=== PATIENT | female | born 1960 | race Caucasian/White ===

== ENCOUNTER 2023-12-02 18:44 | Inpatient (IN) | payer MEDICARE, OTHER, SELFPAY ==
[2023-12-02 13:30] VITALS: BP 134/87
[2023-12-02 13:31] VITALS: BP 134/87
[2023-12-02] MEDS: CATHFLO/ACTIVASE 2 MG IV (14:40)
[2023-12-02 15:00] LABS: Urine Albumin Trace (Neg - Trace); Urine Bilirubin 1+ (Negative); Urine Character Clear (Clear); Urine Color Yellow; Urine Glucose Negative (Negative); Urine Ketone Trace (Negative); Urine Leukocyte Negative (Negative); Urine Nitrite Negative (Negative); Urine Occult Blood Negative (Negative); Urine Specific Gravity 1.015 (<1.030); Urine Urobilinogen Negative (Neg - 1+)
[2023-12-02 16:37] LABS: % Basophils 0.2 % (0-2); % Eosinophils 4.3 % (0-6); % Immature Granulocytes 0.2 % (0-0.5); % Lymphocytes 26.2 % (20.5-51.1); % Monocytes 12.2 % (1.7-9.3); % Neutrophils 56.9 % (42.2-75.2); Absolute Eosinophils 0.2 10^3/uL (0-0.7); Absolute Lymphocytes 1.3 10^3/uL (1.2-3.4); Absolute Monocytes 0.6 10^3/uL (0.1-0.6); Absolute Neutrophils 2.8 10^3/uL (1.4-6.5); Hematocrit 31.8 % (37.0-47.0); Hemoglobin 10.6 g/dL (12.0-16.0); Mean Corp Hgb Conc. 33.3 g/dL (33.0-37.0); Mean Corpuscular Hgb 31.4 pg (27.0-31.0); Mean Corpuscular Volume 94.1 fL (81.0-99.0); Mean Platelet Volume 10.1 fL (7.4-10.4); Nucleated Red Blood Cells % 0 %; Platelet Count 179 10^3/uL (130-400); Red Blood Cell Count 3.38 10^6/uL (4.20-5.40); Red Cell Dist. Width 14.4 % (11.5-14.5); White Blood Cell Count 4.8 10^3/uL (4.8-10.8)
[2023-12-02 17:05] LABS: ALT (SGPT) 19 U/L (0-35); AST (SGOT) 26 U/L (14-36); Albumin 2.7 g/dl (3.5-5.0); Alkaline Phosphatase 64 U/L (38-126); Blood Urea Nitrogen 16 mg/dl (7-17); Calcium 5.8 mg/dl (8.4-10.2); Carbon Dioxide 17 mmol/L (22-30); Chloride 113 mmol/L (98-107); Glucose 84 mg/dl (70-99); Potassium 3.6 mmol/L (3.5-5.1); Sodium 138 mmol/L (135-145); Total Bilirubin 3.3 mg/dl (0.2-1.3); eGFR 42.54
[2023-12-02 17:22] LABS: TSH Reflex To Free T4 1.69 uIU/ml (0.47-4.68)
[2023-12-02 17:47] LABS: Ammonia < 9 umol/L (9-30)
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
[2023-12-02] MEDS: ATIVAN 0.25 MG IV ×2 (18:52→22:23)
[2023-12-02] MEDS: NSS (PRESERVATIVE FREE) 0.125 ML IV ×2 (18:56→22:34)
[2023-12-02 19:35] VITALS: BMI 17.4
[2023-12-02] MEDS: SODIUM BICARBONATE 50 MEQ IV (19:40)
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
--- NOTE | 2023-12-02 20:00 | PTCARENOTE ---
Pt arrived to unit from ED and was a x2 assist into bed with rolling walker. Pt remains confused and AAOx1 to self. Bed alarm and Med Sitter in place. Will continue to monitor.
[2023-12-02 20:01] VITALS: BP 138/83
[2023-12-02] MEDS: NSS 1000 IV (20:16)
[2023-12-02] MEDS: CALCIUM GLUCONATE 290 MG IV (20:17)
[2023-12-02] MEDS: UROCIT-K 15 MEQ PO (21:40)
[2023-12-02] MEDS: NEURONTIN 100 MG PO (21:40)
[2023-12-02] MEDS: RISPERDAL 0.5 MG PO (21:40)
[2023-12-02] MEDS: LOPRESSOR 50 MG PO (21:40)
[2023-12-02] MEDS: SEROQUEL 25 MG PO (21:40)
[2023-12-02] MEDS: BRILINTA 90 MG PO (21:42)
[2023-12-02] MEDS: HEPARIN 5000 UNITS SC (21:43)
[2023-12-02 21:59] LABS: Calcium 8.4 mg/dl (8.4-10.2); Magnesium 0.4 mg/dl (1.6-2.3); Phosphorus 4.4 mg/dl (2.5-4.5)
[2023-12-02] MEDS: BUSPAR 10 MG PO (22:02)
[2023-12-02 22:06] LABS: Intact PTH 75.4 pg/ml (13.6-85.8)
[2023-12-02 22:49] LABS: Vitamin D, 25-OH*** 42.9 ng/mL (30-80)
[2023-12-02 23:26] VITALS: BP 116/79
[2023-12-02] MEDS: MAGNESIUM SULFATE 102 GRAMS IV (23:46)
[2023-12-03] VITALS (7 sets, daily range): BP systolic 136–163; BP diastolic 83–97
--- NOTE | 2023-12-03 00:09 | PTCARENOTE ---
Pt has had 4 loose/liquid brown stools during shift. Will make pt enhanced precautions for now and continue to monitor.
--- NOTE | 2023-12-03 00:17 | PTCARENOTE ---
Pt with critical magnesium level of 0.4. [place] [employer]OVING HAND Tuyet Bingham notified, order for 1x IV Magnesium provided to pt. Will continue to monitor.
--- NOTE | 2023-12-03 03:48 | W.PN.UPDATE ---
Update Note
Progress Note Update
Patient is without agitation per nursing..will trial medsitter.
--- NOTE | 2023-12-03 04:01 | PTCARENOTE ---
Pt resting comfortably in bed without making attempts to get OOB and is no longer combative. Pt remains on Med Sitter and 1:1 order cancelled by TAMIA Bingham. Will continue to monitor.
[2023-12-03 04:44] LABS: % Eosinophils 6.4 % (0-6); % Immature Granulocytes 0.2 % (0-0.5); % Lymphocytes 39.1 % (20.5-51.1); % Monocytes 11.2 % (1.7-9.3); % Neutrophils 43.1 % (42.2-75.2); Absolute Eosinophils 0.3 10^3/uL (0-0.7); Absolute Lymphocytes 1.6 10^3/uL (1.2-3.4); Absolute Monocytes 0.5 10^3/uL (0.1-0.6); Absolute Neutrophils 1.8 10^3/uL (1.4-6.5); Hematocrit 28.4 % (37.0-47.0); Hemoglobin 9.5 g/dL (12.0-16.0); Mean Corp Hgb Conc. 33.5 g/dL (33.0-37.0); Mean Corpuscular Hgb 31.8 pg (27.0-31.0); Mean Platelet Volume 9.9 fL (7.4-10.4); Nucleated Red Blood Cells % 0 %; Platelet Count 140 10^3/uL (130-400); Red Blood Cell Count 2.99 10^6/uL (4.20-5.40); Red Cell Dist. Width 14.3 % (11.5-14.5); White Blood Cell Count 4.2 10^3/uL (4.8-10.8)
[2023-12-03 05:35] LABS: ALT (SGPT) 17 U/L (0-35); AST (SGOT) 21 U/L (14-36); Albumin 2.1 g/dl (3.5-5.0); Alkaline Phosphatase 77 U/L (38-126); Blood Urea Nitrogen 13 mg/dl (7-17); Calcium 6.8 mg/dl (8.4-10.2); Carbon Dioxide 19 mmol/L (22-30); Chloride 114 mmol/L (98-107); Estimated Creatinine Clearance 36 ml/min; Glucose 75 mg/dl (70-99); Potassium 3.2 mmol/L (3.5-5.1); Sodium 140 mmol/L (135-145); Total Bilirubin 3.2 mg/dl (0.2-1.3); eGFR 51.18
[2023-12-03] MEDS: ATIVAN 0.25 MG IV (06:05)
[2023-12-03] MEDS: NSS (PRESERVATIVE FREE) 0.125 ML IV (06:06)
[2023-12-03 07:03] LABS: Magnesium 0.8 mg/dl (1.6-2.3)
--- NOTE | 2023-12-03 07:07 | PTCARENOTE ---
Pt's calcium level this AM was 6.8. House [employer] ADMINISTRATOR Tuyet Bingham notified, order for 1x IV calcium gluconate ordered. Will continue to monitor.
[2023-12-03] MEDS: CALCIUM GLUCONATE 100 IV (07:28)
[2023-12-03] MEDS: UROCIT-K 15 MEQ PO ×2 (08:26→19:34)
[2023-12-03] MEDS: VITAMIN B-12 100 MCG PO (08:28)
[2023-12-03] MEDS: NEURONTIN 100 MG PO ×3 (08:28→21:05)
[2023-12-03] MEDS: BRILINTA 90 MG PO ×2 (08:28→20:00)
[2023-12-03] MEDS: SEROQUEL 25 MG PO (08:28)
[2023-12-03] MEDS: SENOKOT 8.59999999999999964 MG PO (08:28)
[2023-12-03] MEDS: BUSPAR 10 MG PO ×3 (08:28→21:05)
[2023-12-03] MEDS: RISPERDAL 0.5 MG PO (08:28)
[2023-12-03] MEDS: CELEXA 10 MG PO (08:28)
[2023-12-03] MEDS: LOW STRENGTH ASPIRIN 81 MG PO (08:28)
[2023-12-03] MEDS: VITAMIN D3 (cholecalciferol) 50 MCG PO (08:28)
[2023-12-03] MEDS: PEPCID 20 MG PO (08:28)
[2023-12-03] MEDS: LOPRESSOR 50 MG PO ×2 (08:29→19:36)
[2023-12-03] MEDS: HEPARIN 5000 UNITS SC ×2 (08:30→19:39)
[2023-12-03] MEDS: MIRALAX 17 GRAMS PO (08:30)
[2023-12-03] MEDS: STRIVERDI RESPIMAT 2 PUFF INH (08:46)
[2023-12-03] MEDS: SPIRIVA RESPIMAT 2.5 MCG 2 PUFF INH (08:46)
--- NOTE | 2023-12-03 09:35 | PTCARENOTE ---
Patient with continuous attempts to get out of bed unassisted, yelling at staff, swinging at and kicking at staff repeatedly. Bed alarm and AM psychiatric medications ineffective in reducing behaviors. Order for 4-point soft limb restraints obtained
by MD Garrison at 0928 and applied. Will continue to assess behavior and effects of restraints.
[2023-12-03] MEDS: NSS 1000 IV ×2 (11:39→21:29)
--- NOTE | 2023-12-03 12:03 | CON.MD ---
Consultation - Medical
-
patient seen chart reviewed. the patient is a very poor historian who is oriented only top person. she did ask for soft restraints to be removed but could not tell me why she was here or what had happened this am to provoke restraints. i did speak
with her daughter who reports her mother's has hx of depression and anxiety over the years but her mental status declined signficiantly after she suffered several strokes in the summer. irritability has been a major issue for which seroquel was
prescribed and increased from 12.5 q day to 50 mg bid then stopped as it was not effective. she was residing at [facility] and d reports her condition has been seriously deteriorating even further for the past three weeks and she has
requested that they send the patient to the ER. son is a nurse. d believes she was also prescribed celexa, trazodone, remeron at some point. the patient was very agitated this am ongoing and was placed in restraints. she had been prescribed celexa
10 mg risperdal o.5 mg bid seroquel 25 mg bid, gabapentin 100 mg tid buspar 10 mg tid on admit to hospital.
past psych hx see above. hospitalized as a teenager for depression. cognitive changes after cva as well as agitation /mood lability
medical hx see electrolyte abnormalities....patient recently hospitalized at [facility] and similar noted. hx crohns copd hx several cva's htn hld as per d. noted qtc 521. anemia cat brain w atrophy cva small vessel ischemia urine w
bilirubin otherwise clear tsh wnl vit d 40+ blood pressure variable high this am. constipation gerd
fh non contributory
substance abuse denied
social was residing at [place]. d not happy w the care there. three kids two grands. patient unable to tell me this information which d provided
mse patient restless eye contact adequate speech sparse what little she said seemed normal rate and tone oriented to person only cognition impaired affect constricted mood irritable insight judgment impaired
dx delirium superimposed on what seems to be possibly dementia or brain injury secondary to cva
recommendation many abnormalities in electrolytes which of course need to be addressed. patient also quite anemic ? cause. given qtc prolongation stop seroquel and celexa neither of which had proven helpful. increase risperdal to one mg bid
continued buspar for now although not clear whether it can help here. ativan prn inc to o.5 mg continue neurontin which i presume is for neuropathy. check b12 and folate. d would like aricept, namenda etc to be considered when/if delirium
resolves. will follow
[2023-12-03] MEDS: ATIVAN 0.5 MG IV ×2 (12:44→19:38)
[2023-12-03] MEDS: NSS (PRESERVATIVE FREE) 0.25 ML IV ×2 (12:44→19:38)
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
--- NOTE | 2023-12-03 15:58 | CM ---
Chart reviewed
Pt agitated/confused, unable to answer questions
Spoke with Rose at [facility] - pt is LTC and there is a bed hold
Spoke with pts daughter, discussed pts baseline - agitated/confused. Reporting mother more disoriented and agitated recently
Unsure if she would like pt to return to [facility]. Far from relatives. Instructed to go to medicare.gov and look for alternate facilities. Aware pt may have to return to [facility] when medically ready pending search
PCP - Dr López
Pharm - at facility provider
Plan - anticipate return to previous setting when medically ready
[2023-12-03] MEDS: LIPITOR 40 MG PO (17:31)
--- NOTE | 2023-12-03 18:03 | CHAP ---
Addendum entered by Vivian Roger 12/08/23 09:01:
Note: it appears the original note below should be a 'patient care' note rather than a 'pastoral care' note.
Original Note:
patient has no teeth ,offered patient to wash out mouth patient refused.
[2023-12-03] MEDS: RISPERDAL 1 MG PO (19:52)
[2023-12-04] MEDS: TYLENOL 650 MG PO (01:42)
[2023-12-04] MEDS: ATIVAN 0.5 MG IV ×2 (02:40→08:55)
[2023-12-04] MEDS: NSS (PRESERVATIVE FREE) 0.25 ML IV (02:40)
[2023-12-04 03:00] VITALS: BP 171/89
[2023-12-04 06:13] LABS: % Basophils 0.4 % (0-2); % Eosinophils 7.1 % (0-6); % Immature Granulocytes 0.2 % (0-0.5); % Lymphocytes 36.5 % (20.5-51.1); % Monocytes 8.9 % (1.7-9.3); % Neutrophils 46.9 % (42.2-75.2); Absolute Eosinophils 0.3 10^3/uL (0-0.7); Absolute Lymphocytes 1.6 10^3/uL (1.2-3.4); Absolute Monocytes 0.4 10^3/uL (0.1-0.6); Absolute Neutrophils 2.1 10^3/uL (1.4-6.5); Hematocrit 31.3 % (37.0-47.0); Hemoglobin 10.3 g/dL (12.0-16.0); Mean Corp Hgb Conc. 32.9 g/dL (33.0-37.0); Mean Corpuscular Hgb 31.2 pg (27.0-31.0); Mean Corpuscular Volume 94.8 fL (81.0-99.0); Mean Platelet Volume 9.9 fL (7.4-10.4); Nucleated Red Blood Cells % 0 %; Platelet Count 158 10^3/uL (130-400); Red Cell Dist. Width 14.5 % (11.5-14.5); White Blood Cell Count 4.5 10^3/uL (4.8-10.8)
[2023-12-04 07:21] LABS: ALT (SGPT) 19 U/L (0-35); AST (SGOT) 24 U/L (14-36); Albumin 2.6 g/dl (3.5-5.0); Alkaline Phosphatase 95 U/L (38-126); Blood Urea Nitrogen 9 mg/dl (7-17); Calcium 6.3 mg/dl (8.4-10.2); Carbon Dioxide 20 mmol/L (22-30); Chloride 116 mmol/L (98-107); Estimated Creatinine Clearance 44 ml/min; Glucose 83 mg/dl (70-99); Potassium 3.2 mmol/L (3.5-5.1); Sodium 140 mmol/L (135-145); Total Bilirubin 3.4 mg/dl (0.2-1.3); Total Protein 5.5 g/dl (6.3-8.2); eGFR > 60.00
[2023-12-04 07:30] VITALS: BP 151/94
[2023-12-04 07:41] LABS: Folate 7.7 ng/ml (2.76-20); Vitamin B12 184 pg/ml (239-931)
[2023-12-04] MEDS: STRIVERDI RESPIMAT INH (07:51)
[2023-12-04] MEDS: SPIRIVA RESPIMAT 2.5 MCG INH (07:51)
[2023-12-04] MEDS: HEPARIN 5000 UNITS SC ×2 (08:17→19:30)
[2023-12-04] MEDS: MIRALAX 17 GRAMS PO (08:17)
[2023-12-04] MEDS: UROCIT-K 15 MEQ PO ×2 (08:18→19:29)
[2023-12-04] MEDS: VITAMIN B-12 100 MCG PO (08:18)
[2023-12-04] MEDS: LOW STRENGTH ASPIRIN 81 MG PO (08:18)
[2023-12-04] MEDS: VITAMIN D3 (cholecalciferol) 50 MCG PO (08:18)
[2023-12-04] MEDS: NEURONTIN 100 MG PO ×3 (08:19→21:54)
[2023-12-04] MEDS: SENOKOT 8.59999999999999964 MG PO (08:19)
[2023-12-04] MEDS: LOPRESSOR 50 MG PO ×2 (08:19→19:29)
[2023-12-04] MEDS: RISPERDAL 1 MG PO ×2 (08:19→19:30)
[2023-12-04] MEDS: PEPCID 20 MG PO (08:19)
[2023-12-04] MEDS: BUSPAR 10 MG PO ×3 (08:19→21:54)
[2023-12-04] MEDS: BRILINTA 90 MG PO ×2 (08:20→19:30)
--- NOTE | 2023-12-04 09:53 | PN.CDI ---
CDI
- -
CDI:
Physician Documentation Request
Admit Date: 12/02/23 18:44
Dear Doctor Bladimir,
Patient admitted with metabolic encephalopathy.
Please review the following and provide your response in the progress notes.
Clinical Indicators:
Height: 5' 5'
Weight: 104 lb 12 oz
BMI: 17.4
Please provide an associated diagnosis related to the abnormal BMI, such as:
Underweight
Cachectic
Anorexia
BMI is not significant
Other
BMI < or = to 19
Underweight
Weight Loss
Cachectic
Anorexia
Use of terms such as suspected, likely, concern for, or probable (associated with a specific diagnosis that is being evaluated, monitored, or treated as if it exists) are acceptable and can be coded in the inpatient setting, when documented at the
time of discharge.
Thank you,
Manju HERMOSILLO,RN,CCDS
CDI Specialist
Available via [place] text
Please use your independent medical judgment in providing your response.
[2023-12-04] MEDS: KCL 1032 GRAMS IV ×2 (11:17→21:50)
[2023-12-04] MEDS: KCL 1032 MG IV ×2 (11:17→21:50)
[2023-12-04] MEDS: KCL 1032 MEQ IV ×2 (11:17→21:50)
[2023-12-04 11:28] VITALS: BP 165/119
[2023-12-04] MEDS: ATIVAN 0.5 MG PO ×2 (12:43→19:26)
--- NOTE | 2023-12-04 13:15 | W.PN.UPDATE ---
Update Note
Progress Note Update
patient seen chart reviewed. discussed w nursing. mrs oseguera had a rather difficult morning. daughter asked nursing if ativan could be increased as she was hoping mom could be out of restraints. patient did receive a prn of ativan and calmed
sufficiently to be out of restraints when i saw her. have ordered standing bid dosage of ativan while hopefully the risperdal ordered yesterday will provide some relief from agitation in the near future. there is a prn of ativan which can be used
twice per 24 hours . will continue to follow
[2023-12-04 13:17] VITALS: BMI 17.4
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
[2023-12-04 15:56] VITALS: BP 167/110
[2023-12-04] MEDS: LIPITOR 40 MG PO (17:45)
[2023-12-04 20:19] VITALS: BP 165/121
[2023-12-05] VITALS (7 sets, daily range): BP systolic 109–169; BP diastolic 81–112
[2023-12-05] MEDS: ATIVAN 0.5 MG PO ×3 (01:06→21:04)
[2023-12-05 03:55] LABS: Ionized Calcium 0.98 mMOL/L (1.15-1.33)
[2023-12-05 04:58] LABS: ALT (SGPT) 19 U/L (0-35); AST (SGOT) 25 U/L (14-36); Albumin 2.6 g/dl (3.5-5.0); Alkaline Phosphatase 116 U/L (38-126); Blood Urea Nitrogen 8 mg/dl (7-17); Calcium 7.1 mg/dl (8.4-10.2); Carbon Dioxide 19 mmol/L (22-30); Chloride 114 mmol/L (98-107); Estimated Creatinine Clearance 49 ml/min; Glucose 91 mg/dl (70-99); Magnesium 1.7 mg/dl (1.6-2.3); Potassium 4.5 mmol/L (3.5-5.1); Sodium 138 mmol/L (135-145); Total Bilirubin 4.3 mg/dl (0.2-1.3); Total Protein 5.7 g/dl (6.3-8.2); eGFR > 60.00
[2023-12-05] MEDS: UROCIT-K 15 MEQ PO ×2 (07:39→21:04)
[2023-12-05] MEDS: LOW STRENGTH ASPIRIN 81 MG PO (07:40)
[2023-12-05] MEDS: LOPRESSOR 50 MG PO ×2 (07:40→21:04)
[2023-12-05] MEDS: RISPERDAL 1 MG PO ×2 (07:40→21:04)
[2023-12-05] MEDS: SENOKOT 8.59999999999999964 MG PO (07:40)
[2023-12-05] MEDS: PEPCID 20 MG PO (07:40)
[2023-12-05] MEDS: VITAMIN D3 (cholecalciferol) 50 MCG PO (07:40)
[2023-12-05] MEDS: NEURONTIN 100 MG PO ×3 (07:40→21:04)
[2023-12-05] MEDS: KCL 1032 MG IV ×2 (07:41→17:56)
[2023-12-05] MEDS: VITAMIN B-12 100 MCG PO (07:41)
[2023-12-05] MEDS: HEPARIN 5000 UNITS SC ×2 (07:41→21:04)
[2023-12-05] MEDS: KCL 1032 MEQ IV ×2 (07:41→17:56)
[2023-12-05] MEDS: BUSPAR 10 MG PO ×3 (07:41→21:04)
[2023-12-05] MEDS: KCL 1032 GRAMS IV ×2 (07:41→17:56)
[2023-12-05] MEDS: BRILINTA 90 MG PO ×2 (07:41→21:04)
[2023-12-05] MEDS: MIRALAX 17 GRAMS PO (07:41)
[2023-12-05] MEDS: SPIRIVA RESPIMAT 2.5 MCG INH (08:01)
[2023-12-05] MEDS: STRIVERDI RESPIMAT INH (08:01)
--- NOTE | 2023-12-05 14:31 | W.PN.UPDATE ---
Update Note
Progress Note Update
patient seen chart reviewed/spoke with dr brunner. the patient when seen was quietly in bed. i did note that her feet and hands were very cold and staff got her some warm blankets. released her from restraints for the moment without incident.
staff was aware. no changes made in meds. dr brunner and i discussed low calcium and high bilirubin the latter not likely significant patient does not seem to have much of an appetite certified nursing attendant called dietary to ask for soft diet as patient
without teeth and seemed to have trouble chewing. psych will follow
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
[2023-12-05] MEDS: LIPITOR 40 MG PO (17:56)
[2023-12-06] MEDS: ATIVAN 0.5 MG PO ×3 (00:13→21:05)
--- NOTE | 2023-12-06 00:35 | PTCARENOTE ---
Renetta JOHN aware that Pt's IVF completed in the orders. per notes from hospitalist today it states to continue ivf. The current bag infusing has potassium, calcium and magnesium additives. Renetta was made aware of lab values from the
morning. She states to let the current bag finish and then will reevaluate once her morning labs come back.
[2023-12-06 03:00] VITALS: BP 140/100
[2023-12-06 07:20] VITALS: BP 164/97
[2023-12-06] MEDS: SPIRIVA RESPIMAT 2.5 MCG INH ×2 (07:24→07:30)
[2023-12-06] MEDS: STRIVERDI RESPIMAT INH ×2 (07:26→07:30)
[2023-12-06] MEDS: UROCIT-K 15 MEQ PO (08:36)
[2023-12-06] MEDS: LOPRESSOR 50 MG PO ×2 (08:36→21:05)
[2023-12-06] MEDS: PEPCID 20 MG PO (08:36)
[2023-12-06] MEDS: NEURONTIN 100 MG PO ×3 (08:36→21:06)
[2023-12-06] MEDS: VITAMIN D3 (cholecalciferol) 50 MCG PO (08:36)
[2023-12-06] MEDS: BUSPAR 10 MG PO ×3 (08:36→21:06)
[2023-12-06] MEDS: BRILINTA 90 MG PO ×2 (08:36→21:05)
[2023-12-06] MEDS: SENOKOT 8.59999999999999964 MG PO (08:36)
[2023-12-06] MEDS: RISPERDAL 1 MG PO ×2 (08:36→21:06)
[2023-12-06] MEDS: LOW STRENGTH ASPIRIN 81 MG PO (08:36)
[2023-12-06] MEDS: VITAMIN B-12 100 MCG PO (08:36)
[2023-12-06] MEDS: MIRALAX PO (08:50)
[2023-12-06] MEDS: HEPARIN 5000 UNITS SC ×2 (08:50→21:05)
--- NOTE | 2023-12-06 10:16 | PTOTSP ---
Speech Therapy
Swallowing Function: STRATEGIC ACCOUNTS MANAGER trialed puree solids via tsp and thin liquids via tsp and small, single, manipulated straw sips of thin liquids in which patient appeared to tolerated as she did not demonstrate any overt clinical s/sx of aspiration or
difficulty with mastication/ manipulation. Patient's lethargy and increased agitation as the session continued was a barrier to further PO trials. Of note, at baseline patient appeared to have excessive oral secretions which were anteriorly expelled
(drooling).
Per RN, patient tolerated medications crushed in puree.
Recommendations:
1) Trial of IDDSI Level 4 (puree) solids and thin liquids
2) SMALL, single bites and sips
3) Liquids via tsp if possible
4) Medications crushed in puree
5) PO only when ALERT
6) Full supervision and assistance with PO
7) Consider nutrition consult given poor intake
Plan: STRATEGIC ACCOUNTS MANAGER will continue to follow; pending hospitalization.
[2023-12-06 10:31] LABS: Blood Urea Nitrogen 9 mg/dl (7-17); Carbon Dioxide 20 mmol/L (22-30); Chloride 111 mmol/L (98-107); Estimated Creatinine Clearance 44 ml/min; Glucose 94 mg/dl (70-99); Magnesium 2.3 mg/dl (1.6-2.3); Sodium 135 mmol/L (135-145); eGFR > 60.00
[2023-12-06 10:55] LABS: Potassium 6.2 mmol/L (3.5-5.1)
[2023-12-06 11:45] VITALS: BP 133/87
--- NOTE | 2023-12-06 12:20 | W.PN.UPDATE ---
Update Note
Progress Note Update
63 y/o woman with history of Crohn's Disease, multiple TIA's and strokes (last April 2023) admitted from [facility] due to worsening Mental Status. Continues to have electrolyte abnormalities and poor oral intake. K today was 6.2; Na 135 and Ca 8.0.
Is on Buspirone 10 TID; gabapentin 100 TID; Risperdal 1 BID and Ativan 0.5 BID.
Is asleep in bed now. Staff said she had been agitated earlier. Is apparently only oriented to person and does not make any meaningful verbal communication. Apparently increased Risperdal has been helpful and tolerated. Will continue medications
unchanged.
[2023-12-06] MEDS: LR 1000 IV (12:29)
[2023-12-06] MEDS: LOKELMA 10 GRAM PO (12:29)
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
[2023-12-06 15:15] VITALS: BP 144/91
[2023-12-06 16:07] LABS: Blood Urea Nitrogen 10 mg/dl (7-17); Carbon Dioxide 22 mmol/L (22-30); Chloride 110 mmol/L (98-107); Estimated Creatinine Clearance 40 ml/min; Glucose 94 mg/dl (70-99); Potassium 5.8 mmol/L (3.5-5.1); Sodium 134 mmol/L (135-145); eGFR 56.81
[2023-12-06] MEDS: LIPITOR 40 MG PO (17:22)
[2023-12-06 19:57] VITALS: BP 156/94
[2023-12-06 23:37] VITALS: BP 150/95
--- NOTE | 2023-12-07 00:42 | W.PN.UPDATE ---
Update Note
Progress Note Update
respiratory therapy recommends changing striverdi and spiriva MDI to pulmicort nebs due to pt not tolerating MDIs (confusion).
order changed per recommendations
[2023-12-07] MEDS: LR 1000 IV ×2 (00:50→13:58)
[2023-12-07 04:12] VITALS: BP 166/102
[2023-12-07] MEDS: PULMICORT 0.5 MG INH ×2 (07:24→21:16)
[2023-12-07] MEDS: LOW STRENGTH ASPIRIN 81 MG PO (08:02)
[2023-12-07] MEDS: MIRALAX 17 GRAMS PO (08:02)
[2023-12-07] MEDS: VITAMIN B-12 100 MCG PO (08:03)
[2023-12-07] MEDS: PEPCID 20 MG PO (08:03)
[2023-12-07] MEDS: SENOKOT 8.59999999999999964 MG PO (08:03)
[2023-12-07] MEDS: NEURONTIN 100 MG PO ×3 (08:04→21:36)
[2023-12-07] MEDS: LOPRESSOR 50 MG PO ×2 (08:04→19:51)
[2023-12-07] MEDS: ATIVAN 0.5 MG PO ×2 (08:05→19:51)
[2023-12-07] MEDS: VITAMIN D3 (cholecalciferol) 50 MCG PO (08:05)
[2023-12-07] MEDS: HEPARIN 5000 UNITS SC ×2 (08:06→19:52)
[2023-12-07] MEDS: BRILINTA 90 MG PO ×2 (08:10→19:51)
[2023-12-07] MEDS: RISPERDAL 1 MG PO ×2 (08:10→19:51)
[2023-12-07] MEDS: BUSPAR 10 MG PO ×3 (08:10→21:36)
[2023-12-07 08:19] LABS: Hemoglobin 12.2 g/dL (12.0-16.0); Mean Corpuscular Hgb 31.5 pg (27.0-31.0); Mean Corpuscular Volume 95.6 fL (81.0-99.0); Mean Platelet Volume 9.5 fL (7.4-10.4); Platelet Count 191 10^3/uL (130-400); Red Blood Cell Count 3.87 10^6/uL (4.20-5.40); Red Cell Dist. Width 14.9 % (11.5-14.5); White Blood Cell Count 7.5 10^3/uL (4.8-10.8)
[2023-12-07 08:43] LABS: Blood Urea Nitrogen 14 mg/dl (7-17); Calcium 8.3 mg/dl (8.4-10.2); Carbon Dioxide 22 mmol/L (22-30); Chloride 106 mmol/L (98-107); Estimated Creatinine Clearance 36 ml/min; Glucose 104 mg/dl (70-99); Sodium 136 mmol/L (135-145); eGFR 51.18
[2023-12-07 11:10] VITALS: BP 129/84
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
[2023-12-07] MEDS: TYLENOL 650 MG PO (14:31)
[2023-12-07 15:20] VITALS: BP 139/66
[2023-12-07] MEDS: LIPITOR 40 MG PO (17:01)
[2023-12-07 19:25] VITALS: BP 139/96
[2023-12-07] MEDS: VENTOLIN NEBULES 2.5 MG INH (21:16)
[2023-12-07 23:23] VITALS: BP 136/95
[2023-12-08] MEDS: TYLENOL 650 MG PO ×2 (01:02→18:30)
[2023-12-08] MEDS: LR 1000 IV ×2 (02:43→15:51)
[2023-12-08 03:28] VITALS: BP 121/76
[2023-12-08 05:11] LABS: Ionized Calcium 1.07 mMOL/L (1.15-1.33)
[2023-12-08 05:18] LABS: Hematocrit 32.5 % (37.0-47.0); Hemoglobin 10.8 g/dL (12.0-16.0); Mean Corp Hgb Conc. 33.2 g/dL (33.0-37.0); Mean Corpuscular Hgb 31.4 pg (27.0-31.0); Mean Corpuscular Volume 94.5 fL (81.0-99.0); Mean Platelet Volume 9.5 fL (7.4-10.4); Platelet Count 188 10^3/uL (130-400); Red Blood Cell Count 3.44 10^6/uL (4.20-5.40); Red Cell Dist. Width 15.3 % (11.5-14.5); White Blood Cell Count 7.6 10^3/uL (4.8-10.8)
[2023-12-08 05:44] LABS: ALT (SGPT) 15 U/L (0-35); AST (SGOT) 21 U/L (14-36); Albumin 2.6 g/dl (3.5-5.0); Alkaline Phosphatase 106 U/L (38-126); Blood Urea Nitrogen 21 mg/dl (7-17); Calcium 7.7 mg/dl (8.4-10.2); Carbon Dioxide 24 mmol/L (22-30); Chloride 105 mmol/L (98-107); Estimated Creatinine Clearance 29 ml/min; Glucose 108 mg/dl (70-99); Sodium 135 mmol/L (135-145); Total Protein 5.6 g/dl (6.3-8.2); eGFR 39.16
[2023-12-08] MEDS: PULMICORT 0.5 MG INH ×2 (07:34→19:48)
[2023-12-08 07:48] VITALS: BP 132/89
[2023-12-08] MEDS: MIRALAX PO (09:50)
[2023-12-08] MEDS: PEPCID 20 MG PO (09:55)
[2023-12-08] MEDS: ATIVAN 0.5 MG PO ×2 (09:55→21:39)
[2023-12-08] MEDS: LOW STRENGTH ASPIRIN 81 MG PO (09:55)
[2023-12-08] MEDS: BUSPAR 10 MG PO ×3 (09:56→21:39)
[2023-12-08] MEDS: BRILINTA 90 MG PO ×2 (09:56→21:39)
[2023-12-08] MEDS: HEPARIN 5000 UNITS SC ×2 (09:56→19:57)
[2023-12-08] MEDS: LOPRESSOR 50 MG PO (09:56)
[2023-12-08] MEDS: SENOKOT PO (09:57)
[2023-12-08] MEDS: RISPERDAL 1 MG PO ×2 (09:57→21:39)
[2023-12-08] MEDS: NEURONTIN 100 MG PO ×3 (09:57→21:39)
[2023-12-08] MEDS: VITAMIN D3 (cholecalciferol) 50 MCG PO (09:58)
[2023-12-08] MEDS: VITAMIN B-12 100 MCG PO (09:58)
--- NOTE | 2023-12-08 10:52 | CHAP ---
Received a phone call from Ms. Yap's son, Sterling, requesting 'Last Rites' for his mom. No tubing machine operator therapist radiation today. I conferred with MICHEL Lisa who thought that since Ms. Yap is currently full code, not actively dying and not on comfort
care/hospice, it would be ok to contact the Friday on-call tubing machine operator tomorrow. Will do. If her condition changes drastically or comfort care is initiated, please reach out to Pastoral [facility] via the [facility] so a search can be made for a tubing machine operator who
can come.
[2023-12-08 12:00] VITALS: BP 142/88
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
--- NOTE | 2023-12-08 13:50 | CM ---
Chart reviewed and mitts in place, patient was admitted from [facility] and plan will be for patient to return to [facility] when stable.
[facility] when stable
Report [phone] ext [phone]
[2023-12-08 15:42] LABS: Urine Albumin Trace (Neg - Trace); Urine Bilirubin Negative (Negative); Urine Character Slightly Cloudy (Clear); Urine Color Yellow; Urine Glucose Negative (Negative); Urine Ketone Negative (Negative); Urine Leukocyte 2+ (Negative); Urine Nitrite Negative (Negative); Urine Occult Blood 1+ (Negative); Urine Specific Gravity 1.005 (<1.030); Urine Urobilinogen Negative (Neg - 1+)
[2023-12-08 15:53] LABS: COVID-19 Antigen Negative (Negative)
[2023-12-08 15:59] LABS: Urine Bacteria Moderate (Negative); Urine Red Blood Cell 0-2 /HPF (0-2); Urine White Cell >100 /HPF (0-5)
[2023-12-08] MEDS: ROCEPHIN 1000 MG IV (16:00)
[2023-12-08] MEDS: STERILE WATER FOR INJECTION 10 ML IV (16:00)
[2023-12-08] MEDS: FLUSH (NSS) 1 FLUSH IV ×2 (16:01)
[2023-12-08 17:35] VITALS: BP 155/95
[2023-12-08] MEDS: LIPITOR 40 MG PO (18:30)
[2023-12-08 19:21] VITALS: BP 144/84
--- NOTE | 2023-12-08 19:52 | PTCARENOTE ---
Addendum entered by Gabbie Fraga RN 12/08/23 20:17:
PRN IV Lopressor ordered as well for pt's heart rate.
Original Note:
Zeynep JOHN aware pt with temp of 102.9 axillary. previous shift temp was 101.3, tylenol was attempted then but pt wasn't able to take dose. Zeynep de guzman aware that pt's heart rate is 140-155 with temp. Tylenol suppository to be ordered.
[2023-12-08] MEDS: TYLENOL/FEVERALL 650 MG RECTAL (19:57)
[2023-12-08] MEDS: LOPRESSOR 5 MG IV (20:24)
[2023-12-08] MEDS: LOPRESSOR PO (20:25)
[2023-12-08 23:04] VITALS: BP 107/69
[2023-12-09 05:13] LABS: Blood Urea Nitrogen 22 mg/dl (7-17); Calcium 7.8 mg/dl (8.4-10.2); Carbon Dioxide 24 mmol/L (22-30); Chloride 111 mmol/L (98-107); Estimated Creatinine Clearance 31 ml/min; Glucose 102 mg/dl (70-99); Potassium 4.4 mmol/L (3.5-5.1); Sodium 137 mmol/L (135-145); eGFR 42.54
[2023-12-09] MEDS: LR 1000 IV ×2 (05:26→18:01)
[2023-12-09 07:50] VITALS: BP 176/112
[2023-12-09] MEDS: PULMICORT INH (07:50)
[2023-12-09] MEDS: NEURONTIN 100 MG PO ×2 (08:18→21:31)
[2023-12-09] MEDS: ATIVAN 0.5 MG PO ×2 (08:18→21:31)
[2023-12-09] MEDS: VITAMIN B-12 100 MCG PO (08:18)
[2023-12-09] MEDS: LOW STRENGTH ASPIRIN 81 MG PO (08:19)
[2023-12-09] MEDS: PEPCID 20 MG PO (08:19)
[2023-12-09] MEDS: LOPRESSOR 50 MG PO ×2 (08:19→21:31)
[2023-12-09] MEDS: RISPERDAL 1 MG PO ×2 (08:29→21:31)
[2023-12-09] MEDS: BRILINTA 90 MG PO ×2 (08:29→21:31)
[2023-12-09] MEDS: BUSPAR 10 MG PO (08:29)
[2023-12-09] MEDS: SENOKOT PO (08:29)
[2023-12-09] MEDS: VITAMIN D3 (cholecalciferol) 50 MCG PO (08:29)
[2023-12-09] MEDS: MIRALAX PO (08:30)
[2023-12-09] MEDS: HEPARIN 5000 UNITS SC ×2 (08:31→21:31)
[2023-12-09] MEDS: FLUSH (NSS) 1 FLUSH IV ×2 (08:36→13:17)
--- NOTE | 2023-12-09 09:40 | CHAP ---
Addendum entered by Vivian Roger 12/09/23 16:18:
Fr. Mccann did provide Dai with Sacrament of the Sick/Last Rites this afternoon at family's request.
Original Note:
Father Adam Mccann of [facility] in [place] plans to come to see Dai this afternoon between 1:00 and 2:00 pm to give her Last Rites at her family's request.
--- NOTE | 2023-12-09 10:45 | W.PN.UPDATE ---
Update Note
Progress Note Update
Patient seen at bedside, chart reviewed, discussed with staff. Ms. Yap is resting comfortably in bed, [facility] in [facility] for [facility]. Patient developed a fever yesterday and is now being treated for a UTI. No agitation reported overnight.
Impression/Plan: Vascular dementia, with intermittent behavioral disturbance/agitation - Continue with Risperdal 1mg BID which has been reportedly helpful. Ativan available if needed, none given on over 48 hours. Seroquel and Celxa dc'd for QTC
prolongation. Can continue Buspar 10mg BID. Will follow.
--- NOTE | 2023-12-09 11:37 | CM ---
per request from [facility] updated clinical sent today to [facility].
[2023-12-09 11:40] VITALS: BP 139/87
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
[2023-12-09] MEDS: ROCEPHIN 1000 MG IV (13:13)
[2023-12-09] MEDS: STERILE WATER FOR INJECTION 10 ML IV (13:14)
[2023-12-09 15:30] VITALS: BP 156/110
[2023-12-09] MEDS: LIPITOR 40 MG PO (17:54)
[2023-12-09 19:30] VITALS: BP 151/90
[2023-12-09] MEDS: PULMICORT 0.5 MG INH (19:48)
[2023-12-09 23:23] VITALS: BP 155/94
[2023-12-10 03:33] VITALS: BP 109/69
[2023-12-10 06:04] VITALS: BMI 17.5
[2023-12-10 06:06] LABS: % Basophils 1.1 % (0-2); % Eosinophils 9.8 % (0-6); % Immature Granulocytes 0.5 % (0-0.5); % Lymphocytes 24.9 % (20.5-51.1); % Neutrophils 50.7 % (42.2-75.2); Absolute Basophils 0.1 10^3/uL (0-0.2); Absolute Eosinophils 0.4 10^3/uL (0-0.7); Absolute Lymphocytes 1.1 10^3/uL (1.2-3.4); Absolute Monocytes 0.6 10^3/uL (0.1-0.6); Absolute Neutrophils 2.2 10^3/uL (1.4-6.5); Hematocrit 30.2 % (37.0-47.0); Hemoglobin 10.1 g/dL (12.0-16.0); Mean Corp Hgb Conc. 33.4 g/dL (33.0-37.0); Mean Corpuscular Hgb 31.4 pg (27.0-31.0); Mean Corpuscular Volume 93.8 fL (81.0-99.0); Mean Platelet Volume 9.6 fL (7.4-10.4); Nucleated Red Blood Cells % 0 %; Platelet Count 172 10^3/uL (130-400); Red Blood Cell Count 3.22 10^6/uL (4.20-5.40); Red Cell Dist. Width 15.3 % (11.5-14.5); White Blood Cell Count 4.4 10^3/uL (4.8-10.8)
[2023-12-10 06:26] LABS: Blood Urea Nitrogen 16 mg/dl (7-17); Calcium 7.5 mg/dl (8.4-10.2); Carbon Dioxide 25 mmol/L (22-30); Chloride 106 mmol/L (98-107); Estimated Creatinine Clearance 40 ml/min; Glucose 94 mg/dl (70-99); Potassium 4.3 mmol/L (3.5-5.1); Sodium 134 mmol/L (135-145); eGFR 56.81
[2023-12-10] MEDS: SENOKOT 8.59999999999999964 MG PO (07:30)
[2023-12-10] MEDS: VITAMIN B-12 100 MCG PO (07:30)
[2023-12-10] MEDS: LOW STRENGTH ASPIRIN 81 MG PO (07:30)
[2023-12-10] MEDS: ATIVAN 0.5 MG PO ×2 (07:31→21:19)
[2023-12-10] MEDS: PEPCID 20 MG PO (07:31)
[2023-12-10] MEDS: LOPRESSOR 50 MG PO ×2 (07:31→21:23)
[2023-12-10] MEDS: RISPERDAL 1 MG PO ×2 (07:32→21:18)
[2023-12-10] MEDS: MIRALAX PO (07:32)
[2023-12-10] MEDS: BRILINTA 90 MG PO ×2 (07:32→21:19)
[2023-12-10] MEDS: VITAMIN D3 (cholecalciferol) 50 MCG PO (07:33)
[2023-12-10] MEDS: HEPARIN 5000 UNITS SC ×2 (07:33→21:18)
[2023-12-10] MEDS: LR 1000 IV ×2 (07:40→21:18)
[2023-12-10] MEDS: PULMICORT 0.5 MG INH (07:50)
[2023-12-10] MEDS: FLUSH (NSS) 1 FLUSH IV ×2 (09:55→14:00)
[2023-12-10 11:00] VITALS: BP 157/93
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
--- NOTE | 2023-12-10 11:50 | W.PN.UPDATE ---
Update Note
Progress Note Update
patient seen chart reviewed. disucssed with nursing. mrs oseguera was calmly resting when seen. she actually looked at me when i was talking and answered questions seemingly appropriately 'how are your feeling?' to which she replied 'okay'. i asked
her if she liked to color to which she said yes and whether whether she would like a coloring book and crayons to which she also said yes (and i will bring them this afternoon). she is not in restraints also a +. she has not required a prn sinc
3.2. did not make any changes in her meds today. would consider possibly increase in buspar if agitation becomes an issue again. will follow
[2023-12-10] MEDS: FLOMAX 0.400000000000000022 MG PO (12:11)
[2023-12-10] MEDS: STERILE WATER FOR INJECTION 10 ML IV (13:57)
[2023-12-10] MEDS: ROCEPHIN 1000 MG IV (13:57)
[2023-12-10 15:15] VITALS: BP 151/97
[2023-12-10] MEDS: LIPITOR 40 MG PO (17:13)
[2023-12-10 19:20] VITALS: BP 147/94
[2023-12-10] MEDS: PULMICORT INH (19:57)
[2023-12-10] MEDS: NEURONTIN 100 MG PO (21:18)
[2023-12-10 23:25] VITALS: BP 109/70
[2023-12-11 03:20] VITALS: BP 137/89
[2023-12-11 06:34] VITALS: BMI 16.7
[2023-12-11 06:41] LABS: % Eosinophils 7.7 % (0-6); % Immature Granulocytes 0.6 % (0-0.5); % Lymphocytes 27.9 % (20.5-51.1); % Monocytes 13.5 % (1.7-9.3); % Neutrophils 49.3 % (42.2-75.2); Absolute Basophils 0.1 10^3/uL (0-0.2); Absolute Eosinophils 0.4 10^3/uL (0-0.7); Absolute Lymphocytes 1.3 10^3/uL (1.2-3.4); Absolute Monocytes 0.7 10^3/uL (0.1-0.6); Absolute Neutrophils 2.4 10^3/uL (1.4-6.5); Hematocrit 29.4 % (37.0-47.0); Hemoglobin 9.9 g/dL (12.0-16.0); Mean Corp Hgb Conc. 33.7 g/dL (33.0-37.0); Mean Corpuscular Hgb 31.3 pg (27.0-31.0); Mean Platelet Volume 9.6 fL (7.4-10.4); Nucleated Red Blood Cells % 0 %; Platelet Count 194 10^3/uL (130-400); Red Blood Cell Count 3.16 10^6/uL (4.20-5.40); Red Cell Dist. Width 14.9 % (11.5-14.5); White Blood Cell Count 4.8 10^3/uL (4.8-10.8)
[2023-12-11 07:06] LABS: Blood Urea Nitrogen 15 mg/dl (7-17); Calcium 7.7 mg/dl (8.4-10.2); Carbon Dioxide 25 mmol/L (22-30); Chloride 105 mmol/L (98-107); Estimated Creatinine Clearance 47 ml/min; Glucose 97 mg/dl (70-99); Potassium 3.8 mmol/L (3.5-5.1); Sodium 136 mmol/L (135-145); eGFR > 60.00
[2023-12-11 07:30] VITALS: BP 133/86
[2023-12-11] MEDS: FLOMAX 0.400000000000000022 MG PO (08:14)
[2023-12-11] MEDS: BRILINTA 90 MG PO ×2 (08:14→20:29)
[2023-12-11] MEDS: LOW STRENGTH ASPIRIN 81 MG PO (08:14)
[2023-12-11] MEDS: ATIVAN 0.5 MG PO ×2 (08:14→20:29)
[2023-12-11] MEDS: VITAMIN B-12 100 MCG PO (08:14)
[2023-12-11] MEDS: RISPERDAL 1 MG PO ×2 (08:15→20:30)
[2023-12-11] MEDS: LOPRESSOR 50 MG PO ×2 (08:15→20:28)
[2023-12-11] MEDS: PEPCID 20 MG PO (08:15)
[2023-12-11] MEDS: HEPARIN 5000 UNITS SC ×2 (08:16→20:29)
[2023-12-11] MEDS: VITAMIN D3 (cholecalciferol) 50 MCG PO (08:19)
[2023-12-11] MEDS: SENOKOT PO (08:19)
[2023-12-11] MEDS: MIRALAX PO (08:19)
[2023-12-11] MEDS: LR 1000 IV (08:20)
[2023-12-11] MEDS: FLUSH (NSS) 1 FLUSH IV ×2 (08:25→12:50)
[2023-12-11] MEDS: PULMICORT INH (09:40)
[2023-12-11 10:30] VITALS: BP 112/63
--- NOTE | 2023-12-11 10:54 | W.PN.UPDATE ---
Update Note
Progress Note Update
patient sen chart reviewed spoke with nursing. patient is more cooperative. she was quiet when seen this am. vital signs being done. brought her coloring book/ crayons which staff might encourage her to use as nursing notes she likes to be holding
something in her hand. continues to not need prns...none since december 05. now awaiting resolution of klebsiella infection before return to [facility]. psych will sign off at this point.
[2023-12-11] MEDS: ROCEPHIN 1000 MG IV (12:50)
[2023-12-11] MEDS: STERILE WATER FOR INJECTION 10 ML IV (12:50)
--- NOTE | 2023-12-11 12:52 | CM ---
Addendum entered by Celestina Hyde 12/11/23 15:55:
met with patiewnt son and daughter again.patient is now off iv abx.family wants patient to be transferred clolser to son's home on comfort care.ssent referrals to snf facilities in [place] and [facility].await acceptance at another snf facility.
plan:discharge to a snf facility closer to patient's son.
Original Note:
met with patient and her daughter carmel who wants her mom to be on comfort care/palliative care and is thinking of having her mother transferred to [facility].i did call [facility] and spoke aparna petit who states they
can offer patient/family palliative care/comfort care. i left m with carmel that [facility] can take patient back on comfort cre not hospice. patient is still on iv abx for klebsiella infection. patient was quiet sleeping during my visit.
--- NOTE | 2023-12-11 13:00 | PTCARENOTE ---
12/10- Removed MedSitter d/t patient cooperation and discharge planning. Patient is still AAOX1; impulsive, handles feces but does not attempt to pull at tubes or get out of bed herself at this time. Will Continue to Monitor.
[2023-12-11] MEDS: FLUSH (NSS) IV (13:09)
--- NOTE | 2023-12-11 14:35 | PN.CDI ---
CDI
- -
CDI:
Physician Documentation Request
Admit Date: 12/02/23 18:44
Dear Doctor Bladimir,
Patient admitted with metabolic encephalopathy.
3/ Nursing skin assessment, 'Stage 1 sacral pressure injury, POA.'
Physician documentation of the type and location of wounds is required for compliant documentation. Based on the above clinical findings and your assessment, please provide the following in your progress note:
Type (etiology) of ulcer/wound:
- Pressure (decubitus) ulcer
- Other
- Unable to determine
For a pressure ulcer, please also include the stage* of the ulcer:
- Stage 1 - Skin intact, non-blanchable redness
- Stage 2 - Partial thickness loss of dermis, includes intact or open blister
- Stage 3 - Full thickness tissue not including bone, tendon or muscle
- Stage 4 - Full thickness tissue loss, including exposed bone, tendon or muscle
- Unstageable - Full thickness loss in which the base of the ulcer is covered by slough (yellow, angeles, olm[place], green or brown) and/or eschar (angeles, brown or black) in the wound bed.
- Unable to determine
Use of terms such as suspected, likely, concern for, or probable (associated with a specific diagnosis that is being evaluated, monitored, or treated as if it exists) are acceptable and can be coded in the inpatient setting, when documented at the
time of discharge.
Thank you,
Manju HERMOSILLO,RN,CCDS
CDI Specialist
Available via [place] text
Please use your independent medical judgment in providing your response.
*Source: National Pressure Ulcer Advisory Panel (NPUAP)
--- NOTE | 2023-12-11 14:44 | PN.CDI ---
CDI
- -
CDI:
Physician Documentation Request
Admit Date: 12/02/23 18:44
Dear Doctor Bladimir,
Patient admitted with metabolic encephalopathy.
3/4 PN, 'Fever overnight....Urinalysis consistent with UTI....Start ceftriaxone pending urine cultures...Acute kidney injury .'
3/4 Urine culture with Klebsiella pneumoniae
3/4 T max 102.9 and HR 94-155.
Please clarify which of the following most accurately describes the status of the patient's infection:
Severe sepsis evolved during hospital stay
UTI only
Other
Sepsis
- Systemic manifestations of infection, with 2 or more SIRS criteria which include:
- Fever >100.4 degrees F or hypothermia < 96.8 degrees F
- Leukocytosis - WBC > 12,000 or leukopenia - WBC < 4,000 or > 10% bands
- Tachycardia > 90 beats per minute
- Tachypnea - RR > 20 breaths per minute or PaCO2 , 32mmHg
Source: Merck Manual 2013
- Indicate the known or suspected organism
- Indicate the known or suspected underlying infection, such as UTI
Severe Sepsis
- Sepsis with associated acute organ dysfunction, such as renal or respiratory failure
- Documentation should indicate the association between the sepsis and the organ dysfunction
Localized Infection Only, Without Systemic Illness
- indicate the site/source, such as UTI
Other
Unable to Determine
Use of terms such as suspected, likely, concern for, or probable (associated with a specific diagnosis that is being evaluated, monitored, or treated as if it exists) are acceptable and can be coded in the inpatient setting, when documented at the
time of discharge.
Thank you,
Manju HERMOSILLO,RN,CCDS
CDI Specialist
Available via [place] text
Please use your independent medical judgment in providing your response.
[2023-12-11 15:06] VITALS: BP 155/90
[2023-12-11 15:30] VITALS: BP 158/100
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
[2023-12-11] MEDS: LIPITOR 40 MG PO (17:11)
[2023-12-11 19:58] VITALS: BP 125/94
[2023-12-11] MEDS: NEURONTIN 100 MG PO (20:28)
[2023-12-12] VITALS (7 sets, daily range): BP systolic 112–185; BP diastolic 22–98; BMI 17.1
--- NOTE | 2023-12-12 00:16 | PTCARENOTE ---
Patient bladder scanned for 300ml at 0000.
--- NOTE | 2023-12-12 02:35 | PTCARENOTE ---
At 0200, patient was bladder scanned for 401 ml. Per bladder scan protocol, RN straight cath patient for 600 ml.
[2023-12-12 06:29] LABS: % Basophils 1.1 % (0-2); % Eosinophils 9.2 % (0-6); % Immature Granulocytes 0.4 % (0-0.5); % Lymphocytes 39.1 % (20.5-51.1); % Monocytes 10.1 % (1.7-9.3); % Neutrophils 40.1 % (42.2-75.2); Absolute Basophils 0.1 10^3/uL (0-0.2); Absolute Eosinophils 0.4 10^3/uL (0-0.7); Absolute Lymphocytes 1.8 10^3/uL (1.2-3.4); Absolute Monocytes 0.5 10^3/uL (0.1-0.6); Absolute Neutrophils 1.8 10^3/uL (1.4-6.5); Mean Corp Hgb Conc. 33.3 g/dL (33.0-37.0); Mean Corpuscular Hgb 31.3 pg (27.0-31.0); Mean Platelet Volume 9.2 fL (7.4-10.4); Nucleated Red Blood Cells % 0 %; Platelet Count 196 10^3/uL (130-400); Red Blood Cell Count 3.19 10^6/uL (4.20-5.40); Red Cell Dist. Width 14.8 % (11.5-14.5); White Blood Cell Count 4.5 10^3/uL (4.8-10.8)
[2023-12-12 06:54] LABS: Blood Urea Nitrogen 13 mg/dl (7-17); Calcium 7.8 mg/dl (8.4-10.2); Carbon Dioxide 26 mmol/L (22-30); Chloride 109 mmol/L (98-107); Estimated Creatinine Clearance 43 ml/min; Glucose 86 mg/dl (70-99); Potassium 3.7 mmol/L (3.5-5.1); Sodium 135 mmol/L (135-145); eGFR > 60.00
[2023-12-12] MEDS: BRILINTA 90 MG PO ×2 (08:11→20:40)
[2023-12-12] MEDS: MIRALAX 17 GRAMS PO (08:11)
[2023-12-12] MEDS: VITAMIN D3 (cholecalciferol) 50 MCG PO (08:12)
[2023-12-12] MEDS: LOW STRENGTH ASPIRIN 81 MG PO (08:12)
[2023-12-12] MEDS: HEPARIN 5000 UNITS SC ×2 (08:12→20:41)
[2023-12-12] MEDS: SENOKOT 8.59999999999999964 MG PO (08:12)
[2023-12-12] MEDS: VITAMIN B-12 100 MCG PO (08:12)
[2023-12-12] MEDS: RISPERDAL 1 MG PO ×2 (08:12→20:41)
[2023-12-12] MEDS: PEPCID 20 MG PO (08:12)
[2023-12-12] MEDS: FLOMAX 0.400000000000000022 MG PO (08:12)
[2023-12-12] MEDS: ATIVAN 0.5 MG PO ×2 (08:13→20:40)
[2023-12-12] MEDS: LOPRESSOR 50 MG PO ×2 (08:33→20:40)
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
[2023-12-12] MEDS: FLUSH (NSS) 1 FLUSH IV ×2 (13:28→13:34)
[2023-12-12] MEDS: STERILE WATER FOR INJECTION 10 ML IV (13:28)
[2023-12-12] MEDS: ROCEPHIN 1000 MG IV (13:29)
--- NOTE | 2023-12-12 17:03 | CM ---
met with patient son and daughter again.patient is now on iv rocephin
.family wants patient to be transferred clolser to son's home in [facility] on comfort care.sent referrals to snf facilities in [place] and [facility].await acceptance at another snf facility.
plan:discharge to a snf facility on [place] care-not hospice closer to patient's son.
Original Note:
met with patient and her daughter carmel who wants her mom to be on comfort care/palliative care and is thinking of having her mother transferred to [facility].i did call [facility] and spoke aparna petit who states they
can offer patient/family palliative care/comfort care. i left [facility] with carmel that [facility] can take patient back on comfort cre not hospice. patient is still on iv abx for klebsiella infection. patient was quietly sleeping during my visit.
Initialized on 12/11/23 12:52 - END OF NOTE
--- NOTE | 2023-12-12 17:06 | CM ---
i have spoken with daughter carmel to let her know i have not received acceptance from any snf facility near patient's son.carmel told cm it is duty to find a facility close to home since patient is dying and family wants to visit.i have
asked doctor for a pt/ot eval.i have sent referrlals to several other facilities.she cont on iv abx for sepsis.attending aware we have no accepting facilities at this time.
[2023-12-12] MEDS: LIPITOR 40 MG PO (17:36)
[2023-12-12] MEDS: NEURONTIN 100 MG PO (20:42)
[2023-12-13 03:50] VITALS: BP 157/110
[2023-12-13 06:00] VITALS: BMI 16.0
[2023-12-13 07:00] VITALS: BP 132/80
[2023-12-13 08:31] LABS: % Basophils 0.9 % (0-2); % Eosinophils 5.4 % (0-6); % Immature Granulocytes 0.4 % (0-0.5); % Lymphocytes 29.3 % (20.5-51.1); % Monocytes 8.6 % (1.7-9.3); % Neutrophils 55.4 % (42.2-75.2); Absolute Eosinophils 0.3 10^3/uL (0-0.7); Absolute Lymphocytes 1.4 10^3/uL (1.2-3.4); Absolute Monocytes 0.4 10^3/uL (0.1-0.6); Absolute Neutrophils 2.6 10^3/uL (1.4-6.5); Hematocrit 34.6 % (37.0-47.0); Hemoglobin 11.3 g/dL (12.0-16.0); Mean Corp Hgb Conc. 32.7 g/dL (33.0-37.0); Mean Corpuscular Hgb 31.4 pg (27.0-31.0); Mean Corpuscular Volume 96.1 fL (81.0-99.0); Mean Platelet Volume 9.1 fL (7.4-10.4); Nucleated Red Blood Cells % 0 %; Platelet Count 227 10^3/uL (130-400); Red Cell Dist. Width 14.6 % (11.5-14.5); White Blood Cell Count 4.7 10^3/uL (4.8-10.8)
[2023-12-13] MEDS: VITAMIN D3 (cholecalciferol) 50 MCG PO (08:37)
[2023-12-13] MEDS: VITAMIN B-12 100 MCG PO (08:37)
[2023-12-13] MEDS: LOW STRENGTH ASPIRIN 81 MG PO (08:38)
[2023-12-13] MEDS: HEPARIN 5000 UNITS SC ×2 (08:38→21:00)
[2023-12-13] MEDS: BRILINTA 90 MG PO ×2 (08:39→21:04)
[2023-12-13] MEDS: LOPRESSOR 50 MG PO ×2 (08:39→21:00)
[2023-12-13] MEDS: FLOMAX 0.400000000000000022 MG PO (08:39)
[2023-12-13] MEDS: RISPERDAL 1 MG PO ×2 (08:39→21:04)
[2023-12-13] MEDS: ATIVAN 0.5 MG PO ×2 (08:39→21:00)
[2023-12-13] MEDS: MIRALAX PO (08:40)
[2023-12-13] MEDS: PEPCID 20 MG PO (08:40)
[2023-12-13] MEDS: SENOKOT PO (08:41)
[2023-12-13 09:23] LABS: Blood Urea Nitrogen 14 mg/dl (7-17); Calcium 8.3 mg/dl (8.4-10.2); Carbon Dioxide 24 mmol/L (22-30); Chloride 106 mmol/L (98-107); Estimated Creatinine Clearance 45 ml/min; Glucose 109 mg/dl (70-99); Potassium 3.4 mmol/L (3.5-5.1); Sodium 139 mmol/L (135-145); eGFR > 60.00
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
[2023-12-13] MEDS: STERILE WATER FOR INJECTION 10 ML IV (14:15)
[2023-12-13] MEDS: ROCEPHIN 1000 MG IV (14:15)
[2023-12-13 15:00] VITALS: BP 138/98
[2023-12-13] MEDS: LIPITOR 40 MG PO (17:27)
[2023-12-13 19:53] VITALS: BP 122/85
[2023-12-13] MEDS: NEURONTIN 100 MG PO (21:00)
[2023-12-13 23:59] VITALS: BP 145/98
[2023-12-14 03:33] VITALS: BP 149/91
[2023-12-14 06:00] VITALS: BMI 16.2
[2023-12-14 07:29] VITALS: BP 154/96
[2023-12-14] MEDS: ATIVAN 0.5 MG PO ×2 (08:29→19:59)
[2023-12-14] MEDS: VITAMIN B-12 100 MCG PO (08:29)
[2023-12-14] MEDS: HEPARIN 5000 UNITS SC ×2 (08:29→19:58)
[2023-12-14] MEDS: PEPCID 20 MG PO (08:29)
[2023-12-14] MEDS: LOW STRENGTH ASPIRIN 81 MG PO (08:29)
[2023-12-14] MEDS: RISPERDAL 1 MG PO ×2 (08:29→19:59)
[2023-12-14] MEDS: VITAMIN D3 (cholecalciferol) 50 MCG PO (08:29)
[2023-12-14] MEDS: FLOMAX 0.400000000000000022 MG PO (08:29)
[2023-12-14] MEDS: BRILINTA 90 MG PO ×2 (08:30→19:59)
[2023-12-14] MEDS: SENOKOT PO (08:30)
[2023-12-14] MEDS: MIRALAX PO (08:30)
[2023-12-14] MEDS: LOPRESSOR 50 MG PO (08:31)
[2023-12-14 11:56] VITALS: BP 147/96
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
[2023-12-14] MEDS: STERILE WATER FOR INJECTION 10 ML IV (14:04)
[2023-12-14] MEDS: ROCEPHIN 1000 MG IV (14:04)
[2023-12-14 15:11] VITALS: BP 142/94
[2023-12-14] MEDS: LIPITOR 40 MG PO (17:14)
[2023-12-14 19:49] VITALS: BP 146/90
[2023-12-14] MEDS: LOPRESSOR 75 MG PO (19:59)
[2023-12-14] MEDS: NEURONTIN 100 MG PO (22:02)
[2023-12-14 23:07] VITALS: BP 142/96
[2023-12-15 03:30] VITALS: BP 129/86
[2023-12-15 05:40] LABS: Blood Urea Nitrogen 14 mg/dl (7-17); Calcium 8.1 mg/dl (8.4-10.2); Carbon Dioxide 25 mmol/L (22-30); Chloride 109 mmol/L (98-107); Estimated Creatinine Clearance 41 ml/min; Glucose 90 mg/dl (70-99); Potassium 3.3 mmol/L (3.5-5.1); Sodium 136 mmol/L (135-145); eGFR > 60.00
[2023-12-15 06:19] VITALS: BMI 16.4
[2023-12-15 07:11] VITALS: BP 127/84
[2023-12-15] MEDS: VITAMIN B-12 100 MCG PO (08:50)
[2023-12-15] MEDS: ATIVAN 0.5 MG PO ×2 (08:50→20:49)
[2023-12-15] MEDS: HEPARIN 5000 UNITS SC ×2 (08:50→20:48)
[2023-12-15] MEDS: MIRALAX 17 GRAMS PO (08:50)
[2023-12-15] MEDS: LOW STRENGTH ASPIRIN 81 MG PO (08:50)
[2023-12-15] MEDS: BRILINTA 90 MG PO ×2 (08:50→20:49)
[2023-12-15] MEDS: FLOMAX 0.400000000000000022 MG PO (08:51)
[2023-12-15] MEDS: LOPRESSOR 75 MG PO ×2 (08:52→20:48)
[2023-12-15] MEDS: PEPCID 20 MG PO (08:53)
[2023-12-15] MEDS: VITAMIN D3 (cholecalciferol) 50 MCG PO (08:53)
[2023-12-15] MEDS: RISPERDAL 1 MG PO ×2 (08:54→20:49)
[2023-12-15] MEDS: SENOKOT PO (08:55)
--- NOTE | 2023-12-15 10:21 | CM ---
Addendum entered by Kiki Michel 12/15/23 13:22:
Additional referrals sent.
Additional info sent via [facility] to [place].
Original Note:
TC to Rose at [facility].
Patient admitted to [facility] from [facility].
Per Rose 100 skilled medicare days available on admission 10/22/23, admitted to 12/02/23. .
Patient on a 1:1 28/04 for behaviors at the skilled facility.
Per Rose they are willing to accept patient back to the facility and will assist the family's search for an alternate facility.
Plan: return to [facility] if no beds available at another facility.
[facility]
Report# [id number] ext [id number]
[2023-12-15] MEDS: KCL 40 MEQ PO (11:36)
[2023-12-15] MEDS: ROCEPHIN 1000 MG IV (13:44)
[2023-12-15] MEDS: STERILE WATER FOR INJECTION 10 ML IV (13:44)
[2023-12-15 15:26] VITALS: BP 175/113
--- NOTE | 2023-12-15 16:44 | PTCARENOTE ---
Patient with one word responses at times. Is restless at times, difficult to redirect. Out of bed to chair with 2 assist, tolerated 2 hours. Back in bed at present, Monahan catheter care provided , draining binu urine, appetite 100% at breakfast.
Tolerated about 25 % of lunch. In bed at present . Head of bed up , frequent checks maintained.
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
[2023-12-15] MEDS: LIPITOR 40 MG PO (17:48)
[2023-12-15 19:47] VITALS: BP 172/109
[2023-12-15] MEDS: NEURONTIN 100 MG PO (21:08)
[2023-12-15 23:01] VITALS: BP 142/89
[2023-12-16 03:07] VITALS: BP 119/81
[2023-12-16 06:15] VITALS: BMI 16.1
[2023-12-16 07:26] VITALS: BP 127/71
[2023-12-16] MEDS: MIRALAX 17 GRAMS PO (08:55)
[2023-12-16 08:57] LABS: Blood Urea Nitrogen 17 mg/dl (7-17); Calcium 8.2 mg/dl (8.4-10.2); Carbon Dioxide 24 mmol/L (22-30); Chloride 111 mmol/L (98-107); Estimated Creatinine Clearance 40 ml/min; Glucose 88 mg/dl (70-99); Potassium 3.9 mmol/L (3.5-5.1); Sodium 137 mmol/L (135-145); eGFR > 60.00
[2023-12-16] MEDS: FLOMAX 0.400000000000000022 MG PO (09:11)
[2023-12-16] MEDS: SENOKOT 8.59999999999999964 MG PO (09:11)
[2023-12-16] MEDS: LOW STRENGTH ASPIRIN 81 MG PO (09:11)
[2023-12-16] MEDS: VITAMIN B-12 100 MCG PO (09:11)
[2023-12-16] MEDS: PEPCID 20 MG PO (09:12)
[2023-12-16] MEDS: LOPRESSOR 75 MG PO ×2 (09:12→20:53)
[2023-12-16] MEDS: ATIVAN 0.5 MG PO ×2 (09:12→20:53)
[2023-12-16] MEDS: RISPERDAL 1 MG PO ×2 (09:12→20:55)
[2023-12-16] MEDS: BRILINTA 90 MG PO ×2 (09:12→20:54)
[2023-12-16] MEDS: HEPARIN 5000 UNITS SC ×2 (09:13→20:55)
[2023-12-16] MEDS: VITAMIN D3 (cholecalciferol) 50 MCG PO (09:13)
[2023-12-16] MEDS: STERILE WATER FOR INJECTION 10 ML IV (12:55)
[2023-12-16] MEDS: ROCEPHIN 1000 MG IV (12:55)
[2023-12-16 15:23] VITALS: BP 137/90
--- NOTE | 2023-12-16 16:10 | CM ---
CM reviewed chart and pt remains rteady for dc
Pt denied at [facility] in [place]
Call with dtr- she is aware if new SNF cannot be located by tomorrow, pt will need to reutrn back to [facility]
Additional referrals sent in the [place] area per dtr request
No other accepting bed in the [facility]
Bed remains available for SNF return at [facility]
Discharge Disposition- return to [facility]
[2023-12-16] MEDS: LIPITOR 40 MG PO (16:16)
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
[2023-12-16 20:00] VITALS: BP 146/95
[2023-12-16] MEDS: NEURONTIN 100 MG PO (20:55)
[2023-12-16 23:53] VITALS: BP 132/83
[2023-12-17 03:55] VITALS: BP 149/94
[2023-12-17 05:36] VITALS: BMI 16.2
[2023-12-17 07:25] VITALS: BP 156/95
[2023-12-17] MEDS: ATIVAN 0.5 MG PO ×2 (08:45→20:55)
[2023-12-17] MEDS: VITAMIN B-12 100 MCG PO (08:45)
[2023-12-17] MEDS: RISPERDAL 1 MG PO ×2 (08:45→20:56)
[2023-12-17] MEDS: LOPRESSOR 75 MG PO ×2 (08:45→20:53)
[2023-12-17] MEDS: SENOKOT 8.59999999999999964 MG PO (08:45)
[2023-12-17] MEDS: LOW STRENGTH ASPIRIN 81 MG PO (08:46)
[2023-12-17] MEDS: PEPCID 20 MG PO (08:46)
[2023-12-17] MEDS: BRILINTA 90 MG PO ×2 (08:46→20:55)
[2023-12-17] MEDS: VITAMIN D3 (cholecalciferol) 50 MCG PO (08:46)
[2023-12-17] MEDS: FLOMAX 0.400000000000000022 MG PO (08:46)
[2023-12-17] MEDS: HEPARIN 5000 UNITS SC ×2 (08:47→20:55)
[2023-12-17] MEDS: MIRALAX 17 GRAMS PO (08:47)
[2023-12-17 11:05] VITALS: BP 139/93
--- NOTE | 2023-12-17 13:08 | W.DS.TRANS ---
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
-
Discharge Instructions:
Discharge Diagnosis/Procedures Dementia.
UTI
Urinary retention
Diet Regular
Instructions:
Stand-Alone Forms:
Changes to Home Medications: Yes
Discharge Medications:
DC Medications w/original date entered in [facility] [employer]
acetaminophen 325 mg tablet (Tylenol) 650 mg PO Q6HPRN PRN MILD PAIN 12/02/23
albuterol sulfate 2.5 mg/3 mL (0.083 %) solution for nebulization 2.5 mg inhalation R Q4HPRN PRN SOB 12/02/23
aspirin 81 mg chewable tablet 81 mg PO DAILY Lung/Breathing Issues 12/02/23
atorvastatin 40 mg tablet (Lipitor) 40 mg PO QPM High Cholesterol 12/02/23
bisacodyl 10 mg rectal suppository (Dulcolax (bisacodyl)) 10 mg MT DAILYPRN PRN IF NO BM AFTR SORBITOL 12/02/23
calcium carbonate 200 mg calcium (500 mg) chewable tablet (Tums) 200 mg PO Q8HPRN PRN GERD 12/02/23
cholecalciferol (vitamin D3) 50 mcg (2,000 unit) tablet (Vitamin D3) 50 mcg PO DAILY Supplement 12/02/23
cyanocobalamin (vitamin B-12) 100 mcg tablet 100 mcg PO DAILY Supplement 12/02/23
famotidine 40 mg tablet (Pepcid) 40 mg PO DAILY Gastrointestinal Issue 12/02/23
gabapentin 100 mg capsule 100 mg PO TID Neurological Condition 12/02/23
mineral oil 118 ml MT DAILYPRN PRN CONSTIPATION 12/02/23
polyethylene glycol 3350 17 gram oral powder packet (Miralax) 17 g PO DAILY Constipation 12/02/23
potassium citrate 15 mEq (1,620 mg) tablet,extended release 15 meq PO BID Electrolyte Repletion 12/02/23
sennosides 8.6 mg tablet (senna) 8.6 mg PO DAILY Constipation 12/02/23
sodium phosphates 19 gram-7 gram/118 mL enema (Fleet Enema) 118 ml MT DAILYPRN PRN IF NO BM AFTR DULCOLAX 12/02/23
sorbitol 70 % solution 30 ml PO DAILYPRN PRN CONSTIPATION 12/02/23
ticagrelor 90 mg tablet (Brilinta) 90 mg PO BID Blood Clot Prevention/Tx 12/02/23
umeclidinium 62.5 mcg-vilanterol 25 mcg/actuation powdr for inhalation (Anoro Ellipta) 1 inh inhalation R DAILY Lung/Breathing Issues 12/02/23
amoxicillin 875 mg-potassium clavulanate 125 mg tablet 1 tab PO BID #14 tabs 12/17/23
lorazepam 0.5 mg tablet 0.5 mg PO BID #20 tabs 12/17/23
lorazepam 0.5 mg tablet 0.5 mg PO Q4HPRN PRN agitation #20 tabs 12/17/23
metoprolol tartrate 50 mg tablet 75 mg PO BID #60 tabs 12/17/23
risperidone 1 mg tablet 1 mg PO BID #60 tabs 12/17/23
tamsulosin 0.4 mg capsule 0.4 mg PO DAILY #30 caps 12/17/23
Home Medication Changes
Buspar and seroquel stopped.
Comleting antibiotics course
Started on flomax for acute retention along with becker cath placed
Pending Results: No
--- NOTE | 2023-12-17 13:14 | CM ---
Addendum entered by Kiki Michel 12/17/23 14:11:
MD updated.
Left message for TCB from [facility].
Addendum entered by Kiki Michel 12/17/23 14:03:
Call to daughter and she would like all the facilities to respond prior to transferring back to [facility]. CM adonayd to call facilities requested.
Left messages for Mary Lou at [facility] and [facility], admissions at [facility], Jackie at [facility] and Lea from [facility] await response re bed availability
and if they can accept patient.
Original Note:
Patient cleared for d/c back to skilled rehab today.
Left VM for daughter, await TCB.
left VM at [facility] await call back.
[2023-12-17] MEDS: STERILE WATER FOR INJECTION 10 ML IV (13:40)
[2023-12-17] MEDS: ROCEPHIN 1000 MG IV (13:40)
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
[2023-12-17 15:20] VITALS: BP 169/122
[2023-12-17] MEDS: LIPITOR 40 MG PO (17:21)
--- NOTE | 2023-12-17 18:37 | PTCARENOTE ---
Pt son at bedside seen feeding patient sandwich and pizza. Staff educated son on patient's dietary restrictions, that she needs to be eating pureed food from the hospital or she risks aspirating. Dysphagia menu provided and appropriate food ordered.
Son verbalizes understanding.
[2023-12-17 19:15] VITALS: BP 146/90
[2023-12-17] MEDS: NEURONTIN 100 MG PO (21:01)
[2023-12-17 23:25] VITALS: BP 124/84
[2023-12-18 03:20] VITALS: BP 128/80
[2023-12-18 07:07] VITALS: BMI 16.0
[2023-12-18 08:00] VITALS: BP 151/83
[2023-12-18] MEDS: MIRALAX PO (08:09)
[2023-12-18] MEDS: VITAMIN D3 (cholecalciferol) 50 MCG PO (08:10)
[2023-12-18] MEDS: LOW STRENGTH ASPIRIN 81 MG PO (08:11)
[2023-12-18] MEDS: FLOMAX 0.400000000000000022 MG PO (08:11)
[2023-12-18] MEDS: VITAMIN B-12 100 MCG PO (08:11)
[2023-12-18] MEDS: ATIVAN 0.5 MG PO ×2 (08:11→21:12)
[2023-12-18] MEDS: PEPCID 20 MG PO (08:11)
[2023-12-18] MEDS: BRILINTA 90 MG PO ×2 (08:11→21:13)
[2023-12-18] MEDS: SENOKOT 8.59999999999999964 MG PO (08:11)
[2023-12-18] MEDS: LOPRESSOR 75 MG PO ×2 (08:11→21:12)
[2023-12-18] MEDS: HEPARIN 5000 UNITS SC ×2 (08:12→21:13)
[2023-12-18] MEDS: RISPERDAL 1 MG PO ×2 (08:12→21:13)
--- NOTE | 2023-12-18 11:05 | PTCARENOTE ---
Patient with continuous attempts to climb out of bed, observed multiple times with legs over side rails. Medsitter set in place.
--- NOTE | 2023-12-18 11:18 | CM ---
Addendum entered by Kiki Michel 12/18/23 15:00:
f/u call to [facility] [phone] and left VM.
Addendum entered by Kiki Michel 12/18/23 11:25:
Rose from [facility] updated, they do have a bed for patient.
Original Note:
TC from [facility], they are reviewing and have a call out to [facility].
Plan: skilled rehab when bed available and family agreable.
[2023-12-18 12:00] VITALS: BP 151/91
[2023-12-18] MEDS: ROCEPHIN 1000 MG IV (13:37)
[2023-12-18] MEDS: STERILE WATER FOR INJECTION 10 ML IV (13:37)
[2023-12-18 15:45] VITALS: BP 146/91
[2023-12-18] MEDS: LIPITOR 40 MG PO (17:42)
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
[2023-12-18 19:35] VITALS: BP 142/98
[2023-12-18] MEDS: NEURONTIN 100 MG PO (21:12)
[2023-12-18 23:20] VITALS: BP 122/80
[2023-12-19] MEDS: TYLENOL 650 MG PO ×2 (01:34→12:07)
[2023-12-19 03:15] VITALS: BP 130/82
[2023-12-19 06:00] VITALS: BMI 16.0
[2023-12-19 07:00] VITALS: BP 134/85
[2023-12-19] MEDS: LOPRESSOR 75 MG PO (08:10)
[2023-12-19] MEDS: RISPERDAL 1 MG PO (08:10)
[2023-12-19] MEDS: MIRALAX 17 GRAMS PO (08:10)
[2023-12-19] MEDS: FLOMAX 0.400000000000000022 MG PO (08:10)
[2023-12-19] MEDS: BRILINTA 90 MG PO (08:10)
[2023-12-19] MEDS: VITAMIN B-12 100 MCG PO (08:10)
[2023-12-19] MEDS: ATIVAN 0.5 MG PO ×2 (08:10→12:09)
[2023-12-19] MEDS: SENOKOT 8.59999999999999964 MG PO (08:10)
[2023-12-19] MEDS: PEPCID 20 MG PO (08:10)
[2023-12-19] MEDS: VITAMIN D3 (cholecalciferol) 50 MCG PO (08:10)
[2023-12-19] MEDS: LOW STRENGTH ASPIRIN 81 MG PO (08:10)
[2023-12-19] MEDS: HEPARIN 5000 UNITS SC (08:12)
--- NOTE | 2023-12-19 10:38 | PN.CDI ---
CDI
- -
CDI:
Physician Documentation Request
Admit Date: 12/02/23 18:44
Dear Doctor Bladimir,
Please review the following and provide your response in the progress notes.
Clinical Indicators:
Per RD Assessment on 12/17: Moderate Protein Calorie Malnutrition evidenced by poor intake <75% of estimated energy needs for >/= 1 month and loss of fat over rib cage, loss of muscle over temporal, clavicle, quads, calf.
To ensure the quality of the medical record, based on the above information and the recognized standards for malnutrition , could you please verify in your progress notes which of the following responses best reflects the patient's nutritional
status:
Malnutrition (Specify the severity mild, moderate, severe)
No nutritional deficiency
Other (please specify)
[place] Criteria ([facility] Hospitalist 2017)
2 or more criteria must be present for either
non severe or severe malnutrition
Note that the criteria differs related to the
presence of an acute or chronic illness
Acute Illness Chronic Illness
Energy Intake Non Severe: <75% for >7 days Non Severe: <75% for >1 month
Severe: <50% for >5 days Severe: <75% for >1 month
Weight Loss Non Severe: 1-2% over 1 week Non Severe: 5% over 1 month
5% over 1 month 7.5% over 3 months
7.5% over 3 months 10% over 6 months
1 year N/A 20% over 1 year
Severe: >2% over 1 week Severe: >5% over 1 month
>5% over 1 month >7.5% over 3 months
>7.5% over 3 months >10% over 6 months
1 year N/A >20% over 1 year
Body Fat Non Severe: Mild Decrease Non Severe: Mild Loss
Severe: Moderate Decrease Severe: Severe Loss
Muscle Mass Non Severe: Mild Decrease Non Severe: Mild Loss
Severe: Moderate Decrease Severe: Severe Loss
Fluid Accumulation Non Severe: Mild Accumulation Non Severe: Mild Accumulation
Severe: Moderate to severe Severe: Moderate to severe
accumulation accumulation
Reduced Hot Roller Strength Non Severe: N/A Non Severe: N/A
Severe: Measurably reduced Severe: Measurably reduced
Additional criteria that can be used to Determine if Mild or Moderate Malnutrition ([employer]ck Manual 2018)
Mild Moderate Severe
Albumin gm/dl <3.0 gm/dl <2.5 gm/dl <2.0 gm/dl
Pre Albumin mg/dl <15 gm/dl <10 mg/dl <5.0 mg/dl
BMI <18.5 <17 <16
Use of terms such as suspected, likely, concern for, or probable (associated with a specific diagnosis that is being evaluated, monitored, or treated as if it exists) are acceptable and can be coded in the inpatient setting, when documented at the
time of discharge.
Thank you,
Iris Beatty
CDI Specialist
Please use your independent medical judgment in providing your response.
[2023-12-19 11:19] VITALS: BP 126/72
--- NOTE | 2023-12-19 12:09 | W.DS.TRANS ---
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
-
Discharge Instructions:
Discharge Diagnosis/Procedures Dementia.
UTI
Urinary retention
Diet Regular
Instructions:
Stand-Alone Forms:
Changes to Home Medications: Yes
Discharge Medications:
DC Medications w/original date entered in [employer]
acetaminophen 325 mg tablet (Tylenol) 650 mg PO Q6HPRN PRN MILD PAIN 12/02/23
albuterol sulfate 2.5 mg/3 mL (0.083 %) solution for nebulization 2.5 mg inhalation R Q4HPRN PRN SOB 12/02/23
aspirin 81 mg chewable tablet 81 mg PO DAILY Lung/Breathing Issues 12/02/23
atorvastatin 40 mg tablet (Lipitor) 40 mg PO QPM High Cholesterol 12/02/23
bisacodyl 10 mg rectal suppository (Dulcolax (bisacodyl)) 10 mg [place] DAILYPRN PRN IF NO BM AFTR SORBITOL 12/02/23
calcium carbonate 200 mg calcium (500 mg) chewable tablet (Tums) 200 mg PO Q8HPRN PRN GERD 12/02/23
cholecalciferol (vitamin D3) 50 mcg (2,000 unit) tablet (Vitamin D3) 50 mcg PO DAILY Supplement 12/02/23
cyanocobalamin (vitamin B-12) 100 mcg tablet 100 mcg PO DAILY Supplement 12/02/23
famotidine 40 mg tablet (Pepcid) 40 mg PO DAILY Gastrointestinal Issue 12/02/23
gabapentin 100 mg capsule 100 mg PO TID Neurological Condition 12/02/23
mineral oil 118 ml OH DAILYPRN PRN CONSTIPATION 12/02/23
polyethylene glycol 3350 17 gram oral powder packet (Miralax) 17 g PO DAILY Constipation 12/02/23
potassium citrate 15 mEq (1,620 mg) tablet,extended release 15 meq PO BID Electrolyte Repletion 12/02/23
sennosides 8.6 mg tablet (senna) 8.6 mg PO DAILY Constipation 12/02/23
sodium phosphates 19 gram-7 gram/118 mL enema (Fleet Enema) 118 ml OH DAILYPRN PRN IF NO BM AFTR DULCOLAX 12/02/23
sorbitol 70 % solution 30 ml PO DAILYPRN PRN CONSTIPATION 12/02/23
ticagrelor 90 mg tablet (Brilinta) 90 mg PO BID Blood Clot Prevention/Tx 12/02/23
umeclidinium 62.5 mcg-vilanterol 25 mcg/actuation powdr for inhalation (Anoro Ellipta) 1 inh inhalation R DAILY Lung/Breathing Issues 12/02/23
lorazepam 0.5 mg tablet 0.5 mg PO BID #20 tabs 12/17/23
lorazepam 0.5 mg tablet 0.5 mg PO Q4HPRN PRN agitation #20 tabs 12/17/23
metoprolol tartrate 50 mg tablet 75 mg PO BID #60 tabs 12/17/23
risperidone 1 mg tablet 1 mg PO BID #60 tabs 12/17/23
tamsulosin 0.4 mg capsule 0.4 mg PO DAILY #30 caps 12/17/23
amoxicillin 500 mg-potassium clavulanate 125 mg tablet (Augmentin) 1 tab PO BID #10 tabs 12/19/23
Home Medication Changes
Completing antibiotics
Flomax
Pending Results: No
--- NOTE | 2023-12-19 12:15 | CM ---
CM following re: d/c planning
Chart reviewed
Pt is medically stable for d/c
CM spoke with patient's daughter to inform of above
CM followed up on additional referrals that were placed per the daughter's request however due to the capacity of patient's care needs most facilities are unable to accommodate
CM called and spoke with admissions liaison Yareli Morgan who informed CM that the patient is a bed hold at [facility]
Transport confirmed for 3:30pm to return back to the facility
CM to email the patient's daughter a copy of the IMM--email address: [email or web address]
No additional d/c needs to note
PLAN; d/c to [facility]
Report: [phone] ext [phone]
[2023-12-19] MEDS: ROCEPHIN 1000 MG IV (14:11)
[2023-12-19] MEDS: STERILE WATER FOR INJECTION 10 ML IV (14:11)
[2023-12-19 15:00] VITALS: BP 168/98
== END 2023-12-19 15:37 | DRG 91 ==
LOC: 4 WEST ACU 18:44
PROVIDERS: Hospitalist; Internal Medicine; Student in an Organized Health Care Education/Training Program; ADMITTING PHYSICIAN Hospitalist; ATTENDING PHYSICIAN Internal Medicine; EMERGENCY PHYSICIAN Emergency Medicine; FAMILY PHYSICIAN Internal Medicine; OTHER PHYSICIAN Psychiatry & Neurology Psychiatry
DX: G92.8 Other toxic encephalopathy (principal); A41.59 Other Gram-negative sepsis; F01.C11 Vascular dementia, severe, with agitation; F01.C3 Vascular dementia, severe, with mood disturbance; N39.0 Urinary tract infection, site not specified; N17.9 Acute kidney failure, unspecified; K50.90 Crohn's disease, unspecified, without complications; E44.0 Moderate protein-calorie malnutrition; Z68.1 Body mass index [BMI] 19.9 or less, adult; E86.1 Hypovolemia; B96.1 Klebsiella pneumoniae [K. pneumoniae] as the cause of diseases classified elsewhere; R62.7 Adult failure to thrive; K21.9 Gastro-esophageal reflux disease without esophagitis; J44.9 Chronic obstructive pulmonary disease, unspecified; K59.00 Constipation, unspecified; L89.151 Pressure ulcer of sacral region, stage 1; E87.6 Hypokalemia; E83.42 Hypomagnesemia
CPT/HCPCS: 70450; 71045; 80048; 80053; 81003; 81015; 82140; 82306; 82330; 82607; 82746; 83735; 83970; 84100; 84443; 85025; 85027; 87040; 87070; 87077; 87086; 87149; 87186; 87205; 87324; 87449; 87811; 92526; 92610; 93005; 94640; 96374; 99285; J2997; J7030

== ENCOUNTER 2023-12-28 17:46 | Emergency (ER) | payer MEDICARE, OTHER, SELFPAY ==
[2023-12-28 18:23] VITALS: BP 117/67
--- NOTE | 2023-12-28 18:44 | ED.GENMED ---
History of Present Illness
General
Chief Complaint: Failure to Thrive
Source: ambulance crew
Exam Limitations: altered mental status
Time Seen by Provider: 12/28/23 18:31
Travel History
Have you had any contact with someone who has COVID-19?: Unable to Answer
Do you have any symptoms of coronavirus? Fever > 100 degrees, chills, cough, shortness of breath, sore throat, loss of taste or smell, muscle aches, or headache?: Unable to Answer
History of Present Illness
History of Present Illness:
See MDM
Past History
Past History
ED Past Medical History: CVA and Other (Dementia)
Social History
Tobacco: Non-smoker
Alcohol: None
Phy Exam
Physical Exam
Physical Exam:
See MDM
Course
Orders/Labs/Results
Orders:
Orders
12/28/23 18:21
EKG [Electrocardiogram (*1)] Stat
Reason for Study: Tachycardia
EKG- Treatment ONCE
12/28/23 18:29
Complete Blood Count/With Diff Urgent
Comprehensive Metabolic Panel Urgent
12/28/23 18:36
0.9% Sodium Chloride 1000 ml [Nss] 1,000 ml IV BOLUS
12/28/23 18:37
CR Chest Portable - 1 View Urgent
Comment:
Reason For Exam: Altered, weakness
Reason Study Needs to be Portable: Patient Unstable
Abnormal Lab Results
12/28/23
18:29
RBC 3.79 L 10^6/uL
(4.20-5.40)
Hct 36.6 L %
(37.0-47.0)
MCH 31.7 H pg
(27.0-31.0)
MCHC 32.8 L g/dL
(33.0-37.0)
RDW 14.9 H %
(11.5-14.5)
Absolute Monos (auto) 0.7 H 10^3/uL
(0.1-0.6)
Lymphocytes % 17.5 L %
(20.5-51.1)
Sodium 134 L mmol/L
(135-145)
BUN 28 H mg/dl
(7-17)
Creatinine 1.4 H mg/dL
(0.6-1.0)
Glucose 145 H mg/dl
(70-99)
Total Bilirubin 4.2 H mg/dl
(0.2-1.3)
12/28/23 18:29
12/28/23 18:29
Vital Signs
Initial and Last Documented VS:
Initial Vital Signs
Pulse
117
12/28/23 17:54
Last Documented Vital Signs
Temp Pulse Resp BP Pulse Ox
99.4 F 89 18 101/70 96
12/28/23 18:22 12/28/23 22:00 12/28/23 22:00 12/28/23 22:00 12/28/23 18:22
MDM/Problems Addressed
Differential Diagnosis Includes:
HPI and MDM Narrative:
63-year-old female presenting from the nursing facility for altered mental status. Patient was recently admitted for altered mental status and she was found to have Klebsiella urinary tract. She was placed on Augmentin based on susceptibilities.
Nursing staff noted that she has been 'off'
Patient has vascular dementia. She is a poor historian. She is lying in bed comfortably in no acute distress
Bonny� at bedside concerned that she got her medicines too early in the night which made her drowsy. He believes that she is dehydrated
Physical exam
General: Weak and frail
HEENT: protecting airway dry mucous membranes
Neck: supple
CV: No evidence of cyanosis
Resp: No accessory muscle use. Lungs clear
Abd: Non-distended
Extremities: No deformities
: Monahan catheter in place with concentrated urine
Neuro: alert
Psych: Flat affect
Skin: Intact
Problems Addressed including Acute and Chronic Conditions affecting care:
1. UTI
Acuity: acute
Prognosis: stable
Details: Patient has known Klebsiella and currently on Augmentin
2. Dehydration
Acuity: acute
Prognosis: stable
Details: Will start IV fluids
3. Generalized weakness
Acuity: acute
Prognosis: stable
Details: Will repeat blood work and obtain chest x-ray
Updates
Labs appear to be pretty consistent to baseline. On reassessment after fluids, patient states she is feeling better.
Differential Diagnosis (but not limited to): Pneumonia, dehydration, adverse medication side effect
Testing considered: CT head
Drug therapy (if applicable): OTC meds, please see d/c instruction regarding Rx drugs
Amount and/or Complexity of Data Reviewed
Clinical info obtained from: Patient
External data reviewed: Recent admission for altered mental status believed to be related to UTI
Labs I independently reviewed (but not limited to): Creatinine, bilirubin
Radiology: X-ray independently reviewed: Chest x-ray clear without evidence of pneumonia
Pulse Ox: not hypoxic
EKG independently reviewed: N/A
Nurse Ob: N/A
Critical Care: N/A
Risk of Complication:
Social Determinants of health: Good social support
Discussed with other providers: N/A
Escalation of Care includes Admit/Obs: After being observed in the Emergency Department, pt stable for discharge.
Occasional wrong word or 'sound a like' substitutions may have occurred due to the inherent limitations of voice recognition software. Read the chart carefully and recognize, using context, where substitutions have occurred.
*Critical Care Note
Total Time (30-74mins, 75-104mins- exclusive of procedures): Not Applicable
ED Attending Note
-
Portions of this chart may have been created with voice recognition software.� Occasional wrong word or��sound alike� substitutions may have occurred due to the inherent limitations of voice recognition software.
Discharge Plan
Departure
Patient Disposition: Home (Routine Discharge)
Date of Disposition: 12/28/23
Time of Disposition: 22:23
Patient with high blood pressure during this ER visit?: No
Discharge Problem:
Acute dehydration
Prescriptions:
No Action
atorvastatin [Lipitor] 40 mg Tablet
40 mg PO QPM
sennosides [senna] 8.6 mg Tablet
8.6 mg PO DAILY
acetaminophen [Tylenol] 325 mg Tablet
650 mg PO Q6HPRN PRN (Reason: MILD PAIN)
cyanocobalamin (vitamin B-12) 100 mcg Tablet
100 mcg PO DAILY
albuterol sulfate 2.5 mg /3 mL (0.083 %) Solution For Nebulization
2.5 mg INHALATION R Q4HPRN PRN (Reason: SOB)
polyethylene glycol 3350 [Miralax] 17 gram Powder In Packet
17 g PO DAILY
famotidine [Pepcid] 40 mg Tablet
40 mg PO DAILY
mineral oil Enema
118 ml MT DAILYPRN PRN (Reason: CONSTIPATION)
bisacodyl [Dulcolax (bisacodyl)] 10 mg Suppository
10 mg MT DAILYPRN PRN (Reason: IF NO BM AFTR SORBITOL)
calcium carbonate [Tums] 200 mg calcium (500 mg) Tablet,Chewable
200 mg PO Q8HPRN PRN (Reason: GERD)
Fleet Enema 19-7 gram/118 mL Enema
118 ml MT DAILYPRN PRN (Reason: IF NO BM AFTR DULCOLAX)
aspirin 81 mg Tablet,Chewable
81 mg PO DAILY
gabapentin 100 mg Capsule
100 mg PO TID
sorbitol 70 % Solution
30 ml PO DAILYPRN PRN (Reason: CONSTIPATION)
cholecalciferol (vitamin D3) [Vitamin D3] 50 mcg (2,000 unit) Tablet
50 mcg PO DAILY
potassium citrate 15 mEq Tablet Extended Release
15 meq PO BID
Brilinta 90 mg Tablet
90 mg PO BID
Anoro Ellipta 62.5-25 mcg/actuation Blister With Device
1 inh INHALATION R DAILY
lorazepam 0.5 mg Tablet
0.5 mg PO BID Qty: 20 0RF
lorazepam 0.5 mg Tablet
0.5 mg PO Q4HPRN PRN (Reason: agitation) Qty: 20 0RF
tamsulosin 0.4 mg Capsule
0.4 mg PO DAILY Qty: 30 0RF
metoprolol tartrate 50 mg Tablet
75 mg PO BID Qty: 60 0RF
risperidone 1 mg Tablet
1 mg PO BID Qty: 60 0RF
amoxicillin-pot clavulanate [Augmentin] 500-125 mg tablet
1 tab PO BID Qty: 10 0RF
Referrals:
Kang López DO [Family Provider] -
Activity Restrictions/Additional Instructions:
Please return for any worsening symptoms.
You may return at any time if you have further concerns.
Please follow up with your doctor at the first available appointment, preferably this week.
Thank you for choosing [facility].
Interventions
Interventions:
*Risk Screen - Suicide Last Done: 12/28/23 18:22
*General Assessment Last Done: 12/28/23 18:22
*Neglect/Abuse Screening Last Done: 12/28/23 18:22
ED- Fall Risk Assessment Last Done: 12/28/23 19:21
*ED COVID-19 Vaccine History Last Done: 12/28/23 18:22
[2023-12-28 18:49] LABS: % Basophils 0.4 % (0-2); % Eosinophils 4.4 % (0-6); % Immature Granulocytes 0.4 % (0-0.5); % Lymphocytes 17.5 % (20.5-51.1); % Monocytes 7.9 % (1.7-9.3); % Neutrophils 69.4 % (42.2-75.2); Absolute Eosinophils 0.4 10^3/uL (0-0.7); Absolute Lymphocytes 1.5 10^3/uL (1.2-3.4); Absolute Monocytes 0.7 10^3/uL (0.1-0.6); Absolute Neutrophils 5.8 10^3/uL (1.4-6.5); Hematocrit 36.6 % (37.0-47.0); Mean Corp Hgb Conc. 32.8 g/dL (33.0-37.0); Mean Corpuscular Hgb 31.7 pg (27.0-31.0); Mean Corpuscular Volume 96.6 fL (81.0-99.0); Mean Platelet Volume 10.3 fL (7.4-10.4); Nucleated Red Blood Cells % 0 %; Platelet Count 257 10^3/uL (130-400); Red Blood Cell Count 3.79 10^6/uL (4.20-5.40); Red Cell Dist. Width 14.9 % (11.5-14.5); White Blood Cell Count 8.4 10^3/uL (4.8-10.8)
[2023-12-28] MEDS: NSS 1000 IV (18:53)
[2023-12-28 19:00] VITALS: BP 143/99
[2023-12-28 19:05] LABS: ALT (SGPT) 28 U/L (0-35); AST (SGOT) 31 U/L (14-36); Albumin 3.6 g/dl (3.5-5.0); Alkaline Phosphatase 102 U/L (38-126); Blood Urea Nitrogen 28 mg/dl (7-17); Calcium 9.1 mg/dl (8.4-10.2); Carbon Dioxide 25 mmol/L (22-30); Chloride 102 mmol/L (98-107); Glucose 145 mg/dl (70-99); Potassium 4.8 mmol/L (3.5-5.1); Sodium 134 mmol/L (135-145); Total Bilirubin 4.2 mg/dl (0.2-1.3); Total Protein 6.7 g/dl (6.3-8.2); eGFR 42.54
[2023-12-28 20:00] VITALS: BP 102/70
[2023-12-28 21:00] VITALS: BP 137/87
[2023-12-28 22:00] VITALS: BP 101/70
[2023-12-28 23:00] VITALS: BP 130/82
[2023-12-29] VITALS: BP 110/77
== END 2023-12-29 00:57 | disposition home or self-care (01) ==
LOC: EMR 17:46
PROVIDERS: EMERGENCY PHYSICIAN Student in an Organized Health Care Education/Training Program; FAMILY PHYSICIAN Internal Medicine
DX: E86.0 Dehydration (principal); R62.7 Adult failure to thrive; F01.50 Vascular dementia, unspecified severity, without behavioral disturbance, psychotic disturbance, mood disturbance, and anxiety; Z79.82 Long term (current) use of aspirin; Z86.73 Personal history of transient ischemic attack (TIA), and cerebral infarction without residual deficits; Z87.440 Personal history of urinary (tract) infections; Z88.8 Allergy status to other drugs, medicaments and biological substances; Z91.041 Radiographic dye allergy status
CPT/HCPCS: 99285; 96360; 71045; 80053; 85025; 93005

== ENCOUNTER 2024-01-21 12:37 | Emergency (ER) | payer MEDICARE, OTHER, SELFPAY ==
[2024-01-21 12:44] VITALS: BP 107/77
--- NOTE | 2024-01-21 14:49 | ED.GENMED ---
History of Present Illness
General
Chief Complaint: Fall
Source: records and correction
Exam Limitations: dementia
Time Seen by Provider: 01/21/24 13:03
Travel History
Have you had any contact with someone who has COVID-19?: Unable to Answer
Do you have any symptoms of coronavirus? Fever > 100 degrees, chills, cough, shortness of breath, sore throat, loss of taste or smell, muscle aches, or headache?: Unable to Answer
History of Present Illness
History of Present Illness:
63-year-old female apparently fell out of her reclining chair. No obvious trauma noted by the staff. Initially complained of some arm pain. Patient has no complaints at this time. Of note there is an erythematous swollen area to abdominal wall.
She has been receiving subcutaneous fluid injections at this site. Site was changed last night.
Past History
Past History
ED Past Medical History: CVA and Other (Dementia. Crohn's disease)
Social History
Tobacco: Non-smoker
Alcohol: None
Living: correction
Review of Systems
Review of Systems
Unable to obtain full review of systems at this time due to: dementia
All Other Systems: Not applicable
Phy Exam
Physical Exam
Physical Exam:
TRAUMA EXAM:
VITAL SIGNS: Vital signs reviewed, cooperative. Old for stated age
DISTRESS: No active disease
EYES: Pupils reactive, no orbital trauma
NOSE: No deformity or epistaxis
FACE AND SCALP: No scalp or facial trauma, external canals no blood
NECK: Supple nontender
BACK: Back nontender, pelvis stable to compression
RESPIRATORY: No distress, breath sounds normal, no tender chest wall
CARDIAC: No murmur, pulses equal and strong
ABDOMEN: Soft nontender bowel sounds normal
SKIN: Skin intact approximately 78 cm area of erythema to the abdominal wall with questionable fluctuance
EXTREMITIES: Nontender
NEUROLOGICAL: Alert, oriented x 1 no motor deficits
PSYCH: Mood affect normal
Course
Orders/Labs/Results
Orders:
Orders
01/21/24 13:46
Cardiac Monitoring- Treatment ONCE
01/21/24 13:47
CT Cervical Spine W/o Iv Contr Urgent
Comment:
Reason For Exam: trauma
CT Head W/o Iv Contrast Urgent
Comment:
Reason For Exam: trauma
01/21/24 15:20
Cephalexin Monohydrate [Keflex] 500 mg PO NOW STA
Vital Signs
Initial and Last Documented VS:
Initial Vital Signs
Temp Pulse Resp BP Pulse Ox
97.4 F 88 20 107/77 98
01/21/24 12:44 01/21/24 12:44 01/21/24 12:44 01/21/24 12:44 01/21/24 12:44
Last Documented Vital Signs
Temp Pulse Resp BP Pulse Ox
97.4 F 105 21 129/93 96
01/21/24 12:44 01/21/24 18:15 01/21/24 18:15 01/21/24 18:29 01/21/24 18:29
*Radiology
Radiology exam reviewed: radiology read reviewed (No acute findings)
*Pulse Oximetry
Patient hypoxic: no
*Garment Presser Interpretation
Rate: normal
Interpretation: normal
Heart Rate: 80
Rhythm: sinus
*Critical Care Note
Total Time (30-74mins, 75-104mins- exclusive of procedures): Not Applicable
Data Reviewed
Review of Other/Old Records Reveals: Labs, Radiology Studies and Testing
Update Note
Update Note:
From a trauma standpoint patient is stable. No findings to support serious trauma related to the fall. As for this area of erythema to the abdominal wall I was initially going to ultrasound to evaluate for abscess or fluid collection requiring
drainage. However after discussing with the staff they have been giving her subcutaneous injections at this site and therefore I am sure there would be some fluid there. We will cover with antibiotics warm compresses and close follow-up. Son was
updated
1530... Rechecked. Moving all extremities without difficulty. No shortening. No deformity. Normal sinus rhythm on the monitor. Stable vital signs.
ED Attending Note
-
Portions of this chart may have been created with voice recognition software.� Occasional wrong word or��sound alike� substitutions may have occurred due to the inherent limitations of voice recognition software.
Discharge Plan
Departure
Patient Disposition: Home (Routine Discharge)
Date of Disposition: 01/21/24
Time of Disposition: 15:18
Patient with high blood pressure during this ER visit?: No
Discharge Problem:
Fall evaluation, Abdominal wall inflammation, Clysis location
Instructions: Preventing Falls ED
Prescriptions:
New
cephalexin 500 mg capsule
500 mg PO TID 7 Days Qty: 21 0RF
No Action
atorvastatin [Lipitor] 40 mg Tablet
40 mg PO QPM
sennosides [senna] 8.6 mg Tablet
8.6 mg PO DAILY
acetaminophen [Tylenol] 325 mg Tablet
650 mg PO Q6HPRN PRN (Reason: MILD PAIN)
cyanocobalamin (vitamin B-12) 100 mcg Tablet
100 mcg PO DAILY
albuterol sulfate 2.5 mg /3 mL (0.083 %) Solution For Nebulization
2.5 mg INHALATION R Q4HPRN PRN (Reason: SOB)
polyethylene glycol 3350 [Miralax] 17 gram Powder In Packet
17 g PO DAILY
famotidine [Pepcid] 40 mg Tablet
40 mg PO DAILY
mineral oil Enema
118 ml IA DAILYPRN PRN (Reason: CONSTIPATION)
bisacodyl [Dulcolax (bisacodyl)] 10 mg Suppository
10 mg IA DAILYPRN PRN (Reason: IF NO BM AFTR SORBITOL)
calcium carbonate [Tums] 200 mg calcium (500 mg) Tablet,Chewable
200 mg PO Q8HPRN PRN (Reason: GERD)
Fleet Enema 19-7 gram/118 mL Enema
118 ml IA DAILYPRN PRN (Reason: IF NO BM AFTR DULCOLAX)
aspirin 81 mg Tablet,Chewable
81 mg PO DAILY
sorbitol 70 % Solution
30 ml PO DAILYPRN PRN (Reason: CONSTIPATION)
cholecalciferol (vitamin D3) [Vitamin D3] 50 mcg (2,000 unit) Tablet
50 mcg PO DAILY
potassium citrate 15 mEq Tablet Extended Release
15 meq PO BID
Brilinta 90 mg Tablet
90 mg PO BID
lorazepam 0.5 mg Tablet
0.5 mg PO BID Qty: 20 0RF
lorazepam 0.5 mg Tablet
0.5 mg PO Q4HPRN PRN (Reason: agitation) Qty: 20 0RF
tamsulosin 0.4 mg Capsule
0.4 mg PO DAILY Qty: 30 0RF
metoprolol tartrate 50 mg Tablet
75 mg PO BID Qty: 60 0RF
hydrocortisone [Preparation H Hydrocortisone] 1 % Cream
1 applic TOPICAL Q4HPRN PRN (Reason: hemorrhiods)
ferrous sulfate 325 mg (65 mg iron) Tablet
325 mg PO DAILY
mirtazapine [Remeron] 15 mg Tablet
15 mg PO HS
umeclidinium-vilanterol 62.5-25 mcg/actuation Blister With Device
1 inh INHALATION R DAILY
risperidone 1 mg tablet
0.5 mg PO BID
Referrals:
Kang López DO [Family Provider] - Follow up in 2-3 days
Activity Restrictions/Additional Instructions:
We found no serious issues related to the fall. Please get rechecked with any unusual concerns including vomiting headache
Chest pain abdominal pain unusual extremity symptoms etc.
As for the local swelling and redness at her clysis location, I recommend antibiotics warm compresses and observation for any extension of the redness warmth etc.
Interventions
Interventions:
*Risk Screen - Suicide Last Done: 01/21/24 12:48
*General Assessment Last Done: 01/21/24 12:48
*Neglect/Abuse Screening Last Done: 01/21/24 12:48
ED- Fall Risk Assessment Last Done: 01/21/24 18:32
*ED COVID-19 Vaccine History Last Done: 01/21/24 12:48
*Nursing Disposition Last Done: 01/21/24 18:32
ED-Musculoskeletal Assessment Last Done: 01/21/24 12:49
ED- Neurological Assessment Last Done: 01/21/24 12:49
ED-Skin Assessment Last Done: 01/21/24 12:49
Discharge Date and Time
Discharge Date/Time: 01/21/24 18:38
Print Language: LITHUANIAN
[2024-01-21 15:00] VITALS: BP 104/68
[2024-01-21 16:00] VITALS: BP 121/72
[2024-01-21] MEDS: KEFLEX 500 MG PO (16:05)
[2024-01-21 17:00] VITALS: BP 133/104
[2024-01-21 18:29] VITALS: BP 129/93
== END 2024-01-21 18:38 | disposition home or self-care (01) ==
LOC: EMR 12:37
PROVIDERS: EMERGENCY PHYSICIAN Emergency Medicine; FAMILY PHYSICIAN Internal Medicine
DX: R19.00 Intra-abdominal and pelvic swelling, mass and lump, unspecified site (principal); W07.XXXA Fall from chair, initial encounter
CPT/HCPCS: 99284; 70450; 72125

== ENCOUNTER 2024-02-16 17:14 | Inpatient (IN) | payer MEDICARE, OTHER, SELFPAY ==
[2024-02-16] VITALS (22 sets, daily range): BP systolic 80–124; BP diastolic 61–94
--- NOTE | 2024-02-16 12:01 | ED.GENMED ---
History of Present Illness
General
Chief Complaint: Failure to Thrive
Time Seen by Provider: 02/16/24 11:59
Travel History
Have you had any contact with someone who has COVID-19?: No
Do you have any symptoms of coronavirus? Fever > 100 degrees, chills, cough, shortness of breath, sore throat, loss of taste or smell, muscle aches, or headache?: No
History of Present Illness
History of Present Illness:
HPI: The patient presents by ambulance from [facility]. I am told that the patient has been picking at her abdominal wound and has had poor p.o. intake. I spoke to staff at [facility]. About a month ago patient was placed on a clysis device on
the abdominal wall as she has poor venous access. This was stopped about 2 weeks ago. While survival specialist was rounding 3 days ago they note wound to the abdominal wall where the clysis device was. It seemed to worsen on Friday and today
there was concern for purulent drainage. She is frequently dehydrated. She has been doing poorly recently in general.
EXAM:
GENERAL: Appears chronically ill, she is hypotensive
HEENT: Dry oral mucosa, sunken eyes, appears
CARDIOVASCULAR: Regular rate and rhythm
PULMONARY: No respiratory distress, breathing is nonlabored, equal and clear breath sounds
ABDOMEN: Soft and nontender with no peritoneal signs, there is an open wound draining serous fluid concerning for possible cutaneous fistula
NEUROLOGIC: The patient has evidence of dementia, not oriented to month or place, strength is equal in all extremities, bradykinesia noted, has trouble following simple commands
EXTREMITIES: Right lower extremity is held in internal rotation
PYSCHIATRIC: Very limited historian, poor insight and judgment
TIME OF INITIAL ENCOUNTER: 12:30 PM
NUMBER AND COMPLEXITY OF PROBLEMS ADDRESSED AT THE ENCOUNTER
� Chronic conditions affecting care: Prior stroke, COPD, Crohn's, anxiety
� Acute Exacerbation and/or Progression of Chronic Illness: This is an acute problem
� Differential Diagnosis includes: Abdominal abscess, abdominal wall cellulitis, sepsis, bacteremia, enterocutaneous fistula
AMOUNT AND/OR COMPLEXITY OF DATA TO BE REVIEWED AND ANALYZED
� I performed an independent evaluation of and my interpretation is:
EKG:
CT: I personally reviewed CT imaging and agree with radiologist interpretation that there is some stranding of the abdominal wall but no discrete abscess to require drainage
X-rays:
Laboratory Studies: White count 8.2, hemoglobin 11.5, creatinine is 1.4 with GFR of 42�renal numbers are similar to December, lactic slightly elevated 2.1
Other:
� Review of other/old records: I reviewed records, the creatinine was also 1.4 on 12/28/2023
� Clinical information was obtained by an independent historian: I called sonNadeem [phone], but no answer; I reviewed paperwork from [facility]
� Prescriptions/Medications Considered but not given:
� Further testing considered but not performed:
RISK OF COMPLICATIONS AND/OR MORBIDITY OR MORTALITY OF PATIENT MANAGEMENT
� Social determinants of health affecting care: Currently resides at [facility]
� Discussion with other providers: I spoke to [facility]; [facility] also called back indicating request for PEG placement; hospitalist for admission at 3:25 PM
� Escalation of care including admission/observation vs risk of discharge considered: I spoke to [facility] for history. I am concerned for the possibly of infectious etiology as well as dehydration. We are giving IV fluids.
Wound culture has been obtained. Systolic blood pressure has improved after IV fluids were given. DaughterMaria, is not certain that she would want a PEG tube placed and had actually suggested hospice. I have ordered
antibiotics.
Past History
Past History
ED Past Medical History: CVA and Other (Dementia. Crohn's disease)
Social History
Tobacco: Non-smoker
Alcohol: None
Living: longterm
Phy Exam
Physical Exam
Physical Exam:
See HPI
Course
Orders/Labs/Results
Orders:
Orders
02/16/24 12:09
Complete Blood Count/With Diff Urgent
Comprehensive Metabolic Panel Urgent
Lactate Level [Lactic Acid] Urgent
02/16/24 12:42
0.9% Sodium Chloride 1000 ml [Nss] 1,000 ml IV BOLUS
02/16/24 12:45
Lactic Acid Q4H
Comment: CANCEL 2nd LACTIC ACID IF 1st LACTIC ACID IS LESS THAN 2
02/16/24 12:47
CT Abd/pel Without Iv Or Oral Urgent
Comment:
Reason For Exam: abd wound over RLQ; cannot ana po, dye algy / CKD
02/16/24 13:01
Urinalysis Reflex To Culture Urgent
Date Specimen was Collected: 02/16/24
Time Specimen was Collected: 12:44
Urine Microscopic Reflex Cult Urgent
Blood Culture Q30M
LEE Source: Blood/Venous
Specimen Description:
Urine Culture Urgent
LEE Source: U
Specimen Description:
Obtained by: Random
Date Specimen was Collected: 02/16/24
Time Specimen was Collected: 12:44
Wound Culture [Wound/Abscess/Other Culture] Urgent
LEE Source: Abdomen
Specimen Description:
Date Specimen was Collected: 02/16/24
Time Specimen was Collected: 12:44
02/16/24 13:23
Blood Culture Q30M
LEE Source: Blood/Venous
Specimen Description:
02/16/24 15:14
CeFAZolin 1 GRAM [Ancef] 1 gram in 5 ml IV NOW
02/16/24 16:45
Lactic Acid Q4H
Comment: CANCEL 2nd LACTIC ACID IF 1st LACTIC ACID IS LESS THAN 2
Abnormal Lab Results
02/16/24 02/16/24
12:09 13:01
RBC 3.87 L 10^6/uL
(4.20-5.40)
Hgb 11.5 L g/dL
(12.0-16.0)
Hct 35.7 L %
(37.0-47.0)
MCHC 32.2 L g/dL
(33.0-37.0)
RDW 14.6 H %
(11.5-14.5)
Absolute Eos (auto) 0.8 H 10^3/uL
(0-0.7)
Lymphocytes % 19.6 L %
(20.5-51.1)
Eosinophils % 9.4 H %
(0-6)
BUN 24 H mg/dl
(7-17)
Creatinine 1.4 H mg/dL
(0.6-1.0)
Glucose 126 H mg/dl
(70-99)
Lactic Acid 2.1 H mmol/L
(0.7-2.0)
Total Bilirubin 4.0 H mg/dl
(0.2-1.3)
Total Protein 6.2 L g/dl
(6.3-8.2)
Albumin 3.0 L g/dl
(3.5-5.0)
Ur Occult Blood Reflex 1+ A
(Negative)
Urine Nitrite (Reflex) Positive A
(Negative)
Urine Bilirubin 2+ A
(Negative)
Urine Urobilinogen 3+ A
(Neg - 1+)
Leukocyte Esterase Rfl 2+ A
(Negative)
Urine RBC 7-10 A /HPF
(0-2)
Urine WBC (Reflex) 16-20 A /HPF
(0-5)
Urine Bacteria (Reflex) Many A
(Negative)
02/16/24 12:09
02/16/24 12:09
Vital Signs
Initial and Last Documented VS:
Initial Vital Signs
Pulse Ox
97
02/16/24 11:36
Last Documented Vital Signs
Temp Pulse Resp BP Pulse Ox
98.2 F 66 16 95/66 100
02/16/24 12:31 02/16/24 14:15 02/16/24 14:15 02/16/24 14:15 02/16/24 14:15
*Critical Care Note
Total Time (30-74mins, 75-104mins- exclusive of procedures): 45 min
comment:
Patient arrived hypotensive with systolics in the 80s. She was aggressively given IV fluids and overall blood pressure has improved. I am concerned for at least borderline sepsis however white count is normal. Her lactic acid is elevated. I have
also ordered antibiotics. Her vital signs were very closely monitored. I spoke to Yousuf several times as well as the daughter.
ED Attending Note
-
Portions of this chart may have been created with voice recognition software.� Occasional wrong word or��sound alike� substitutions may have occurred due to the inherent limitations of voice recognition software.
Discharge Plan
Departure
Patient Disposition: Admit
Date of Disposition: 02/16/24
Time of Disposition: 15:26
Presentation/result/management discussed w/ accepting MD/DO: Hospitalist
Patient with high blood pressure during this ER visit?: Yes
Discharge Problem:
Abdominal wall cellulitis
Prescriptions:
No Action
atorvastatin [Lipitor] 40 mg Tablet
40 mg PO QPM
sennosides [senna] 8.6 mg Tablet
8.6 mg PO DAILY
acetaminophen [Tylenol] 325 mg Tablet
650 mg PO Q6HPRN PRN (Reason: mild pain )
cyanocobalamin (vitamin B-12) 100 mcg Tablet
100 mcg PO DAILY
albuterol sulfate 2.5 mg /3 mL (0.083 %) Solution For Nebulization
2.5 mg INHALATION R Q4HPRN PRN (Reason: SOB)
polyethylene glycol 3350 [Miralax] 17 gram Powder In Packet
17 g PO DAILY
famotidine [Pepcid] 40 mg Tablet
40 mg PO DAILY
mineral oil Enema
118 ml MN DAILYPRN PRN (Reason: constipation )
bisacodyl [Dulcolax (bisacodyl)] 10 mg Suppository
10 mg MN DAILYPRN PRN (Reason: IF NO BM AFTR SORBITOL)
calcium carbonate [Tums] 200 mg calcium (500 mg) Tablet,Chewable
200 mg PO Q8HPRN PRN (Reason: GERD)
Fleet Enema 19-7 gram/118 mL Enema
118 ml MN DAILYPRN PRN (Reason: IF NO BM AFTR DULCOLAX)
aspirin 81 mg Tablet,Chewable
81 mg PO DAILY
sorbitol 70 % Solution
30 ml PO DAILYPRN PRN (Reason: constipation )
cholecalciferol (vitamin D3) [Vitamin D3] 50 mcg (2,000 unit) Tablet
50 mcg PO DAILY
potassium citrate 15 mEq Tablet Extended Release
15 meq PO BID
Brilinta 90 mg Tablet
90 mg PO BID
lorazepam 0.5 mg Tablet
0.5 mg PO Q4HPRN PRN (Reason: agitation) Qty: 20 0RF
hydrocortisone [Preparation H Hydrocortisone] 1 % Cream
1 applic TOPICAL Q4HPRN PRN (Reason: hemorrhiods)
ferrous sulfate 325 mg (65 mg iron) Tablet
325 mg PO DAILY
mirtazapine [Remeron] 15 mg Tablet
15 mg PO HS
umeclidinium-vilanterol 62.5-25 mcg/actuation Blister With Device
1 inh INHALATION R DAILY
risperidone 1 mg tablet
0.5 mg PO BID
sulfamethoxazole-trimethoprim [Bactrim DS] 800-160 mg Tablet
1 tab PO BID
Patient Comments:
take from 02/15/24-02/22/24
escitalopram oxalate [Lexapro] 5 mg Tablet
5 mg PO DAILY
lorazepam 0.5 mg tablet
0.5 mg PO BID
tamsulosin 0.4 mg capsule
0.4 mg PO DAILY
metoprolol tartrate 50 mg tablet
75 mg PO BID
Referrals:
Kang López, [Family Provider] -
Interventions
Interventions:
*Risk Screen - Suicide Last Done: 02/16/24 14:18
*Neglect/Abuse Screening Last Done: 02/16/24 14:18
*ED COVID-19 Vaccine History Last Done: 02/16/24 12:00
ED-Skin Assessment Last Done: 02/16/24 14:37
Discharge Date and Time
Print Language: SUDANESE
[2024-02-16 12:25] LABS: % Basophils 0.9 % (0-2); % Eosinophils 9.4 % (0-6); % Immature Granulocytes 0.5 % (0-0.5); % Lymphocytes 19.6 % (20.5-51.1); % Neutrophils 63.6 % (42.2-75.2); Absolute Basophils 0.1 10^3/uL (0-0.2); Absolute Eosinophils 0.8 10^3/uL (0-0.7); Absolute Lymphocytes 1.6 10^3/uL (1.2-3.4); Absolute Monocytes 0.5 10^3/uL (0.1-0.6); Absolute Neutrophils 5.2 10^3/uL (1.4-6.5); Hematocrit 35.7 % (37.0-47.0); Hemoglobin 11.5 g/dL (12.0-16.0); Mean Corp Hgb Conc. 32.2 g/dL (33.0-37.0); Mean Corpuscular Hgb 29.7 pg (27.0-31.0); Mean Corpuscular Volume 92.2 fL (81.0-99.0); Nucleated Red Blood Cells % 0 %; Platelet Count 218 10^3/uL (130-400); Red Blood Cell Count 3.87 10^6/uL (4.20-5.40); Red Cell Dist. Width 14.6 % (11.5-14.5); White Blood Cell Count 8.2 10^3/uL (4.8-10.8)
[2024-02-16 12:32] LABS: ALT (SGPT) 14 U/L (0-35); AST (SGOT) 16 U/L (14-36); Alkaline Phosphatase 81 U/L (38-126); Blood Urea Nitrogen 24 mg/dl (7-17); Calcium 8.6 mg/dl (8.4-10.2); Carbon Dioxide 26 mmol/L (22-30); Chloride 105 mmol/L (98-107); Glucose 126 mg/dl (70-99); Potassium 4.4 mmol/L (3.5-5.1); Sodium 140 mmol/L (135-145); Total Protein 6.2 g/dl (6.3-8.2); eGFR 42.27
[2024-02-16 12:43] LABS: Lactic Acid 2.1 mmol/L (0.7-2.0)
[2024-02-16 13:14] LABS: Urine Albumin Trace (Neg - Trace); Urine Bilirubin 2+ (Negative); Urine Character Very Cloudy (Clear); Urine Glucose Negative (Negative); Urine Ketone Negative (Negative); Urine Leukocyte 2+ (Negative); Urine Nitrite Positive (Negative); Urine Occult Blood 1+ (Negative); Urine Urobilinogen 3+ (Neg - 1+)
[2024-02-16 13:19] LABS: Urine Color Yellow
[2024-02-16] MEDS: NSS 1000 IV ×2 (13:26→18:43)
[2024-02-16 13:48] LABS: Urine Bacteria Many (Negative); Urine White Cell 16-20 /HPF (0-5)
[2024-02-16] MEDS: ANCEF 5 IV (15:44)
--- NOTE | 2024-02-16 16:26 | HPS.HSE ---
Addendum entered and electronically signed by Luiz Coleman MD 02/16/24 20:23:
I saw and examined the patient.
The INDUSTRIAL SAFETY AND HEALTH MANAGER or PA's note was reviewed and I agree with the note.
Comment: The para-umbilical wound does not seem to be very deep she does not present with obvious sepsis other than low BP probably in relation low volume and poor intake ( after cyclis access and infusion stopped for up to a week. Given purulent
return noted will cont on Cefazolin , have wound care follow .Will hold BP meds Patient has had an extended course dysphagia , poor intake and advanced vascular dementia with poor quality of life. Had an extended discussion with patients daughter
there seems to be some disagreement between her and her brother regarding Goals of care in that daughter who is a nurse has been in favor of Hospice care but her brother may not be on board with this and she feels does not understand concepts of
Hospice care . I promised I would try and reach out to him tomorrow . In this regard will need to document lack odf decision making capacity from the patient with a Psychiatry consult
Original Note:
Family Physician
-
Family Physician: Kang López, DO
Chief Complaint
-
Abdominal Wound and Hypotension
History of Present Illness
This is 64 year old female past medical history of advanced vascular dementia, multiple strokes, dysphagia, and anxiety/depression who presents from [facility] due to worsening abdominal wall wound x 3 days. Patient is a limited historian due to
advanced dementia. She has been receiving rehydration therapy via clysis device with access into the abdominal wall x 1 month, which was discontinued 2 weeks ago. She was seen by a client application support specialist who raised concerns about possible abdominal
wall cellulitis at the site of the clysis device which has been worsening and now with purulent discharge. While in the emergency department she was noted to be hypotensive. She is unable to provide further history.
Medical History
Past Medical History
Past Medical History: Reports Other
Additional Past Medical History:
Multiple Strokes
Vascular Dementia
Generalized Anxiety Disorder
COPD
Crohn's Disease
Chronic Urinary Retention
Past Surgical History: Reports None
Social History
Tobacco: Former Smoker
Living: Usp
Family History
Family History: Not pertinent
Allergies / Home Medications
Allergies reflects when Allergies were last updated in [employer].
Home Medications with original date entered in [employer] [facility]
Allergy/Medication List:
Allergies
Allergy/AdvReac Type Severity Reaction Status Date / Time
divalproex sodium Allergy Unknown Verified 12/02/23 14:14
Iodinated Contrast Media Allergy Anaphylaxis Verified 12/02/23 14:14
iodine Allergy Anaphylaxis Verified 12/02/23 14:14
tositumomab Allergy Unknown Verified 12/02/23 14:14
valproic acid Allergy Unknown Verified 12/02/23 14:14
Home Medications
acetaminophen 325 mg tablet (Tylenol) 650 mg PO Q6HPRN PRN mild pain 12/02/23
albuterol sulfate 2.5 mg/3 mL (0.083 %) solution for nebulization 2.5 mg inhalation R Q4HPRN PRN SOB 12/02/23
aspirin 81 mg chewable tablet 81 mg PO DAILY Blood Clot Prevention/Tx 12/02/23
atorvastatin 40 mg tablet (Lipitor) 40 mg PO QPM High Cholesterol 12/02/23
bisacodyl 10 mg rectal suppository (Dulcolax (bisacodyl)) 10 mg AZ DAILYPRN PRN IF NO BM AFTR SORBITOL 12/02/23
calcium carbonate (Tums) 200 mg PO Q8HPRN PRN GERD 12/02/23
cholecalciferol (vitamin D3) 50 mcg (2,000 unit) tablet (Vitamin D3) 50 mcg PO DAILY Supplement 12/02/23
cyanocobalamin (vitamin B-12) 100 mcg tablet 100 mcg PO DAILY Supplement 12/02/23
famotidine 40 mg tablet (Pepcid) 40 mg PO DAILY Gastrointestinal Issue 12/02/23
mineral oil 118 ml AZ DAILYPRN PRN constipation 12/02/23
polyethylene glycol 3350 17 gram oral powder packet (Miralax) 17 g PO DAILY Constipation 12/02/23
potassium citrate 15 mEq (1,620 mg) tablet,extended release 15 meq PO BID Electrolyte Repletion 12/02/23
sennosides 8.6 mg tablet (senna) 8.6 mg PO DAILY Constipation 12/02/23
sodium phosphates 19 gram-7 gram/118 mL enema (Fleet Enema) 118 ml AZ DAILYPRN PRN IF NO BM AFTR DULCOLAX 12/02/23
sorbitol 70 % solution 30 ml PO DAILYPRN PRN constipation 12/02/23
ticagrelor 90 mg tablet (Brilinta) 90 mg PO BID Blood Clot Prevention/Tx 12/02/23
lorazepam 0.5 mg tablet 0.5 mg PO Q4HPRN PRN agitation #20 tabs 12/17/23
ferrous sulfate 325 mg (65 mg iron) tablet 325 mg PO DAILY Supplement 01/21/24
hydrocortisone 1 % topical cream (Preparation H Hydrocortisone) 1 applic topical Q4HPRN PRN hemorrhiods 01/21/24
mirtazapine 15 mg tablet (Remeron) 15 mg PO HS depression/sleep 01/21/24
risperidone 1 mg tablet 0.5 mg PO BID Mental Health/Anxiety 01/21/24
umeclidinium 62.5 mcg-vilanterol 25 mcg/actuation powdr for inhalation 1 inh inhalation R DAILY Lung/Breathing Issues 01/21/24
escitalopram oxalate 5 mg tablet (Lexapro) 5 mg PO DAILY depression/anxiety 02/16/24
lorazepam 0.5 mg tablet 0.5 mg PO BID anxiety 02/16/24
metoprolol tartrate 50 mg tablet 75 mg PO BID Blood Pressure 02/16/24
sulfamethoxazole 800 mg-trimethoprim 160 mg tablet (Bactrim DS) 1 tab PO BID Infection 02/16/24
tamsulosin 0.4 mg capsule 0.4 mg PO DAILY Urinary Issue 02/16/24
Review of Systems
-
Unable to obtain full review of systems at this time due to: Dementia
Physical Exam
Vital Signs
Vital Signs
Temp Pulse Resp BP Pulse Ox
98.2 F 81 19 93/72 95
02/16/24 12:31 02/16/24 16:00 02/16/24 16:00 02/16/24 16:00 02/16/24 15:46
Physical Exam
General: No Apparent Distress, Conversant and Appears Chronically Ill
HEENT: NormoCephalic and Anicteric
Respiratory: Clear and Non Labored Respirations
Cardiac: S1/S2 and Regular Rhythm
GI: Soft and Non Tender
Genito-urinary: Monahan (Cloudy urine)
Musculoskeletal: No Clubbing, No Cyanosis, No Edema and Other (bilateral lower ext and left upper extremity contracted)
Skin: Warm and Dry
Neuro: Awake, Alert and Oriented (Self only)
Psych: Confused and Apparent Dementia
Laboratory Results
-
02/16/24 12:09
02/16/24 12:09
Laboratory Results
Lactic Acid 2.1 mmol/L (0.7-2.0) H 02/16/24 12:09
Total Bilirubin 4.0 mg/dl (0.2-1.3) H 02/16/24 12:09
AST 16 U/L (14-36) 02/16/24 12:09
ALT 14 U/L (0-35) 02/16/24 12:09
Alkaline Phosphatase 81 U/L (38-126) 02/16/24 12:09
Data Reviewed
-
Lab Data: Labs Reviewed by me
Old Records: Reviewed
Impression/Plan
-
Acute Kidney Injury secondary to Volume Depletion
-Continue IVFs
-Recheck creatinine in AM
Abdominal Wall Cellulitis
-Gram stain reveals gram positive cocci
-Continue Ancef
Failure to Thrive
-Discussed with patient's daughter Maria ([phone])
-Continue pleasure feeding with pureed solids and thin liquids
-Continue discussions with family in regards to future nutrition via PEG tube vs palliative care
Multiple Strokes
-Continue Aspirin and Brilinta
-Continue atorvastatin
Vascular Dementia with prior episodes of behavioral disturbance
-Monitor for mood/behavior changes
-Consult Psych for competency assessment
Anxiety/Depression
-Continue Lexapro, Remeron, Ativan and Risperdal
Essential Hypertension
-Hold metoprolol due to low blood pressure
COPD
-Continue umeclidinium-vilanterol
-Continue albuterol prn
Chronic Urinary Retention
-Continue Monahan Catheter
-Hold Flomax
Hx Crohn's Disease
DVT proph: SCDs
Code Status: Full Code
--- NOTE | 2024-02-16 16:58 | CM ---
CM reviewed medical records. Patient is a LTC resident of [facility]. Plan to return on discharge.
PLAN: Plan to return to [facility].
[2024-02-16 17:24] LABS: Lactic Acid 1.1 mmol/L (0.7-2.0)
[2024-02-16 19:22] LABS: Lactic Acid 0.9 mmol/L (0.7-2.0)
[2024-02-16] MEDS: LIPITOR 40 MG PO (20:42)
[2024-02-16] MEDS: ATIVAN 0.5 MG PO (20:42)
[2024-02-16] MEDS: SENOKOT 8.59999999999999964 MG PO (20:43)
[2024-02-16] MEDS: BRILINTA 90 MG PO (20:43)
[2024-02-16] MEDS: RISPERDAL 0.5 MG PO (20:43)
[2024-02-16] MEDS: REMERON 15 MG PO (20:47)
[2024-02-16] MEDS: PEPCID 20 MG PO (20:47)
[2024-02-17] MEDS: NSS 1000 IV ×2 (04:48→16:40)
[2024-02-17] MEDS: ANCEF 10 IV ×2 (04:48→15:10)
[2024-02-17 05:06] LABS: Hematocrit 30.5 % (37.0-47.0); Hemoglobin 9.6 g/dL (12.0-16.0); Mean Corp Hgb Conc. 31.5 g/dL (33.0-37.0); Mean Corpuscular Hgb 29.2 pg (27.0-31.0); Mean Corpuscular Volume 92.7 fL (81.0-99.0); Platelet Count 186 10^3/uL (130-400); Red Blood Cell Count 3.29 10^6/uL (4.20-5.40); Red Cell Dist. Width 14.5 % (11.5-14.5); White Blood Cell Count 7.5 10^3/uL (4.8-10.8)
[2024-02-17 05:59] LABS: Blood Urea Nitrogen 18 mg/dl (7-17); Calcium 8.1 mg/dl (8.4-10.2); Carbon Dioxide 19 mmol/L (22-30); Chloride 113 mmol/L (98-107); Estimated Creatinine Clearance 36 ml/min; Glucose 70 mg/dl (70-99); Magnesium 1.8 mg/dl (1.6-2.3); Phosphorus 3.4 mg/dl (2.5-4.5); Potassium 3.9 mmol/L (3.5-5.1); Sodium 140 mmol/L (135-145); eGFR 56.46
[2024-02-17 07:03] VITALS: BMI 16.3
[2024-02-17 07:30] VITALS: BP 128/72
[2024-02-17] MEDS: ATIVAN 0.5 MG PO (08:55)
[2024-02-17] MEDS: MIRALAX 17 GRAMS PO (08:55)
[2024-02-17] MEDS: LOW STRENGTH ASPIRIN 81 MG PO (08:55)
[2024-02-17] MEDS: LEXAPRO 5 MG PO (08:55)
[2024-02-17] MEDS: BRILINTA 90 MG PO ×2 (08:55→21:12)
[2024-02-17] MEDS: RISPERDAL 0.5 MG PO (08:56)
[2024-02-17] MEDS: SENOKOT 8.59999999999999964 MG PO (08:56)
--- NOTE | 2024-02-17 09:59 | W.PN.HOSP.TC ---
Today's Communication/Plan
-
I would hold off on further attempts at oral feedings as she remains high risk for aspiration
Will need to confirm with family members as palliative care option should be pursued in the setting as ongoing failure to thrive and poor quality of life remain this would not be ameliorated any by the addition of a PEG tube in my estimation
Assessment / Plan
Assessment / Plan
64 year old female past medical history of advanced vascular dementia, multiple strokes, dysphagia, and anxiety/depression who presents from [facility] due to worsening abdominal wall wound x 3 days. Patient is a limited historian due to advanced
dementia. She has been receiving rehydration therapy via clysis device with access into the abdominal wall x 1 month, which was discontinued 2 weeks ago.
She was seen by a customer advisor specialist who raised concerns about possible abdominal wall cellulitis at the site of the clysis device which has been worsening and now with purulent discharge. While in the emergency department she was noted to be
hypotensive. She is unable to provide further history.
Blood pressures improved overnight with IV fluids however it remains despondent contracted with evidence of continued dysphagia placing her at high risk for aspiration
Acute Kidney Injury secondary to Volume Depletion
-Continue IVFs reduce IV rate
-Recheck creatinine in AM improved
Abdominal Wall Cellulitis
-Gram stain reveals gram positive cocci
-Continue Ancef
-Care team to see
Failure to Thrive
-Discussed with patient's daughter Maria ([phone])
-Continue pleasure feeding with pureed solids and thin liquids
-Continue discussions with family in regards to future nutrition via PEG tube vs palliative care
Multiple Strokes
-Continue Aspirin and Brilinta
-Continue atorvastatin
Vascular Dementia with prior episodes of behavioral disturbance
-Monitor for mood/behavior changes
-Consult Psych for competency assessment
Anxiety/Depression
-Continue Lexapro, Remeron, Ativan and Risperdal
-Await psych input
Essential Hypertension
-Hold metoprolol due to low blood pressure
COPD
-Continue umeclidinium-vilanterol
-Continue albuterol prn
Chronic Urinary Retention
-Continue Monahan Catheter
-Hold Flomax
Hx Crohn's Disease
DVT proph: SCDs
Code Status: Full Code
Anticipated Discharge: 24 - 48 hours
Subjective/Interval History
-
Date of Service: February 17, 2024
Remains despondent hunched over contracted poor appetite and evidence of risk of aspiration on attempts to feed and they should be avoided further
Objective Data
-
Labs:
Laboratory Results
02/17/24
04:57
WBC 7.5
Hgb 9.6 L
Hct 30.5 L
Plt Count 186
Sodium 140
Potassium 3.9
Chloride 113 H
Carbon Dioxide 19 L
BUN 18 H
Creatinine 1.1 H
Glucose 70
Calcium 8.1 L
Vital Signs:
Vital Signs
Temp Pulse Resp BP Pulse Ox
98.0 F 75 16 128/72 98
02/17/24 07:30 02/17/24 07:30 02/17/24 07:30 02/17/24 07:30 02/17/24 07:30
I&O
02/16/24 02/17/24 02/18/24
06:59 06:59 06:59
Intake Total 1200 / 1200
Output Total 300 / 300
Balance 900 / 900
Review of Systems
-
Unable to obtain full review of systems at this time due to: Dementia
History Source: Patient and Family
Respiratory: Reports No Symptoms
Cardiac: Reports No Symptoms
Abdomen/GI: Reports No Symptoms
Musculoskeletal: Reports Other (Contracted)
Psych: Reports Depressed and Sad
Physical Exam
-
General: Cachectic
Respiratory: Clear to Auscultation
Cardiac: Regular Rhythm
GI: Soft
Neuro: Awake
Psych: Confused, Depressed and Apparent Dementia; Negative Intact Judgement/Insight
Data Reviewed
-
CT Scan: Report Reviewed by me (Reviewed results of CT imaging showing periumbilical area stranding)
Labs: Labs Reviewed by me (Hemoglobin 9.6 white count 7.5/electrolytes improved with a sodium 140 in a.m. potassium 3.9 given chloride 113)
--- NOTE | 2024-02-17 10:25 | WOUNDNOTE ---
ABDOMEN Q TIP 6CM AT 12 O CLOCK, 5CM AT 6 O CLOCK
--- NOTE | 2024-02-17 10:30 | WOUNDNOTE ---
WON RN note: Patient admitted with abdominal wall cellulitis.
See H&P for complete history. From [facility].
PMH: Stroke-multiple, dementia, Crohn's disease and anxiety.
Wound Location and type/assessment: Patient admitted with: 2 small open wounds on abdomen from Clysis IV device. Drainage is serosanguineous, no odor, + staph from wound culture per nurse Tammy. At 12 O clock undermines 6cm, distally undermines
5cm, depth 1cm and undermines 1cm on sides. Per Dr. Coleman the device is a subcutaneous infusion, he is aware of the above. Sacrum is blanchable red, heels intact.
Appetite: Poor.
Pressure redistribution devices in place: On Accumax, easy to turn. Pillow under calves.
Plan: For abdomen applied alginate and silicone foam. Foams applied to sacrum and heels to protect.
Will confirm orders with hospitalist and updated nurse.
Updated care plan and will follow as needed.
Note to case management of equipment requested for discharge: air mattress.
Recommend follow up at wound care center upon discharge.
--- NOTE | 2024-02-17 11:07 | W.PN.UPDATE ---
Update Note
Progress Note Update
I reached out to the patient's son Sterling in the situation and that the patient's has reached apparent medical futility short of prolonging her life with nutrition which would only prolong the life suffering as the patient cannot take anything
orally by mouth with very high risk of aspiration and now has developed a abdominal wall infection from subcu infusions to try and hydrate her. I offered the option of hospice care to make her comfortable versus insertion of a PEG tube which would
offer an element of nutrition but would not improve quality of life and would only prolong her suffering. He relayed to me he will get back to me with his decision after discussion with other people.
I subsequently reached out to patient's daughter Maria and related my conversation with her brother she is coming out to see the patient later today I did inform her that we have consulted psychiatry to see if we can get a documentation of the
patient's decision making capacity which seems to be minimal if at all. Explained to both of them that a consensus has to come in regards to patient's nutritional status i.e. inserting PEG tube versus hospice care which would be the more viable
option in my estimation given circumstances.
[2024-02-17 12:25] VITALS: BP 116/83
--- NOTE | 2024-02-17 12:40 | W.PN.UPDATE ---
Update Note
Progress Note Update
Spoke to daughter at bedside after patient daughter came in the visit and found the patient less than prior levels of response came up to see the patient and she is simply sedated with stable vitals at this point we had discussions with goals of
care with patient's son on the phone along with the patient's daughter at bedside and now agreeable to at least hear what hospice options are available to them as they seem to be leaning toward hospice care situation at home and I will consult to be
kept full CODE STATUS for now until further delineation and discussions. I would withhold further Ativan and respite all given levels of sedation.
--- NOTE | 2024-02-17 13:43 | CM ---
night shift manager reviewed a consult for hospice, family are requesting an evaluation and information from hospice, hospice agencies were reviewed and they are agreeable to [facility], referral sent to [facility], daughter Maria Gomez
[phone].
Plan; Referral sent to [facility].
--- NOTE | 2024-02-17 14:09 | HOSPNOTE ---
Addendum entered by Diana Jaramillo RN 02/17/24 14:50:
Had a lengthy discussion with daughter about hospice and the philosophy. The daughter is in agreement with hospice and would like to discuss with her brother this evening. The patient resides in [place] near [facility] and the family is
requesting a facility placement near there on hospice. Apparently due to patient's behaviors the facilities denied patient, however the patient is not having any severe agitation. Case management spoke with daughter and will look for placement in
that area. I will continue to follow. Discussed code status and the daughter is also discussing that with her brother this evening.
Original Note:
I will meet with daughter to discuss hospice. More information to follow.
--- NOTE | 2024-02-17 14:41 | CS.PSYCHR ---
Consult Summary - Psychiatry
-
Pt is 64 yo female with history of advanced vascular dementia, admitted from [facility] with margot-umbilical wound, dysphagia, poor po intake. Psychiatry asked to evaluate pt's capacity for decision-making. Pt noted to have poor
prognosis/poor quality of life, being considered for palliative care or Hospice. Pt noted not able to have any meaningful communication. Reviewed with nursing staff, who reports pt only says a few words off and on, answered with 'morning' when
awoken earlier. Pt reportedly had some yelling overnight. Pt took but did not swallow routine Risperdal and Ativan this morning, had to be suctioned. On approach, pt asleep and not responding to verbal attempts to wake her up.
PMH: Multiple Strokes, Vascular Dementia, COPD, Crohn's Disease, Chronic Urinary Retention
Psych hx: inpatient tx as a teen for depression. Noted to have cognitive and mood changes after CVA's. Pt seen during previous stay, dx Dementia with agitation, on Risperidone 1 mg BID, Buspar 10 mg BID, Ativan prn. Seroquel and Celexa were
tried and stopped due to QTc prolongation
Current psychotropic meds: Ativan 0.5 mg BID, Risperidone 0.5 mg BID, Remeron 15 mg HS, Lexapro 5 mg QD
MSE: asleep, not waking to verbal stimuli, ill-appearing/cachectic. No agitation, no signs of psychosis. Pt noted not able to have meaninful conversation
Imp: Pt lacks capacity for decision-making due to advanced dementia, with impaired communication
Rec: Continue current management
Psychiatry will follow peripherally
[2024-02-17 14:49] VITALS: BP 104/68
--- NOTE | 2024-02-17 15:55 | CHAP ---
Addendum entered by Vivian Roger 02/17/24 15:56:
Reply received: Fr. Mccann is on his way.
Original Note:
[employer] request relayed to Friday on-call at family's request. Awaiting reply.
--- NOTE | 2024-02-17 16:02 | PTCARENOTE ---
Chapliain's office notified that pt's daughter wants her mother to be blessed and given last rights. Davina informed this nurse that a school crossing guard supervisor will be in to follow those requests.
--- NOTE | 2024-02-17 16:43 | CHAP ---
Fr. Mccann provided Sacrament of the Sick/Last Rites for Ms. Yap at family's request.
[2024-02-17] MEDS: LIPITOR PO (17:19)
[2024-02-17 17:30] VITALS: BMI 16.3
[2024-02-17] MEDS: SENOKOT PO (20:56)
[2024-02-17] MEDS: REMERON 30 MG PO (21:13)
[2024-02-17 23:18] VITALS: BP 147/81
--- NOTE | 2024-02-18 04:09 | DOWNTIME ---
There was a [email or web address] Client Customer Account Administrator Downtime on 02/17/2024 from 0100 to 02/18/2024 at 0300. Downtime documentation of patient's care, including medication administrations, has been reconciled in the electronic record per guidelines. Refer to the
patient's paper chart under the miscellaneous tab to see printed paper medication records and downtime forms.
[2024-02-18] MEDS: ANCEF 10 IV ×2 (04:39→15:23)
[2024-02-18 06:00] VITALS: BMI 15.3
[2024-02-18 07:35] VITALS: BP 134/74
--- NOTE | 2024-02-18 08:04 | PN.CDI ---
CDI
- -
CDI:
Physician Documentation Request
Admit Date: 02/16/24 17:14
Dear Doctor Virginia,
Please review the following and provide your response in the progress notes.
Clinical Indicators:
Optometry Doctor, 02/16
#RD able to observe pt to have multiple site fat/muscle loss
#...including severe bucal, temples, clavicle, quads.
#Review of weight hx shows 104 lbs 12.8 oz from 12-02-23; 96 lbs from 12-19-23;
#...98 lbs 4 oz on 02-17-24.
#Pt weight appears stable for ~ 2 months; will monitor.
#Due to observations of fat/muscle loss, pt meeting criteria for
#...severe protein/calorie malnutrition (ASPEN/AND guidelines, chronic illness).
To ensure the quality of the medical record, based on the above information and the recognized standards for malnutrition , please verify in the progress notes which of the following responses best reflects the patient's nutritional status:
Severe Protein Calorie Malnutrition of chronic illness is/was present and is a clinical diagnosis (please provide additional support in the medical record)
Other level of malnutrition is present (Mild, Moderate or Severe)
Other (please specify)
[employer]ising Star Criteria (ACP Hospitalist 2017)
2 or more criteria must be present for either
non severe or severe malnutrition
Note that the criteria differs related to the
presence of an acute or chronic illness
Chronic Illness
Energy Intake Non Severe: <75% for >1 month
Severe: <75% for >1 month
Weight Loss Non Severe: 5% over 1 month
7.5% over 3 months
10% over 6 months
20% over 1 year
Severe: >5% over 1 month
>7.5% over 3 months
>10% over 6 months
>20% over 1 year
Body Fat Non Severe: Mild Loss
Severe: Severe Loss
Muscle Mass Non Severe: Mild Loss
Severe: Severe Loss
Use of terms such as suspected, likely, concern for, or probable (associated with a specific diagnosis that is being evaluated, monitored, or treated as if it exists) are acceptable and can be coded in the inpatient setting, when documented at the
time of discharge.
Thank you,
Dai Dickson RN BSN CCDS
CDI Specialist
please contact via tiger text
Please use your independent medical judgment in providing your response.
--- NOTE | 2024-02-18 08:14 | PN.CDI ---
CDI
- -
CDI:
Physician Documentation Request
Admit Date: 02/16/24 17:14
Dear Doctor Virginia,
Please review the following and provide your response in the progress notes.
Clinical Indicators:
Selected Entries
02/16/24
19:11 02/16/24
20:00
Pressure injury stage [Present on admission Generalized Coccyx] Stage 2 Stage 2
Physician documentation of the type and location of wounds is required for compliant documentation. Based on the above clinical findings and your assessment, please provide the following in your progress note:
Yes, Stage 2 pressure injury coccyx, POA
No, Stage 2 pressure injury coccyx
Other(Please Specify)
1. Location of the ulcer/wound, including laterality.
2. Type (etiology) of ulcer/wound:
- Diabetic ulcer
- Arterial (ischemic) ulcer
- Traumatic wound
- Venous stasis ulcer
- Pressure (decubitus) ulcer
3. If a pressure ulcer, please also include the stage* of the ulcer:
- Stage 1 - Skin intact, non-blanchable redness
- Stage 2 - Partial thickness loss of dermis, includes intact or open blister
- Stage 3 - Full thickness tissue not including bone, tendon or muscle
- Stage 4 - Full thickness tissue loss, including exposed bone, tendon or muscle
Use of terms such as suspected, likely, concern for, or probable (associated with a specific diagnosis that is being evaluated, monitored, or treated as if it exists) are acceptable and can be coded in the inpatient setting, when documented at the
time of discharge.
Thank you,
Dai Dickson RN BSN CCDS
CDI Specialist
please contact via tiger text
Please use your independent medical judgment in providing your response.
*Source: National Pressure Ulcer Advisory Panel (NPUAP)
--- NOTE | 2024-02-18 09:12 | W.PN.HOSP.TC ---
Addendum entered and electronically signed by Luiz Coleman MD 02/18/24 11:58:
Severe protein calorie malnutrition
Has stage II pressure ulcer over coccyx
Addendum entered and electronically signed by Luiz Coleman MD 02/18/24 09:20:
Since wound culture growing Staph aureus sensitivities still pending/continue cefazolin for now will transition to oral based on final culture and sensitivity results.
Original Note:
Today's Communication/Plan
-
Think we can discontinue IV fluids for now
Need to monitor oral intake and quantify
Need decision process on level palliative care and arrangements for hospice facility if available
Assessment / Plan
Assessment / Plan
64 year old female past medical history of advanced vascular dementia, multiple strokes, dysphagia, and anxiety/depression who presents from [facility] due to worsening abdominal wall wound x 3 days. Patient is a limited historian due to advanced
dementia. She has been receiving rehydration therapy via clysis device with access into the abdominal wall x 1 month, which was discontinued 2 weeks ago.
She was seen by a green marketing specialist who raised concerns about possible abdominal wall cellulitis at the site of the clysis device which has been worsening and now with purulent discharge. While in the emergency department she was noted to be
hypotensive. She is unable to provide further history.
Blood pressures improved overnight with IV fluids however it remains despondent contracted with evidence of continued dysphagia placing her at high risk for aspiration
Acute Kidney Injury secondary to Volume Depletion/improved
-Continue IVFs reduce IV rate/DC IV fluids today
-Recheck creatinine in AM improved
Abdominal Wall Cellulitis
-Gram stain reveals gram positive cocci
-Continue Ancef
-Care team to see
Failure to Thrive
-Discussed with patient's daughter Maria ([phone])
-Continue pleasure feeding with pureed solids and thin liquids/poor oral intake however continues with high risk for aspiration
-Continue discussions with family in regards to future nutrition via PEG tube vs palliative care/
-Consulted hospice care team who met with family/they seem to [place] 1 [place] [facility] [place] which case management is trying to facilitate but has had numerous rejections in the past in relation to levels of care and agitation
-Presently since admission has not exhibited any agitation.
Multiple Strokes
-Continue Aspirin and Brilinta
-Continue atorvastatin
Vascular Dementia with prior episodes of behavioral disturbance
-Monitor for mood/behavior changes
-Consult Psych for competency assessment/saw patient and lacks any decision-making capacity
Anxiety/Depression
-Continue Lexapro, Remeron, Ativan and Risperdal
-Await psych input
Essential Hypertension
-Hold metoprolol due to low blood pressure
COPD
-Continue umeclidinium-vilanterol
-Continue albuterol prn
Chronic Urinary Retention
-Continue Monahan Catheter
-Hold Flomax
Hx Crohn's Disease
DVT proph: SCDs
Code Status: Full Code
Anticipated Discharge: Within 24 hours
Subjective/Interval History
-
Date of Service: February 18, 2024
More responsive today although only opens eyes does not follow commands
Objective Data
-
Vital Signs:
Vital Signs
Temp Pulse Resp BP Pulse Ox
97.9 F 73 18 134/74 98
02/18/24 07:35 02/18/24 07:35 02/18/24 07:35 02/18/24 07:35 02/18/24 07:35
I&O
02/17/24 02/18/24 02/19/24
06:59 06:59 06:59
Intake Total 1200 / 1200 1720 / 1720
Output Total 300 / 300 775 / 775
Balance 900 / 900 945 / 945
Review of Systems
-
Unable to obtain full review of systems at this time due to: Dementia
All other systems: Not reviewed unless documented
Physical Exam
-
General: No Apparent Distress
HEENT: Normocephalic
Respiratory: Clear to Auscultation
Cardiac: Regular Rhythm
GI: Soft and Nontender
Neuro: Awake, No Motor Deficits and Nonfocal/Grossly Intact; Negative Oriented or AO x 3
Psych: Confused and Apparent Dementia
Data Reviewed
-
Total Time Spent with Patient (in minutes): 45
Labs: Labs Reviewed by me
[2024-02-18] MEDS: SENOKOT 8.59999999999999964 MG PO (09:23)
[2024-02-18] MEDS: MIRALAX 17 GRAMS PO (09:23)
[2024-02-18] MEDS: BRILINTA 90 MG PO ×2 (09:23→21:53)
[2024-02-18] MEDS: LOW STRENGTH ASPIRIN 81 MG PO (09:23)
[2024-02-18] MEDS: LEXAPRO 5 MG PO (09:23)
--- NOTE | 2024-02-18 14:24 | CM ---
Chart reviewed and geriatric case manager spoke with patient's daughter Maria and she is not sure about hospice but would like her mother closer to home. geriatric case manager spoke with daughter and reminded her of the barriers to placement both now and in the
past, [place] [facility] and due to behaviors, insurance and overall care needs placement has been limited for patient. Patient was finally accepted at [facility]. Over the last 9 months multiple referrals were made to
[facility] and surrounding area, none of the facilities in the area have accepted patient. When patient was here in December, 14 referrals were sent to facilities closer to family however none of the facilities accepted patient, geriatric case manager
informed patient's daughter that she will do the same and send out multiple referrals out however if patient is not accepted patient will have to return to [facility].
Patient's daughter was offered private pay for halfway placement and also asked if family would like to take patient home and provide 24 hour care in home for patient and patient's daughter declined.
Plan; skilled placement at alternative facility closer to family or return to [facility].
[2024-02-18 15:25] VITALS: BP 149/94
[2024-02-18] MEDS: LIPITOR 40 MG PO (17:44)
[2024-02-18] MEDS: SENOKOT PO (21:48)
[2024-02-18] MEDS: REMERON 30 MG PO (21:53)
[2024-02-18] MEDS: PEPCID 20 MG PO (21:53)
[2024-02-18 23:00] VITALS: BP 133/81
[2024-02-19] MEDS: ANCEF 10 IV (04:38)
[2024-02-19 05:59] VITALS: BMI 15.0
[2024-02-19 07:30] VITALS: BP 130/86
[2024-02-19] MEDS: LEXAPRO 5 MG PO (09:14)
[2024-02-19] MEDS: SENOKOT 8.59999999999999964 MG PO ×2 (09:14→21:59)
[2024-02-19] MEDS: BRILINTA 90 MG PO (09:14)
[2024-02-19] MEDS: LOW STRENGTH ASPIRIN 81 MG PO (09:14)
[2024-02-19] MEDS: MIRALAX 17 GRAMS PO (09:14)
--- NOTE | 2024-02-19 09:50 | HOSPNOTE ---
I spoke with daughter Maria and at this time she states her brother Sterling who is first contact does not wish for hospice services and the patient will remain a full code. I explained to the daughter then that for nutrition the patient will
most likely need a PEG tube, she told me to please call her brother and explain everything again and if he chooses to move forward with a PEG tube then she is in agreement and will have her brother make the decisions. Left two messages for the son
to please call me back. Case management updated. Will contact Attending with this information.
--- NOTE | 2024-02-19 10:20 | W.PN.HOSP.TC ---
Addendum entered and electronically signed by Luiz Coleman MD 02/19/24 14:53:
Informed by geriatric case manager that decisions been made by brother to pursue PEG placement he could not be reached by phone left a message discussed with and consultation with GI patient's antiplatelet therapy with Brilinta will have to be withheld and
washed out prior to possible intervention patient is now more awake and expressing that she would not want a PEG placed Question at this point when psychiatry saw her(and stated lack of competency) the patient was much less interactive under the
effects of some of her psycho active medications that have been since discontinued and now much more interactive will ask psychiatry to come back and evaluate for decision-making evaluation. At this point also see no further need for IV cefazolin
and reviewed sensitivities on wound culture with MSSA and will switch to oral ampicillin. Continued wound care try to encourage cautious attempts at feedings.
Original Note:
Today's Communication/Plan
-
Awaiting decision from family members in regards to PEG placement versus palliative care options
In the meantime we will continue IV cefazolin can be transitioned to Augmentin based on sensitivities from wound of MSSA
Assessment / Plan
Assessment / Plan
64 year old female past medical history of advanced vascular dementia, multiple strokes, dysphagia, and anxiety/depression who presents from [facility] due to worsening abdominal wall wound x 3 days. Patient is a limited historian due to advanced
dementia. She has been receiving rehydration therapy via clysis device with access into the abdominal wall x 1 month, which was discontinued 2 weeks ago.
She was seen by a internal controls specialist who raised concerns about possible abdominal wall cellulitis at the site of the clysis device which has been worsening and now with purulent discharge. While in the emergency department she was noted to be
hypotensive. She is unable to provide further history.
Blood pressures improved overnight with IV fluids however it remains despondent contracted with evidence of continued dysphagia placing her at high risk for aspiration
Acute Kidney Injury secondary to Volume Depletion/improved
-Continue IVFs reduce IV rate/DC IV fluids today
-Recheck creatinine in AM improved
Abdominal Wall Cellulitis
-Gram stain reveals gram positive cocci
-Continue Ancef
-Care team to see
Failure to Thrive
-Discussed with patient's daughter Maria ([phone])
-Continue pleasure feeding with pureed solids and thin liquids/poor oral intake however continues with high risk for aspiration
-Continue discussions with family in regards to future nutrition via PEG tube vs palliative care/
-Consulted hospice care team who met with family/they seem to only 1 a hospice facility in the [facility] which case management is trying to facilitate but has had numerous rejections in the past in relation to levels of care and
agitation/latest is now decision point will be with the son this is the favor of PEG placement and keeping CODE STATUS full
-Presently since admission has not exhibited any agitation.
Multiple Strokes
-Continue Aspirin and Brilinta
-Continue atorvastatin
Vascular Dementia with prior episodes of behavioral disturbance
-Monitor for mood/behavior changes
-Consult Psych for competency assessment/saw patient and lacks any decision-making capacity
Anxiety/Depression
-Continue Lexapro, Remeron, Ativan and Risperdal
-Await psych input
Essential Hypertension
-Hold metoprolol due to low blood pressure
COPD
-Continue umeclidinium-vilanterol
-Continue albuterol prn
Chronic Urinary Retention
-Continue Monahan Catheter
-Hold Flomax
Hx Crohn's Disease
DVT proph: SCDs
Code Status: Full Code
Given the discord between the patient's daughter and son in regards to palliative care options son seems to be now the decision maker and will await final decision on PEG placement will keep his full CODE STATUS as that is the consensus at this
point/I have had multiple Discussions with them and that a PEG placement will not improve her quality of life in fact only extending her poor quality of life at this point and would not avoid risk of aspiration/I have expressed my reservations over
this decision point we will hold off on obtaining GI consultation for PEG insertion until final decision is made/the other issue. Per case management is at family wants the patient to be closer to home in the [facility]. This will also
prolong her stay
Anticipated Discharge: 24 - 48 hours
Subjective/Interval History
-
Date of Service: February 19, 2024
Patient lying horizontal in the bed contracted awake but only able to elicit name disoriented confused
Objective Data
-
Vital Signs:
Vital Signs
Temp Pulse Resp BP Pulse Ox
97.6 F 79 18 130/86 99
02/19/24 07:30 02/19/24 07:30 02/19/24 07:30 02/19/24 07:30 02/19/24 07:30
I&O
02/18/24 02/19/24 02/20/24
06:59 06:59 06:59
Intake Total 1720 / 1720 120 / 120
Output Total 775 / 775 1100 / 1100
Balance 945 / 945 -980 / -980
Review of Systems
-
Unable to obtain full review of systems at this time due to: Dementia
All other systems: Not reviewed unless documented
Physical Exam
-
General: Cachectic
HEENT: Normocephalic
Respiratory: Clear to Auscultation
Cardiac: Regular Rhythm
Neuro: Awake and No Motor Deficits
Psych: Confused, Agitated and Apparent Dementia
Data Reviewed
-
Total Time Spent with Patient (in minutes): 56
Labs: Labs Reviewed by me
--- NOTE | 2024-02-19 11:53 | CM ---
functional manager continues to follow with patient progress and patient's son to decide on a feeding tube today. Patient's family had requested a facility closer to patient's home in [facility]. functional manager sent referrals to all local facilities. 37
referrals were sent yesterday. Patient has not been accepted at any of these facilities, patient is out of Medicare days and on has [employer] for coverage. The only facility that accepted patient is [facility] in [place].
Plan; Await final decision on peg tube.
--- NOTE | 2024-02-19 12:07 | W.PN.UPDATE ---
Update Note
Progress Note Update
reviewed chart spoke with nursing. at this point psych intervention does not seem to be required. psych will sign off.
--- NOTE | 2024-02-19 12:08 | HOSPNOTE ---
Spoke with son and he would like to move ahead with the feeding tube. I texted Attending and he will reach out to son. I did mention case management has placed multiple referrals and they have all refused to accept patient. I did tell the son that
after the PEG tube is placed the patient will most likely have to return to [facility] if no other facilities closer to [facility] will accept patient. Son stated he understood.
--- NOTE | 2024-02-19 13:09 | CON.GI ---
Addendum entered and electronically signed by Zohreh Tomlinson DO 02/19/24 15:24:
I saw and examined the patient.
The BAT BOY/GIRL or PA's note was reviewed and I agree with the note.
Comment: Patient with history of Crohns (unknown if prior surgery, medication history??) and advanced dementia seen in consultation for PEG, due to high aspiration risk. On evaluation, she was very responsive and communicated to me that she
absolutely does NOT want a feeding tube. She seemed to express understanding of what a feeding tube is and the indications for placing it, specifically, in her situation. This is a complicated situation, as there have been many conversations with
family regarding palliative/hospice care, opting now for feeding tube placement.
She has an umbilical cellulitis with oozing wound, likely from SC fluids being administered at facility? After evaluating her abdomen, her cellulitis does not prohibit/prevent PEG placement, if it is pursued.
Advise repeat evaluation by psychiatry to assess for capacity now that she is more awake and alert, following cessation of some of her antipsychotic medications. She needs a 5 day washout from her Brilinta, so we have some time to determine next
steps. I would be very hesitant to place a feeding tube in her against her will, given her level of responsiveness today, regardless of the family's wishes.
Original Note:
Consultation
-
Date/Time Consultation Requested: 02/19/24 1250
Date/Time Consultation Performed: 02/19/24 1310
Requesting Provider: Luiz Coleman MD
Performing Provider: DORA Cespedes
Reason for Consultation: peg eval
Medical History
Chief Complaint / HPI
Chief Complaint: failure to thrive
History of Present Illness:
Pt is a 64yo with hx advanced dementia, multiple strokes on chronic Brilinta anxiety/depression, crohns disease on no medications [facility] with concern for abdominal wall cellulitis. On admission patient was unable to give
history. She has been seen by psychiatry and speech therapy. She has been cleared for diet with decrease oral intake and now with improving mental status. Asked to see for peg tube. Medical team has reviewed with family who wishes to proceed.
At this time patient is awake and alert. She admits to mild abdominal pain in lower abdomen from concern for cellulitis around prior device site. She denies issues with dysphagia, GERD, nausea, vomiting, diarrhea, constipation or bleeding.
She admits to prior EGD/colonoscopy in [place] but unable to provide much detail with hx crohns disease but no current medications. She does admits to decrease oral intakes related to depression. Per chart 12 kg wt loss since November. Slight
drop in hbg after admission 11.5 to 9.6 on 02/16.
Past Medical History
Past Medical History: COPD, CVA (multiple ng), Psychiatric (depression/anxiety, dementia ) and Other (crohns disease, chronic urinary retention prior UTI)
Social History
Tobacco: Former Smoker
Alcohol: None
Drug: None
Living: [facility]
Employment: Retired
Family History
Family History: Other (no family hx colon CA or polyps)
Allergies / Home Medications
Allergy/AdvReac Type Severity Reaction Status Date / Time
divalproex sodium Allergy Unknown Verified 12/02/23 14:14
Iodinated Contrast Media Allergy Anaphylaxis Verified 12/02/23 14:14
iodine Allergy Anaphylaxis Verified 12/02/23 14:14
tositumomab Allergy Unknown Verified 12/02/23 14:14
valproic acid Allergy Unknown Verified 12/02/23 14:14
�Medication �Instructions �Recorded
acetaminophen 325 mg tablet 650 mg PO Q6HPRN PRN mild pain 12/02/23
(Tylenol)
albuterol sulfate 2.5 mg/3 mL 2.5 mg inhalation R Q4HPRN PRN SOB 12/02/23
(0.083 %) solution for nebulization
aspirin 81 mg chewable tablet 81 mg PO DAILY Blood Clot 12/02/23
Prevention/Tx
atorvastatin 40 mg tablet (Lipitor) 40 mg PO QPM High Cholesterol 12/02/23
bisacodyl 10 mg rectal suppository 10 mg SD DAILYPRN PRN IF NO BM 12/02/23
(Dulcolax (bisacodyl)) AFTR SORBITOL
calcium carbonate (Tums) 200 mg PO Q8HPRN PRN GERD 12/02/23
cholecalciferol (vitamin D3) 50 50 mcg PO DAILY Supplement 12/02/23
mcg (2,000 unit) tablet (Vitamin
D3)
cyanocobalamin (vitamin B-12) 100 100 mcg PO DAILY Supplement 12/02/23
mcg tablet
famotidine 40 mg tablet (Pepcid) 40 mg PO DAILY Gastrointestinal 12/02/23
Issue
mineral oil 118 ml SD DAILYPRN PRN constipation 12/02/23
polyethylene glycol 3350 17 gram 17 g PO DAILY Constipation 12/02/23
oral powder packet (Miralax)
potassium citrate 15 mEq (1,620 15 meq PO BID Electrolyte Repletion 12/02/23
mg) tablet,extended release
sennosides 8.6 mg tablet (senna) 8.6 mg PO DAILY Constipation 12/02/23
sodium phosphates 19 gram-7 118 ml SD DAILYPRN PRN IF NO BM 12/02/23
gram/118 mL enema (Fleet Enema) AFTR DULCOLAX
sorbitol 70 % solution 30 ml PO DAILYPRN PRN constipation 12/02/23
ticagrelor 90 mg tablet (Brilinta) 90 mg PO BID Blood Clot 12/02/23
Prevention/Tx
lorazepam 0.5 mg tablet 0.5 mg PO Q4HPRN PRN agitation #20 12/17/23
tabs
ferrous sulfate 325 mg (65 mg 325 mg PO DAILY Supplement 01/21/24
iron) tablet
hydrocortisone 1 % topical cream 1 applic topical Q4HPRN PRN 01/21/24
(Preparation H Hydrocortisone) hemorrhiods
mirtazapine 15 mg tablet (Remeron) 15 mg PO HS depression/sleep 01/21/24
risperidone 1 mg tablet 0.5 mg PO BID Mental Health/Anxiety 01/21/24
umeclidinium 62.5 mcg-vilanterol 1 inh inhalation R DAILY 01/21/24
25 mcg/actuation powdr for Lung/Breathing Issues
inhalation
escitalopram oxalate 5 mg tablet 5 mg PO DAILY depression/anxiety 02/16/24
(Lexapro)
lorazepam 0.5 mg tablet 0.5 mg PO BID anxiety 02/16/24
metoprolol tartrate 50 mg tablet 75 mg PO BID Blood Pressure 02/16/24
sulfamethoxazole 800 1 tab PO BID Infection 02/16/24
mg-trimethoprim 160 mg tablet
(Bactrim DS)
tamsulosin 0.4 mg capsule 0.4 mg PO DAILY Urinary Issue 02/16/24
Review of Systems
-
History Source: Patient
Constitutional: Reports Weight Loss ( 12 kg loss per chart since November)
EENT: Reports Other (torticollis of neck )
Respiratory: Reports No Symptoms
Cardiac: Reports No Symptoms
Abdomen/GI: Reports Abdominal Pain
: Reports No Symptoms
Musculoskeletal: Reports Other (chronic weakness)
Neurological: Reports Weakness
Endocrine: Reports No Symptoms
Hematologic/Lymphatic: Reports No Symptoms
Vital Signs
Temp Pulse Resp BP Pulse Ox
97.6 F 79 18 130/86 99
02/19/24 07:30 02/19/24 07:30 02/19/24 07:30 02/19/24 07:30 02/19/24 07:30
Physical Exam
Exam
General: Other (chronic ill appearing, thin, head tilt but able to manipulate without pain, pt awake and alert)
HEENT: Normocephalic and Anicteric
Respiratory: Clear
Cardiac: Regular Rhythm
GI: Soft, Non Distended and Tender (minimal around wound site-- wound site with several holes in skin with drainage lower abdomen with dressing in place)
Genito-urinary: No Costovertebral Tender
Musculoskeletal: No Clubbing and No Cyanosis
Skin: Warm and Dry
Neuro: Awake, Alert and Other (answering most questions appropriately)
Psych: Calm
Results
WBC 7.5 10^3/uL (4.8-10.8) 02/17/24 04:57
Hgb 9.6 g/dL (12.0-16.0) L 02/17/24 04:57
Hct 30.5 % (37.0-47.0) L 02/17/24 04:57
MCV 92.7 fL (81.0-99.0) 02/17/24 04:57
Plt Count 186 10^3/uL (130-400) 02/17/24 04:57
Absolute Neuts (auto) 5.2 10^3/uL (1.4-6.5) 02/16/24 12:09
Sodium 140 mmol/L (135-145) 02/17/24 04:57
Potassium 3.9 mmol/L (3.5-5.1) 02/17/24 04:57
Chloride 113 mmol/L (98-107) H 02/17/24 04:57
Carbon Dioxide 19 mmol/L (22-30) L 02/17/24 04:57
BUN 18 mg/dl (7-17) H 02/17/24 04:57
Creatinine 1.1 mg/dL (0.6-1.0) H 02/17/24 04:57
Calcium 8.1 mg/dl (8.4-10.2) L 02/17/24 04:57
Total Bilirubin 4.0 mg/dl (0.2-1.3) H 02/16/24 12:09
AST 16 U/L (14-36) 02/16/24 12:09
ALT 14 U/L (0-35) 02/16/24 12:09
Alkaline Phosphatase 81 U/L (38-126) 02/16/24 12:09
Diagnostic Image Results:
02/16/[address] Abd/pel Without Iv Or Oral
1. Right sided periumbilical/infraumbilical soft tissue stranding, without evidence of drainable abscess or intestinal fistula formation.
2. Large amount of air within the urinary bladder, which may related to bladder catheterization.
Prior GI Procedures:
EGD: in past did not recall findings
Colonoscopy: in past did not recall findings
Assessment / Plan
-
Pt is a 64yo with hx advanced dementia, multiple strokes on chronic Brilinta anxiety/depression, crohns disease on no medications [facility] with concern for abdominal wall cellulitis. On admission patient was unable to give
history. She has been seen by psychiatry and speech therapy. She has been cleared for diet with decrease oral intake and now with improving mental status. Asked to see for peg tube. Medical team has reviewed with family who wishes to proceed.
-decrease appetite/failure to thrive/wt loss
-abdominal cellulitis with recent clysis device
-hx multiple ng on Brilinta
-advanced dementia
-hx crohns disease-limited details of disease process
-anxiety/depression
-torticollis of neck
-anemia
-hx UTI's
PLAN:
Etiology of decreased appetite related to depression vs other
appreciate speech eval had been given pureed diet with limited intakes per staff
monitor intake
reviewed with Dr. Coleman family wishes for peg but pt currently declines peg
Brilinta now on hold-- last dose 5/16 AM
will have psych reassess patient for ability to make our decision as patient is now more awake than on admission
will also need to further review with family for final decision
recheck hbg with anemia
if peg needed will review ability to place with recent cellulitis with clysis device use but appear more lower abdomen away from peg placement site
-
-
Thank you for consultation and allowing me to participate in the patient's care. Please call the converting operator GI physician during the after hours with any questions or concerns.
[2024-02-19] MEDS: AMOXIL 500 MG PO ×2 (14:59→21:59)
[2024-02-19 15:30] VITALS: BP 150/98
[2024-02-19] MEDS: LIPITOR 40 MG PO (17:19)
[2024-02-19] MEDS: REMERON 30 MG PO (21:59)
[2024-02-19 23:00] VITALS: BP 125/84
[2024-02-20 03:45] VITALS: BMI 15.4
[2024-02-20 05:31] LABS: Hematocrit 35.1 % (37.0-47.0); Hemoglobin 11.4 g/dL (12.0-16.0); Mean Corp Hgb Conc. 32.5 g/dL (33.0-37.0); Mean Corpuscular Hgb 29.5 pg (27.0-31.0); Mean Corpuscular Volume 90.9 fL (81.0-99.0); Mean Platelet Volume 9.5 fL (7.4-10.4); Platelet Count 207 10^3/uL (130-400); Red Blood Cell Count 3.86 10^6/uL (4.20-5.40); Red Cell Dist. Width 14.2 % (11.5-14.5); White Blood Cell Count 8.3 10^3/uL (4.8-10.8)
[2024-02-20 06:04] LABS: Blood Urea Nitrogen 20 mg/dl (7-17); Calcium 8.7 mg/dl (8.4-10.2); Carbon Dioxide 20 mmol/L (22-30); Chloride 111 mmol/L (98-107); Estimated Creatinine Clearance 42 ml/min; Glucose 99 mg/dl (70-99); Potassium 3.3 mmol/L (3.5-5.1); Sodium 141 mmol/L (135-145); eGFR > 60.00
[2024-02-20] MEDS: AMOXIL 500 MG PO ×3 (06:25→22:44)
[2024-02-20 07:00] VITALS: BP 120/83
[2024-02-20] MEDS: MIRALAX 17 GRAMS PO (07:38)
[2024-02-20] MEDS: LOW STRENGTH ASPIRIN 81 MG PO (07:38)
[2024-02-20] MEDS: LEXAPRO 5 MG PO (07:38)
[2024-02-20] MEDS: SENOKOT 8.59999999999999964 MG PO ×2 (07:38→20:30)
--- NOTE | 2024-02-20 09:49 | W.PN.HOSP.TC ---
Today's Communication/Plan
-
Now that more awake need to reassess decision-making capacity although less interactive today than yesterday
Also has speech therapy evaluate and hopefully will following of commands to assess dysphagia
Still have to wait washout of Brilinta prior to decision on any intervention such as PEG placement per GI
Assessment / Plan
Assessment / Plan
64 year old female past medical history of advanced vascular dementia, multiple strokes, dysphagia, and anxiety/depression who presents from [facility] due to worsening abdominal wall wound x 3 days. Patient is a limited historian due to advanced
dementia. She has been receiving rehydration therapy via clysis device with access into the abdominal wall x 1 month, which was discontinued 2 weeks ago.
She was seen by a mass spectrometry specialist who raised concerns about possible abdominal wall cellulitis at the site of the clysis device which has been worsening and now with purulent discharge. While in the emergency department she was noted to be
hypotensive. She is unable to provide further history.
Blood pressures improved overnight with IV fluids however it remains despondent contracted with evidence of continued dysphagia placing her at high risk for aspiration
Acute Kidney Injury secondary to Volume Depletion/improved
-Continue IVFs reduce IV rate/DC IV fluids today
-Recheck creatinine in AM improved
Abdominal Wall Cellulitis
-Gram stain reveals gram positive cocci
-Continue Ancef changed to oral Augmentin
-Care team to see
Failure to Thrive
-Discussed with patient's daughter Maria ([phone])
-Continue pleasure feeding with pureed solids and thin liquids/poor oral intake however continues with high risk for aspiration
-Continue discussions with family in regards to future nutrition via PEG tube vs palliative care/
-Consulted hospice care team who met with family/they seem to only 1 a hospice facility in the [facility] which case management is trying to facilitate but has had numerous rejections in the past in relation to levels of care and
agitation/latest is now decision point will be with the son in the favor of PEG placement and keeping CODE STATUS full
-Presently since admission has not exhibited any agitation
-Believed to need to reassess her decision-making capacity now that she is more awake.
-Should also reassess speech therapy to assist assess level of dysphagia
-If decision is made to proceed with PEG placement will need washout of her Brilinta that was stopped yesterday
Multiple Strokes
-Continue Aspirin and Brilinta
-Continue atorvastatin
Vascular Dementia with prior episodes of behavioral disturbance
-Monitor for mood/behavior changes
-Consult Psych for competency assessment/saw patient and lacks any decision-making capacity
Anxiety/Depression
-Continue Lexapro, Remeron, Ativan and Risperdal
-Await psych to return to reevaluate decision-making capacity
Essential Hypertension
-Hold metoprolol due to low blood pressure
COPD
-Continue umeclidinium-vilanterol
-Continue albuterol prn
Chronic Urinary Retention
-Continue Monahan Catheter
-Hold Flomax
Hx Crohn's Disease
DVT proph: SCDs
Code Status: Full Code
Given the discord between the patient's daughter and son in regards to palliative care options son seems to be now the decision maker and will await final decision on PEG placement will keep his full CODE STATUS as that is the consensus at this
point/I have had multiple Discussions with them and that a PEG placement will not improve her quality of life in fact only extending her poor quality of life at this point and would not avoid risk of aspiration/I have expressed my reservations over
this decision point we will hold off on obtaining GI consultation for PEG insertion until final decision is made/the other issue. Per case management is at family wants the patient to be closer to home in the [facility]. This will also
prolong her stay
Now that more awake need to reassess decision-making capacity although less interactive today than yesterday
Also has speech therapy evaluate and hopefully will following of commands to assess dysphagia
Anticipated Discharge: 24 - 48 hours
Subjective/Interval History
-
Date of Service: February 20, 2024
Less interactive today opens eyes but no speech today although fully awake no distress
Objective Data
-
Labs:
Laboratory Results
02/20/24
05:10
WBC 8.3
Hgb 11.4 L
Hct 35.1 L
Plt Count 207
Sodium 141
Potassium 3.3 L
Chloride 111 H
Carbon Dioxide 20 L
BUN 20 H
Creatinine 0.9
Glucose 99
Calcium 8.7
Vital Signs:
Vital Signs
Temp Pulse Resp BP Pulse Ox
97.9 F 90 18 120/83 98
02/20/24 07:00 02/20/24 07:00 02/20/24 07:00 02/20/24 07:00 02/20/24 07:00
I&O
02/19/24 02/20/24 02/21/24
06:59 06:59 06:59
Intake Total 120 / 120 480 / 480
Output Total 1100 / 1100 650 / 650
Balance -980 / -980 -170 / -170
Review of Systems
-
Unable to obtain full review of systems at this time due to: Dementia
Physical Exam
-
General: Appears Chronically Ill and Cachectic
HEENT: Normocephalic
Respiratory: Clear to Auscultation
Cardiac: Regular Rhythm
GI: Soft
Psych: Calm, Confused and Apparent Dementia
--- NOTE | 2024-02-20 11:34 | W.PN.GI.CBS2 ---
Today's Communication / Plan
-
Psych reeval for capacity, though, patient is less interactive today. Speech eval.
Assessment / Plan
-
Pt is a 64yo with hx advanced dementia, multiple strokes on chronic Brilinta anxiety/depression, crohns disease on no medications [facility] with concern for abdominal wall cellulitis. On admission patient was unable to give
history. She has been seen by psychiatry and speech therapy. She has been cleared for diet with decrease oral intake and now with improving mental status. Asked to see for peg tube. Medical team has reviewed with family who wishes to proceed.
-decrease appetite/failure to thrive/wt loss
-abdominal cellulitis with recent clysis device
-hx multiple ng on Brilinta
-advanced dementia
-hx crohns disease-limited details of disease process
-anxiety/depression
-torticollis of neck
-anemia
-hx UTI's
PLAN:
Etiology of decreased appetite related to depression vs other
Patient more awake yesterday, awaiting psych to reassess capacity for decision making
Speech assessment for repeat swallow evaluation
Brillinta held- need 5 day wash out (last dose 5/16 AM)
Difficult situation due to patient's family wishes not aligning with patient's, uch more awake and communicative yesterday, verbalizing that she refuses to have a feeding tube. Will await psych eval and S/S assessment; ultimately, if patient is able
to continue to express she does NOT want a feeding tube, given this will not improve her QOL in any way, GI would decline placement of a feeding tube against her wishes
Calorie count
if peg needed will review ability to place with recent cellulitis with clysis device use but appear more lower abdomen away from peg placement site
Once psych has reevaluated and repeat speech/swallow assessment, GI is happy to reach out to family to discuss this difficult situation.
Subjective
Subjective
Date of Service: February 20, 2024
Patient seen in follow-up today. Less responsive and interactive today, was very awake and alert when seen on initial consultation yesterday afternoon. She was adamant about no PEG tube. Will ask speech to evaluate, as she has not been assessed in
the last few months. Will also have psych reevaluate capacity, given how alert she was yesterday off of meds.
Objective
Data Reviewed
Laboratory Data:
Laboratory Results
02/20/24 05:10
02/20/24 05:10
Laboratory Results
Phosphorus 3.4 mg/dl (2.5-4.5) 02/17/24 04:57
Magnesium 1.8 mg/dl (1.6-2.3) 02/17/24 04:57
Total Bilirubin 4.0 mg/dl (0.2-1.3) H 02/16/24 12:09
AST 16 U/L (14-36) 02/16/24 12:09
ALT 14 U/L (0-35) 02/16/24 12:09
Alkaline Phosphatase 81 U/L (38-126) 02/16/24 12:09
Vital Signs and I&O:
Vital Signs
Temp Pulse Resp BP Pulse Ox
97.9 F 90 18 120/83 98
02/20/24 07:00 02/20/24 07:00 02/20/24 07:00 02/20/24 07:00 02/20/24 07:00
I&O
02/19/24 02/20/24 02/21/24
06:59 06:59 06:59
Intake Total 120 / 120 480 / 480
Output Total 1100 / 1100 650 / 650
Balance -980 / -980 -170 / -170
Physical Exam
Physical Exam
General: Chronically ill appearing, cachectic; opening eyes, but not interacting
GI: Soft, Non Distended and Tender (minimal around wound site-- wound site with several holes in skin with drainage lower abdomen with dressing in place)
--- NOTE | 2024-02-20 11:42 | CON.MD ---
Consultation - Medical
-
patient seen chart reviewed. a reconsult was ordered. dr grant had seen patient earlier in this stay and felt she was not competent to make medical decisions but on that day she was not speaking to him at all. yesterday she was apparently talking
and verbalized that she did not wish to have a feeding tube inserted although there is a family member who wishes for the feeding tube. this patient is known to me as i saw her during a hospital stay in on dec 03 2023 and followed her throughout
that stay. she as at the time suffering from dementia with behavioral disturbance superimposed upon a hx of depression and anxiety. the patient had suffered several strokes with mental status declining significantly after the strokes. the patient
did stabilize somewhat vis a vis her agitation with the use of risperdal but from my read of the chart was never really able to engage in a thoughtful communication and she was discharged to a nursing facility. she returns this admission with a
cellulitis in the abdominal wall. her food intake is poor and she has been noted to have dysphagia hence the ? of a feeding tube. i could gather NO information from this who was lying in bed quite still with head tilted eyes open and unresponsive
to attempts to talk to her. nursing with whom i consulted this am said she has not spoken a word to anyone today. . her current psych meds include mirtazepine 30 mg and lexapro 5 mg q day.
past psych hx see above this is obtained from my prior psych eval in november as is info noted below
medical hx see above crohn's copd hx s/p multiple cva's htn hld anemia cad constipation dysphagia gerd cat brain in january no acute changes decreased potassium bun elevated 20 mild anemia urine with greater than [id number] colonies thought to
be mixed chelsey qtc 481 allergy to depakote
fh non contributory
substance abuse not
social was residing in nursing facility has supportive children
mse see above patient unable to engage staring straight ahead lying still. no reaction even to voice or noise
dx dementia ?with delirium
plan at this point it is very clear patient is not competent to make medical decisions yet it is not so clear whether she should have a feeding tube inserted. what is the potential benefit in terms of return to any level of functioning. if there is
disagreement among her children as to a feeding tube....if there are some who say yea and some who say kenrick and the patient has indicated she does NOT wish a feeding tube when she was verbal i would suggest that a third libertarian eg a court appointed
guardian be considered. will dc lexapro . i don't see the need for a small dose of lexapro and decrease the mirtazepine to 15 mg. it could be sedating her although i tend to doubt it. i see her presentation more as part and parcel of dementia,
the impact of cva's and possibly delirium secondary to underlying medical illness. psych will sign off
[2024-02-20 15:00] VITALS: BP 144/80
--- NOTE | 2024-02-20 15:34 | W.PN.UPDATE ---
Update Note
Progress Note Update
Attempted to call patient's son, Sterling, x2, no answer.
Called patient's daughter, Maria x2, she picked up the second time. We discussed patient's medical condition and overall prognosis at length, specifically, regarding placement of a feeding tube. She understands that this will not improve her
mother's quality of life nor will it prolong her life in any way. I told her I was able to evaluate her mother when she was more responsive, communicating to me very clearly that she does NOT want a feeding tube. Maria is in agreement that no
feeding tube should be placed against her mother's will, and would like to proceed with hospice. 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 Her brother, Sterling, does not want to move forward with hospice, and is pushing for peg tube
placement. There is no legal power of assistant city attorney, it is a joint decision between siblings at this time.
Unfortunately, Sterling is at work and unavailable to answer any calls while working, Maria does not know when he will be available. She would like for us to speak to her brother to tell him everything we discussed so that he understands
everything clearly. I told her that given her mothers response to me yesterday, GI will not place a PEG tube for her. Of course, she can go elsewhere for evaluation of feeding tube.
Maria will speak with Sterling and provide some times he can be available by phone so that we can discuss this with him. She will speak with patient's RN or Dr. Coleman when she finds out his availability.
--- NOTE | 2024-02-20 15:49 | PTOTSP ---
Dysphagia Evaluation
Patient presents with signs concerning for oral/pharyngeal dysphagia and signs of aspiration with thin liquids as evidenced by overt coughing. Patient appeared to be distressed/tearful after coughing episode. No overt s/s of aspiration observed
with mildly thick liquids but cannot rule out silent aspiration bedside. Per chart review, dysphagia is chronic.
Recommend:
1. If opting for PO diet for comfort (given PMH dementia), consider IDDSI Level 4 Puree, IDDSI Level 2 Mildly Thick (given emotional distress with coughing with thin liquids)
2. To further objectively assess swallowing function, determine 'safest diet' and r/o silent aspiration consider video swallow study if this would be aligned with patient/family goals of care. Mentation and positioning may impact testing.
3. Medications crushed in puree if medically cleared
4. Oral care 3-5x daily
5. Upright to 90 degrees, small single sips/bites, slow rate
6. Will follow up pending patient/family GOC
[2024-02-20] MEDS: LIPITOR 40 MG PO (17:32)
[2024-02-20] MEDS: PEPCID 20 MG PO (22:08)
[2024-02-20] MEDS: REMERON 15 MG PO (22:08)
[2024-02-20 23:16] VITALS: BP 138/97
[2024-02-21 06:00] VITALS: BMI 14.9
[2024-02-21] MEDS: AMOXIL 500 MG PO (06:12)
[2024-02-21 07:01] VITALS: BP 103/68
[2024-02-21] MEDS: LOW STRENGTH ASPIRIN 81 MG PO (10:10)
[2024-02-21] MEDS: MIRALAX 17 GRAMS PO (10:10)
[2024-02-21] MEDS: SENOKOT 8.59999999999999964 MG PO (10:10)
--- NOTE | 2024-02-21 10:48 | W.PN.HOSP.TC ---
Addendum entered and electronically signed by Luiz Coleman MD 02/21/24 12:39:
Received a call from the winding rack operator stating that Mr. Yap called back I again tried to call the given number again no answer left another message
Addendum entered and electronically signed by Luiz Coleman MD 02/21/24 11:14:
I again tried to reach out to patient's son Sterling [phone] and again unavailable and left an extended message and hopefully he can interact with his sister over these discussions from yesterday with GI I did relate on the message that at this
point gastroenterology and neurology will not insert a PEG tube based on the patient's wishes which have to be come addressed. In the meantime we will await a video swallow evaluation on Friday in the hopes that she will be more interactive to
perform an in the outside hope will be able to give her some kind of nutrition orally
Original Note:
Today's Communication/Plan
-
Will wait video swallow eval for Friday
Will again try to reach out to the patient's son who was unavailable during the week as patient's sister now deferring to him over final decision on PEG placement patient will remain a full CODE STATUS
Gastroenterology service based on the patient expressing no wish to have a PEG tube inserted will not insert PEG tube against her wishes.
Hopefully the patient will be more interactive on Friday and proceed with the video swallow eval no matter what the decision point is made her prognosis is extremely poor for a meaningful life going forward
Assessment / Plan
Assessment / Plan
64 year old female past medical history of advanced vascular dementia, multiple strokes, dysphagia, and anxiety/depression who presents from [facility] due to worsening abdominal wall wound x 3 days. Patient is a limited historian due to advanced
dementia. She has been receiving rehydration therapy via clysis device with access into the abdominal wall x 1 month, which was discontinued 2 weeks ago.
She was seen by a acute specialist who raised concerns about possible abdominal wall cellulitis at the site of the clysis device which has been worsening and now with purulent discharge. While in the emergency department she was noted to be
hypotensive. She is unable to provide further history.
Blood pressures improved overnight with IV fluids however it remains despondent contracted with evidence of continued dysphagia placing her at high risk for aspiration
Acute Kidney Injury secondary to Volume Depletion/improved
-IV fluids were discontinued 3 days ago
-Recheck creatinine in AM improved
Abdominal Wall Cellulitis
-Gram stain reveals gram positive cocci
-Continue Ancef changed to oral Augmentin
-Care team to see
Failure to Thrive
-Discussed with patient's daughter Maria ([phone])
-Continue pleasure feeding with pureed solids and thin liquids/poor oral intake however continues with high risk for aspiration
-Continue discussions with family in regards to future nutrition via PEG tube vs palliative care/
-Consulted hospice care team who met with family/they seem to only 1 a hospice facility in the [facility] which case management is trying to facilitate but has had numerous rejections in the past in relation to levels of care and
agitation/latest is now decision point will be with the son in the favor of PEG placement and keeping CODE STATUS full
-Presently since admission has not exhibited any agitation
-Believed to need to reassess her decision-making capacity now and psychiatry reevaluated and again at the time was seen did not interact/in opinion was not competent to make medical decisions/if family cannot come to a decision process
court-appointed guardian may have to be considered
-Should also reassess speech therapy to assist assess level of dysphagia/VSE for Friday
-If decision is made to proceed with PEG placement will need washout of her Brilinta that was stopped February 18
/based on the patient stating on 1 occasion she would not want feeding tube and since has not been interactive gastroenterology is of the opinion that they will not insert a PEG tube against her wishes.
Multiple Strokes
-Continue Aspirin and Brilinta
-Continue atorvastatin
Vascular Dementia with prior episodes of behavioral disturbance
-Monitor for mood/behavior changes
-Consult Psych for competency assessment/saw patient and lacks any decision-making capacity
Anxiety/Depression
-Continue Lexapro, Remeron, Ativan and Risperdal
-Psychiatry is seen during this admission on 2 separate evaluations and considered to be incompetent to make medical decisions on her own/
Essential Hypertension
-Hold metoprolol due to low blood pressure
COPD
-Continue umeclidinium-vilanterol
-Continue albuterol prn
Chronic Urinary Retention
-Continue Monahan Catheter
-Hold Flomax
Hx Crohn's Disease
DVT proph: SCDs
Code Status: Full Code
Given the discord between the patient's daughter and son in regards to palliative care options son seems to be now the decision maker and will await final decision on PEG placement will keep his full CODE STATUS as that is the consensus at this
point/I have had multiple Discussions with them and that a PEG placement will not improve her quality of life in fact only extending her poor quality of life at this point and would not avoid risk of aspiration
/I have expressed my reservations over this decision point as inserting a PEG tube will not improve quality of life and would only prolong suffering in the setting t. This is also the opinion of the psychiatrist consultation
Per case management is at family wants the patient to be closer to home in the [facility]. This will also prolong her stay
Also has speech therapy evaluate and hopefully will following of commands to assess dysphagia although her levels of interaction wax and wane daily
Anticipated Discharge: 24 - 48 hours
Subjective/Interval History
-
Date of Service: February 21, 2024
She is awake and opens eyes to stimuli and answers service by saying and asked her name she was able to see Dai otherwise when asked can you eat and do you agree to a feeding tube into your stomach there is no response.
Objective Data
-
Vital Signs:
Vital Signs
Temp Pulse Resp BP Pulse Ox
97.9 F 104 20 103/68 97
02/21/24 07:01 02/21/24 07:01 02/21/24 07:01 02/21/24 07:01 02/21/24 07:01
I&O
02/20/24 02/21/24 02/22/24
06:59 06:59 06:59
Intake Total 480 / 480 180 / 180
Output Total 650 / 650 750 / 750
Balance -170 / -170 -570 / -570
Review of Systems
-
Unable to obtain full review of systems at this time due to: Dementia and Patient Non-verbal (Only responds by saying her name first name)
History Source: Patient and Family
Constitutional: Reports No Appetite, Fatigue and Weakness
Respiratory: Reports No Symptoms
Cardiac: Reports No Symptoms
Abdomen/GI: Reports No Symptoms
Physical Exam
-
General: Cachectic and Other (Contracted with torticollis)
HEENT: Normocephalic
Respiratory: Clear to Auscultation
Cardiac: Regular Rhythm
GI: Soft, Nontender and Other (Superficial abdominal wound dressed)
Skin: Warm
Neuro: Awake
Psych: Confused and Apparent Dementia; Negative Intact Judgement/Insight
Data Reviewed
-
Total Time Spent with Patient (in minutes): 45
Labs: Labs Reviewed by me
[2024-02-21 16:26] VITALS: BP 110/77
[2024-02-21] MEDS: AMOXIL PO ×3 (16:46→23:20)
[2024-02-21] MEDS: LIPITOR PO ×2 (16:47→17:17)
--- NOTE | 2024-02-21 17:15 | PTCARENOTE ---
"pt presented as lethargic most of the day. pt ate minimal amount of breakfast, no lunch, and when RN attempted to give pt evening medication the pt pocketed medication and did not swallow. RN suctioned medication with applesauce out of pt mouth. Dr Virginia (~) made aware. to order IV fluids "
[2024-02-21] MEDS: LR 1000 IV (18:54)
[2024-02-21] MEDS: SENOKOT PO (20:15)
[2024-02-21] MEDS: REMERON PO (22:10)
[2024-02-21 23:00] VITALS: BP 130/76
[2024-02-22] MEDS: AMPICILLIN 52 MG IV ×2 (00:20→05:20)
--- NOTE | 2024-02-22 03:10 | W.PN.UPDATE ---
Addendum entered and electronically signed by DORA Healy 02/22/24 05:51:
correction:
Changed to Ampicillin 500 mg IV.
Original Note:
Update Note
Progress Note Update
RN notified [employer] UNLOADER, patient hasn't been eating or drinking, lethargic and is on PO medications. Patient is on Amoxicillin 500mg PO. Discussed with pharmacist, changed it to Ampicillin 500mg PO. Patient tolerated well
[2024-02-22] MEDS: LR 1000 IV ×2 (05:16→15:58)
[2024-02-22 05:51] LABS: ALT (SGPT) 111 U/L (0-35); AST (SGOT) 92 U/L (14-36); Albumin 2.7 g/dl (3.5-5.0); Alkaline Phosphatase 93 U/L (38-126); Blood Urea Nitrogen 28 mg/dl (7-17); Carbon Dioxide 20 mmol/L (22-30); Chloride 114 mmol/L (98-107); Estimated Creatinine Clearance 34 ml/min; Glucose 74 mg/dl (70-99); Sodium 142 mmol/L (135-145); Total Protein 5.7 g/dl (6.3-8.2); eGFR 56.46
[2024-02-22 05:56] LABS: Potassium 3.8 mmol/L (3.5-5.1)
[2024-02-22 06:00] VITALS: BMI 15.2
[2024-02-22 07:22] VITALS: BP 121/93
[2024-02-22] MEDS: AMOXIL PO (07:40)
[2024-02-22] MEDS: LOW STRENGTH ASPIRIN PO (09:24)
[2024-02-22] MEDS: MIRALAX PO (09:24)
[2024-02-22] MEDS: SENOKOT PO ×2 (09:24→20:10)
--- NOTE | 2024-02-22 09:35 | W.PN.HOSP.TC ---
Today's Communication/Plan
-
Based on interactions today and in the presence of nursing and gastroenterology the patient is now agreeable to have PEG tube inserted and GI will reach out to patient's son Sterling for consent
Do not see much utility in pursuing the video swallow eval tomorrow
Will stop any further systemic antibiotics that may be affecting transaminitis/will apply topical mupirocin to superficial cellulitis from her Cyclis therapy recently in the periumbilical region
Will continue IV fluids for least 1 more day given her lack of oral intake last several days in relation to her dysphagia monitor BMP again
Assessment / Plan
Assessment / Plan
64 year old female past medical history of advanced vascular dementia, multiple strokes, dysphagia, and anxiety/depression who presents from [facility] due to worsening abdominal wall wound x 3 days. Patient is a limited historian due to advanced
dementia. She has been receiving rehydration therapy via clysis device with access into the abdominal wall x 1 month, which was discontinued 2 weeks ago.
She was seen by a phlebotomy specialist who raised concerns about possible abdominal wall cellulitis at the site of the clysis device which has been worsening and now with purulent discharge. While in the emergency department she was noted to be
hypotensive. She is unable to provide further history.
Blood pressures improved overnight with IV fluids however it remains despondent contracted with evidence of continued dysphagia placing her at high risk for aspiration
Acute Kidney Injury secondary to Volume Depletion/improved
-IV fluids were discontinued 3 days ago
-Recheck creatinine in AM improved
Abdominal Wall Cellulitis
-Gram stain reveals gram positive cocci
-Given initial course of Ancef and then Augmentin but changed to IV ampicillin and now discontinued due to concern for transaminitis
-Will place on topical mupirocin at this point/should not be a contraindication given location for PEG placement if so desired.
-Care team to see
Failure to Thrive
-Discussed with patient's daughter Maria ([phone])
-Continue pleasure feeding with pureed solids and thin liquids/poor oral intake however continues with high risk for aspiration
-Continue discussions with family in regards to future nutrition via PEG tube vs palliative care/
-Consulted hospice care team who met with family/they seem to only 1 a hospice facility in the [facility] which case management is trying to facilitate but has had numerous rejections in the past in relation to levels of care and
agitation/latest is now decision point will be with the son in the favor of PEG placement and keeping CODE STATUS full
-Presently since admission has not exhibited any agitation
-Believed to need to reassess her decision-making capacity now and psychiatry reevaluated and again at the time was seen did not interact//now again more awake and unlike each of the interactions with psychiatry seems to be more lucid and states
that she changed her mind and wants the PEG tube inserted may have been change in position after meeting with her son yesterday/witnessed in presence of nurse and Dr. Sanders tentatively planning for PEG tube insertion Friday, February 22 will need to reach
out to son for consent
-
-If decision is made to proceed with PEG placement will need washout of her Brilinta that was stopped February 18/
Multiple Strokes
-Continue Aspirin and Brilinta
-Continue atorvastatin
Vascular Dementia with prior episodes of behavioral disturbance
-Monitor for mood/behavior changes
-Consult Psych for competency assessment/saw patient and lacks any decision-making capacity/again at time of evaluation on 2 occasions with obtunded
Anxiety/Depression
-Continue Lexapro, Remeron, Ativan and Risperdal
-Psychiatry is seen during this admission on 2 separate evaluations and considered to be incompetent to make medical decisions on her own/
-Have stopped Lexapro and Ativan and respite all
Essential Hypertension
-Hold metoprolol due to low blood pressure
COPD
-Continue umeclidinium-vilanterol
-Continue albuterol prn
Chronic Urinary Retention
-Continue Monahan Catheter
-Hold Flomax
Hx Crohn's Disease
DVT proph: SCDs
Code Status: Full Code
Given the discord between the patient's daughter and son in regards to palliative care options son seems to be now the decision maker and will await final decision on PEG placement will keep his full CODE STATUS as that is the consensus at this
point/I have had multiple Discussions with them and that a PEG placement will not improve her quality of life in fact only extending her poor quality of life at this point and would not avoid risk of aspiration
/I have expressed my reservations over this decision point as inserting a PEG tube will not improve quality of life and would only prolong suffering in the setting t. This is also the opinion of the psychiatrist consultation nonetheless son
continues to pursue and wants PEG placed GI will reach out to him for consent
Per case management is at family wants the patient to be closer to home in the [facility]. This will also prolong her stay
Also has speech therapy evaluate and hopefully will following of commands to assess dysphagia although her levels of interaction wax and wane daily
Anticipated Discharge: 24 - 48 hours
Subjective/Interval History
-
Date of Service: February 22, 2024
Again surprisingly just like 3 days ago is able to interact much more today was able to relate her name and related that her son came to visit her yesterday and that she has changed her mind in regards to the PEG tube and now wants it inserted this
was also noted in the presence of her nurse who witnessed with me. I relayed this to Dr. Sanders on the GI service
Objective Data
-
Labs:
Laboratory Results
02/22/24
04:57
Sodium 142
Potassium 3.8
Chloride 114 H
Carbon Dioxide 20 L
BUN 28 H
Creatinine 1.1 H
Glucose 74
Calcium 9.0
Total Bilirubin 2.0 H
AST 92 H
ALT 111 H
Alkaline Phosphatase 93
Vital Signs:
Vital Signs
Temp Pulse Resp BP Pulse Ox
98.1 F 107 16 121/93 96
02/22/24 07:22 02/22/24 07:22 02/22/24 07:22 02/22/24 07:22 02/22/24 07:22
I&O
02/21/24 02/22/24 02/23/24
06:59 06:59 06:59
Intake Total 180 / 180 50 / 50
Output Total 750 / 750 170 / 170
Balance -570 / -570 -120 / -120
Review of Systems
-
Unable to obtain full review of systems at this time due to: Dementia
Constitutional: Reports Fatigue
EENT: Reports No Symptoms Reported
Respiratory: Reports No Symptoms
Abdomen/GI: Reports No Symptoms
Skin: Reports Rash and Sores
Physical Exam
-
General: Appears Chronically Ill and Cachectic
HEENT: Other (Sunken temples and eyeballs)
Respiratory: Clear to Auscultation
Cardiac: Regular Rhythm
GI: Soft, Nontender and Other (Site of previous cyclis dressed with some small amount of purulent return still on dressing)
Skin: Ulcers
Neuro: Awake; Negative Oriented or AO x 3
Psych: Calm
Data Reviewed
-
Total Time Spent with Patient (in minutes): 56
Labs: Labs Reviewed by me, Discussed with Physician (Dr. Sanders) and Discussed with Nurse (Nurse was present in interaction with patient stating that she wanted to change her mind in regards to PEG placement and now wants it inserted.)
--- NOTE | 2024-02-22 10:00 | PTCARENOTE ---
this morning this RN witnessed pt stating 'i changed my mind' when she was talking with Dr Coleman about PEG tube. pt initially declined feeding tube. moments after pt agrees to PEG tube with Dr Coleman, GI comes in to confirm getting PEG tube
with pt and pt does not verbally respond.
[2024-02-22] MEDS: AMPICILLIN IV (12:13)
--- NOTE | 2024-02-22 14:00 | W.PN.GI.CBS2 ---
Today's Communication / Plan
-
Spent over an hour coordinating, speaking with family and hospitalist
Assessment / Plan
-
Pt is a 64yo with hx advanced dementia, multiple strokes on chronic Brilinta anxiety/depression, crohns disease on no medications presents from [facility] with concern for abdominal wall cellulitis. On admission patient was unable to give
history. She has been seen by psychiatry and speech therapy. She has been cleared for diet with decrease oral intake and now with improving mental status. Asked to see for peg tube. Medical team has reviewed with family who wishes to proceed.
-decrease appetite/failure to thrive/wt loss
-abdominal cellulitis with recent clysis device
-hx multiple ng on Brilinta
-advanced dementia
-hx crohns disease-limited details of disease process
-anxiety/depression
-torticollis of neck
-anemia
-hx UTI's
PLAN:
Etiology of decreased appetite related to depression vs other
Patient more awake yesterday, awaiting psych to reassess capacity for decision making
Speech assessment for repeat swallow evaluation
Brillinta held- need 5 day wash out (last dose 02/18 AM)
Difficult situation due to patient's family wishes not aligning with patient's, much more awake and communicative yesterday, verbalizing that she refuses to have a feeding tube. Will await psych eval and S/S assessment; ultimately, if patient is
able to continue to express she does NOT want a feeding tube, given this will not improve her QOL in any way, GI would decline placement of a feeding tube against her wishes
Calorie count
if peg needed will review ability to place with recent cellulitis with clysis device use but appear more lower abdomen away from peg placement site
Once psych has reevaluated and repeat speech/swallow assessment, GI is happy to reach out to family to discuss this difficult situation.
02/22/24 -apparently during a moment of clarity for the patient she told both the nurse and the hospitalist that she changed her mind and wanted the feeding tube
--I was unable to elicit any response from her when I was with her
--I had a long conversation with her son, Sterling over the phone. He does not want to do anything his mother does not want, but wants to give her chance to prolong her life
--I also tried to have her daughter Maria on the phone but she did not answer so we left a voicemail. I told Sterling to contact Maria today to discuss and be on the same page as to what they believe their mother would want.
--I reviewed the risks and benefits of placing the tube and as of now he is agreeable but will talk to his sister
--At the earliest the tube will be placed is Friday based on her last Brilinta dose on the
--We could place Dobbhoff tube in the meantime
# Elevated liver enzymes -possibly related to the antibiotics as they were normal upon arrival except for the bilirubin was elevated. It was not fractionated
--Today's last day of antibiotics and will monitor
Subjective
Subjective
Date of Service: February 22, 2024
Dai is unable to communicate to me
Objective
Data Reviewed
Laboratory Data:
Laboratory Results
02/20/24 05:10
02/22/24 04:57
Laboratory Results
Phosphorus 3.4 mg/dl (2.5-4.5) 02/17/24 04:57
Magnesium 1.8 mg/dl (1.6-2.3) 02/17/24 04:57
Total Bilirubin 2.0 mg/dl (0.2-1.3) H 02/22/24 04:57
AST 92 U/L (14-36) H 02/22/24 04:57
ALT 111 U/L (0-35) H 02/22/24 04:57
Alkaline Phosphatase 93 U/L (38-126) 02/22/24 04:57
Vital Signs and I&O:
Vital Signs
Temp Pulse Resp BP Pulse Ox
98.1 F 107 16 121/93 96
02/22/24 07:22 02/22/24 07:22 02/22/24 07:22 02/22/24 07:22 02/22/24 07:22
I&O
02/21/24 02/22/24 02/23/24
06:59 06:59 06:59
Intake Total 180 / 180 50 / 50
Output Total 750 / 750 170 / 170
Balance -570 / -570 -120 / -120
Physical Exam
Physical Exam
HEENT: Anicteric
Pulmonary: Clear
GI: Soft, Non Distended and Other (Bandage over the right lower periumbilical area)
Extremities: No Edema
Neuro: Other (Awake and alert but unable to speak to me)
[2024-02-22 15:35] VITALS: BP 137/84
[2024-02-22] MEDS: BACTROBAN 2% OINTMENT 1 APPLIC TOPICAL ×2 (15:58→22:13)
[2024-02-22] MEDS: LIPITOR PO (17:33)
[2024-02-22] MEDS: PEPCID PO ×2 (22:12→22:20)
[2024-02-22] MEDS: REMERON PO (22:20)
[2024-02-22 23:14] VITALS: BP 143/84
[2024-02-23] MEDS: LR 1000 IV ×3 (02:02→21:27)
[2024-02-23 05:46] VITALS: BMI 15.9
[2024-02-23 05:52] LABS: Hematocrit 31.4 % (37.0-47.0); Hemoglobin 10.1 g/dL (12.0-16.0); Mean Corp Hgb Conc. 32.2 g/dL (33.0-37.0); Mean Corpuscular Volume 90.2 fL (81.0-99.0); Mean Platelet Volume 9.8 fL (7.4-10.4); Platelet Count 200 10^3/uL (130-400); Red Blood Cell Count 3.48 10^6/uL (4.20-5.40); Red Cell Dist. Width 14.5 % (11.5-14.5); White Blood Cell Count 7.6 10^3/uL (4.8-10.8)
[2024-02-23 06:16] LABS: Blood Urea Nitrogen 21 mg/dl (7-17); Calcium 8.6 mg/dl (8.4-10.2); Carbon Dioxide 19 mmol/L (22-30); Chloride 112 mmol/L (98-107); Estimated Creatinine Clearance 49 ml/min; Glucose 58 mg/dl (70-99); Potassium 3.6 mmol/L (3.5-5.1); Sodium 141 mmol/L (135-145); eGFR > 60.00
[2024-02-23 07:30] VITALS: BP 157/97
[2024-02-23] MEDS: BACTROBAN 2% OINTMENT 1 APPLIC TOPICAL ×2 (09:09→21:27)
[2024-02-23] MEDS: SENOKOT 8.59999999999999964 MG PO (09:10)
[2024-02-23] MEDS: LOW STRENGTH ASPIRIN 81 MG PO (09:10)
[2024-02-23] MEDS: MIRALAX 17 GRAMS PO (09:10)
--- NOTE | 2024-02-23 09:31 | W.PN.GI.CBS2 ---
Addendum entered and electronically signed by Margaret Sanders DO 02/23/24 16:27:
per the patient's daughter, Maria (RN) said the patient has had 2-3 small bowel resections for prior Crohns vs SBO
no prior gastric surgery, no prior PEG
History of finesse while
Addendum entered and electronically signed by Margaret Sanders DO 02/23/24 14:20:
Patient seen and examined independently of [employer]. I agree with her note
Today patient is much more alert and can communicate with me. I discussed the potential of placing a PEG tube, I described and explained the indication, pros and cons and possible complications risks and the patient would like to proceed. I also
discussed this with her daughter Maria. After long conversation with Sterling, the patient's son, I told him to talk to his sister so everyone was on the same page. The daughter, Maria is a nurse and understands that this will less likely
because significant improvement in quality of life but is willing to agree with her brother. Therefore, we will proceed to PEG placement tomorrow. Mj on-call.
Consent obtained both from the son and daughter over the phone. Patient may have times of lucency but she does not have capacity to make decisions
I did explain to the family that having the PEG tube does not mean she may not use her mouth for food or liquids but the PEG can be the major source of her hydration, medications and food especially in times when she is not alert.
She is still appropriate for palliative care and that conversation needs to continue.
would still recommend getting the video swallow examination to determine what she is capable of taking in orally
Discussed with hospitalist
Original Note:
Today's Communication / Plan
-
PEG tube 02/24/24 planned
Trend labs
Assessment / Plan
-
Pt is a 64yo with hx advanced dementia, multiple strokes on chronic Brilinta anxiety/depression, crohns disease on no medications presents from [facility] with concern for abdominal wall cellulitis. On admission patient was unable to give
history. She has been seen by psychiatry and speech therapy. She has been cleared for diet with decrease oral intake and now with improving mental status. Asked to see for peg tube. Medical team has reviewed with family who wishes to proceed.
-decrease appetite/failure to thrive/wt loss
-abdominal cellulitis with recent clysis device
-hx multiple ng on Brilinta
-advanced dementia
-hx crohns disease-limited details of disease process
-anxiety/depression
-torticollis of neck
-anemia
-hx UTI's
PLAN:
Etiology of decreased appetite related to depression vs other
Patient more awake yesterday, awaiting psych to reassess capacity for decision making
Speech assessment for repeat swallow evaluation
Brillinta held- need 5 day wash out (last dose 02/18 AM)
Difficult situation due to patient's family wishes not aligning with patient's, much more awake and communicative yesterday, verbalizing that she refuses to have a feeding tube. Will await psych eval and S/S assessment; ultimately, if patient is
able to continue to express she does NOT want a feeding tube, given this will not improve her QOL in any way, GI would decline placement of a feeding tube against her wishes
Calorie count
if peg needed will review ability to place with recent cellulitis with clysis device use but appear more lower abdomen away from peg placement site
Once psych has reevaluated and repeat speech/swallow assessment, GI is happy to reach out to family to discuss this difficult situation.
02/22/24 -apparently during a moment of clarity for the patient she told both the nurse and the hospitalist that she changed her mind and wanted the feeding tube
--I was unable to elicit any response from her when I was with her
--I had a long conversation with her son, Sterling over the phone. He does not want to do anything his mother does not want, but wants to give her chance to prolong her life
--I also tried to have her daughter Maria on the phone but she did not answer so we left a voicemail. I told Sterling to contact Maria today to discuss and be on the same page as to what they believe their mother would want.
--I reviewed the risks and benefits of placing the tube and as of now he is agreeable but will talk to his sister
--At the earliest the tube will be placed is Friday based on her last Brilinta dose on the
--We could place Dobbhoff tube in the meantime
# Elevated liver enzymes -possibly related to the antibiotics as they were normal upon arrival except for the bilirubin was elevated. It was not fractionated
--Today's last day of antibiotics and will monitor
02/23/24
-Patient awake, discussion had with Dr. Sanders and daughter Maria Yap [phone]). Will also speak to son Sterling Yap as well ([phone])
-Plan on PEG tube on 02/24/24 (when Brilinita washed out)
-Repeat CBC, BMP and LFTs in am
Subjective
Subjective
Date of Service: February 23, 2024
Patient awake. Does not offer any complaints. Holding call priest in hand. Able to give her name when asked.
Objective
Data Reviewed
Laboratory Data:
Laboratory Results
02/23/24 05:16
02/23/24 05:16
Laboratory Results
Phosphorus 3.4 mg/dl (2.5-4.5) 02/17/24 04:57
Magnesium 1.8 mg/dl (1.6-2.3) 02/17/24 04:57
Total Bilirubin 2.0 mg/dl (0.2-1.3) H 02/22/24 04:57
AST 92 U/L (14-36) H 02/22/24 04:57
ALT 111 U/L (0-35) H 02/22/24 04:57
Alkaline Phosphatase 93 U/L (38-126) 02/22/24 04:57
Vital Signs and I&O:
Vital Signs
Temp Pulse Resp BP Pulse Ox
98.2 F 102 18 157/97 96
02/23/24 07:30 02/23/24 07:30 02/23/24 07:30 02/23/24 07:30 02/23/24 07:30
I&O
02/22/24 02/23/24 02/24/24
06:59 06:59 06:59
Intake Total 50 / 50
Output Total 170 / 170 500 / 500
Balance -120 / -120 -500 / -500
Physical Exam
Physical Exam
HEENT: Other ([place])
Cardiology: Normal Sinus Rhythm
Pulmonary: Clear (anterior)
GI: Soft, Non Distended, Non Tender, Normal Bowel Sounds and Other (open areas lower abdomen (small no current drainage) site of previous clysis)
Extremities: No Edema
Neuro: Other (awake, states name)
--- NOTE | 2024-02-23 10:07 | W.PN.HOSP.TC ---
Today's Communication/Plan
-
for PEG tube tomorrow after Brillinta washout
Assessment / Plan
Assessment / Plan
64 year old female past medical history of advanced vascular dementia, multiple strokes, dysphagia, and anxiety/depression who presents from [facility] due to worsening abdominal wall wound x 3 days. Patient is a limited historian due to advanced
dementia. She has been receiving rehydration therapy via clysis device with access into the abdominal wall x 1 month, which was discontinued 2 weeks ago.
She was seen by a internet specialist who raised concerns about possible abdominal wall cellulitis at the site of the clysis device which has been worsening and now with purulent discharge. While in the emergency department she was noted to be
hypotensive. She is unable to provide further history.
Blood pressures improved overnight with IV fluids however it remains despondent contracted with evidence of continued dysphagia placing her at high risk for aspiration
Assessment:
Acute Kidney Injury secondary to Volume Depletion
- improved, continue IVF
- follow labs daily
Abdominal Wall Cellulitis
- wound care eval: At 12 O clock undermines 6cm, distally undermines 5cm, depth 1cm and undermines 1cm on sides
- related to recent Clysis infusion
- wound culture: MSSA
-Given initial course of Ancef and then Augmentin but changed to IV ampicillin and now discontinued due to concern for transaminitis
- continue topical mupirocin
Elevated LFTs
- monitor labs daily
Failure to Thrive
- high risk of aspiration, was on pleasure feeds
- per prior notes from hospitalist and GI services, both daughter and son were contacted
- in agreement for PEG placement 02/23 after Brillinta washout
- psych followed for decision-making capacity evals
Multiple Strokes
- continue Aspirin, holding Brilinta
- continue atorvastatin
Vascular Dementia with prior episodes of behavioral disturbance
- Monitor for mood/behavior changes
- psych followed for decision-making capacity evals
Anxiety/Depression
- continue Remeron. Have stopped Lexapro/Ativan/Risperdal
- Psychiatry is seen during this admission on 2 separate evaluations and considered to be incompetent to make medical decisions on her own
- Have stopped Lexapro/Ativan/Risperdal
Essential Hypertension
- hold metoprolol due to low blood pressure
COPD
- continue umeclidinium-vilanterol
- continue albuterol prn
Chronic Urinary Retention
- continue Monahan Catheter
- hold Flomax
Hx Crohn's Disease
DVT proph: SCDs
Code: Full
Anticipated Discharge: > 48 hours
Subjective/Interval History
-
Date of Service: February 23, 2024
denies any new complaints
children have agreed with patient for PEG placement tomorrow
Objective Data
-
Labs:
Laboratory Results
02/23/24
05:16
WBC 7.6
Hgb 10.1 L
Hct 31.4 L
Plt Count 200
Sodium 141
Potassium 3.6
Chloride 112 H
Carbon Dioxide 19 L
BUN 21 H
Creatinine 0.8
Glucose 58 L
Calcium 8.6
Vital Signs:
Vital Signs
Temp Pulse Resp BP Pulse Ox
98.2 F 102 18 157/97 96
02/23/24 07:30 02/23/24 07:30 02/23/24 07:30 02/23/24 07:30 02/23/24 07:30
I&O
02/22/24 02/23/24 02/24/24
06:59 06:59 06:59
Intake Total 50 / 50
Output Total 170 / 170 500 / 500
Balance -120 / -120 -500 / -500
Physical Exam
-
General: No Apparent Distress and Appears Chronically Ill
HEENT: Normocephalic and Atraumatic
Respiratory: Negative Wheezes or Rales
Cardiac: Regular Rhythm and S1/S2
GI: Nontender and Other (small open areas near previous Clysis site, no drainage)
Genito-urinary: No Costovertebral Tender
Neuro: Awake and AO x 3
Psych: Apparent Dementia
Data Reviewed
-
Total Time Spent with Patient (in minutes): 41
Labs: Labs Reviewed by me
--- NOTE | 2024-02-23 14:19 | CM ---
business planning manager reviewed patient's chart and met with patient and patient is for possible peg tube placement [facility], family were looking for a facility closer to home in [facility], 37 referrals sent.
[facility] can accept suellen back at their facility, and family can continue to locate a facility closer to home.
Plan; Skilled placement at [facility], family to follow up and attempt to find a facility closer to home that will accept patient.
[2024-02-23 15:00] VITALS: BP 157/99
[2024-02-23] MEDS: BACTROBAN 2% OINTMENT TOPICAL (15:10)
[2024-02-23] MEDS: LIPITOR 40 MG PO (17:16)
[2024-02-23] MEDS: SENOKOT PO (20:16)
[2024-02-23] MEDS: REMERON 15 MG PO (21:52)
[2024-02-23 23:02] VITALS: BP 159/99
[2024-02-24 03:27] VITALS: BP 158/103
[2024-02-24 05:45] VITALS: BMI 15.5
[2024-02-24 05:51] LABS: Hematocrit 32.8 % (37.0-47.0); Hemoglobin 10.8 g/dL (12.0-16.0); Mean Corp Hgb Conc. 32.9 g/dL (33.0-37.0); Mean Corpuscular Volume 88.2 fL (81.0-99.0); Mean Platelet Volume 9.7 fL (7.4-10.4); Platelet Count 215 10^3/uL (130-400); Red Blood Cell Count 3.72 10^6/uL (4.20-5.40); Red Cell Dist. Width 14.5 % (11.5-14.5); White Blood Cell Count 9.3 10^3/uL (4.8-10.8)
[2024-02-24 06:18] LABS: ALT (SGPT) 109 U/L (0-35); AST (SGOT) 125 U/L (14-36); Albumin 2.6 g/dl (3.5-5.0); Alkaline Phosphatase 101 U/L (38-126); Blood Urea Nitrogen 11 mg/dl (7-17); Calcium 8.4 mg/dl (8.4-10.2); Carbon Dioxide 25 mmol/L (22-30); Chloride 105 mmol/L (98-107); Estimated Creatinine Clearance 55 ml/min; Glucose 78 mg/dl (70-99); Potassium 3.2 mmol/L (3.5-5.1); Sodium 134 mmol/L (135-145); Total Bilirubin 2.7 mg/dl (0.2-1.3); Total Protein 5.6 g/dl (6.3-8.2); eGFR > 60.00
[2024-02-24 07:00] VITALS: BP 121/75
[2024-02-24] MEDS: LR 1000 IV (07:49)
[2024-02-24] MEDS: LOW STRENGTH ASPIRIN PO (07:50)
[2024-02-24] MEDS: MIRALAX PO (07:50)
[2024-02-24] MEDS: SENOKOT PO (07:50)
--- NOTE | 2024-02-24 08:58 | W.PN.HOSP.TC ---
Addendum entered and electronically signed by Jen Gottlieb MD 02/24/24 09:06:
hypokalemia - replete via IV route
Original Note:
Today's Communication/Plan
-
PEG Tube placement
follow LFTs
Assessment / Plan
Assessment / Plan
64 year old female past medical history of advanced vascular dementia, multiple strokes, dysphagia, and anxiety/depression who presents from [facility] due to worsening abdominal wall wound x 3 days. Patient is a limited historian due to advanced
dementia. She has been receiving rehydration therapy via clysis device with access into the abdominal wall x 1 month, which was discontinued 2 weeks ago.
She was seen by a workforce development specialist who raised concerns about possible abdominal wall cellulitis at the site of the clysis device which has been worsening and now with purulent discharge. While in the emergency department she was noted to be
hypotensive. She is unable to provide further history.
Blood pressures improved overnight with IV fluids however it remains despondent contracted with evidence of continued dysphagia placing her at high risk for aspiration
Assessment:
Acute Kidney Injury secondary to Volume Depletion
- improved, continue IVF
- follow labs daily
Abdominal Wall Cellulitis
- wound care eval: At 12 O clock undermines 6cm, distally undermines 5cm, depth 1cm and undermines 1cm on sides
- related to recent Clysis infusion
- wound culture: MSSA
- given initial course of Ancef and then Augmentin but changed to IV ampicillin and now discontinued due to concern for transaminitis
- continue topical mupirocin
Elevated LFTs, ? related to hypotension
- no RUQ pain, no fevers
- monitor labs daily
Failure to Thrive
- high risk of aspiration, was on pleasure feeds
- per prior notes from hospitalist and GI services, both daughter and son were contacted
- in agreement for PEG placement 02/23 after Brillinta washout
- will also obtain VSE to determine oral intake capacity
- psych followed for decision-making capacity evals
Multiple Strokes
- continue Aspirin, holding Brilinta
- continue atorvastatin
Vascular Dementia with prior episodes of behavioral disturbance
- Monitor for mood/behavior changes
- psych followed for decision-making capacity evals
Anxiety/Depression
- continue Remeron. Have stopped Lexapro/Ativan/Risperdal
- Psychiatry is seen during this admission on 2 separate evaluations and considered to be incompetent to make medical decisions on her own
- Have stopped Lexapro/Ativan/Risperdal
Essential Hypertension
- hold metoprolol due to low blood pressure
COPD
- continue umeclidinium-vilanterol
- continue albuterol prn
Chronic Urinary Retention
- continue Monahan Catheter
- hold Flomax
Hx Crohn's Disease
DVT proph: SCDs
Code: Full
Anticipated Discharge: > 48 hours
Subjective/Interval History
-
Date of Service: February 24, 2024
resting comfortably
for PEG tube today
Objective Data
-
Labs:
Laboratory Results
02/24/24
05:12
WBC 9.3
Hgb 10.8 L
Hct 32.8 L
Plt Count 215
Sodium 134 L
Potassium 3.2 L
Chloride 105
Carbon Dioxide 25
BUN 11
Creatinine 0.7
Glucose 78
Calcium 8.4
Total Bilirubin 2.7 H
AST 125 H
ALT 109 H
Alkaline Phosphatase 101
Vital Signs:
Vital Signs
Temp Pulse Resp BP Pulse Ox
98.2 F 76 12 121/75 97
02/24/24 07:00 02/24/24 07:00 02/24/24 07:00 02/24/24 07:00 02/24/24 07:00
I&O
02/23/24 02/24/24 02/25/24
06:59 06:59 06:59
Intake Total 1510 / 1510
Output Total 500 / 500 1700 / 1700
Balance -500 / -500 -190 / -190
Physical Exam
-
General: No Apparent Distress and Appears Chronically Ill
HEENT: Normocephalic and Atraumatic
Respiratory: Negative Wheezes or Rales
Cardiac: Regular Rhythm and S1/S2
GI: Soft
Psych: Apparent Dementia
Data Reviewed
-
Total Time Spent with Patient (in minutes): 42
Labs: Labs Reviewed by me
[2024-02-24] MEDS: BACTROBAN 2% OINTMENT 1 APPLIC TOPICAL ×3 (09:40→20:37)
[2024-02-24] MEDS: KCL 270 MEQ IV (09:42)
--- NOTE | 2024-02-24 10:34 | CM ---
Chart reviewed and patient is for possible peg placement today, will await updated PT/OT notes, plan is for patient to return to [facility] as patient has not been accepted at any other facility. Patient has used up all her Medicare days,
and patient will be covered through [facility] patient's secondary insurance where there a limited contracts with skilled facilities.
Plan; Peg tube placement and then return to skilled facility.
--- NOTE | 2024-02-24 11:19 | W.IMMPOSTOP ---
Surgical Immed Post Op Note
-
Primary Surgeon: Xiomara
Assisting Surgeon: Dalila
Pre-op Diagnosis: Dysphagia, malnutrition
Post-op Diagnosis: Dysphagia, malnutrition
Procedure Performed: Percutaneous endoscopic gastrostomy tube (PEG)
Anesthesia Type: MAC local
Specimen / Cultures: None
Estimated Blood Loss: Less than 1 cc
Complications: None
Operative Findings:
1. 20 Slovak PEG tube inserted using standard pull technique, secured at 1.5 cm at the skin
2. One-to-one palpation, transillumination, positive bubble study
3. EGD notable for small hiatal hernia and small superficial duodenal erosions
[2024-02-24 12:38] LABS: Magnesium 1.2 mg/dl (1.6-2.3)
[2024-02-24 13:45] VITALS: BP 150/90
[2024-02-24] MEDS: PROTONIX IV 40 MG IV (13:58)
[2024-02-24] MEDS: NSS (PRESERVATIVE FREE) 10 ML IV (13:58)
[2024-02-24 15:00] VITALS: BP 140/101
[2024-02-24] MEDS: LOW STRENGTH ASPIRIN 81 MG TUBE (16:27)
[2024-02-24] MEDS: LIPITOR 40 MG TUBE (16:27)
[2024-02-24] MEDS: PEPCID 20 MG TUBE (16:28)
[2024-02-24] MEDS: SENOKOT TUBE (19:22)
[2024-02-24] MEDS: REMERON 15 MG TUBE (20:38)
[2024-02-24 23:25] VITALS: BP 139/86
[2024-02-25 04:56] VITALS: BMI 16.0
[2024-02-25 05:06] LABS: Hemoglobin 10.6 g/dL (12.0-16.0); Mean Corp Hgb Conc. 32.1 g/dL (33.0-37.0); Mean Corpuscular Hgb 29.4 pg (27.0-31.0); Mean Corpuscular Volume 91.4 fL (81.0-99.0); Mean Platelet Volume 9.9 fL (7.4-10.4); Platelet Count 205 10^3/uL (130-400); Red Blood Cell Count 3.61 10^6/uL (4.20-5.40); Red Cell Dist. Width 14.7 % (11.5-14.5); White Blood Cell Count 9.9 10^3/uL (4.8-10.8)
[2024-02-25 06:10] LABS: ALT (SGPT) 62 U/L (0-35); AST (SGOT) 56 U/L (14-36); Albumin 2.4 g/dl (3.5-5.0); Alkaline Phosphatase 88 U/L (38-126); Blood Urea Nitrogen 12 mg/dl (7-17); Calcium 8.1 mg/dl (8.4-10.2); Carbon Dioxide 22 mmol/L (22-30); Chloride 109 mmol/L (98-107); Estimated Creatinine Clearance 50 ml/min; Glucose 53 mg/dl (70-99); Magnesium 1.2 mg/dl (1.6-2.3); Phosphorus 3.9 mg/dl (2.5-4.5); Potassium 3.3 mmol/L (3.5-5.1); Sodium 140 mmol/L (135-145); Total Bilirubin 2.8 mg/dl (0.2-1.3); Total Protein 5.2 g/dl (6.3-8.2); eGFR > 60.00
[2024-02-25 06:13] LABS: Glucose - Point of Care 59 mg/dl (70-99)
[2024-02-25] MEDS: DEXTROSE 50% SYRINGE 12.5 GRAMS IV (06:25)
[2024-02-25 06:43] LABS: Glucose - Point of Care 158 mg/dl (70-99)
--- NOTE | 2024-02-25 06:44 | PTCARENOTE ---
Pt's blood glucose level was 53 with morning labs. Accucheck taken to confirm and result 59. SALON MANAGER London Salinas made aware and Dextrose 50% 1/2 amp IV given. Repeat accucheck 15 min later 158.
[2024-02-25 07:35] VITALS: BP 130/96
[2024-02-25] MEDS: SENOKOT TUBE ×2 (08:29→20:04)
[2024-02-25] MEDS: PREVACID 30 MG TUBE (09:25)
[2024-02-25] MEDS: BACTROBAN 2% OINTMENT 1 APPLIC TOPICAL ×3 (09:25→20:07)
[2024-02-25] MEDS: LOW STRENGTH ASPIRIN 81 MG TUBE (09:25)
[2024-02-25] MEDS: PROTONIX IV IV (09:28)
[2024-02-25] MEDS: NSS (PRESERVATIVE FREE) IV (09:29)
--- NOTE | 2024-02-25 10:10 | WOUNDNOTE ---
ABDOMEN WITH MUPIROCIN IN USE.
--- NOTE | 2024-02-25 10:11 | WOUNDNOTE ---
WON RN NOTE: Nurse Cathy at bedside doing wound care on patient's abdominal wound, mupirocin just applied to site. openings connect with tunnels on either side, less deep and overall improved. Patient has Peg tube now, feedings being started today.
Patient turned to sides, nurse states patient had loose stools this morning and had to remove silicone foam from sacrum. Sacrum intact has non blanchable anglees chronic discolored skin. Applied skin prep and Exuderm thin to protect skin from loose
stools. Silicone foam applied proximally over bony Coccyx. Heels are intact, foam adhesives re applied and placed pillow under calves. Repositioned patient onto L semi side lying position. Will sign off unless needed, no change in wound care.
--- NOTE | 2024-02-25 10:21 | W.PN.HOSP.TC ---
Today's Communication/Plan
-
monitor 12pm fingerstick
continue TFs
VSE and PT/OT today
DC planning
Assessment / Plan
Assessment / Plan
64 year old female past medical history of advanced vascular dementia, multiple strokes, dysphagia, and anxiety/depression who presents from [facility] due to worsening abdominal wall wound x 3 days. Patient is a limited historian due to advanced
dementia. She has been receiving rehydration therapy via clysis device with access into the abdominal wall x 1 month, which was discontinued 2 weeks ago.
She was seen by a product marketing specialist who raised concerns about possible abdominal wall cellulitis at the site of the clysis device which has been worsening and now with purulent discharge. While in the emergency department she was noted to be
hypotensive. She is unable to provide further history.
Blood pressures improved overnight with IV fluids however it remains despondent contracted with evidence of continued dysphagia placing her at high risk for aspiration
Assessment:
Acute Kidney Injury secondary to Volume Depletion
- improved with IVF
- follow labs daily
Abdominal Wall Cellulitis
- wound care eval: At 12 O clock undermines 6cm, distally undermines 5cm, depth 1cm and undermines 1cm on sides
- related to recent Clysis infusion
- wound culture: MSSA
- given initial course of Ancef and then Augmentin but changed to IV ampicillin and now discontinued due to concern for transaminitis
- continue topical mupirocin
Elevated LFTs, ? related to hypotension
- no RUQ pain, no fevers
- monitor labs daily - are improving
Failure to Thrive
- high risk of aspiration, was on pleasure feeds
- per prior notes from hospitalist and GI services, both daughter and son were contacted
- s/p PEG tube placement 02/23; TF initiated per Nutrition recs
- will also obtain VSE to determine oral intake capacity but suspected to be limited
- psych followed for decision-making capacity evals
Multiple Strokes
- continue Aspirin,
- resume Brilinta tomorrow morning per GI
- continue atorvastatin
Vascular Dementia with prior episodes of behavioral disturbance
- Monitor for mood/behavior changes
- psych followed for decision-making capacity evals
Anxiety/Depression
- continue Remeron. Have stopped Lexapro/Ativan/Risperdal
- Psychiatry is seen during this admission on 2 separate evaluations and considered to be incompetent to make medical decisions on her own
- Have stopped Lexapro/Ativan/Risperdal
Essential Hypertension
- resume metoprolol as 25mg BID
COPD
- continue umeclidinium-vilanterol
- continue albuterol prn
Chronic Urinary Retention
- continue Monahan Catheter
- hold Flomax
Hx Crohn's Disease
Hypoglycemia 02/24 AM - start TFs and repeat fingerstick at 12pm
DVT proph: SCDs
Code: Full
Anticipated Discharge: 24 - 48 hours
Subjective/Interval History
-
Date of Service: February 25, 2024
no overnight events
Objective Data
-
Labs:
Laboratory Results
02/25/24
04:51
WBC 9.9
Hgb 10.6 L
Hct 33.0 L
Plt Count 205
Sodium 140
Potassium 3.3 L
Chloride 109 H
Carbon Dioxide 22
BUN 12
Creatinine 0.8
Glucose 53 L*
Calcium 8.1 L
Total Bilirubin 2.8 H
AST 56 H
ALT 62 H
Alkaline Phosphatase 88
Vital Signs:
Vital Signs
Temp Pulse Resp BP Pulse Ox
99.0 F 105 20 130/96 98
02/25/24 07:35 02/25/24 07:35 02/25/24 07:35 02/25/24 07:35 02/25/24 07:35
I&O
02/24/24 02/25/24 02/26/24
06:59 06:59 06:59
Intake Total 1510 / 1510 300 / 300
Output Total 1700 / 1700 1000 / 1000
Balance -190 / -190 -700 / -700
Physical Exam
-
General: No Apparent Distress
HEENT: Normocephalic and Atraumatic
Respiratory: Negative Wheezes
Cardiac: Regular Rhythm and S1/S2
GI: Peg Tube (covered with abd binder)
Genito-urinary: No Costovertebral Tender
Musculoskeletal: No Edema
Neuro: Awake
Psych: Apparent Dementia
Data Reviewed
-
Total Time Spent with Patient (in minutes): 41
Labs: Labs Reviewed by me
--- NOTE | 2024-02-25 10:25 | CM ---
clinical care manager reached out to the [facility] facilities in the [facility] where patient came from to see if any of these facilities would accept patient in order to get her closer to home. clinical care manager spoke with Windy Covarrubias
[phone] admissions director and she will reach out to each and every facility in area to see if they can accept patient. Patient with new peg, no Medicare days left.
Patient has been accepted to return to [facility] contact Malina [phone].
Plan; Await final determination from all [facility] facilities in [facility] to see if they can accept patient if not patient will have to return to [facility] in [place], 37 referrals were sent to skilled facilities.
--- NOTE | 2024-02-25 12:03 | PTOTSP ---
Video Swallow Examination
Poor self regulation, delayed and disorganized oral processing and swallow delays resulted in silent aspiration of thin liquid and laryngeal penetration of mildly thick liquid.
Recommend
1. Main nutrition via PEG tube
2. Pleasure feeding of IDDSI 4 (pureed) and Moderately (honey) thick liquids.
3. 1:1 Supervision
4. Everything by teaspoon
5. HOB elevated to at least 45 degrees
6. Aspiration precautions.
No further skilled ST indicated
[2024-02-25 12:27] LABS: Glucose - Point of Care 97 mg/dl (70-99)
--- NOTE | 2024-02-25 13:13 | W.PN.GI.CBS2 ---
Today's Communication / Plan
-
PLAN:
-Status post PEG tube placement, currently doing well
Currently on Osmolite for tube feeds
# Elevated liver enzymes -possibly related to the antibiotics as they were normal upon arrival except for the bilirubin was elevated.
She is status post cholecystectomy.
--CT scan showing normal liver,
Recent antibiotic use, could be potentially causing the elevated LFTs. Transaminases trending down but bilirubin about the same. Bilirubin can lag compared to other LFTs
Will check direct bilirubin
Alkaline phosphatase normal
Monitor while in the hospital and if LFTs go up again, please call us back
Okay to start Brilinta 02/26/2024
Will sign off, please call back if needed
Assessment / Plan
-
Pt is a 64yo with hx advanced dementia, multiple strokes on chronic Brilinta anxiety/depression, crohns disease on no medications presents from [facility] with concern for abdominal wall cellulitis. On admission patient was unable to give
history. She has been seen by psychiatry and speech therapy. She has been cleared for diet with decrease oral intake and now with improving mental status. Asked to see for peg tube. Medical team has reviewed with family who wishes to proceed.
-decrease appetite/failure to thrive/wt loss
-abdominal cellulitis with recent clysis device
-hx multiple ng on Brilinta
-advanced dementia
-hx crohns disease-limited details of disease process
-anxiety/depression
-torticollis of neck
-anemia
-hx UTI's
PLAN:
-Status post PEG tube placement, currently doing well
Currently on Osmolite for tube feeds
# Elevated liver enzymes -possibly related to the antibiotics as they were normal upon arrival except for the bilirubin was elevated.
She is status post cholecystectomy.
--CT scan showing normal liver,
Recent antibiotic use, could be potentially causing the elevated LFTs. Transaminases trending down but bilirubin about the same. Bilirubin can lag compared to other LFTs
Will check direct bilirubin
Alkaline phosphatase normal
Monitor while in the hospital and if LFTs go up again, please call us back
Okay to start Brilinta 02/26/2024
Will sign off, please call back if needed
Subjective
Subjective
Date of Service: February 25, 2024
No events overnight
Objective
Data Reviewed
Laboratory Data:
Laboratory Results
02/25/24 04:51
02/25/24 04:51
Laboratory Results
Phosphorus 3.9 mg/dl (2.5-4.5) 02/25/24 04:51
Magnesium 1.2 mg/dl (1.6-2.3) L 02/25/24 04:51
Total Bilirubin 2.8 mg/dl (0.2-1.3) H 02/25/24 04:51
AST 56 U/L (14-36) H 02/25/24 04:51
ALT 62 U/L (0-35) H 02/25/24 04:51
Alkaline Phosphatase 88 U/L (38-126) 02/25/24 04:51
Vital Signs and I&O:
Vital Signs
Temp Pulse Resp BP Pulse Ox
99.0 F 105 20 130/96 98
02/25/24 07:35 02/25/24 07:35 02/25/24 07:35 02/25/24 07:35 02/25/24 07:35
I&O
02/24/24 02/25/24 02/26/24
06:59 06:59 06:59
Intake Total 1510 / 1510 300 / 300
Output Total 1700 / 1700 1000 / 1000
Balance -190 / -190 -700 / -700
Physical Exam
Physical Exam
GI: Soft, Non Distended, Non Tender and Other (Outer PEG tube bumper at 1.5 cm and clean)
[2024-02-25] MEDS: KCL 270 MEQ IV (13:17)
[2024-02-25] MEDS: MAGNESIUM SULFATE 100 IV (13:18)
[2024-02-25 14:05] LABS: Direct Bilirubin 0.2 mg/dl (0.0-0.4)
[2024-02-25] MEDS: LOPRESSOR 25 MG TUBE ×2 (14:44→20:08)
[2024-02-25 15:00] VITALS: BP 136/76
[2024-02-25 16:50] LABS: Glucose - Point of Care 131 mg/dl (70-99)
[2024-02-25] MEDS: LIPITOR 40 MG TUBE (17:34)
[2024-02-25] MEDS: REMERON 15 MG TUBE (20:05)
[2024-02-25 23:00] VITALS: BP 155/99
[2024-02-26 05:34] LABS: Hemoglobin 11.2 g/dL (12.0-16.0); Mean Corpuscular Hgb 29.5 pg (27.0-31.0); Mean Corpuscular Volume 92.1 fL (81.0-99.0); Mean Platelet Volume 10.3 fL (7.4-10.4); Platelet Count 215 10^3/uL (130-400); White Blood Cell Count 9.2 10^3/uL (4.8-10.8)
[2024-02-26 05:51] LABS: ALT (SGPT) 41 U/L (0-35); AST (SGOT) 32 U/L (14-36); Albumin 2.6 g/dl (3.5-5.0); Alkaline Phosphatase 123 U/L (38-126); Blood Urea Nitrogen 15 mg/dl (7-17); Calcium 7.9 mg/dl (8.4-10.2); Carbon Dioxide 24 mmol/L (22-30); Chloride 108 mmol/L (98-107); Estimated Creatinine Clearance 50 ml/min; Glucose 132 mg/dl (70-99); Magnesium 2.4 mg/dl (1.6-2.3); Sodium 139 mmol/L (135-145); Total Bilirubin 2.1 mg/dl (0.2-1.3); Total Protein 5.6 g/dl (6.3-8.2); eGFR > 60.00
[2024-02-26 06:00] VITALS: BMI 16.0
[2024-02-26 06:03] LABS: Potassium 3.8 mmol/L (3.5-5.1)
[2024-02-26 07:30] VITALS: BP 157/86
[2024-02-26] MEDS: BACTROBAN 2% OINTMENT 1 APPLIC TOPICAL ×3 (09:29→20:12)
[2024-02-26] MEDS: LOPRESSOR 25 MG TUBE ×2 (09:31→20:11)
[2024-02-26] MEDS: FLOMAX TUBE (09:31)
[2024-02-26] MEDS: BRILINTA 90 MG TUBE ×2 (09:31→20:11)
[2024-02-26] MEDS: PREVACID 30 MG TUBE (09:32)
[2024-02-26] MEDS: SENOKOT TUBE ×2 (09:33→20:11)
[2024-02-26] MEDS: LOW STRENGTH ASPIRIN 81 MG TUBE (09:33)
--- NOTE | 2024-02-26 10:25 | CM ---
Call placed to Windy liaison for [facility] to request that Windy check on facilities in [facility], but patient has not been accepted at any faciliies closer to yaquelin's home, per [facility] and tamia bro notes from last
admission many referrals were sent and paitn was still not accepted. Plan will be for patient to return to [facility] in [place], case liner reached out to patient's son, Nadeem Radford
--- NOTE | 2024-02-26 10:40 | CM ---
Addendum entered by Kasie Cordoba 02/26/24 16:26:
occupational therapist rehab manager [facility] and patient is ineligible benefits as of 01/05/24, residential case manager spoke with Malina in admissions at [facility] and they will make patient MA pending and accept back to [facility] when patient
is stable.
Addendum entered by Kasie Cordoba 02/26/24 11:04:
occupational therapist rehab manager reached out to [facility] [phone] and spoke with Claritza and requested Auth, all clinical faxed to [phone].
Original Note:
Call placed to Windy [facility] for [facility] to request a check of all [facility] facilities in [facility], but patient has still not been accepted at an alternative skilled facility, residential case manager reviewed previous admissions
and multiple referrals sent and still patient has not been accepted, plan will be for patient to return to [facility], and [facility] will have to continue for find an alternative facility for patient. Message left for Nadeem [phone], to update him
on plan for patient. occupational therapist rehab manager reached out to Malina at [facility] and she provided NPI numbers for facility and physician.
[facility]
Dr López [phone]
Plan; To proceed with Auth for [facility]
--- NOTE | 2024-02-26 12:04 | W.PN.HOSP.TC ---
Today's Communication/Plan
-
continue oral diet + TFs
DC planning to SNF
Assessment / Plan
Assessment / Plan
64 year old female past medical history of advanced vascular dementia, multiple strokes, dysphagia, and anxiety/depression who presents from [facility] due to worsening abdominal wall wound x 3 days. Patient is a limited historian due to advanced
dementia. She has been receiving rehydration therapy via clysis device with access into the abdominal wall x 1 month, which was discontinued 2 weeks ago.
She was seen by a web communications specialist who raised concerns about possible abdominal wall cellulitis at the site of the clysis device which has been worsening and now with purulent discharge. While in the emergency department she was noted to be
hypotensive. She is unable to provide further history.
Blood pressures improved overnight with IV fluids however it remains despondent contracted with evidence of continued dysphagia placing her at high risk for aspiration
Assessment:
Acute Kidney Injury secondary to Volume Depletion
- improved with IVF
- follow labs daily
Abdominal Wall Cellulitis
- wound care eval: At 12 O clock undermines 6cm, distally undermines 5cm, depth 1cm and undermines 1cm on sides
- related to recent Clysis infusion
- wound culture: MSSA
- given initial course of Ancef and then Augmentin but changed to IV ampicillin and now discontinued due to concern for transaminitis
- continue topical mupirocin
Elevated LFTs, ? related to hypotension
- no RUQ pain, no fevers
- monitor labs daily - are improving
Failure to Thrive
- high risk of aspiration, was on pleasure feeds
- per prior notes from hospitalist and GI services, both daughter and son were contacted
- s/p PEG tube placement 02/23; TF initiated per Nutrition recs
- s/p VSE: in IDDSI 4 pureed
- psych followed for decision-making capacity evals
Multiple Strokes
- continue Aspirin,
- resume Brilinta tomorrow morning per GI
- continue atorvastatin
Vascular Dementia with prior episodes of behavioral disturbance
- Monitor for mood/behavior changes
- psych followed for decision-making capacity evaluations
Anxiety/Depression
- continue Remeron. Have stopped Lexapro/Ativan/Risperdal
- Psychiatry is seen during this admission on 2 separate evaluations and considered to be incompetent to make medical decisions on her own
- Have stopped Lexapro/Ativan/Risperdal
Essential Hypertension
- resume metoprolol as 25mg BID
COPD
- continue umeclidinium-vilanterol
- continue albuterol prn
Chronic Urinary Retention
- continue Monahan Catheter
- hold Flomax
Hx Crohn's Disease
Hypoglycemia - resolved
Hypokalemia
DVT proph: SCDs
Code: Full
Anticipated Discharge: 24 - 48 hours
Subjective/Interval History
-
Date of Service: February 26, 2024
no complaints
Objective Data
-
Labs:
Laboratory Results
02/26/24
05:00
WBC 9.2
Hgb 11.2 L
Hct 35.0 L
Plt Count 215
Sodium 139
Potassium 3.8
Chloride 108 H
Carbon Dioxide 24
BUN 15
Creatinine 0.8
Glucose 132 H
Calcium 7.9 L
Total Bilirubin 2.1 H
AST 32
ALT 41 H
Alkaline Phosphatase 123
Vital Signs:
Vital Signs
Temp Pulse Resp BP Pulse Ox
98.0 F 90 20 157/86 95
02/26/24 07:30 02/26/24 07:30 02/26/24 07:30 02/26/24 07:30 02/26/24 07:30
I&O
02/25/24 02/26/24 02/27/24
06:59 06:59 06:59
Intake Total 300 / 300 392 / 392
Output Total 1000 / 1000 450 / 450
Balance -700 / -700 -58 / -58
Physical Exam
-
General: Appears Chronically Ill
HEENT: Normocephalic and Atraumatic
Respiratory: Negative Wheezes
Cardiac: Regular Rhythm
GI: Peg Tube
Genito-urinary: No Costovertebral Tender
Musculoskeletal: No Edema
Psych: Calm and Apparent Dementia
Data Reviewed
-
Total Time Spent with Patient (in minutes): 41
Labs: Labs Reviewed by me
[2024-02-26 15:12] VITALS: BP 142/89
[2024-02-26] MEDS: PEPCID 20 MG TUBE (15:42)
[2024-02-26] MEDS: LIPITOR 40 MG TUBE (17:27)
[2024-02-26 20:10] VITALS: BP 145/108
[2024-02-26] MEDS: REMERON 15 MG TUBE (20:11)
[2024-02-26 23:01] VITALS: BP 158/96
[2024-02-27 05:51] VITALS: BMI 15.9
[2024-02-27 07:21] VITALS: BP 115/84
[2024-02-27 08:19] LABS: Mean Corp Hgb Conc. 32.4 g/dL (33.0-37.0); Mean Corpuscular Hgb 28.9 pg (27.0-31.0); Mean Corpuscular Volume 89.2 fL (81.0-99.0); Mean Platelet Volume 10.5 fL (7.4-10.4); Platelet Count 172 10^3/uL (130-400); Red Blood Cell Count 4.15 10^6/uL (4.20-5.40); Red Cell Dist. Width 15.1 % (11.5-14.5); White Blood Cell Count 10.8 10^3/uL (4.8-10.8)
[2024-02-27 08:32] LABS: ALT (SGPT) 34 U/L (0-35); AST (SGOT) 34 U/L (14-36); Albumin 2.7 g/dl (3.5-5.0); Alkaline Phosphatase 125 U/L (38-126); Blood Urea Nitrogen 15 mg/dl (7-17); Calcium 8.1 mg/dl (8.4-10.2); Carbon Dioxide 21 mmol/L (22-30); Chloride 108 mmol/L (98-107); Estimated Creatinine Clearance 56 ml/min; Glucose 113 mg/dl (70-99); Magnesium 2.1 mg/dl (1.6-2.3); Phosphorus 3.5 mg/dl (2.5-4.5); Potassium 4.3 mmol/L (3.5-5.1); Sodium 137 mmol/L (135-145); Total Bilirubin 1.8 mg/dl (0.2-1.3); Total Protein 5.8 g/dl (6.3-8.2); eGFR > 60.00
[2024-02-27] MEDS: BACTROBAN 2% OINTMENT 1 APPLIC TOPICAL ×3 (08:36→21:35)
[2024-02-27] MEDS: BRILINTA 90 MG TUBE ×2 (08:38→21:45)
[2024-02-27] MEDS: FLOMAX TUBE (08:39)
[2024-02-27] MEDS: PREVACID 30 MG TUBE (08:39)
[2024-02-27] MEDS: LOPRESSOR 25 MG TUBE ×2 (08:39→21:46)
[2024-02-27] MEDS: LOW STRENGTH ASPIRIN 81 MG TUBE (08:39)
[2024-02-27] MEDS: SENOKOT TUBE (08:41)
--- NOTE | 2024-02-27 09:54 | W.PN.HOSP.TC ---
Today's Communication/Plan
-
await Venous US
hopefully DC by evening
Assessment / Plan
Assessment / Plan
64 year old female past medical history of advanced vascular dementia, multiple strokes, dysphagia, and anxiety/depression who presents from [facility] due to worsening abdominal wall wound x 3 days. Patient is a limited historian due to advanced
dementia. She has been receiving rehydration therapy via clysis device with access into the abdominal wall x 1 month, which was discontinued 2 weeks ago.
She was seen by a personnel security specialist who raised concerns about possible abdominal wall cellulitis at the site of the clysis device which has been worsening and now with purulent discharge. While in the emergency department she was noted to be
hypotensive. She is unable to provide further history.
Blood pressures improved overnight with IV fluids however it remains despondent contracted with evidence of continued dysphagia placing her at high risk for aspiration
Assessment:
Acute Kidney Injury secondary to Volume Depletion
- improved with IVF
- follow labs daily
Abdominal Wall Cellulitis
- wound care eval: At 12 O clock undermines 6cm, distally undermines 5cm, depth 1cm and undermines 1cm on sides
- related to recent Clysis infusion
- wound culture: MSSA
- given initial course of Ancef and then Augmentin but changed to IV ampicillin and now discontinued due to concern for transaminitis
- continue topical mupirocin
Elevated LFTs, ? related to hypotension
- no RUQ pain, no fevers
- monitor labs daily - are improving
Failure to Thrive
- high risk of aspiration, was on pleasure feeds
- per prior notes from hospitalist and GI services, both daughter and son were contacted
- s/p PEG tube placement 02/23; TF initiated per Nutrition recs
- s/p VSE: in IDDSI 4 pureed
- psych followed for decision-making capacity evals
Multiple Strokes
- continue Aspirin, Brillinta
- continue atorvastatin
Vascular Dementia with prior episodes of behavioral disturbance
- Monitor for mood/behavior changes
- psych followed for decision-making capacity evaluations
Anxiety/Depression
- continue Remeron. Have stopped Lexapro/Ativan/Risperdal
- Psychiatry is seen during this admission on 2 separate evaluations and considered to be incompetent to make medical decisions on her own
- Have stopped Lexapro/Ativan/Risperdal
Essential Hypertension
- resume metoprolol as 25mg BID
COPD
- continue umeclidinium-vilanterol
- continue albuterol prn
Chronic Urinary Retention
- continue Monahan Catheter
- hold Flomax
Hx Crohn's Disease
Hypoglycemia - resolved
Hypokalemia
L>R upper extremity edema
- possibly related to recent blood work or IV site
- DVT study ordered
DVT proph: SCDs
Code: Full
Anticipated Discharge: Within 24 hours
Subjective/Interval History
-
Date of Service: February 27, 2024
RN alerting that patient having L>R arm swelling
patient states it hurts but only mildly
no other complaints
Objective Data
-
Labs:
Laboratory Results
02/27/24
07:56
WBC 10.8
Hgb 12.0
Hct 37.0
Plt Count 172
Sodium 137
Potassium 4.3
Chloride 108 H
Carbon Dioxide 21 L
BUN 15
Creatinine 0.7
Glucose 113 H
Calcium 8.1 L
Total Bilirubin 1.8 H
AST 34
ALT 34
Alkaline Phosphatase 125
Vital Signs:
Vital Signs
Temp Pulse Resp BP Pulse Ox
97.8 F 103 22 115/84 96
02/27/24 07:21 02/27/24 07:21 02/27/24 07:21 02/27/24 07:21 02/27/24 07:21
I&O
02/26/24 02/27/24 02/28/24
06:59 06:59 06:59
Intake Total 392 / 392 1919
Output Total 450 / 450 700 / 700
Balance -58 / -58 1220 / 1220
Physical Exam
-
General: No Apparent Distress and Appears Chronically Ill
HEENT: Normocephalic and Atraumatic
Respiratory: Negative Wheezes
Cardiac: Regular Rhythm and S1/S2
GI: Soft and Peg Tube
Musculoskeletal: Edema, Right Upper Extrem and Edema, Left Upper Extrem
Neuro: AO x 3
Psych: Calm
Data Reviewed
-
Total Time Spent with Patient (in minutes): 42
Labs: Labs Reviewed by me
[2024-02-27] MEDS: ULTRAM 50 MG PO (13:16)
[2024-02-27 15:05] VITALS: BP 128/107
[2024-02-27] MEDS: LIPITOR 40 MG TUBE (15:05)
[2024-02-27 16:38] VITALS: BP 108/77
[2024-02-27] MEDS: REMERON 15 MG TUBE (21:46)
[2024-02-27] MEDS: SENOKOT 8.59999999999999964 MG TUBE (21:46)
--- NOTE | 2024-02-27 22:39 | W.PN.UPDATE ---
Update Note
Progress Note Update
US/ BUE result received with
Nonocclusive thrombus in the right axillary vein and occlusive thrombus in the right basilic vein.
Will hold aspirin and Brilinta and start heparin drip.
00:13 HOUSE RN/ stroke alert
Patient was noted by the staff to be less responding than earlier with RT side facial drip.
One assessment, patient is responding to some questions like how are you? but she will not answer for her names or date of . Patient is not following command and not able to obtain an accurate NIH score. Spoke to Dr. Patterson/neurologist it operations manager
after case was discussed, Head CT ordered.
Head CT results shows
No acute intracranial hemorrhage, mass effect, or midline shifts. Old infracts in the bilateral occipital lobes, right greater than left. Old Lacunar infracts in the RT olga and RT thalamus. No obvious acute infract however MRI would have increased
sensitivity. Moderate global volume loss and chronic small vessel ischemia.
-Will continue heparin drip as recommended by Dr. Patterson if the head CT with no intracranial hemorrhage.
[2024-02-27 23:00] VITALS: BP 115/73
[2024-02-27 23:52] LABS: Hematocrit 35.4 % (37.0-47.0); Hemoglobin 11.8 g/dL (12.0-16.0); Mean Corp Hgb Conc. 33.3 g/dL (33.0-37.0); Mean Corpuscular Hgb 29.5 pg (27.0-31.0); Mean Corpuscular Volume 88.5 fL (81.0-99.0); Mean Platelet Volume 9.9 fL (7.4-10.4); Platelet Count 225 10^3/uL (130-400); Red Cell Dist. Width 15.5 % (11.5-14.5)
[2024-02-28 00:08] LABS: APTT 29.4 Sec (23.4-35.0)
[2024-02-28 00:16] LABS: Glucose - Point of Care 131 mg/dl (70-99)
--- NOTE | 2024-02-28 00:30 | RR ---
A Rapid Response was called on this patient, please see Rapid Response form.
Pt found not speaking,difficult to arouse, not following commands with R side droop noted and tongue protruding. DRIVER GUIDE, stroke alert called. Pt down to CT scan. Results noted. Pt back to room, answering questions at times and moving extremities. INSURANCE BILLING SPECIALIST
Abdelwahab at bedside
--- NOTE | 2024-02-28 00:45 | PTCARENOTE ---
IV Heparin started as per order at 800U/hr based on results of LUE.
[2024-02-28] MEDS: HEPARIN 25000 UNITS/250 ML IV (00:47)
[2024-02-28 06:00] VITALS: BMI 16.0
[2024-02-28 07:15] VITALS: BP 117/77
[2024-02-28] MEDS: BACTROBAN 2% OINTMENT 1 APPLIC TOPICAL ×3 (08:46→22:42)
[2024-02-28] MEDS: PREVACID 30 MG TUBE (08:47)
[2024-02-28] MEDS: LOPRESSOR 25 MG TUBE ×2 (08:47→22:39)
[2024-02-28] MEDS: FLOMAX 0.400000000000000022 MG TUBE (08:47)
[2024-02-28] MEDS: SENOKOT 8.59999999999999964 MG TUBE ×2 (08:47→22:40)
[2024-02-28 08:50] LABS: APTT > 200 Sec (23.4-35.0)
--- NOTE | 2024-02-28 11:33 | W.PN.HOSP.TC ---
Today's Communication/Plan
-
start Eliquis; stop IV heparin
stop Brillinta, continue ASA
monitor mental status - seems baseline
DC planning SNF
Assessment / Plan
Assessment / Plan
64 year old female past medical history of advanced vascular dementia, multiple strokes, dysphagia, and anxiety/depression who presents from [facility] due to worsening abdominal wall wound x 3 days. Patient is a limited historian due to advanced
dementia. She has been receiving rehydration therapy via clysis device with access into the abdominal wall x 1 month, which was discontinued 2 weeks ago.
She was seen by a multi media specialist who raised concerns about possible abdominal wall cellulitis at the site of the clysis device which has been worsening and now with purulent discharge. While in the emergency department she was noted to be
hypotensive. She is unable to provide further history.
Blood pressures improved overnight with IV fluids however it remains despondent contracted with evidence of continued dysphagia placing her at high risk for aspiration
Assessment:
Mental status change overnight 02/27, likely delirium
- called as CVA alert; CT head negative. no concern for CVA per Neuro
- check UA
- could be related to underlying dementia; continue to monitor
Acute Kidney Injury secondary to Volume Depletion
- improved with IVF
- follow labs daily
Abdominal Wall Cellulitis
- wound care eval: At 12 O clock undermines 6cm, distally undermines 5cm, depth 1cm and undermines 1cm on sides
- related to recent Clysis infusion
- wound culture: MSSA
- given initial course of Ancef and then Augmentin but changed to IV ampicillin and now discontinued due to concern for transaminitis
- continue topical mupirocin
Elevated LFTs, ? related to hypotension
- no RUQ pain, no fevers
- monitor labs daily - are improving
Failure to Thrive
- high risk of aspiration, was on pleasure feeds
- per prior notes from hospitalist and GI services, both daughter and son were contacted
- s/p PEG tube placement 02/23; TF initiated per Nutrition recs
- s/p VSE: in IDDSI 4 pureed
- psych followed for decision-making capacity evals
Multiple Strokes
- continue Aspirin/Statin
- Brilinta stopped with addition of Eliquis
Vascular Dementia with prior episodes of behavioral disturbance
- Monitor for mood/behavior changes
- psych followed for decision-making capacity evaluations
Anxiety/Depression
- continue Remeron. Have stopped Lexapro/Ativan/Risperdal
- Psychiatry is seen during this admission on 2 separate evaluations and considered to be incompetent to make medical decisions on her own
- Have stopped Lexapro/Ativan/Risperdal
Essential Hypertension
- resume metoprolol as 25mg BID
COPD
- continue umeclidinium-vilanterol
- continue albuterol prn
Chronic Urinary Retention
- continue Monahan Catheter
- hold Flomax
Hx Crohn's Disease
Hypoglycemia - resolved
Hypokalemia
nonocclusive thrombus in the left axillary vein
Occlusive thrombus is seen at least in the proximal to mid left basilic vein, distal lead nonvisualized
- switch to Eliquis; loading dose then maintenance. Stop IV heparin.
Code: Full
Anticipated Discharge: > 48 hours
Subjective/Interval History
-
Date of Service: February 28, 2024
overnight events reviewed; acute CVA alert, no findings on CT
Objective Data
-
Labs:
Laboratory Results
02/27/24 02/28/24 02/28/24
23:37 06:58 07:48
WBC 10.0
Hgb 11.8 L
Hct 35.4 L
Plt Count 225 D
APTT 29.4 Cancelled > 200 H*
02/28/24 02/28/24
14:00 17:00
WBC
Hgb
Hct
Plt Count
APTT Cancelled Pending
Vital Signs:
Vital Signs
Temp Pulse Resp BP Pulse Ox
97.9 F 78 14 117/77 98
02/28/24 07:15 02/28/24 07:15 02/28/24 07:15 02/28/24 07:15 02/28/24 07:15
I&O
02/27/24 02/28/24 02/29/24
06:59 06:59 06:59
Intake Total 1920 / 1920 890 / 890
Output Total 700 / 700 850 / 850
Balance 1220 / 1220 40 / 40
Physical Exam
-
General: No Apparent Distress and Appears Chronically Ill
HEENT: Normocephalic and Atraumatic
Respiratory: Negative Wheezes or Rales
Cardiac: Regular Rhythm and S1/S2
Psych: Apparent Dementia
Data Reviewed
-
Total Time Spent with Patient (in minutes): 41
Labs: Labs Reviewed by me
--- NOTE | 2024-02-28 12:14 | CON.NEURO4 ---
Consultation - Neurology 4
-
CONSULTING PHYSICIAN: Abraham Patterson
REFERRING PHYSICIAN: Hospitalist
DICTATED BY: Abraham Patterson
DATE/TIME OF REQUEST: 02/28/24
DATE/TIME OF CONSULTATION: 02/28/24
Reason for Consultation: Stroke alert
History of Present Illness:
The patient is a 64-year-old woman with a past medical history of vascular dementia, multiple ischemic strokes presenting the hospital with worsening abdominal wound has been being treated for abdominal cellulitis, she had PEG tube placement on 02/23.
She had been started on IV heparin due to nonocclusive thrombus in the right axillary vein and right basilic vein.
Yesterday evening around midnight patient had stroke alert called given change in neurologic status not responding as much as before with right facial weakness seen. CT head was obtained which showed no acute hemorrhage and heparin was continued.
Patient not able to give any meaningful history she denies any pain. She had been maintained on aspirin and ticagrelor previous to this admission for secondary stroke prevention.
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
Surgical History: PEG tube
Family History: Non-contributory
Social History: [place] [facility] [place], no tobacco or alcohol, has adult children
Review of Symptoms:
Unable to obtain with mental status
Physical Exam:
Middle-aged woman appears older than her stated age appears chronically disabled no signs of overt distress, decreased muscle bulk, oropharynx is dry, eyes are clear no trauma to the head or neck, heart rate regular breathing unlabored abdomen soft
nontender PEG tube in place with no abnormality seen no lower extremity edema or rash
Neurologic Examination:
Mental status shows an awake and alert patient who opens eyes to voice and does communicate in simple usually 1 short phrases, she can say her name and obey simple commands like closing her eyes sticking out her tongue. She will localize to pain
mainly with the right arm.
Cranial nerve examination shows right facial weakness, moderate dysarthria, resting gaze is midline extraocular movements are full, left homonymous hemianopia
Motor examination shows spasticity greater on the right arm than left, patient can lift the arms demonstrating 4/5 shoulder abduction in a symmetric manner she will localize to pain usually with the right arm, leg show 3/5 effort against gravity
with noxious stimulation of the feet. Sensory exam intact to noxious stimulation in all limbs
Reflexes unobtainable throughout
No ataxia and spontaneous movements of the arms when held in the ER above her head
Gait deferred
Neuro Imaging: CT head chronic right CHIEF TECHNOLOGY OFFICER stroke, multiple subcortical chronic infarcts, no hemorrhage
Impressions
1. Change in mental status and responsiveness is very likely due to delirium in a patient who had experienced infection and surgery this is hospitalization and has advanced vascular dementia with multiple strokes in the past at baseline
2. History of vascular dementia and multiple strokes probably due to small vessel disease and atherosclerotic disease as cause
Patient has the following risk factors for their symptoms: Infection, dementia, history of stroke
IV Tenecteplase/IAT candidacy: On heparin infusion for DVT so TNK contraindicated, patient with baseline dementia would not be a candidate for IAT
Recommendations:
1. Stop ticagrelor
2. Continue aspirin
3. Can continue anticoagulation with heparin with plan to eventually transition to p.o. anticoagulation
4. Can stop NIH stroke scales and neurologic checks
5. Minimize sedating medications
6. No role for MRI of the brain which would not mold insert changer for this patient, CT head sufficient imaging
7. Proceed with DC planning
Discussed patient care with: Nursing, hospitalist
NIH Stroke Score
Subsequent NIH Scale
Date of Subsequent NIH Scale: 02/28/24
Time of Subsequent NIH Scale: 09:30
NIH Stroke Score
Level of Consciousness: 1 - Arousable
LOC Questions: 0-Answers both correctly
LOC Commands: 1-Performs one correctly
Best Horizontal Gaze: 0-Normal
Visual Courtney: 2=Full hemianopia
Facial Palsy: 1=Minor paralysis
Motor - Right Arm: 1=Drift < 10 seconds
Motor - Left Arm: 1=Drift < 10 seconds
Motor - Right Le-Drift < 5 seconds
Motor - Left Le-Drift < 5 seconds
Limb Ataxia: 0-Absent
Sensation: 0-Normal
Best Language: 1-Mild aphasia
Dysarthria: 2-Severe slurring
Extinction and Inattention: 0-No abnormality
Total Score:: 12
Home Medications
-
Home Medications
acetaminophen 325 mg tablet (Tylenol) 650 mg PO Q6HPRN PRN mild pain 12/02/23
albuterol sulfate 2.5 mg/3 mL (0.083 %) solution for nebulization 2.5 mg inhalation R Q4HPRN PRN SOB 12/02/23
aspirin 81 mg chewable tablet 81 mg PO DAILY Blood Clot Prevention/Tx 12/02/23
atorvastatin 40 mg tablet (Lipitor) 40 mg PO QPM High Cholesterol 12/02/23
bisacodyl 10 mg rectal suppository (Dulcolax (bisacodyl)) 10 mg ND DAILYPRN PRN IF NO BM AFTR SORBITOL 12/02/23
calcium carbonate (Tums) 200 mg PO Q8HPRN PRN GERD 12/02/23
cholecalciferol (vitamin D3) 50 mcg (2,000 unit) tablet (Vitamin D3) 50 mcg PO DAILY Supplement 12/02/23
cyanocobalamin (vitamin B-12) 100 mcg tablet 100 mcg PO DAILY Supplement 12/02/23
famotidine 40 mg tablet (Pepcid) 40 mg PO DAILY Gastrointestinal Issue 12/02/23
mineral oil 118 ml ND DAILYPRN PRN constipation 12/02/23
polyethylene glycol 3350 17 gram oral powder packet (Miralax) 17 g PO DAILY Constipation 12/02/23
potassium citrate 15 mEq (1,620 mg) tablet,extended release 15 meq PO BID Electrolyte Repletion 12/02/23
sennosides 8.6 mg tablet (senna) 8.6 mg PO DAILY Constipation 12/02/23
sodium phosphates 19 gram-7 gram/118 mL enema (Fleet Enema) 118 ml ND DAILYPRN PRN IF NO BM AFTR DULCOLAX 12/02/23
sorbitol 70 % solution 30 ml PO DAILYPRN PRN constipation 12/02/23
ticagrelor 90 mg tablet (Brilinta) 90 mg PO BID Blood Clot Prevention/Tx 12/02/23
lorazepam 0.5 mg tablet 0.5 mg PO Q4HPRN PRN agitation #20 tabs 12/17/23
ferrous sulfate 325 mg (65 mg iron) tablet 325 mg PO DAILY Supplement 01/21/24
hydrocortisone 1 % topical cream (Preparation H Hydrocortisone) 1 applic topical Q4HPRN PRN hemorrhiods 01/21/24
mirtazapine 15 mg tablet (Remeron) 15 mg PO HS depression/sleep 01/21/24
risperidone 1 mg tablet 0.5 mg PO BID Mental Health/Anxiety 01/21/24
umeclidinium 62.5 mcg-vilanterol 25 mcg/actuation powdr for inhalation 1 inh inhalation R DAILY Lung/Breathing Issues 01/21/24
escitalopram oxalate 5 mg tablet (Lexapro) 5 mg PO DAILY depression/anxiety 02/16/24
lorazepam 0.5 mg tablet 0.5 mg PO BID anxiety 02/16/24
metoprolol tartrate 50 mg tablet 75 mg PO BID Blood Pressure 02/16/24
sulfamethoxazole 800 mg-trimethoprim 160 mg tablet (Bactrim DS) 1 tab PO BID Infection 02/16/24
tamsulosin 0.4 mg capsule 0.4 mg PO DAILY Urinary Issue 02/16/24
Allergies
-
Allergies
Allergy/AdvReac Type Severity Reaction Status Date / Time
divalproex sodium Allergy Unknown Verified 12/02/23 14:14
Iodinated Contrast Media Allergy Anaphylaxis Verified 12/02/23 14:14
iodine Allergy Anaphylaxis Verified 12/02/23 14:14
tositumomab Allergy Unknown Verified 12/02/23 14:14
valproic acid Allergy Unknown Verified 12/02/23 14:14
Vital Signs / Labs
-
Vital Signs and Labs:
Temp Pulse Resp BP Pulse Ox
97.9 F 78 14 117/77 98
02/28/24 07:15 02/28/24 07:15 02/28/24 07:15 02/28/24 07:15 02/28/24 07:15
02/27/24 23:37
02/27/24 07:56
02/27/24 02/28/24 02/28/24
23:37 00:14 07:48
RBC 4.00 L
Hgb 11.8 L
Hct 35.4 L
RDW 15.5 H
APTT > 200 H*
POC Glucose 131 H
[2024-02-28] MEDS: ELIQUIS 10 MG TUBE ×2 (12:20→22:39)
[2024-02-28 12:54] LABS: Urine Albumin Trace (Neg - Trace); Urine Bilirubin Negative (Negative); Urine Character Slightly Cloudy (Clear); Urine Color Yellow; Urine Glucose Negative (Negative); Urine Ketone Negative (Negative); Urine Leukocyte 2+ (Negative); Urine Nitrite Negative (Negative); Urine Occult Blood Trace (Negative); Urine Urobilinogen Negative (Neg - 1+)
[2024-02-28 13:26] LABS: Urine Bacteria Moderate (Negative); Urine Red Blood Cell 0-2 /HPF (0-2); Urine White Cell 50-60 /HPF (0-5)
[2024-02-28] MEDS: PEPCID 20 MG TUBE (17:21)
[2024-02-28] MEDS: LIPITOR 40 MG TUBE (17:21)
[2024-02-28] MEDS: REMERON 15 MG TUBE (22:41)
[2024-02-28 23:09] VITALS: BP 107/69
[2024-02-29 06:00] VITALS: BMI 16.2
[2024-02-29 07:10] VITALS: BP 123/80
[2024-02-29] MEDS: SENOKOT TUBE ×2 (08:50→19:54)
[2024-02-29] MEDS: LOW STRENGTH ASPIRIN 81 MG TUBE (08:54)
[2024-02-29] MEDS: FLOMAX 0.400000000000000022 MG TUBE (08:54)
[2024-02-29] MEDS: PREVACID 30 MG TUBE (08:54)
[2024-02-29] MEDS: BACTROBAN 2% OINTMENT 1 APPLIC TOPICAL ×3 (08:54→21:30)
[2024-02-29] MEDS: LOPRESSOR 25 MG TUBE ×2 (08:54→19:54)
[2024-02-29] MEDS: ELIQUIS 10 MG TUBE ×2 (08:54→19:55)
--- NOTE | 2024-02-29 11:03 | W.PN.HOSP.TC ---
Today's Communication/Plan
-
UA +, start empiric Rocephin pending culture
Assessment / Plan
Assessment / Plan
64 year old female past medical history of advanced vascular dementia, multiple strokes, dysphagia, and anxiety/depression who presents from [facility] due to worsening abdominal wall wound x 3 days. Patient is a limited historian due to advanced
dementia. She has been receiving rehydration therapy via clysis device with access into the abdominal wall x 1 month, which was discontinued 2 weeks ago.
She was seen by a deck specialist who raised concerns about possible abdominal wall cellulitis at the site of the clysis device which has been worsening and now with purulent discharge. While in the emergency department she was noted to be
hypotensive. She is unable to provide further history.
Blood pressures improved overnight with IV fluids however it remains despondent contracted with evidence of continued dysphagia placing her at high risk for aspiration
Assessment:
Mental status change overnight 02/27, likely delirium
- called as CVA alert; CT head negative. no concern for CVA per Neuro
- could be related to underlying dementia; continue to monitor
UTI
- start Rocephin, follow culture
Acute Kidney Injury secondary to Volume Depletion
- improved with IVF
- follow labs daily
Abdominal Wall Cellulitis
- wound care eval: At 12 O clock undermines 6cm, distally undermines 5cm, depth 1cm and undermines 1cm on sides
- related to recent Clysis infusion
- wound culture: MSSA
- given initial course of Ancef and then Augmentin but changed to IV ampicillin and now discontinued due to concern for transaminitis
- continue topical mupirocin
Elevated LFTs, ? related to hypotension
- no RUQ pain, no fevers
- monitor labs daily - are improving
Failure to Thrive
- high risk of aspiration, was on pleasure feeds
- per prior notes from hospitalist and GI services, both daughter and son were contacted
- s/p PEG tube placement 02/23; TF initiated per Nutrition recs
- s/p VSE: in IDDSI 4 pureed
- psych followed for decision-making capacity evals
Multiple Strokes
- continue Aspirin/Statin
- Brilinta stopped with addition of Eliquis
Vascular Dementia with prior episodes of behavioral disturbance
- Monitor for mood/behavior changes
- psych followed for decision-making capacity evaluations
Anxiety/Depression
- continue Remeron. Have stopped Lexapro/Ativan/Risperdal
- Psychiatry is seen during this admission on 2 separate evaluations and considered to be incompetent to make medical decisions on her own
- Have stopped Lexapro/Ativan/Risperdal
Essential Hypertension
- resume metoprolol as 25mg BID
COPD
- continue umeclidinium-vilanterol
- continue albuterol prn
Chronic Urinary Retention
- continue Monahan Catheter
- hold Flomax
Hx Crohn's Disease
Hypoglycemia - resolved
Hypokalemia
nonocclusive thrombus in the left axillary vein
Occlusive thrombus is seen at least in the proximal to mid left basilic vein, distal lead nonvisualized
- continue Eliquis loading sequence
Code: Full
Anticipated Discharge: Within 24 hours
Subjective/Interval History
-
Date of Service: February 29, 2024
No overnight events
Objective Data
-
Vital Signs:
Vital Signs
Temp Pulse Resp BP Pulse Ox
97.3 F 81 24 123/80 99
02/29/24 07:10 02/29/24 07:10 02/29/24 07:10 02/29/24 07:10 02/29/24 07:10
I&O
02/28/24 02/29/24 03/01/24
06:59 06:59 06:59
Intake Total 890 / 890 450 / 450
Output Total 850 / 850 1250 / 1250
Balance 40 / 40 -800 / -800
Physical Exam
-
General: No Apparent Distress
HEENT: Normocephalic
Respiratory: Negative Wheezes
Cardiac: Regular Rhythm and S1/S2
GI: Soft
Musculoskeletal: No Edema
Neuro: AO x 3
Hematologic / Lymphatic: No Lymphadenopathy
Psych: Calm
Data Reviewed
-
Total Time Spent with Patient (in minutes): 42
Labs: Labs Reviewed by me
[2024-02-29] MEDS: ROCEPHIN 1000 MG IV (11:20)
[2024-02-29] MEDS: STERILE WATER FOR INJECTION 10 ML IV (11:21)
[2024-02-29] MEDS: TYLENOL 650 MG TUBE ×2 (12:47→19:54)
[2024-02-29 15:32] VITALS: BP 140/93
[2024-02-29] MEDS: LIPITOR 40 MG TUBE (17:18)
[2024-02-29] MEDS: REMERON 15 MG TUBE (21:30)
[2024-02-29 23:44] VITALS: BP 140/92
[2024-03-01 06:00] VITALS: BMI 15.9
[2024-03-01 06:39] LABS: Hematocrit 39.7 % (37.0-47.0); Hemoglobin 12.9 g/dL (12.0-16.0); Mean Corp Hgb Conc. 32.5 g/dL (33.0-37.0); Mean Corpuscular Hgb 29.3 pg (27.0-31.0); Mean Platelet Volume 9.8 fL (7.4-10.4); Platelet Count 261 10^3/uL (130-400); Red Blood Cell Count 4.41 10^6/uL (4.20-5.40); Red Cell Dist. Width 15.3 % (11.5-14.5); White Blood Cell Count 8.4 10^3/uL (4.8-10.8)
[2024-03-01 07:06] LABS: Blood Urea Nitrogen 22 mg/dl (7-17); Calcium 8.6 mg/dl (8.4-10.2); Carbon Dioxide 27 mmol/L (22-30); Chloride 102 mmol/L (98-107); Estimated Creatinine Clearance 49 ml/min; Glucose 115 mg/dl (70-99); Potassium 5.4 mmol/L (3.5-5.1); Sodium 137 mmol/L (135-145); eGFR > 60.00
[2024-03-01 07:48] VITALS: BP 121/79
[2024-03-01] MEDS: FLOMAX 0.400000000000000022 MG TUBE (09:11)
[2024-03-01] MEDS: PREVACID 30 MG TUBE (09:11)
[2024-03-01] MEDS: LOPRESSOR 25 MG TUBE ×2 (09:11→19:44)
[2024-03-01] MEDS: SENOKOT TUBE ×3 (09:12→19:44)
[2024-03-01] MEDS: ELIQUIS 10 MG TUBE ×2 (09:12→19:44)
[2024-03-01] MEDS: BACTROBAN 2% OINTMENT 1 APPLIC TOPICAL ×3 (09:12→22:04)
[2024-03-01] MEDS: LOW STRENGTH ASPIRIN 81 MG TUBE (09:12)
[2024-03-01] MEDS: ROCEPHIN 1000 MG IV (12:38)
[2024-03-01] MEDS: STERILE WATER FOR INJECTION 10 ML IV (12:40)
--- NOTE | 2024-03-01 14:25 | W.PN.HOSP.TC ---
Today's Communication/Plan
-
d/c planning for rehab
Assessment / Plan
Assessment / Plan
Mental status change overnight 02/27, likely delirium
- called as CVA alert; CT head negative. no concern for CVA per Neuro
-neurology recommended to stop ticagrelor.
-No need of MRI brain
Ecoli and Proteus UTI
-Urine culture susceptibility reviewed. Both organisms sensitive to cephalosporin
-last dose rocephin tomorrow - day 2/3 today
Acute Kidney Injury secondary to Volume Depletion
- improved with IVF
- follow labs daily
Abdominal Wall Cellulitis
- wound care eval: At 12 O clock undermines 6cm, distally undermines 5cm, depth 1cm and undermines 1cm on sides
- related to recent Clysis infusion
- wound culture: MSSA
- given initial course of Ancef and then Augmentin but changed to IV ampicillin and now discontinued due to concern for transaminitis
- continue topical mupirocin
Elevated LFTs, ? related to hypotension
- no RUQ pain, no fevers
- monitor labs daily - are improving
Failure to Thrive
- high risk of aspiration, was on pleasure feeds
- per prior notes from hospitalist and GI services, both daughter and son were contacted
- s/p PEG tube placement 02/23; TF initiated per Nutrition recs
- s/p VSE: in IDDSI 4 pureed
- psych followed for decision-making capacity evals
Multiple Strokes
- continue Aspirin/Statin
- Brilinta stopped with addition of Eliquis
Vascular Dementia with prior episodes of behavioral disturbance
- Monitor for mood/behavior changes
- psych followed for decision-making capacity evaluations
Anxiety/Depression
- continue Remeron. Have stopped Lexapro/Ativan/Risperdal
- Psychiatry is seen during this admission on 2 separate evaluations and considered to be incompetent to make medical decisions on her own
- Have stopped Lexapro/Ativan/Risperdal
Essential Hypertension
- resume metoprolol as 25mg BID
COPD
- continue umeclidinium-vilanterol
- continue albuterol prn
Chronic Urinary Retention
- continue Monahan Catheter
- hold Flomax
Hx Crohn's Disease
Hypoglycemia - resolved
Hypokalemia
nonocclusive thrombus in the left axillary vein
Occlusive thrombus is seen at least in the proximal to mid left basilic vein, distal lead nonvisualized
- continue Eliquis loading sequence
Code: Full
Anticipated Discharge: Within 24 hours
Subjective/Interval History
-
Date of Service: March 01, 2024
Resting comfortably in bed
No reported issues overnight
Objective Data
-
Labs:
Laboratory Results
03/01/24
06:22
WBC 8.4
Hgb 12.9
Hct 39.7
Plt Count 261
Sodium 137
Potassium 5.4 H D
Chloride 102
Carbon Dioxide 27
BUN 22 H
Creatinine 0.8
Glucose 115 H
Calcium 8.6
Vital Signs:
Vital Signs
Temp Pulse Resp BP Pulse Ox
97.7 F 95 17 121/79 98
03/01/24 07:48 03/01/24 07:48 03/01/24 07:48 03/01/24 07:48 03/01/24 07:48
I&O
02/29/24 03/01/24 03/02/24
06:59 06:59 06:59
Intake Total 450 / 450 840 / 840
Output Total 1250 / 1250 1700 / 1700
Balance -800 / -800 -860 / -860
Review of Systems
-
Unable to obtain full review of systems at this time due to: Dementia
Physical Exam
-
General: No Apparent Distress and Cachectic
Respiratory: Negative Wheezes
Cardiac: Regular Rhythm and S1/S2
GI: Soft, Nontender, Nondistended and Peg Tube
Musculoskeletal: No Edema
Neuro: AO x 3
Hematologic / Lymphatic: No Lymphadenopathy
Psych: Calm
[2024-03-01 15:37] VITALS: BP 132/75
[2024-03-01] MEDS: LIPITOR 40 MG TUBE (15:53)
[2024-03-01] MEDS: PEPCID 20 MG TUBE (15:53)
[2024-03-01] MEDS: TYLENOL 650 MG TUBE (19:46)
[2024-03-01] MEDS: REMERON 15 MG TUBE (22:04)
[2024-03-01 23:16] VITALS: BP 126/85
[2024-03-02 06:00] VITALS: BMI 15.6
[2024-03-02 07:00] VITALS: BP 118/89
[2024-03-02] MEDS: PREVACID 30 MG TUBE (08:02)
[2024-03-02] MEDS: LOW STRENGTH ASPIRIN 81 MG TUBE (08:02)
[2024-03-02] MEDS: ELIQUIS 10 MG TUBE (08:02)
[2024-03-02] MEDS: BACTROBAN 2% OINTMENT 1 APPLIC TOPICAL (08:02)
[2024-03-02] MEDS: FLOMAX 0.400000000000000022 MG TUBE (08:02)
[2024-03-02] MEDS: LOPRESSOR 25 MG TUBE (08:02)
[2024-03-02] MEDS: SENOKOT TUBE (08:03)
--- NOTE | 2024-03-02 09:12 | W.PN.HOSP.TC ---
Today's Communication/Plan
-
d/c planning for SNF
Assessment / Plan
Assessment / Plan
Mental status change overnight 02/27, likely delirium
- called as CVA alert; CT head negative. no concern for CVA per Neuro
-neurology recommended to stop ticagrelor.
-No need of MRI brain
Ecoli and Proteus UTI
-Urine culture susceptibility reviewed. Both organisms sensitive to cephalosporin
-last dose rocephin tomorrow - day 2/ today
Acute Kidney Injury secondary to Volume Depletion
- improved with IVF
- follow labs daily
Abdominal Wall Cellulitis
- wound care eval: At 12 O clock undermines 6cm, distally undermines 5cm, depth 1cm and undermines 1cm on sides
- related to recent Clysis infusion
- wound culture: MSSA
- given initial course of Ancef and then Augmentin but changed to IV ampicillin and now discontinued due to concern for transaminitis
- continue topical mupirocin
Elevated LFTs, ? related to hypotension
- no RUQ pain, no fevers
- monitor labs daily - are improving
Failure to Thrive
- high risk of aspiration, was on pleasure feeds
- per prior notes from hospitalist and GI services, both daughter and son were contacted
- s/p PEG tube placement 02/23; TF initiated per Nutrition recs
- s/p VSE: in IDDSI 4 pureed
- psych followed for decision-making capacity evals
Multiple Strokes
- continue Aspirin/Statin
- Brilinta stopped with addition of Eliquis
Vascular Dementia with prior episodes of behavioral disturbance
- Monitor for mood/behavior changes
- psych followed for decision-making capacity evaluations
Anxiety/Depression
- continue Remeron. Have stopped Lexapro/Ativan/Risperdal
- Psychiatry is seen during this admission on 2 separate evaluations and considered to be incompetent to make medical decisions on her own
- Have stopped Lexapro/Ativan/Risperdal
Essential Hypertension
- resume metoprolol as 25mg BID
COPD
- continue umeclidinium-vilanterol
- continue albuterol prn
Chronic Urinary Retention
- continue Monahan Catheter
- hold Flomax
Hx Crohn's Disease
Hypoglycemia - resolved
Hypokalemia
nonocclusive thrombus in the left axillary vein
Occlusive thrombus is seen at least in the proximal to mid left basilic vein, distal lead nonvisualized
- continue Eliquis loading sequence
Code: Full
Anticipated Discharge: Today
Subjective/Interval History
-
Date of Service: March 02, 2024
no complains overnight
resting comfortably in bed
Objective Data
-
Vital Signs:
Vital Signs
Temp Pulse Resp BP Pulse Ox
98.1 F 100 14 118/89 96
03/02/24 07:00 03/02/24 07:00 03/02/24 07:00 03/02/24 07:00 03/02/24 07:00
I&O
03/01/24 03/02/24 03/03/24
06:59 06:59 06:59
Intake Total 840 / 840 1680 / 1680
Output Total 1700 / 1700 1850 / 1850
Balance -860 / -860 -170 / -170
Review of Systems
-
Unable to obtain full review of systems at this time due to: Dementia and Acuity
Physical Exam
-
General: No Apparent Distress and Cachectic
Respiratory: Negative Wheezes
Cardiac: Regular Rhythm and S1/S2
GI: Soft, Nontender, Nondistended and Peg Tube
Musculoskeletal: No Edema
Neuro: Negative Awake or Alert
Hematologic / Lymphatic: No Lymphadenopathy
Psych: Calm
--- NOTE | 2024-03-02 10:28 | CM ---
Addendum entered by Kiki Michel 03/02/24 10:58:
Plan: [facility] today via ambulance transport.
Per Malina she will take her back [place] pending.
[facility]
Report to 2nd floor [phone] Ext [phone]

Original Note:
TC to Son Al, updated re d/c to [facility] today.
IMM reviewed and will email to [email or web address]
[2024-03-02] MEDS: STERILE WATER FOR INJECTION 10 ML IV (11:23)
[2024-03-02] MEDS: ROCEPHIN 1000 MG IV (11:23)
[2024-03-02 12:40] VITALS: BP 99/69
--- NOTE | 2024-03-03 07:45 | W.DCSUMMARY ---
Discharge Summary
Discharge Data
Date of Admission: 02/16/24
Date of Discharge: 03/02/24
-
Pending Results: No
Hospital Course
Discharging Physician : Dr Manfred James
Disposition : SNF
Primary care physician : Dr Kang López
Principal Discharge diagnosis :
Abdominal wall cellulitis clysis catheter site from methicillin-sensitive Staphylococcus aureus
Acute kidney injury from volume depletion
Chronic dysphagia requiring gastric tube placement
Escherichia coli and Proteus intact infection
Episode of worsening confusion/delirium
Chronic Discharge diagnosis :
Multiple stroke and vascular dementia
Anxiety/depression
Essential hypertension
Chronic obstructive pulmonary disease
Chronic urinary retention
History of Crohn's disease
Hospital Course :
64-year-old female with above-mentioned past medical history was sent from [facility] for having worsening lower abdominal wound. Patient had chronic dysphagia with advanced dementia and was getting rehydration therapy via clysis
device placed in lower abdominal wall. This was discontinued 2 weeks before and was noted to having some purulent drainage and superficial skin wound developing in the area. Patient was sent to ER for further evaluation.
In ER evaluation suggestive of localized abdominal wall cellulitis only. No sign of systemic sepsis. Wound care cultures were collected and wound care nurse were involved in care. Patient was started on empiric antibiotics and wound culture later
grew MSSA. This was changed to oral antibiotic. Oral antibiotic were also discontinued before discharge due to worsening liver function. Patient was requiring only topical antibiotic treatment at time of discharge.
As mentioned above patient has advanced vascular dementia chronic dysphagia and has been failure to thrive. Patient was continued to feel high risk for feeding and discussion were held with family regarding goals of care. Patient had VSE and was
cleared for IDDSI 4 diet for pleasure feed. Family requested GI was involved in care and patient had undergone uncomplicated PEG tube placement. Tube feeds were initiated and patient was able to tolerate it without any problem.
Patient had some acute kidney injury due to volume depletion which resolved post IV hydration.
Patient also diagnosed to having E. coli and Proteus urinary tract infection with episode of confusion. A stroke alert was called and CT head was done which was negative for acute abnormality. Neurology evaluated and stroke was deemed less likely.
No follow-up MRI brain recommended for this reason. Neurology also recommended patient ticagrelor to be stopped as patient already on aspirin and Eliquis. Patient urinary tract infection was treated with short course of Antibiotics.
Patient was discharged [facility]pc post medical stabilization for
Important imaging findings :
None
Procedure findings :
None
Discharge Plan
-
Patient Disposition: Care Home/SNF
Discharge Diagnosis/Procedures: Abdominal wall cellulitis, Failure to thrive, E coli and Proteus UTI, Vascular dementia
Condition: Fair
Diet: Tube feeding and Other diet
Additional Diets: Continue Tube feed osmolite 1.2 @ 50mls/hr. IDDSI 4/Cait thick liquid for pleasure feed.
Activity: As tolerated
Driving Restrictions: No driving
Bathing Restrictions: Per facility protocol
Activity Restrictions/Additional Instructions:
Wound Care Instructions
Abdomen: clean with soap and water, mupirocin to small openings and dry dressing change daily and prn drainage.
Sacrum: After cleaning apply skin prep and Exuderm thin, just proximal over Coccyx apply silicone foam change q 2-3 days and prn soilage.
Air mattress with turning schedule.
Referrals:
Kang López, DO [Family Provider] - in one week
Additional Discharge Medication Instructions: Stop Brilanta - started on eliquis. Stop ativan - excessive sedation.
Prescriptions:
New
mupirocin 2 % Ointment
1 applic topical TID Qty: 15 0RF
Eliquis 5 mg Tablet
See Rx Instructions .ROUTE .COMPLEX Qty: 60 0RF
Rx Instructions:
Give 2 Tablets Twice daily through Tube - Last dose 03/05/24 THEN Give 1 Tablet Twice Daily for Maintenance
lansoprazole 30 mg Tablet,Disintegrat, Delay Rel
30 mg feeding tube DAILY 30 Days Qty: 30 0RF
Continued
atorvastatin [Lipitor] 40 mg Tablet
40 mg PO QPM
sennosides [senna] 8.6 mg Tablet
8.6 mg PO DAILY
acetaminophen [Tylenol] 325 mg Tablet
650 mg PO Q6HPRN PRN (Reason: mild pain )
cyanocobalamin (vitamin B-12) 100 mcg Tablet
100 mcg PO DAILY
albuterol sulfate 2.5 mg /3 mL (0.083 %) Solution For Nebulization
2.5 mg INHALATION R Q4HPRN PRN (Reason: SOB)
polyethylene glycol 3350 [Miralax] 17 gram Powder In Packet
17 g PO DAILY
famotidine [Pepcid] 40 mg Tablet
40 mg PO DAILY
mineral oil Enema
118 ml LA DAILYPRN PRN (Reason: constipation )
bisacodyl [Dulcolax (bisacodyl)] 10 mg Suppository
10 mg LA DAILYPRN PRN (Reason: IF NO BM AFTR SORBITOL)
Fleet Enema 19-7 gram/118 mL Enema
118 ml LA DAILYPRN PRN (Reason: IF NO BM AFTR DULCOLAX)
aspirin 81 mg Tablet,Chewable
81 mg PO DAILY
cholecalciferol (vitamin D3) [Vitamin D3] 50 mcg (2,000 unit) Tablet
50 mcg PO DAILY
hydrocortisone [Preparation H Hydrocortisone] 1 % Cream
1 applic TOPICAL Q4HPRN PRN (Reason: hemorrhiods)
ferrous sulfate 325 mg (65 mg iron) Tablet
325 mg PO DAILY
mirtazapine [Remeron] 15 mg Tablet
15 mg PO HS
umeclidinium-vilanterol 62.5-25 mcg/actuation Blister With Device
1 inh INHALATION R DAILY
tamsulosin 0.4 mg capsule
0.4 mg PO DAILY
Changed
metoprolol tartrate 50 mg tablet
50 mg PO BID Qty: 0 0RF
risperidone 1 mg tablet
0.5 mg PO BID PRN (Reason: Mental Health/Anxiety) Qty: 0 0RF
Discontinued
calcium carbonate [Tums] 200 mg calcium (500 mg) Tablet,Chewable
200 mg PO Q8HPRN PRN (Reason: GERD)
sorbitol 70 % Solution
30 ml PO DAILYPRN PRN (Reason: constipation )
potassium citrate 15 mEq Tablet Extended Release
15 meq PO BID
Brilinta 90 mg Tablet
90 mg PO BID
lorazepam 0.5 mg Tablet
0.5 mg PO Q4HPRN PRN (Reason: agitation) Qty: 20 0RF
sulfamethoxazole-trimethoprim [Bactrim DS] 800-160 mg Tablet
1 tab PO BID
Patient Comments:
take from 02/15/24-02/22/24
escitalopram oxalate [Lexapro] 5 mg Tablet
5 mg PO DAILY
lorazepam 0.5 mg tablet
0.5 mg PO BID
Discharge Orders:
Discharge Patient (As Directed); Ordered 03/02/24
Ordered By: Manfred James
Discharge Date and Time
Discharge Date/Time: 03/02/24 13:04
Print Language: SETSWANA
== END 2024-03-02 13:04 | DRG 682 ==
LOC: 4 WEST ACU 17:14
PROVIDERS: Internal Medicine; Internal Medicine Gastroenterology; Nurse Practitioner Adult Health; Nurse Practitioner Family; Physician Assistant Medical; Surgery; ADMITTING PHYSICIAN Internal Medicine; ATTENDING PHYSICIAN Hospitalist; CONSULT PHYSICIAN Psychiatry & Neurology Psychiatry; CONSULT PHYSICIAN Student in an Organized Health Care Education/Training Program; EMERGENCY PHYSICIAN Emergency Medicine; FAMILY PHYSICIAN Internal Medicine; OTHER PHYSICIAN Psychiatry & Neurology Psychiatry
PROC: 0DJ08ZZ Inspection of Upper Intestinal Tract, Via Natural or Artificial Opening Endoscopic (ICD-10-PCS; 2024-02-24)
PROC: 0DH63UZ Insertion of Feeding Device into Stomach, Percutaneous Approach (ICD-10-PCS; 2024-02-24)
DX: N17.9 Acute kidney failure, unspecified (principal); E43 Unspecified severe protein-calorie malnutrition; F01.53 Vascular dementia, unspecified severity, with mood disturbance; L03.311 Cellulitis of abdominal wall; N39.0 Urinary tract infection, site not specified; F01.54 Vascular dementia, unspecified severity, with anxiety; Z68.1 Body mass index [BMI] 19.9 or less, adult; F41.1 Generalized anxiety disorder; F32.A Depression, unspecified; I10 Essential (primary) hypertension; J44.9 Chronic obstructive pulmonary disease, unspecified; B96.4 Proteus (mirabilis) (morganii) as the cause of diseases classified elsewhere; R62.7 Adult failure to thrive; L89.152 Pressure ulcer of sacral region, stage 2; Z51.5 Encounter for palliative care; K44.9 Diaphragmatic hernia without obstruction or gangrene; K26.9 Duodenal ulcer, unspecified as acute or chronic, without hemorrhage or perforation
CPT/HCPCS: 70450; 74176; 74230; 80048; 80053; 81003; 81015; 82248; 82962; 83605; 83735; 84100; 85025; 85027; 85730; 87040; 87045; 87046; 87070; 87077; 87086; 87147; 87186; 87205; 87324; 87427; 87449; 89055; 92610; 92611; 93970; 96361; 96374; 97163; 97167; 97530; 97535; 99291

== ENCOUNTER 2024-03-20 12:34 | Emergency (ER) | payer MEDICARE, OTHER, SELFPAY ==
[2024-03-20 12:42] VITALS: BP 102/71
[2024-03-20 12:44] VITALS: BP 102/71
[2024-03-20 13:18] VITALS: BP 95/67
--- NOTE | 2024-03-20 14:32 | ED.GENMED ---
History of Present Illness
General
Chief Complaint: Catheter/Tube Problem
Source: patient, ambulance crew and assisted
Exam Limitations: dementia
Time Seen by Provider: 03/20/24 12:50
Nursing documentation reviewed up to this point in time: agreed with
Travel History
Have you had any contact with someone who has COVID-19?: No
Do you have any symptoms of coronavirus? Fever > 100 degrees, chills, cough, shortness of breath, sore throat, loss of taste or smell, muscle aches, or headache?: No
History of Present Illness
History of Present Illness:
64-year-old female past medical history of dementia previous stroke COPD currently with G-tube in place presenting from [facility] for G-tube dislodgment earlier today. This was placed 3 and half weeks ago. Otherwise no additional concerns.
Past History
Past History
ED Past Medical History: CVA and Other (Dementia. Crohn's disease)
Social History
Tobacco: Non-smoker
Alcohol: None
Living: assisted
Review of Systems
Review of Systems
Allergies reviewed?: Yes
Unable to obtain full review of systems at this time due to: dementia
All Other Systems: ROS reviewed and negative except as documented in HPI and ROS
Phy Exam
Physical Exam
Physical Exam:
GENERAL: Alert , in no apparent distress
EYE: pupils equal and reactive
NECK: Supple, no significant adenopathy.
ENT: o/p clr, mmm.
CARDIAC: Regular rate and rhythm .
LUNGS: Clear breath sounds bilaterally, no acute respiratory distress, no wheezes/rales/rhonchi
ABDOMEN: Otherwise S G-tube opening in the left upper abdomen oft, without focal tenderness, no r/g, no cvat
NEUROLOGICAL: Alert and oriented, no focal neuro deficits
SKIN: Warm and dry, skin intact.
MUSCULOSKELETAL: No edema, well perfused.
PSYCH: Normal and appropriate interaction.
Course
Orders/Labs/Results
Orders:
Orders
03/20/24 12:51
Tube Check [CR Cont Inj Eval Tube(by Rad)] Urgent
Comment:
Reason For Exam: G tube placement
Vital Signs
Initial and Last Documented VS:
Initial Vital Signs
Temp Pulse Resp BP Pulse Ox
97.4 F 70 16 102/71 97
03/20/24 12:42 03/20/24 12:42 03/20/24 12:42 03/20/24 12:42 03/20/24 12:42
Last Documented Vital Signs
Temp Pulse Resp BP Pulse Ox
97.4 F 70 16 95/67 98
03/20/24 12:42 03/20/24 12:42 03/20/24 12:42 03/20/24 13:18 03/20/24 13:30
Procedures
Other
Indication for procedure:: G-tube displacement
Procedure completed by: Myself
Consent form signed: No
If no, reason: Emergency procedure
Additional Procedure:
Patient's G-tube was dislodged prior to arrival. A 20 [place] G-tube was placed without incident filled with 15 cc of saline confirmed with x-ray. Stable for discharge
MDM/Problems Addressed
MDM/Problems Addressed:
64-year-old female presenting to the emergency department after G-tube displacement at [facility] prior to arrival. This was placed 3 and half weeks ago. New G-tube was placed confirmed with contrast otherwise stable for discharge.
*Critical Care Note
Total Time (30-74mins, 75-104mins- exclusive of procedures): Not Applicable
ED Attending Note
-
Portions of this chart may have been created with voice recognition software.� Occasional wrong word or��sound alike� substitutions may have occurred due to the inherent limitations of voice recognition software.
Discharge Plan
Departure
Patient Disposition: Home (Routine Discharge)
Date of Disposition: 03/20/24
Time of Disposition: 14:34
Patient with high blood pressure during this ER visit?: No
Condition: Good
Covid-19: Not Applicable
Discharge Problem:
PEG tube malfunction
Instructions: How to Care for Your Gastrostomy Tube
Prescriptions:
No Action
atorvastatin [Lipitor] 40 mg Tablet
40 mg PO QPM
sennosides [senna] 8.6 mg Tablet
8.6 mg PO DAILY
acetaminophen [Tylenol] 325 mg Tablet
650 mg PO Q6HPRN PRN (Reason: mild pain )
cyanocobalamin (vitamin B-12) 100 mcg Tablet
100 mcg PO DAILY
albuterol sulfate 2.5 mg /3 mL (0.083 %) Solution For Nebulization
2.5 mg INHALATION R Q4HPRN PRN (Reason: SOB)
polyethylene glycol 3350 [Miralax] 17 gram Powder In Packet
17 g PO DAILY
famotidine [Pepcid] 40 mg Tablet
40 mg PO DAILY
mineral oil Enema
118 ml NM DAILYPRN PRN (Reason: constipation )
bisacodyl [Dulcolax (bisacodyl)] 10 mg Suppository
10 mg NM DAILYPRN PRN (Reason: IF NO BM AFTR SORBITOL)
Fleet Enema 19-7 gram/118 mL Enema
118 ml NM DAILYPRN PRN (Reason: IF NO BM AFTR DULCOLAX)
aspirin 81 mg Tablet,Chewable
81 mg PO DAILY
cholecalciferol (vitamin D3) [Vitamin D3] 50 mcg (2,000 unit) Tablet
50 mcg PO DAILY
hydrocortisone [Preparation H Hydrocortisone] 1 % Cream
1 applic TOPICAL Q4HPRN PRN (Reason: hemorrhiods)
ferrous sulfate 325 mg (65 mg iron) Tablet
325 mg PO DAILY
mirtazapine [Remeron] 15 mg Tablet
15 mg PO HS
umeclidinium-vilanterol 62.5-25 mcg/actuation Blister With Device
1 inh INHALATION R DAILY
tamsulosin 0.4 mg capsule
0.4 mg PO DAILY
mupirocin 2 % Ointment
1 applic topical TID Qty: 15 0RF
Eliquis 5 mg Tablet
See Rx Instructions .ROUTE .COMPLEX Qty: 60 0RF
Rx Instructions:
Give 2 Tablets Twice daily through Tube - Last dose 03/05/24 THEN Give 1 Tablet Twice Daily for Maintenance
lansoprazole 30 mg Tablet,Disintegrat, Delay Rel
30 mg feeding tube DAILY 30 Days Qty: 30 0RF
metoprolol tartrate 50 mg tablet
50 mg PO BID Qty: 0 0RF
risperidone 1 mg tablet
0.5 mg PO BID PRN (Reason: Mental Health/Anxiety) Qty: 0 0RF
Referrals:
Kang López, [Family Provider] -
Activity Restrictions/Additional Instructions:
You came to the emergency department today with concerns of PEG tube dislodgment. This was replaced today. Please follow-up with your GI doctor. Return to the emergency department for any worsening, new or concerning symptoms.
Interventions
Interventions:
*Risk Screen - Suicide Last Done: 03/20/24 12:42
*General Assessment Last Done: 03/20/24 12:42
*Neglect/Abuse Screening Last Done: 03/20/24 12:42
*ED COVID-19 Vaccine History Last Done: 03/20/24 12:42
AA-Tgyxsl-Oupszqeoot Assessment Last Done: 03/20/24 13:28
ED-Female Genitourinary Assessment Last Done: 03/20/24 13:28
Discharge Date and Time
Print Language: [id number]
== END 2024-03-20 16:16 | disposition home or self-care (01) ==
LOC: EMR 12:34
PROVIDERS: EMERGENCY PHYSICIAN Emergency Medicine; FAMILY PHYSICIAN Internal Medicine
DX: Z46.59 Encounter for fitting and adjustment of other gastrointestinal appliance and device (principal); F03.90 Unspecified dementia, unspecified severity, without behavioral disturbance, psychotic disturbance, mood disturbance, and anxiety; K50.90 Crohn's disease, unspecified, without complications; J44.9 Chronic obstructive pulmonary disease, unspecified; F41.9 Anxiety disorder, unspecified; N31.9 Neuromuscular dysfunction of bladder, unspecified; Z86.73 Personal history of transient ischemic attack (TIA), and cerebral infarction without residual deficits; Z79.01 Long term (current) use of anticoagulants; Z88.8 Allergy status to other drugs, medicaments and biological substances; Z91.041 Radiographic dye allergy status
CPT/HCPCS: 99283; 43762; 49465

== ENCOUNTER 2024-05-05 06:25 | Emergency (ER) | payer MEDICARE, OTHER, SELFPAY ==
[2024-05-05 06:28] VITALS: BP 120/79
--- NOTE | 2024-05-05 06:34 | ED.GENMED ---
History of Present Illness
General
Chief Complaint: Catheter/Tube Problem
Source: patient and ambulance crew
Time Seen by Provider: 05/05/24 06:30
History of Present Illness
History of Present Illness:
64-year-old female presents emergency department after her feeding tube became dislodged overnight. Patient had a similar event in March. Patient offers no complaints.
Past History
Past History
ED Past Medical History: CVA and Other (Dementia. Crohn's disease)
Social History
Tobacco: Non-smoker
Alcohol: None
Drug: None
Living: penitent[facility]
Phy Exam
Physical Exam
Physical Exam:
GENERAL: Alert , in no apparent distress, very thin
EYE: pupils equal and reactive
NECK: Supple, no significant adenopathy.
ENT: o/p clr, mmm.
CARDIAC: Regular rate and rhythm .
LUNGS: Clear breath sounds bilaterally, no acute respiratory distress, no wheezes/rales/rhonchi
ABDOMEN: Soft, without focal tenderness, no r/g, tube site noted without active drainage
NEUROLOGICAL: Alert, answers questions appropriately, right-sided facial droop noted, moves all extremities equally
SKIN: Warm and dry, skin intact.
MUSCULOSKELETAL: No edema, well perfused.
PSYCH: Normal and appropriate interaction.
Course
Orders/Labs/Results
Orders:
Orders
05/05/24 06:40
Tube Check [CR Cont Inj Eval Tube(by Rad)] Urgent
Comment:
Reason For Exam: tube replacement
Vital Signs
Initial and Last Documented VS:
Initial Vital Signs
Temp Pulse Resp BP Pulse Ox
97.0 F 72 16 120/79 98
05/05/24 06:28 05/05/24 06:28 05/05/24 06:28 05/05/24 06:28 05/05/24 06:28
Last Documented Vital Signs
Temp Pulse Resp BP Pulse Ox
97.0 F 82 18 116/83 94
05/05/24 06:28 05/05/24 10:49 05/05/24 10:49 05/05/24 10:49 05/05/24 10:49
*Critical Care Note
Total Time (30-74mins, 75-104mins- exclusive of procedures): Not Applicable
Update Note
Update Note:
Patient presents to the Emergency Department with feeding tube dislodged
Number and Complexity of Problems Addressed at the Encounter
� Chronic conditions affecting care:
� Acute Exacerbation and/or Progression of Chronic Illness:
� Differential Diagnosis includes: but not limited to fractured tube, traumatic removal of tube, tube fell out
Amount and/or Complexity of Data to be Reviewed and Analyzed
� I performed an independent evaluation of and my interpretation is:
EKG:
CT:
Xrays:READ BY ME--tube contrast noted intrabowel, no extrav
Laboratory Studies:
Other:
� Review of other/old records reveals: pt had 20F G tube replaced here with 15 cc of saline in March.
� Clinical information was obtained by an independent historian:
� Prescriptions/Medications Considered but not given:
� Further testing considered but not performed:
Risk of Complications and/or Morbidity or Mortality of Patient Management
� Social determinants of health affecting care:
� Discussion with other providers (PCP, Hospitalists, Consultants, etc):
� Escalation of care including admission/observation vs risk of discharge considered:
ED Attending Note
-
Portions of this chart may have been created with voice recognition software.� Occasional wrong word or��sound alike� substitutions may have occurred due to the inherent limitations of voice recognition software.
Discharge Plan
Departure
Patient Disposition: Home (Routine Discharge)
Date of Disposition: 05/05/24
Time of Disposition: 08:27
Patient with high blood pressure during this ER visit?: Yes
Condition: Good
Discharge Problem:
FEEDING TUBE REPLACEMENT
Instructions: How to Care for Your Gastrostomy Tube, BLOOD PRESSURE
Prescriptions:
No Action
atorvastatin [Lipitor] 40 mg Tablet
40 mg PO QPM
sennosides [senna] 8.6 mg Tablet
8.6 mg PO DAILY
acetaminophen [Tylenol] 325 mg Tablet
650 mg PO Q6HPRN PRN (Reason: mild pain )
cyanocobalamin (vitamin B-12) 100 mcg Tablet
100 mcg PO DAILY
albuterol sulfate 2.5 mg /3 mL (0.083 %) Solution For Nebulization
2.5 mg INHALATION R Q4HPRN PRN (Reason: SOB)
polyethylene glycol 3350 [Miralax] 17 gram Powder In Packet
17 g PO DAILY
famotidine [Pepcid] 40 mg Tablet
40 mg PO DAILY
mineral oil Enema
118 ml [place] DAILYPRN PRN (Reason: constipation )
bisacodyl [Dulcolax (bisacodyl)] 10 mg Suppository
10 mg [place] DAILYPRN PRN (Reason: IF NO BM AFTR SORBITOL)
Fleet Enema 19-7 gram/118 mL Enema
118 ml [place] DAILYPRN PRN (Reason: IF NO BM AFTR DULCOLAX)
aspirin 81 mg Tablet,Chewable
81 mg PO DAILY
cholecalciferol (vitamin D3) [Vitamin D3] 50 mcg (2,000 unit) Tablet
50 mcg PO DAILY
hydrocortisone [Preparation H Hydrocortisone] 1 % Cream
1 applic TOPICAL Q4HPRN PRN (Reason: hemorrhiods)
ferrous sulfate 325 mg (65 mg iron) Tablet
325 mg PO DAILY
mirtazapine [Remeron] 15 mg Tablet
15 mg PO HS
umeclidinium-vilanterol 62.5-25 mcg/actuation Blister With Device
1 inh INHALATION R DAILY
tamsulosin 0.4 mg capsule
0.4 mg PO DAILY
mupirocin 2 % Ointment
1 applic topical TID Qty: 15 0RF
Eliquis 5 mg Tablet
See Rx Instructions .ROUTE .COMPLEX Qty: 60 0RF
Rx Instructions:
Give 2 Tablets Twice daily through Tube - Last dose 03/05/24 THEN Give 1 Tablet Twice Daily for Maintenance
lansoprazole 30 mg Tablet,Disintegrat, Delay Rel
30 mg feeding tube DAILY 30 Days Qty: 30 0RF
metoprolol tartrate 50 mg tablet
50 mg PO BID Qty: 0 0RF
risperidone 1 mg tablet
0.5 mg PO BID PRN (Reason: Mental Health/Anxiety) Qty: 0 0RF
Referrals:
Kang López, DO [Family Provider] -
Activity Restrictions/Additional Instructions:
IF YOU DEVELOP VOMITING, ABDOMINAL PAIN/DISTENTION, FEVER, OR OTHER WORRISOME SIGNS, GO TO THE ER IMMEDIATELY!
Interventions
Interventions:
*General Assessment Last Done: 05/05/24 06:28
*Neglect/Abuse Screening Last Done: 05/05/24 06:28
ED- Fall Risk Assessment Last Done: 05/05/24 06:30
*ED COVID-19 Vaccine History Last Done: 05/05/24 06:28
*Nursing Disposition Last Done: 05/05/24 10:52
PK-Cwrwbs-Pxjezubjij Assessment Last Done: 05/05/24 06:30
ED-Female Genitourinary Assessment Last Done: 05/05/24 06:30
Discharge Date and Time
Discharge Date/Time: 05/05/24 10:55
Print Language: MOHAWK
[2024-05-05 07:11] VITALS: BP 113/73
[2024-05-05 08:48] VITALS: BP 101/75
[2024-05-05 10:49] VITALS: BP 116/83
== END 2024-05-05 10:55 | disposition home or self-care (01) ==
LOC: EMR 06:25
PROVIDERS: EMERGENCY PHYSICIAN Emergency Medicine; FAMILY PHYSICIAN Internal Medicine
DX: Z43.1 Encounter for attention to gastrostomy (principal); R03.0 Elevated blood-pressure reading, without diagnosis of hypertension
CPT/HCPCS: 99283; 43762; 49465

== ENCOUNTER 2024-07-04 05:38 | Emergency (ER) | payer MEDICARE, OTHER, SELFPAY ==
[2024-07-04 05:44] VITALS: BP 92/70
[2024-07-04 06:09] VITALS: BP 90/78
[2024-07-04 06:25] VITALS: BP 101/72
[2024-07-04 07:01] VITALS: BP 122/79
--- NOTE | 2024-07-04 07:13 | ED.GENMED ---
History of Present Illness
General
Chief Complaint: Catheter/Tube Problem
Source: patient and ambulance crew
Time Seen by Provider: 07/04/24 06:57
History of Present Illness
History of Present Illness:
64yoF with a history of CVA and vascular dementia presenting via EMS for evaluation of a PEG tube issue. The PEG tube has been in place for about 3 years. The PEG tube was partially pulled out and she was sent in from [facility] for evaluation. She
has had prior ED visits for similar issues. No other concerns.
Past History
Past History
ED Past Medical History: CVA and Other (Dementia. Crohn's disease)
Social History
Tobacco: Non-smoker
Alcohol: None
Drug: None
Living: intermediate
Phy Exam
General Physical Exam
General Presentation: well appearing and no apparent distress
General age: appears stated age
General Skin: warm and dry
General Mental: alert
ENT Exam
ENT Exam: normocephalic
Pulmonary Exam
Pulmonary Exam: no respiratory distress
Gastrointestinal Exam
Gastrointestinal Exam: other (PEG tube in place in LUQ. The middle port is cut and PEG tube appears to be partially dislodged. Abdomen soft, non-distended, non-tender. )
Skin Exam
Skin Exam: normal color and warm/dry
Course
Orders/Labs/Results
Orders:
Orders
07/04/24 07:12
Tube Check [CR Cont Inj Eval Tube(by Rad)] Urgent
Comment:
Reason For Exam: S/p PEG tube replacement
Vital Signs
Initial and Last Documented VS:
Initial Vital Signs
Pulse Ox
98
07/04/24 05:43
Last Documented Vital Signs
Pulse BP Pulse Ox
82 122/79 97
07/04/24 06:00 07/04/24 07:01 07/04/24 06:47
MDM/Problems Addressed
Differential Diagnosis Includes:
64yoF here with a partially dislodged PEG tube. The middle port is noted to be cut on exam. Abdominal exam benign. Differential diagnosis includes dislodged PEG tube vs. PEG tube dysfunction
The prior 20F G tube was removed. There was some mild resistance with removal and with a small amount of bleeding. New G tube was inserted without any resistance and balloon inflated. Placement confirmed with x-rays. Patient stable for discharge
back to her nursing facility.
*Critical Care Note
Total Time (30-74mins, 75-104mins- exclusive of procedures): Not Applicable
ED Attending Note
-
Portions of this chart may have been created with voice recognition software.� Occasional wrong word or��sound alike� substitutions may have occurred due to the inherent limitations of voice recognition software.
Discharge Plan
Departure
Patient Disposition: Home (Routine Discharge)
Date of Disposition: 07/04/24
Time of Disposition: 08:23
Patient with high blood pressure during this ER visit?: No
Discharge Problem:
Gastrostomy tube dysfunction
Instructions: How to Care for Your Gastrostomy Tube
Prescriptions:
No Action
atorvastatin [Lipitor] 40 mg Tablet
40 mg PO QPM
sennosides [senna] 8.6 mg Tablet
8.6 mg PO DAILY
acetaminophen [Tylenol] 325 mg Tablet
650 mg PO Q6HPRN PRN (Reason: mild pain )
cyanocobalamin (vitamin B-12) 100 mcg Tablet
100 mcg PO DAILY
albuterol sulfate 2.5 mg /3 mL (0.083 %) Solution For Nebulization
2.5 mg INHALATION R Q4HPRN PRN (Reason: SOB)
polyethylene glycol 3350 [Miralax] 17 gram Powder In Packet
17 g PO DAILY
famotidine [Pepcid] 40 mg Tablet
40 mg PO DAILY
mineral oil Enema
118 ml [place] DAILYPRN PRN (Reason: constipation )
bisacodyl [Dulcolax (bisacodyl)] 10 mg Suppository
10 mg [place] DAILYPRN PRN (Reason: IF NO BM AFTR SORBITOL)
Fleet Enema 19-7 gram/118 mL Enema
118 ml [place] DAILYPRN PRN (Reason: IF NO BM AFTR DULCOLAX)
aspirin 81 mg Tablet,Chewable
81 mg PO DAILY
cholecalciferol (vitamin D3) [Vitamin D3] 50 mcg (2,000 unit) Tablet
50 mcg PO DAILY
hydrocortisone [Preparation H Hydrocortisone] 1 % Cream
1 applic TOPICAL Q4HPRN PRN (Reason: hemorrhiods)
ferrous sulfate 325 mg (65 mg iron) Tablet
325 mg PO DAILY
mirtazapine [Remeron] 15 mg Tablet
15 mg PO HS
umeclidinium-vilanterol 62.5-25 mcg/actuation Blister With Device
1 inh INHALATION R DAILY
tamsulosin 0.4 mg capsule
0.4 mg PO DAILY
mupirocin 2 % Ointment
1 applic topical TID Qty: 15 0RF
Eliquis 5 mg Tablet
See Rx Instructions .ROUTE .COMPLEX Qty: 60 0RF
Rx Instructions:
Give 2 Tablets Twice daily through Tube - Last dose 03/05/24 THEN Give 1 Tablet Twice Daily for Maintenance
lansoprazole 30 mg Tablet,Disintegrat, Delay Rel
30 mg feeding tube DAILY 30 Days Qty: 30 0RF
metoprolol tartrate 50 mg tablet
50 mg PO BID Qty: 0 0RF
risperidone 1 mg tablet
0.5 mg PO BID PRN (Reason: Mental Health/Anxiety) Qty: 0 0RF
Referrals:
Kang López, [Family Provider] -
Activity Restrictions/Additional Instructions:
The PEG tube was replaced and x-rays confirm proper positioning.
Interventions
Interventions:
*Risk Screen - Suicide Last Done: 07/04/24 05:42
*General Assessment Last Done: 07/04/24 05:42
*Neglect/Abuse Screening Last Done: 07/04/24 05:42
ED- Fall Risk Assessment Last Done: 07/04/24 09:50
*ED COVID-19 Vaccine History Last Done: 07/04/24 05:42
*Nursing Disposition Last Done: 07/04/24 09:50
HU-Lezmfu-Iqqtkwfevs Assessment Last Done: 07/04/24 05:42
ED-Female Genitourinary Assessment Last Done: 07/04/24 05:42
Discharge Date and Time
Discharge Date/Time: 07/04/24 09:51
Print Language: ESTONIAN
== END 2024-07-04 09:51 | disposition home or self-care (01) ==
LOC: EMR 05:38
PROVIDERS: EMERGENCY PHYSICIAN Emergency Medicine; FAMILY PHYSICIAN Internal Medicine
DX: K94.23 Gastrostomy malfunction (principal); K50.90 Crohn's disease, unspecified, without complications; F01.50 Vascular dementia, unspecified severity, without behavioral disturbance, psychotic disturbance, mood disturbance, and anxiety; Z86.73 Personal history of transient ischemic attack (TIA), and cerebral infarction without residual deficits; Z79.01 Long term (current) use of anticoagulants; Z88.8 Allergy status to other drugs, medicaments and biological substances; Z91.041 Radiographic dye allergy status
CPT/HCPCS: 99283; 43762; 49465

== ENCOUNTER 2024-08-20 18:59 | Inpatient (IN) | payer MEDICARE, OTHER, SELFPAY ==
[2024-08-20] VITALS (11 sets, daily range): BP systolic 95–123; BP diastolic 71–85; BMI 24.1; BMI 16.7
[2024-08-20 13:21] LABS: % Basophils 0.7 % (0-2); % Eosinophils 5.8 % (0-6); % Immature Granulocytes 0.4 % (0-0.5); % Lymphocytes 18.2 % (20.5-51.1); % Neutrophils 66.9 % (42.2-75.2); Absolute Basophils 0.1 10^3/uL (0-0.2); Absolute Eosinophils 0.8 10^3/uL (0-0.7); Absolute Immature Granulocytes 0.1 10^3/uL (0-0.05); Absolute Lymphocytes 2.5 10^3/uL (1.2-3.4); Absolute Monocytes 1.1 10^3/uL (0.1-0.6); Hematocrit 41.7 % (37.0-47.0); Hemoglobin 12.8 g/dL (12.0-16.0); Mean Corp Hgb Conc. 30.7 g/dL (33.0-37.0); Mean Corpuscular Volume 91.2 fL (81.0-99.0); Nucleated Red Blood Cells % 0 %; Platelet Count 249 10^3/uL (130-400); Red Blood Cell Count 4.57 10^6/uL (4.20-5.40); Red Cell Dist. Width 15.8 % (11.5-14.5); White Blood Cell Count 13.4 10^3/uL (4.8-10.8)
[2024-08-20 13:35] LABS: Lactic Acid 2.2 mmol/L (0.7-2.0)
[2024-08-20 13:59] LABS: COVID-19 Antigen Negative (Negative)
[2024-08-20 14:04] LABS: Blood Urea Nitrogen 64 mg/dl (7-17); Calcium 9.1 mg/dl (8.4-10.2); Carbon Dioxide 26 mmol/L (22-30); Chloride 106 mmol/L (98-107); Estimated Creatinine Clearance 47 ml/min; Glucose 107 mg/dl (70-99); Sodium 144 mmol/L (135-145); eGFR 56.46
--- NOTE | 2024-08-20 14:06 | EDRN ---
the pt is resting in stretcher in the lowest position, side rails up x2, HOB elevated, call priest within reach, the pt is still tachycardic at 107, the pt is tachypnic at 25-29, RA SP02 95%, this RN notified Dr. Mora, awaiting for a provider to see
the pt
--- NOTE | 2024-08-20 14:12 | EDRN ---
Dr. Mora has signed up to see the pt
--- NOTE | 2024-08-20 14:50 | EDRN ---
Dr. Mora currently at the pts bedside
--- NOTE | 2024-08-20 14:51 | EDRN ---
still awaiting for further orders from provider, awaiting for update on POC
--- NOTE | 2024-08-20 14:56 | ED.GENMED ---
History of Present Illness
General
Chief Complaint: Breathing Problem
Source: records, family, ambulance crew and [facility]
Exam Limitations: clinical condition
Time Seen by Provider: 08/20/24 14:08
Nursing documentation reviewed up to this point in time: agreed with
History of Present Illness
History of Present Illness:
64-year-old female with a past medical history of CVA, severe vascular dementia, COPD who presents to the emergency room from [facility] for breathing difficulties. Patient has advanced vascular dementia and severe disability secondary
to stroke. She is nonverbal, bedbound, PEG tube dependent. She is unable to participate in history at all. She is here in the emergency room because over the past few days she has had some increasing work of breathing and today was breathing very
heavy and irregularly. According to patient's daughter, patient has had 'a cold' for the past few days with congestion and cough. According to [facility] paperwork patient had been on hospice care. I called patient's daughter and son and spoke
with them directly�they were apparently under the impression that patient was on palliative care rather than hospice care. Patient is still listed as a full code and they do not wish to reconsider that at this time. They wish for her to have full
workup and care for whatever is causing her breathing trouble.
Past History
Past History
ED Past Medical History: CVA and Other (Dementia. Crohn's disease)
Social History
Tobacco: Non-smoker
Alcohol: None
Drug: None
Living: penitentiary
Review of Systems
Review of Systems
Unable to obtain full review of systems at this time due to: non-verbal
All Other Systems: Not applicable
Phy Exam
Physical Exam
Physical Exam:
General: Contracted, cachectic, chronically ill-appearing
Head: Normocephalic, atraumatic
Eyes: Conjunctiva normal
Throat: Dry mucous membranes
Neck: No JVD
Lungs: Scattered wheezing, tachypnea with respiratory rate in the 30s, pulse ox 95% on room air
Heart: Tachycardia with regular rhythm, no murmurs, gallops, rubs appreciated
Abd: PEG tube in place
Neuro: Eyes open, contracted, nonverbal, not following commands
Extremities: No edema in extremities, warm and well-perfused
Scores
Heart Failure Risk
Heart Failure Risk Score: Not Applicable
Heart Score for Chest Pain Patients
STEMI patient?: Not applicable
Withdrawal Assessment of Alcohol
Withdrawal Assessment Completed?: Not applicable
Course
Orders/Labs/Results
Orders:
Orders
08/20/24 13:01
Electrocardiogram (*1) Urgent
Reason for Study: Shortness of Breath
CXR [CR Chest Portable - 1 View] Urgent
Comment:
Reason For Exam: SOB with tachypnea
Reason Study Needs to be Portable: Patient Unstable
08/20/24 13:02
EKG- Treatment ONCE
08/20/24 13:04
Basic Metabolic Panel Urgent
Complete Blood Count/With Diff Urgent
Lactic Acid Urgent
08/20/24 13:28
COVID-19 Antigen Urgent
Source: Nasal Swab
Influenza A+B Rapid Molecular Urgent
LEE Source: Nasal Swab
Specimen Description:
08/20/24 15:28
CT Chest W/o Iv Contrast Urgent
Comment:
Reason For Exam: sob
08/20/24 15:31
Ipratropium/Albuterol Sulfate [Duoneb] 3 ml INH R NOW STA
MethylPREDNISolone PF [Solu-Medrol Pf] 125 mg IV NOW STA
08/20/24 16:30
Cefepime HCl [Maxipime] 1,000 mg IV NOW STA
08/20/24 16:32
0.9% Sodium Chloride 1000 ml [Nss] 1,000 ml IV BOLUS
Vancomycin [Vancocin] 1,250 mg 0.9% Sodium Chloride 250 ml [Nss] 250 ml IV NOW
Abnormal Lab Results
08/20/24
13:04
WBC 13.4 H 10^3/uL
(4.8-10.8)
MCHC 30.7 L g/dL
(33.0-37.0)
RDW 15.8 H %
(11.5-14.5)
Abs Immat Gran (auto) 0.1 H 10^3/uL
(0-0.05)
Absolute Neuts (auto) 9.0 H 10^3/uL
(1.4-6.5)
Absolute Monos (auto) 1.1 H 10^3/uL
(0.1-0.6)
Absolute Eos (auto) 0.8 H 10^3/uL
(0-0.7)
Lymphocytes % 18.2 L %
(20.5-51.1)
BUN 64 H mg/dl
(7-17)
Creatinine 1.1 H mg/dL
(0.6-1.0)
Glucose 107 H mg/dl
(70-99)
Lactic Acid 2.2 H mmol/L
(0.7-2.0)
08/20/24 13:04
08/20/24 13:04
Vital Signs
Initial and Last Documented VS:
Initial Vital Signs
Pulse Resp Pulse Ox
108 34 94
08/20/24 13:08 08/20/24 13:08 08/20/24 13:08
Last Documented Vital Signs
Temp Pulse Resp BP Pulse Ox
36.9 C 109 33 115/76 95
08/20/24 13:09 08/20/24 13:15 08/20/24 13:15 08/20/24 13:09 08/20/24 13:15
MDM/Problems Addressed
Differential Diagnosis Includes:
COPD exacerbation, pneumonia, PE
MDM/Problems Addressed:
64-year-old female with history as documented presents for increased breathing difficulties. Tachycardic, tachypneic but not hypoxic, afebrile, normotensive. Physical exam as above. Will place an IV send labs including a CBC and a CMP, lactate,
blood cultures. Swab for COVID and flu. Will check a chest x-ray and EKG. Provide steroid and DuoNeb. Reassess after the above.
Labs reviewed: CBC shows leukocytosis to 13.4. CMP shows mild NEIL with creatinine of 1.1. Lactate slightly elevated at 2.2. Chest x-ray shows no clear acute pathology to account for symptoms. Remains tachycardic and tachypneic. Suspect that
there may be some occult pneumonia with leukocytosis and tachypnea, tachycardia. PE is a consideration�unfortunately patient has anaphylactic allergy to IV contrast. Will check noncontrast CT scan to evaluate for any signs of occult pneumonia.
Will reassess after the above. Will require hospital admission�family is aware of this and wishes to proceed with hospitalization; updated the hospice/palliative program which patient had been on.
CT chest shows consolidation of the right lower lobe could be atelectasis versus pneumonia�given tachycardia, tachypnea, leukocytosis and coughing suspect that this could represent an early pneumonia. Will cover with antibiotics. Given steroids
and DuoNebs to treat any component of COPD which could be contributing to her tachypnea and increased breathing difficulties. Somewhat lower suspicion for PE clinically, anaphylactic dye allergy limits our ability to perform CTA, defer further PE
workup for now. Will admit for continued treatment and monitoring. Discussed case with hospitalist.
Chronic conditions affecting care:
Vascular dementia, COPD
Acute Exacerbation and/or Progression of Chronic Illness:
Acute COPD exacerbation managed as above
*Radiology
Radiology exam reviewed: radiology read reviewed
*Pulse Oximetry
Patient hypoxic: no
*EKG
Interpreted by ED Provider?: Yes
Heart Rate: 103
Rate: tachycardiac
Rhythm: sinus and sinus tachycardia
[place]: normal axis
Interval: normal interval
QRS Pattern: right bundle branch block
Ischemia: non-specific ST changes
*Critical Care Note
Total Time (30-74mins, 75-104mins- exclusive of procedures): Not Applicable
Data Reviewed
Review of Other/Old Records Reveals: Labs and Records
Source: records, family, ambulance crew and penit[facility]iary
Patient Management
Discussion with other providers: Hospitalist (Discussed with hospitalist) and retirement staff
Escalation/DeEscalation of care consider admission/obs:
Admission indicated
ED Attending Note
-
Portions of this chart may have been created with voice recognition software.� Occasional wrong word or��sound alike� substitutions may have occurred due to the inherent limitations of voice recognition software.
Discharge Plan
Departure
Patient Disposition: Admit
Date of Disposition: 08/20/24
Time of Disposition: 16:33
Admit to doctor: Nati
Presentation/result/management discussed w/ accepting MD/DO: Hospitalist
Discharge Problem:
COPD exacerbation, Pneumonia
Prescriptions:
No Action
atorvastatin [Lipitor] 40 mg Tablet
40 mg PO QPM
sennosides [senna] 8.6 mg Tablet
8.6 mg PO DAILY
acetaminophen [Tylenol] 325 mg Tablet
650 mg PO Q6HPRN PRN (Reason: mild pain )
cyanocobalamin (vitamin B-12) 100 mcg Tablet
100 mcg PO DAILY
albuterol sulfate 2.5 mg /3 mL (0.083 %) Solution For Nebulization
2.5 mg INHALATION R Q4HPRN PRN (Reason: SOB)
famotidine [Pepcid] 40 mg Tablet
40 mg PO DAILY
bisacodyl [Dulcolax (bisacodyl)] 10 mg Suppository
10 mg [place] DAILYPRN PRN (Reason: IF NO BM AFTR SORBITOL)
aspirin 81 mg Tablet,Chewable
81 mg PO DAILY
mirtazapine [Remeron] 15 mg Tablet
15 mg PO HS
tamsulosin 0.4 mg capsule
0.4 mg PO DAILY
risperidone 1 mg tablet
0.5 mg PO BID PRN (Reason: Mental Health/Anxiety) Qty: 0 0RF
potassium citrate 15 mEq Tablet Extended Release
15 meq PO BID
Eliquis 5 mg tablet
5 mg PO BID
Referrals:
Kang López, DO [Family Provider] -
Interventions
Interventions:
*Risk Screen - Suicide Last Done: 08/20/24 13:09
*General Assessment Last Done: 08/20/24 13:09
*Neglect/Abuse Screening Last Done: 08/20/24 13:09
ED- Fall Risk Assessment Last Done: 08/20/24 13:09
*ED COVID-19 Vaccine History Last Done: 08/20/24 13:09
ED- Cardiac Assessment Last Done: 08/20/24 13:09
ED- Pulmonary Assessment Last Done: 08/20/24 13:09
Discharge Date and Time
Print Language: [place] ISLAND[place]
--- NOTE | 2024-08-20 15:30 | EDRN ---
the pt is resting in stretcher in the lowest position, side rails up x2, call priest within reach, HOB elevated, the pt continues to be tachypnic in the 20's, the pt is currently RA Sp02 95%, provider notified, will continue to monitor the pt closely
[2024-08-20] MEDS: MAXIPIME 1000 MG IV (16:41)
[2024-08-20] MEDS: DUONEB 3 ML INH (16:42)
[2024-08-20] MEDS: SOLU-MEDROL PF 125 MG IV (16:42)
[2024-08-20] MEDS: NSS 1000 IV (16:43)
--- NOTE | 2024-08-20 17:31 | HPS.HSE ---
Family Physician
-
Family Physician: Kang López, DO
Chief Complaint
-
Respiratory distress at [facility]
History of Present Illness
64 years old female was brought in from [facility]. History taken from ER doctor. Patient is nonverbal. patient was noticed to have respiratory distress, Described as breathing too fast. EMT arrived and oxygen was 95% on room air. She was
brought into the hospital. She was noted to have tachypnea. Imaging studies of the chest showed possible right lower lobe evolving pneumonia. Patient has history of vascular dementia and bedbound, feeding tube. She is nonverbal at baseline
according to records. In the ER, she was noted to have leukocytosis. No fever or hypotension. Positive lactic acidosis
Medical History
Past Medical History
Past Medical History: Reports Other (COPD, CVA (multiple ng), Psychiatric (depression/anxiety, dementia ) and Other (crohns disease, chronic urinary retention prior UTI), status post PEG tube in February 2024, anemia, history of dementia with
agitation, history of metabolic encephalopathy, failure to thrive, chronic kidney disease)
Past Surgical History: Reports Other ( no recent major surgery)
Social History
Unable to obtain full social history at this time due to: Patient Non-verbal
Family History
Family History: Not pertinent
Allergies / Home Medications
Allergies reflects when Allergies were last updated in [facility].
Home Medications with original date entered in [facility]
Allergy/Medication List:
Allergies
Allergy/AdvReac Type Severity Reaction Status Date / Time
divalproex sodium Allergy Unknown Verified 07/04/24 05:41
Iodinated Contrast Media Allergy Anaphylaxis Verified 07/04/24 05:41
iodine Allergy Anaphylaxis Verified 07/04/24 05:41
tositumomab Allergy Unknown Verified 07/04/24 05:41
valproic acid Allergy Unknown Verified 07/04/24 05:41
Home Medications
acetaminophen 325 mg tablet (Tylenol) 650 mg PO Q6HPRN PRN mild pain /fever>100.4 12/02/23
albuterol sulfate 2.5 mg/3 mL (0.083 %) solution for nebulization 2.5 mg inhalation R Q4HPRN PRN SOB 12/02/23
aspirin 81 mg chewable tablet 81 mg PO DAILY Blood Clot Prevention/Tx 12/02/23
atorvastatin 40 mg tablet (Lipitor) 40 mg PO QPM High Cholesterol 12/02/23
bisacodyl 10 mg rectal suppository (Dulcolax (bisacodyl)) 10 mg NM DAILYPRN PRN IF NO BM AFTR SORBITOL 12/02/23
cyanocobalamin (vitamin B-12) 100 mcg tablet 100 mcg PO DAILY Supplement 12/02/23
famotidine 40 mg tablet (Pepcid) 40 mg PO DAILY Gastrointestinal Issue 12/02/23
sennosides 8.6 mg tablet (senna) 8.6 mg PO DAILY Constipation 12/02/23
mirtazapine 15 mg tablet (Remeron) 15 mg PO HS depression/sleep 01/21/24
tamsulosin 0.4 mg capsule 0.4 mg PO DAILY Urinary Issue 02/16/24
apixaban 5 mg tablet (Eliquis) 5 mg PO BID 08/20/24
calcium carbonate 500 mg PO Q8HPRN PRN heartburn/indigestion 08/20/24
cholecalciferol (vitamin D3) 25 mcg (1,000 unit) tablet (Vitamin D3) 50 mcg PO DAILY 08/20/24
escitalopram oxalate 10 mg tablet 10 mg PO DAILY 08/20/24
ferrous sulfate 325 mg (65 mg iron) tablet 325 mg PO DAILY 08/20/24
hydrocortisone 1 % topical cream (Preparation H Hydrocortisone) 1 applic topical QID hemorrhoids 08/20/24
ketoconazole 2 % topical cream 1 applic topical BID face 08/20/24
lorazepam 0.5 mg tablet 0.5 mg PO BID 08/20/24
lorazepam 0.5 mg tablet 0.5 mg PO Q4HPRN PRN anxiety 08/20/24
methenamine hippurate 1 gram tablet 1 g PO BID 08/20/24
metoprolol tartrate 25 mg tablet 25 mg PO BID 08/20/24
mineral oil 118 ml NM DAILYPRN PRN constipation 08/20/24
morphine 10 mg/5 mL oral solution 5 mg PO Q4HPRN PRN sob/severe pain 08/20/24
pantoprazole 40 mg granules delayed-release for susp in packet 40 mg feeding tube DAILY 08/20/24
polyethylene glycol 3350 17 gram oral powder packet 17 g PO DAILY 08/20/24
potassium citrate 15 mEq (1,620 mg) tablet,extended release 15 meq PO BID 08/20/24
risperidone 0.5 mg tablet (Risperdal) 0.5 mg PO BID 08/20/24
sodium phosphates 19 gram-7 gram/118 mL enema (Fleet Enema) 118 ml NM DAILYPRN PRN if suppository ineffective 08/20/24
sorbitol 70 % solution 30 ml PO DAILYPRN PRN constipation 08/20/24
umeclidinium 62.5 mcg-vilanterol 25 mcg/actuation powdr for inhalation 1 inh inhalation R DAILY 08/20/24
Review of Systems
-
Unable to obtain full review of systems at this time due to: Patient Non-verbal
Physical Exam
Vital Signs
Vital Signs
Temp Pulse Resp BP Pulse Ox
98.5 F 109 33 115/76 95
08/20/24 13:09 08/20/24 13:15 08/20/24 13:15 08/20/24 13:09 08/20/24 13:15
Physical Exam
General: Respiratory Distress and Appears Chronically Ill
HEENT: NormoCephalic
Respiratory: Accessory Resp Muscle Use and Decreased Breath Sounds
Cardiac: S1/S2 and Tachycardia
GI: Soft, Non Distended, Peg Tube and Other
Rectal: No Maroon Stools
Genito-urinary: No Monahan
Musculoskeletal: No Cyanosis
Skin: No Jaundice
Neuro: Other ( eyes are open, not following objects. Nonverbal, cachectic, contractures)
Psych: Apparent Dementia
Laboratory Results
-
08/20/24 13:04
08/20/24 13:04
Laboratory Results
Lactic Acid 2.2 mmol/L (0.7-2.0) H 08/20/24 13:04
Total Bilirubin Cancelled 08/20/24 13:04
AST Cancelled 08/20/24 13:04
ALT Cancelled 08/20/24 13:04
Alkaline Phosphatase Cancelled 08/20/24 13:04
Impression/Plan
-
64 years old female was sent to the hospital after noticing respiratory distress
#Acute respiratory distress. No hypoxia
Unable to obtain history from the patient.
Positive leukocytosis. Positive lactic acidosis. Tachycardia and tachypnea noted
Suspect sepsis POA with tachycardia, leukocytosis, tachypnea, lactic acidosis . Source could be pulmonary, UTI or others.
Admit the patient to the hospital
Start the patient on IV antibiotics and IV steroid for possible COPD exacerbation/aspiration pneumonia. Will do blood culture. Unable to obtain sputum.
Supportive care with Tylenol and IV fluid
Check head CT due to her breathing pattern
Monitor temp curve, WBC
Abdomen seems soft and not distended.
Check urine test , possible UTI with history of UTI in past
# Change in mental status
Patient was not reactive or responsive during the exam. Eyes oped and blink but did not follow objects.
Report of poor underlying mental stats due to dementia
Will hold her psych medications and Benzo for now
Order head CT
Continue with supportive care/ IVF and treat underlying infection
Will monitor
#Acute Kidney Injury secondary to Volume Depletion
c/w IVF
Bladder scan protocol
Failure to Thrive
- high risk of aspiration
# Multiple Strokes
- continue Aspirin/Statin
- c/w Eliquis
# Advanced Vascular Dementia with prior episodes of behavioral disturbance
- patient is non verbal
Functional quadriplegia noted
Unable to follow objects, unable to follow commands.
Anxiety/Depression
c/w home medications.
#Essential Hypertension
- metoprolol as 25mg BID
# COPD
- continue breathing treatments
- continue albuterol prn
#Chronic Urinary Retention
#Hx Crohn's Disease
No history of diarrhea
# Code: Full . ER doctor discussed with family the status and they agreed for admission and full code.
Total time spent to see the patient on the floor, examine the patient, review data and lab results, discuss treatment plan with patient, ER doctor, nursing staff around 75 minutes
--- NOTE | 2024-08-20 17:35 | EDRN ---
awaiting admission orders
[2024-08-20] MEDS: VANCOCIN 275 MG IV (18:16)
[2024-08-20 18:56] LABS: Urine Albumin Trace (Neg - Trace); Urine Bilirubin Negative (Negative); Urine Character Very Cloudy (Clear); Urine Color Yellow; Urine Glucose Negative (Negative); Urine Ketone Negative (Negative); Urine Leukocyte 2+ (Negative); Urine Nitrite Negative (Negative); Urine Occult Blood 1+ (Negative); Urine Urobilinogen Negative (Neg - 1+)
[2024-08-20 19:07] LABS: Urine Bacteria Moderate (Negative); Urine White Cell 80-90 /HPF (0-5)
[2024-08-20] MEDS: LOPRESSOR 25 MG TUBE (20:35)
[2024-08-20] MEDS: ELIQUIS 5 MG TUBE (20:35)
[2024-08-20] MEDS: D5/0.9% SODIUM CHLORIDE 1000 IV (20:35)
[2024-08-20] MEDS: ATIVAN 0.5 MG TUBE (20:35)
[2024-08-20 22:22] LABS: Lactic Acid 3.1 mmol/L (0.7-2.0)
[2024-08-21] MEDS: NSS 500 IV (00:18)
[2024-08-21 03:00] VITALS: BP 123/68
[2024-08-21] MEDS: STERILE WATER FOR INJECTION 10 ML IV ×2 (05:25→15:59)
[2024-08-21] MEDS: D5/0.9% SODIUM CHLORIDE 1000 IV (05:25)
[2024-08-21] MEDS: MAXIPIME 1000 MG IV ×2 (05:25→15:59)
[2024-08-21 05:46] LABS: Lactic Acid 2.6 mmol/L (0.7-2.0)
[2024-08-21 05:47] LABS: Hematocrit 35.9 % (37.0-47.0); Hemoglobin 10.9 g/dL (12.0-16.0); Mean Corp Hgb Conc. 30.4 g/dL (33.0-37.0); Mean Corpuscular Hgb 28.2 pg (27.0-31.0); Mean Platelet Volume 10.1 fL (7.4-10.4); Platelet Count 226 10^3/uL (130-400); Red Blood Cell Count 3.86 10^6/uL (4.20-5.40); Red Cell Dist. Width 15.2 % (11.5-14.5); White Blood Cell Count 11.1 10^3/uL (4.8-10.8)
[2024-08-21 06:06] LABS: ALT (SGPT) 31 U/L (0-35); AST (SGOT) 29 U/L (14-36); Albumin 2.8 g/dl (3.5-5.0); Alkaline Phosphatase 77 U/L (38-126); Blood Urea Nitrogen 52 mg/dl (7-17); Calcium 8.8 mg/dl (8.4-10.2); Carbon Dioxide 22 mmol/L (22-30); Chloride 113 mmol/L (98-107); Estimated Creatinine Clearance 41 ml/min; Glucose 151 mg/dl (70-99); Potassium 4.7 mmol/L (3.5-5.1); Sodium 146 mmol/L (135-145); Total Bilirubin 1.6 mg/dl (0.2-1.3); Total Protein 5.9 g/dl (6.3-8.2); eGFR > 60.00
[2024-08-21 07:45] VITALS: BP 127/80
[2024-08-21] MEDS: LOPRESSOR 25 MG TUBE ×2 (08:26→20:54)
[2024-08-21] MEDS: PROTONIX IV 40 MG IV (08:26)
[2024-08-21] MEDS: ELIQUIS 5 MG TUBE ×2 (08:26→20:54)
[2024-08-21] MEDS: LOW STRENGTH ASPIRIN 81 MG TUBE (08:26)
[2024-08-21] MEDS: FLOMAX 0.4 MG TUBE (08:26)
[2024-08-21] MEDS: NSS (PRESERVATIVE FREE) 10 ML IV (08:26)
--- NOTE | 2024-08-21 09:11 | W.PN.HOSP.TC ---
Today's Communication/Plan
-
Start tube feeding, consult nutrition
Resume low dose benzo ( Ativan ) to avoid withdrawal
Bladder scan
Skin care, change position
Assessment / Plan
Assessment / Plan
Physical Exam
General: Not in respiratory Distress and Appears Chronically Ill
HEENT: Normocephalic
Respiratory: No wheezes.
Cardiac: S1/S2 and not Tachycardia
GI: Soft, Non Distended, Peg Tube
Rectal: No Maroon Stools
Genito-urinary: No Monahan
Musculoskeletal: No Cyanosis
Skin: No Jaundice
Neuro: Other ( eyes are open, not following objects. Nonverbal, cachectic, contractures)
Psych: Apparent Dementia
64 years old female was sent to the hospital after noticing respiratory distress
#Acute respiratory distress ( staff at [facility] noticed it but no hypoxia reported). No hypoxia upon arrival.
CT chest showed mild consolidation in the right lower lobe seems mostly atelectasis but can not exclude developing pneumonia.
She is already on Abx but no cough, no hypoxia seem unlikely pneumonia.
# Sepsis POA ( Positive leukocytosis. Positive lactic acidosis. Tachycardia and tachypnea)
Source likely UTI
c/w IV antibiotics
f/w blood culture & urine culture.
Supportive care with Tylenol and IV fluid
Monitor temp curve, WBC
Abdomen seemed soft and not distended.
# Change in mental status
Patient is not reactive or responsive during the exam. Open eyes, blink but does not follow objects.
Report of poor underlying mental stats due to dementia
Held psych medications and Benzo upon admission, will resume low dose benzo to avoid withdrawal.
CT head + atrophy and old infarcts.
Continue with supportive care.
#Acute Kidney Injury secondary to Volume Depletion
s/p IVF
Bladder scan protocol
# Hypernatremia
starting TF, increase water flushes.
# Failure to Thrive
- high risk of aspiration/ pressure sores.
# History of multiple Strokes
- continue Aspirin/Statin
- c/w Eliquis
# Advanced Vascular Dementia with prior episodes of behavioral disturbance
- patient is non verbal
Functional quadriplegia noted
Unable to follow objects, unable to follow commands.
Anxiety/Depression
c/w home medications.
#Essential Hypertension
- metoprolol as 25mg BID
# COPD
- continue breathing treatments
- continue albuterol prn
#Chronic Urinary Retention
#Hx Crohn's Disease
No history of diarrhea
# Code: Full . ER doctor discussed with family the status and they agreed for admission and full code.
Total time spent to see the patient on the floor, examine the patient, review data and lab results, discuss treatment plan with patient, nursing staff around 55 minutes
Anticipated Discharge: > 48 hours
Subjective/Interval History
-
Date of Service: August 21, 2024
No sob
No chest pain
No fevers
Objective Data
-
Labs:
Laboratory Results
08/21/24
05:24
WBC 11.1 H
Hgb 10.9 L
Hct 35.9 L
Plt Count 226
Sodium 146 H
Potassium 4.7
Chloride 113 H
Carbon Dioxide 22
BUN 52 H
Creatinine 1.0
Glucose 151 H
Calcium 8.8
Total Bilirubin 1.6 H
AST 29
ALT 31
Alkaline Phosphatase 77
Vital Signs:
Vital Signs
Temp Pulse Resp BP Pulse Ox
97.3 F 86 22 127/80 92
08/21/24 07:45 08/21/24 07:45 08/21/24 07:45 08/21/24 07:45 08/21/24 07:45
[2024-08-21 11:32] VITALS: BP 117/76
--- NOTE | 2024-08-21 12:47 | CM ---
CM reviewed chart, patient seen bedside. Per chart, patient LTC resident from [facility], bedbound, non-verbal, peg tube. Referral placed to [facility]. Per chart, start tube feeding, nutrition consult. CM will continue to follow for all discharge
planning needs.
Plan; return to [facility] LT when medically stable.
[2024-08-21 15:35] VITALS: BP 122/72
[2024-08-21 19:33] VITALS: BP 111/77
[2024-08-21] MEDS: ATIVAN 0.25 MG TUBE (20:59)
[2024-08-21] MEDS: RISPERDAL ORAL SOLUTION 0.5 MG TUBE (21:27)
[2024-08-21 23:56] VITALS: BP 109/58
[2024-08-22 02:44] LABS: Lactic Acid 1.9 mmol/L (0.7-2.0)
[2024-08-22] MEDS: MAXIPIME 1000 MG IV ×2 (03:42→15:26)
[2024-08-22] MEDS: STERILE WATER FOR INJECTION 10 ML IV ×2 (03:48→15:26)
[2024-08-22 03:49] VITALS: BP 107/66
[2024-08-22 06:49] LABS: Hematocrit 36.9 % (37.0-47.0); Hemoglobin 10.9 g/dL (12.0-16.0); Mean Corp Hgb Conc. 29.5 g/dL (33.0-37.0); Mean Corpuscular Hgb 27.9 pg (27.0-31.0); Mean Corpuscular Volume 94.6 fL (81.0-99.0); Mean Platelet Volume 10.6 fL (7.4-10.4); Platelet Count 177 10^3/uL (130-400); White Blood Cell Count 8.4 10^3/uL (4.8-10.8)
[2024-08-22 07:04] LABS: Blood Urea Nitrogen 44 mg/dl (7-17); Calcium 8.4 mg/dl (8.4-10.2); Carbon Dioxide 18 mmol/L (22-30); Chloride 110 mmol/L (98-107); Estimated Creatinine Clearance 59 ml/min; Glucose 99 mg/dl (70-99); Potassium 4.1 mmol/L (3.5-5.1); Sodium 138 mmol/L (135-145); eGFR > 60.00
[2024-08-22] MEDS: NSS (PRESERVATIVE FREE) 10 ML IV (07:22)
[2024-08-22] MEDS: PROTONIX IV 40 MG IV (07:24)
[2024-08-22] MEDS: ATIVAN 0.25 MG TUBE ×2 (07:25→21:22)
[2024-08-22] MEDS: LOW STRENGTH ASPIRIN 81 MG TUBE (07:25)
[2024-08-22] MEDS: FLOMAX 0.4 MG TUBE (07:25)
[2024-08-22] MEDS: ELIQUIS 5 MG TUBE ×2 (07:26→21:21)
[2024-08-22 07:45] VITALS: BP 110/65
[2024-08-22] MEDS: LOPRESSOR 25 MG TUBE ×2 (07:45→21:21)
--- NOTE | 2024-08-22 09:24 | W.PN.HOSP.TC ---
Today's Communication/Plan
-
c/w IV Cefepime for another day
c/w Tube feeding
Adjust water flushes dose
Assessment / Plan
Assessment / Plan
Physical Exam
General: Not in respiratory Distress and Appears Chronically Ill
HEENT: Normocephalic
Respiratory: No wheezes.
Cardiac: S1/S2 and not Tachycardia
GI: Soft, Non Distended, Peg Tube
Rectal: No Maroon Stools
Genito-urinary: No Monahan
Musculoskeletal: No Cyanosis
Skin: No Jaundice
Neuro: she seems more alert, did not talk, did not follow commands, seems less lethargic, eyes are opened. Cachectic, contractures.
Psych: Apparent Dementia
64 years old female was sent to the hospital after noticing respiratory distress
#Acute respiratory distress ( staff at [facility] noticed it but no hypoxia reported). No hypoxia upon arrival.
CT chest showed mild consolidation in the right lower lobe c/w mostly atelectasis,can not rule out developing PNA.
She received Abx but no cough, no hypoxia.
# Sepsis POA ( Positive leukocytosis. Positive lactic acidosis. Tachycardia and tachypnea)
Urine was cloudy and foul smelling. Bladder scan protocol.
Urine culture no growth. Patient received IV Abx before taking urine specimen.
c/w IV antibiotic, Cefepime day # 3 for another 24 hours then c/w Cefdinir for total of 7 days.
No growth on blood culture. Lactic acid normalized.
Supportive care with Tylenol. No need for more IV fluid
Monitored temp curve, WBC ( normalized)
Abdomen remained soft and not distended. No erythema around peg tube.
# Change in mental status c/w toxic metabolic encephalopathy
Patient is not reactive or responsive during the exam. Open eyes, blink but does not follow objects.
Report of poor underlying mental stats due to dementia
Held psych medications and Benzo upon admission, will resume low dose benzo to avoid withdrawal.
CT head + atrophy and old infarcts.
Continue with supportive care.
#Acute Kidney Injury secondary to Volume Depletion
s/p IVF
Bladder scan protocol
# Hypernatremia, resolved.
starting TF, adjust water flushes.
# Failure to Thrive
- high risk of aspiration/ pressure sores.
# History of multiple Strokes
- continue Aspirin/Statin
- c/w Eliquis
# Advanced Vascular Dementia with prior episodes of behavioral disturbance
She was noted to have depressed mentation on admission.
- patient is non verbal
Functional quadriplegia noted
Unable to follow objects, unable to follow commands.
Reduced Risperdal to HS dose, reduce Ativan BID dose.
Anxiety/Depression
c/w Lexapro, Ativan.
#Essential Hypertension
- metoprolol as 25mg BID
# COPD
- continue breathing treatments
- continue albuterol prn
#Chronic Urinary Retention
#Hx Crohn's Disease
No history of diarrhea
# Nutrition
Has Peg tube, [facility] records for nutrition not available
Started on Jevity for now, consulted nutrition.
# Code: Full . ER doctor discussed with family the status and they agreed for admission and full code.
Total time spent to see the patient on the floor, examine the patient, review data and lab results, discuss treatment plan with patient, son on phone, nursing staff around 55 minutes
Anticipated Discharge: Within 24 hours
Subjective/Interval History
-
Date of Service: August 22, 2024
No fevers
No hypoxia
Was verbal with night nurse.
Objective Data
-
Labs:
Laboratory Results
08/22/24
05:52
WBC 8.4
Hgb 10.9 L
Hct 36.9 L
Plt Count 177 D
Sodium 138 D
Potassium 4.1
Chloride 110 H
Carbon Dioxide 18 L
BUN 44 H
Creatinine 0.7
Glucose 99
Calcium 8.4
Vital Signs:
Vital Signs
Temp Pulse Resp BP Pulse Ox
97.8 F 81 20 110/65 94
08/22/24 07:45 08/22/24 07:45 08/22/24 07:45 08/22/24 07:45 08/22/24 07:45
I&O
08/21/24 08/22/24 08/23/24
06:59 06:59 06:59
Intake Total 1659 / 0
Balance 1659 / 0
[2024-08-22 11:17] VITALS: BP 125/76
[2024-08-22 15:35] VITALS: BP 103/63
--- NOTE | 2024-08-22 17:00 | PTCARENOTE ---
Pt was transferred to 3W room 332. Report was given to MICHEL Gonzales.
--- NOTE | 2024-08-22 17:08 | PTCARENOTE ---
Received pt from 4th floor via bed. Tube feeding running. Peg tube in place. Unable to orient to room, pt confused. AAOx1, mostly nonverbal. Will continue to monitor.
[2024-08-22 17:18] VITALS: BP 121/81
[2024-08-22] MEDS: RISPERDAL ORAL SOLUTION 0.5 MG TUBE (22:12)
[2024-08-22 23:09] VITALS: BP 110/66
--- NOTE | 2024-08-23 02:40 | PTCARENOTE ---
pt minimally conversant, saying only a few words at a time, sometimes not answering.
when asking orientation questions, pt states that it's 1997 and she is in her mother's home.
no agitation noted, pt cooperative with care.
site care provided to PEG tube, wound care to sacrum completed as documented.
bed alarm remains active, Q2T maintained.
[2024-08-23] MEDS: MAXIPIME 1000 MG IV ×2 (03:08→15:07)
[2024-08-23] MEDS: STERILE WATER FOR INJECTION 10 ML IV ×2 (03:08→15:07)
[2024-08-23 07:30] VITALS: BP 118/79
[2024-08-23 08:01] LABS: Hematocrit 35.1 % (37.0-47.0); Hemoglobin 11.3 g/dL (12.0-16.0); Mean Corp Hgb Conc. 32.2 g/dL (33.0-37.0); Mean Corpuscular Hgb 28.8 pg (27.0-31.0); Mean Corpuscular Volume 89.5 fL (81.0-99.0); Platelet Count 236 10^3/uL (130-400); Red Blood Cell Count 3.92 10^6/uL (4.20-5.40); Red Cell Dist. Width 14.5 % (11.5-14.5); White Blood Cell Count 7.8 10^3/uL (4.8-10.8)
[2024-08-23] MEDS: PROTONIX IV 40 MG IV (08:57)
[2024-08-23] MEDS: LOPRESSOR 25 MG TUBE (08:58)
[2024-08-23] MEDS: NSS (PRESERVATIVE FREE) 10 ML IV (08:58)
[2024-08-23] MEDS: ATIVAN 0.25 MG TUBE (08:58)
[2024-08-23] MEDS: ELIQUIS 5 MG TUBE (08:58)
[2024-08-23] MEDS: FLOMAX 0.4 MG TUBE (08:59)
[2024-08-23] MEDS: LOW STRENGTH ASPIRIN 81 MG TUBE (09:00)
[2024-08-23 09:16] LABS: Blood Urea Nitrogen 30 mg/dl (7-17); Calcium 8.4 mg/dl (8.4-10.2); Carbon Dioxide 22 mmol/L (22-30); Chloride 107 mmol/L (98-107); Estimated Creatinine Clearance 52 ml/min; Glucose 107 mg/dl (70-99); Potassium 3.7 mmol/L (3.5-5.1); Sodium 141 mmol/L (135-145); eGFR > 60.00
--- NOTE | 2024-08-23 10:18 | CM ---
Addendum entered by Elida Patrick 08/23/24 14:23:
Transport via ambulance scheduled today at 3:30pm.
Addendum entered by Eilda Patrick 08/23/24 11:57:
Dai is cleared for discharge back to [facility] today. CM called [facility] and spoke with Disha to make her aware of pt's return. Transport time pending.
[facility] completed for ambulance transport. 3W community relations officer requesting transport time via ambulance due to pt being bedbound with vascular dementia.
Pt's son notified of same; IMM reveiwed via telephone; email of form declined.
[facility] Report to 2nd floor [phone] Ext [phone]

Original Note:
CM continues to follow for return to [facility] when medically ready. IV abx and tube feeds continue.
Plan: Return to [facility] when medically cleared for discharge. Will need ambulance transport arranged.
[2024-08-23 10:22] VITALS: BMI 16.7
--- NOTE | 2024-08-23 11:42 | W.PN.HOSP.TC ---
Addendum entered and electronically signed by Vitaly James MD 08/23/24 14:55:
Stage 2 sacral Pressure injury POA
Original Note:
Today's Communication/Plan
-
CM consult for Dispo planning back to previous facility
Assessment / Plan
Assessment / Plan
Physical Exam
NAD, resting comfortably in bed, temporal wasting, cachectic, appears chronically ill
Scleral anicteric
Moist mucous membranes
No JVD
CTA bilateral
Normal S1-S2 no murmurs
Soft nontender nondistended bowel sounds active
No peripheral pitting edema
Contractures
Follows commands thumbs up moves her legs. Appears alert. Nonverbal
Assessment and Plan
Acute respiratory distress without hypoxia
-Resolved
Sepsis which could be pneumonia versus UTI however urine culture negative blood cultures negative therefore unlikely.
-Received 4 days of IV antibiotics
-No white count afebrile without evidence of hypoxia hold off on providing any further antibiotics at this time
Toxic metabolic encephalopathy
-Resolved
Hypernatremia
-Resolved
Failure to thrive
-High risk aspiration/pressure sores
Vascular dementia
-Nonverbal and quadriplegic
-Risperdal Ativan
Anxiety/depression
-Lexapro and
Plan to discharge back to her review facility.
Daniel son has been updated via telephone
Anticipated Discharge: Within 24 hours
Subjective/Interval History
-
Date of Service: August 23, 2024
Seen and examined. No new complaints. No acute overnight events.
Following commands. However not verbalizing. Per documentation nonverbal.
Objective Data
-
Labs:
Laboratory Results
08/23/24
07:44
WBC 7.8
Hgb 11.3 L
Hct 35.1 L
Plt Count 236 D
Sodium 141
Potassium 3.7
Chloride 107
Carbon Dioxide 22
BUN 30 H
Creatinine 0.8
Glucose 107 H
Calcium 8.4
Vital Signs:
Vital Signs
Temp Pulse Resp BP Pulse Ox
98.3 F 84 14 118/79 98
08/23/24 07:30 08/23/24 08:58 08/23/24 07:30 08/23/24 08:58 08/23/24 07:30
I&O
08/22/24 08/23/24 08/24/24
06:59 06:59 06:59
Intake Total 1660 / 1660 910 / 910
Balance 1660 / 1660 910 / 910
--- NOTE | 2024-08-23 11:48 | W.DCSUMMARY ---
Discharge Summary
Discharge Data
Date of Admission: 08/20/24
Date of Discharge: 08/23/24
-
Pending Results: No
Hospital Course
64 female history of COPD CVA depression anxiety dementia Crohn's disease chronic urinary retention, UTI, s/p tube, dementia with agitation, failure to thrive, chronic kidney presents from facility for acute respiratory distress without hypoxia.
Described per documentation that she was tachypneic. He had concerning findings on x-ray for potential pneumonia development. Urine analysis concerning for UTI but urine culture negative. Blood culture negative. Treated with 4 days of cefepime.
Additionally, hypernatremic which improved once free water flushes adjusted. Mental status improved appears to be at baseline following commands on the day of discharge.
More than 30 minutes spent in discharge including
Final examination of the patient
Summarizing hospital stay
Instructions for continuing care to all relevant caregivers
Preparation of discharge records, prescriptions, and referral forms
Total time spent (in minutes): 33min
Discharge Plan
-
Patient Disposition: Snf/SNF
Discharge Diagnosis/Procedures: Acute respiratory distress without hypoxia.
History of COPD, CVA, depression anxiety dementia, Crohn's disease, chronic urinary retention UTI, s/p PEG tube, dementia with agitation, failure to thrive, chronic kidney disease
Condition: Fair
Additional Diets: Tube feed
Additional Activity: Bedbound
Driving Restrictions: No driving
Wound Care: Bilateral upper buttocks withopen areas silicone border foam
Referrals:
Kang López DO [Family Provider] -
Prescriptions:
Continued
atorvastatin [Lipitor] 40 mg Tablet
40 mg PO QPM
sennosides [senna] 8.6 mg Tablet
8.6 mg PO DAILY
acetaminophen [Tylenol] 325 mg Tablet
650 mg PO Q6HPRN MDD 3000 mg PRN (Reason: mild pain /fever>100.4)
cyanocobalamin (vitamin B-12) 100 mcg Tablet
100 mcg PO DAILY
albuterol sulfate 2.5 mg /3 mL (0.083 %) Solution For Nebulization
2.5 mg INHALATION R Q4HPRN PRN (Reason: SOB)
famotidine [Pepcid] 40 mg Tablet
40 mg PO DAILY
bisacodyl [Dulcolax (bisacodyl)] 10 mg Suppository
10 mg MS DAILYPRN PRN (Reason: IF NO BM AFTR SORBITOL)
aspirin 81 mg Tablet,Chewable
81 mg PO DAILY
mirtazapine [Remeron] 15 mg Tablet
15 mg PO HS
tamsulosin 0.4 mg capsule
0.4 mg PO DAILY
potassium citrate 15 mEq Tablet Extended Release
15 meq PO BID
Eliquis 5 mg tablet
5 mg PO BID
polyethylene glycol 3350 17 gram Powder In Packet
17 g PO DAILY
methenamine hippurate 1 gram Tablet
1 g PO BID
mineral oil Enema
118 ml MS DAILYPRN PRN (Reason: constipation)
lorazepam 0.5 mg Tablet
0.5 mg PO BID
lorazepam 0.5 mg Tablet
0.5 mg PO Q4HPRN PRN (Reason: anxiety)
hydrocortisone [Preparation H Hydrocortisone] 1 % Cream
1 applic TOPICAL QID
ferrous sulfate 325 mg (65 mg iron) Tablet
325 mg PO DAILY
Fleet Enema 19-7 gram/118 mL Enema
118 ml MS DAILYPRN PRN (Reason: if suppository ineffective)
morphine 10 mg/5 mL Solution
5 mg PO Q4HPRN PRN (Reason: sob/severe pain)
calcium carbonate 500 mg calcium (1,250 mg) Tablet,Chewable
500 mg PO Q8HPRN PRN (Reason: heartburn/indigestion)
ketoconazole 2 % Cream
1 applic TOPICAL BID
sorbitol 70 % Solution
30 ml PO DAILYPRN PRN (Reason: constipation)
risperidone [Risperdal] 0.5 mg Tablet
0.5 mg PO BID
escitalopram oxalate 10 mg Tablet
10 mg PO DAILY
metoprolol tartrate 25 mg Tablet
25 mg PO BID
cholecalciferol (vitamin D3) [Vitamin D3] 25 mcg (1,000 unit) Tablet
50 mcg PO DAILY
pantoprazole [address] For Susp In Packet
40 mg feeding tube DAILY
umeclidinium-vilanterol 62.5-25 mcg/actuation Blister With Device
1 inh INHALATION R DAILY
Discharge Orders:
Discharge Patient (As Directed); Ordered 08/23/24
Ordered By: Vitaly James
Discharge Date and Time
Print Language: NIGERIAN
--- NOTE | 2024-08-23 14:35 | PN.CDI ---
CDI
- -
CDI:
Physician Documentation Request
Admit Date: 08/20/24 18:59
Dear Doctor Jacob,
Please review the following and provide your response in the progress notes.
Clinical Indicators:
Pt admitted with sepsis, possible pneumonia, acute respiratory distress, and TME
08/20 correctional case manager note stage 2 sacral pressure injury POA.
Physician documentation of the type and location of wounds is required for compliant documentation. Based on the above clinical findings and your assessment, please provide the following in your progress note:
Location of the ulcer/wound, including laterality.
Type (etiology) of ulcer/wound:
Stage 2 sacral Pressure injury POA
Non-pressure injury POA
Other
Use of terms such as suspected, likely, concern for, or probable (associated with a specific diagnosis that is being evaluated, monitored, or treated as if it exists) are acceptable and can be coded in the inpatient setting, when documented at the
time of discharge.
Thank you,
Sarah Cheng RN, BSN
CDI Specialist
Available via [facility] [employer]
Please use your independent medical judgment in providing your response.
*Source: National Pressure Ulcer Advisory Panel (NPUAP)
[2024-08-23 15:12] VITALS: BP 125/82
== END 2024-08-23 15:52 | DRG 871 ==
LOC: 3 WEST ACU 18:59
PROVIDERS: Emergency Medicine; Nurse Practitioner Family; ADMITTING PHYSICIAN Internal Medicine; ATTENDING PHYSICIAN Hospitalist; EMERGENCY PHYSICIAN Emergency Medicine; FAMILY PHYSICIAN Internal Medicine
DX: A41.9 Sepsis, unspecified organism (principal); G92.8 Other toxic encephalopathy; J18.9 Pneumonia, unspecified organism; R53.2 Functional quadriplegia; N17.9 Acute kidney failure, unspecified; E87.0 Hyperosmolality and hypernatremia; E87.20 Acidosis, unspecified; F01.C3 Vascular dementia, severe, with mood disturbance; F01.C4 Vascular dementia, severe, with anxiety; J44.0 Chronic obstructive pulmonary disease with (acute) lower respiratory infection; J44.1 Chronic obstructive pulmonary disease with (acute) exacerbation; K50.90 Crohn's disease, unspecified, without complications; Z51.5 Encounter for palliative care; F32.A Depression, unspecified; I12.9 Hypertensive chronic kidney disease with stage 1 through stage 4 chronic kidney disease, or unspecified chronic kidney disease; N18.9 Chronic kidney disease, unspecified; R62.7 Adult failure to thrive; L89.152 Pressure ulcer of sacral region, stage 2; E86.9 Volume depletion, unspecified; R06.03 Acute respiratory distress; I45.10 Unspecified right bundle-branch block; Z79.01 Long term (current) use of anticoagulants; Z79.82 Long term (current) use of aspirin; Z79.891 Long term (current) use of opiate analgesic; Z79.899 Other long term (current) drug therapy; Z86.73 Personal history of transient ischemic attack (TIA), and cerebral infarction without residual deficits; Z74.01 Bed confinement status; Z87.440 Personal history of urinary (tract) infections; Z93.1 Gastrostomy status; Z88.8 Allergy status to other drugs, medicaments and biological substances
CPT/HCPCS: 70450; 71045; 71250; 80048; 80053; 81003; 81015; 83605; 85025; 85027; 87040; 87070; 87086; 87502; 87811; 93005; 94640; 96365; 96366; 96375; 99285

== ENCOUNTER 2024-08-31 13:05 | Inpatient (IN) | payer MEDICARE, OTHER, SELFPAY ==
[2024-08-31] VITALS (20 sets, daily range): BP systolic 98–128; BP diastolic 64–86; BMI 15.4; BMI 18.1
[2024-08-31 08:59] LABS: % Basophils 0.8 % (0-2); % Eosinophils 4.7 % (0-6); % Immature Granulocytes 0.4 % (0-0.5); % Lymphocytes 16.8 % (20.5-51.1); % Neutrophils 70.3 % (42.2-75.2); Absolute Basophils 0.1 10^3/uL (0-0.2); Absolute Eosinophils 0.7 10^3/uL (0-0.7); Absolute Immature Granulocytes 0.1 10^3/uL (0-0.05); Absolute Lymphocytes 2.4 10^3/uL (1.2-3.4); Hematocrit 43.2 % (37.0-47.0); Hemoglobin 13.6 g/dL (12.0-16.0); Mean Corp Hgb Conc. 31.5 g/dL (33.0-37.0); Mean Corpuscular Hgb 27.9 pg (27.0-31.0); Mean Corpuscular Volume 88.5 fL (81.0-99.0); Mean Platelet Volume 9.6 fL (7.4-10.4); Nucleated Red Blood Cells % 0 %; Platelet Count 347 10^3/uL (130-400); Red Blood Cell Count 4.88 10^6/uL (4.20-5.40); Red Cell Dist. Width 15.9 % (11.5-14.5); White Blood Cell Count 14.2 10^3/uL (4.8-10.8)
--- NOTE | 2024-08-31 09:01 | ED.GENMED ---
History of Present Illness
General
Chief Complaint: Failure to Thrive
Source: records, ambulance crew and snf
Exam Limitations: other (Clinical condition)
Time Seen by Provider: 08/31/24 08:43
Nursing documentation reviewed up to this point in time: agreed with
History of Present Illness
History of Present Illness:
64-year-old female with past medical history of COPD, CVA, dementia, Crohn's disease, chronic urinary retention with recurrent UTIs, chronic kidney disease who presents to the emergency department from [facility] for evaluation of fever
and tachycardia. Patient was notably just admitted to this hospital 08/20 until 08/23�was admitted with urinary tract infection. She apparently had been discharged to hospice care for a brief period but this since has been revoked. Apparently
over the past 24 hours patient has developed increasing tachycardia and fever. This morning received Tylenol around 7 AM and was referred to the emergency room. Patient is unable to meaningfully participate in history due to her baseline dementia
and stroke history.
Past History
Past History
ED Past Medical History: CVA and Other (Dementia. Crohn's disease)
Social History
Tobacco: Non-smoker
Alcohol: None
Drug: None
Living: snf
Review of Systems
Review of Systems
Unable to obtain full review of systems at this time due to: dementia
All Other Systems: Not applicable
Phy Exam
Physical Exam
Physical Exam:
General: Laying in bed cachectic and contracted, chronically ill-appearing
Head: Normocephalic, atraumatic
Eyes: Conjunctiva normal, EOMI
Throat: Airway intact, dry mucous membranes
Neck: Trachea midline
Lungs: Clear to auscultation bilaterally, no wheezing, rales, rhonchi
Heart: Tachycardia with regular rhythm, no murmurs, gallops, or rubs
Abd: Soft, non distended, PEG tube in place
Neuro: Winces to painful stimuli but not following commands
Skin: Stage I sacral decub
Extremities: Contracted and cachectic but warm and well-perfused
Scores
Heart Failure Risk
Heart Failure Risk Score: Not Applicable
Heart Score for Chest Pain Patients
STEMI patient?: Not applicable
Withdrawal Assessment of Alcohol
Withdrawal Assessment Completed?: Not applicable
Sepsis
Sepsis Screening
Sepsis Assessment: Sepsis
Sepsis Screen
Sepsis Screen: Sepsis
Date: 08/31/24
Time: 11:10
Course
Orders/Labs/Results
Orders:
Orders
08/31/24 08:34
EKG [Electrocardiogram (*1)] Urgent
Reason for Study: Tachycardia
08/31/24 08:35
EKG- Treatment ONCE
08/31/24 08:49
Complete Blood Count/With Diff Urgent
Comprehensive Metabolic Panel Urgent
08/31/24 08:59
Straight cath- Treatment ONCE
0.9% Sodium Chloride 1000 ml [Nss] 1,000 ml IV BOLUS
Ibuprofen [Motrin] 400 mg TUBE NOW STA
08/31/24 09:00
CR Chest Portable - 1 View Urgent
Comment:
Reason For Exam: fever
Reason Study Needs to be Portable: Unable to Transport
08/31/24 09:04
Piperacillin/Tazo 3.375 Gram [Zosyn] 3.375 gram in 50 ml IV NOW
08/31/24 09:22
COVID-19 Antigen Urgent
Source: Nasal Swab
Lactate Level [Lactic Acid] Urgent
Blood Culture Q30M
LEE Source: Blood/Venous
Specimen Description:
Blood Culture Q30M
LEE Source: Blood/Venous
Specimen Description:
Influenza A+B Rapid Molecular Urgent
LEE Source: Nasal Swab
Specimen Description:
08/31/24 09:37
Urinalysis Reflex To Culture Urgent
Date Specimen was Collected: 08/31/24
Time Specimen was Collected: 09:26
Urine Microscopic Reflex Cult Urgent
Urine Culture Urgent
LEE Source: U
Specimen Description:
Date Specimen was Collected: 08/31/24
Time Specimen was Collected:
08/31/24 10:04
0.9% Sodium Chloride 500 ml [Nss] 500 ml IV BOLUS
08/31/24 10:25
CT Abd/pel Without Iv Or Oral Urgent
Comment:
Reason For Exam: sepsis, UTI, severe dementia
Abnormal Lab Results
08/31/24 08/31/24 08/31/24
08:49 09:22 09:37
WBC 14.2 H 10^3/uL
(4.8-10.8)
MCHC 31.5 L g/dL
(33.0-37.0)
RDW 15.9 H %
(11.5-14.5)
Abs Immat Gran (auto) 0.1 H 10^3/uL
(0-0.05)
Absolute Neuts (auto) 10.0 H 10^3/uL
(1.4-6.5)
Absolute Monos (auto) 1.0 H 10^3/uL
(0.1-0.6)
Lymphocytes % 16.8 L %
(20.5-51.1)
Potassium 5.3 H mmol/L
(3.5-5.1)
BUN 51 H mg/dl
(7-17)
Creatinine 1.2 H mg/dL
(0.6-1.0)
Glucose 115 H mg/dl
(70-99)
Lactic Acid 2.5 H mmol/L
(0.7-2.0)
Total Bilirubin 1.7 H mg/dl
(0.2-1.3)
Alkaline Phosphatase 162 H U/L
(38-126)
Albumin 3.4 L g/dl
(3.5-5.0)
Leukocyte Esterase Rfl Trace A
(Negative)
Urine WBC (Reflex) 16-20 A /HPF
(0-5)
Urine Bacteria (Reflex) Few A
(Negative)
08/31/24 08:49
08/31/24 08:49
Vital Signs
Initial and Last Documented VS:
Initial Vital Signs
Pulse Resp Pulse Ox
107 33 94
08/31/24 08:35 08/31/24 08:35 08/31/24 08:35
Last Documented Vital Signs
Temp Pulse Resp BP Pulse Ox
38.3 C H 101 20 100/70 95
08/31/24 08:48 08/31/24 10:00 08/31/24 10:00 08/31/24 10:00 08/31/24 10:00
MDM/Problems Addressed
Differential Diagnosis Includes:
UTI, pneumonia, viral syndrome, intra-abdominal infection, bacteremia
MDM/Problems Addressed:
64-year-old female presents to the ER for evaluation of fever and tachycardia as described above. She was tachycardic, mildly tachypneic, febrile here but normotensive, normal pulse ox on room air. Lab work sent in triage showed leukocytosis to
14.2. CMP pending. Added lactate and blood cultures. Will cath for urinalysis and culture. Called for stat chest x-ray�reviewed by me shows no pneumonia. Swab for COVID and flu. Will provide fluids, ibuprofen for fever. Will cover with Zosyn
empirically with concern for sepsis�at this point suspected source would be urinary. Plan for admission pending initial ED workup.
Chemistry shows mild NEIL with creatinine 1.2 from baseline of 0.8. Lactate elevated at 2.5. T. bili marginally elevated but stable. Transaminases normal. Urinalysis is positive for infection with bacteria and pyuria. Will check CT abdomen
pelvis to rule out any nidus (or alternate source of infection) given second UTI and very short period. Plan for admission pending imaging.
CT abdomen pelvis no acute pathology. Admit for continued treatment, discussed with hospitalist.
Chronic conditions affecting care:
Dementia, CVA
*Radiology
Radiology exam reviewed: preliminary read by ED provider
*Pulse Oximetry
Patient hypoxic: no
*EKG
Interpreted by ED Provider?: Yes
Heart Rate: 107
Rate: tachycardiac
Rhythm: sinus and sinus tachycardia
[place]: right axis deviation
Interval: normal interval
QRS Pattern: right bundle branch block
Ischemia: no ischemia
*Critical Care Note
Total Time (30-74mins, 75-104mins- exclusive of procedures): Not Applicable
Data Reviewed
Review of Other/Old Records Reveals: Labs, Records and Discharge Summary
Source: records, ambulance crew and snf
Patient Management
Discussion with other providers: Hospitalist (Discussed with hospitalist)
Escalation/DeEscalation of care consider admission/obs:
Admission indicated
ED Attending Note
-
Portions of this chart may have been created with voice recognition software.� Occasional wrong word or��sound alike� substitutions may have occurred due to the inherent limitations of voice recognition software.
Discharge Plan
Departure
Patient Disposition: Admit
Date of Disposition: 08/31/24
Time of Disposition: 11:11
Admit to doctor: Genny
Presentation/result/management discussed w/ accepting MD/DO: Hospitalist
Discharge Problem:
Sepsis, UTI (urinary tract infection)
Prescriptions:
No Action
atorvastatin [Lipitor] 40 mg Tablet
40 mg PO QPM
sennosides [senna] 8.6 mg Tablet
8.6 mg PO DAILY
acetaminophen [Tylenol] 325 mg Tablet
650 mg PO Q6HPRN MDD 3000 mg PRN (Reason: mild pain /fever>100.4)
cyanocobalamin (vitamin B-12) 100 mcg Tablet
100 mcg PO DAILY
albuterol sulfate 2.5 mg /3 mL (0.083 %) Solution For Nebulization
2.5 mg INHALATION R Q4HPRN PRN (Reason: SOB)
famotidine [Pepcid] 40 mg Tablet
40 mg PO DAILY
bisacodyl [Dulcolax (bisacodyl)] 10 mg Suppository
10 mg IN DAILYPRN PRN (Reason: IF NO BM AFTR SORBITOL)
aspirin 81 mg Tablet,Chewable
81 mg PO DAILY
mirtazapine [Remeron] 15 mg Tablet
15 mg PO HS
tamsulosin 0.4 mg capsule
0.4 mg PO DAILY
potassium citrate 15 mEq Tablet Extended Release
15 meq PO BID
Eliquis 5 mg tablet
5 mg PO BID
polyethylene glycol 3350 17 gram Powder In Packet
17 g PO DAILY
methenamine hippurate 1 gram Tablet
1 g PO BID
mineral oil Enema
118 ml IN DAILYPRN PRN (Reason: constipation)
lorazepam 0.5 mg Tablet
0.5 mg PO BID
lorazepam 0.5 mg Tablet
0.5 mg PO Q4HPRN PRN (Reason: anxiety)
hydrocortisone [Preparation H Hydrocortisone] 1 % Cream
1 applic IN QID
ferrous sulfate 325 mg (65 mg iron) Tablet
325 mg PO DAILY
Fleet Enema 19-7 gram/118 mL Enema
118 ml IN DAILYPRN PRN (Reason: if suppository ineffective)
morphine 10 mg/5 mL Solution
0.5 mg PO Q4HPRN PRN (Reason: sob/severe pain)
calcium carbonate 500 mg calcium (1,250 mg) Tablet,Chewable
100 mg PO Q8HPRN PRN (Reason: heartburn/indigestion)
ketoconazole 2 % Cream
1 applic TOPICAL BID
sorbitol 70 % Solution
30 ml PO DAILYPRN PRN (Reason: constipation)
risperidone [Risperdal] 0.5 mg Tablet
0.5 mg PO BID
escitalopram oxalate 10 mg Tablet
10 mg PO DAILY
metoprolol tartrate 25 mg Tablet
25 mg PO BID
cholecalciferol (vitamin D3) [Vitamin D3] 25 mcg (1,000 unit) Tablet
50 mcg PO DAILY
pantoprazole [address] For Susp In Packet
40 mg PO DAILY
umeclidinium-vilanterol 62.5-25 mcg/actuation Blister With Device
1 inh INHALATION R DAILY
Referrals:
UNKNOWN,NO INTERVIEW [Family Provider] -
Interventions
Interventions:
*Risk Screen - Suicide Last Done: 08/31/24 08:36
*General Assessment Last Done: 08/31/24 08:36
*Neglect/Abuse Screening Last Done: 08/31/24 08:36
ED- Fall Risk Assessment Last Done: 08/31/24 08:44
*ED COVID-19 Vaccine History Last Done: 08/31/24 08:36
Discharge Date and Time
Print Language: UZBEK
[2024-08-31 09:12] LABS: ALT (SGPT) 31 U/L (0-35); AST (SGOT) 28 U/L (14-36); Albumin 3.4 g/dl (3.5-5.0); Alkaline Phosphatase 162 U/L (38-126); Blood Urea Nitrogen 51 mg/dl (7-17); Calcium 8.8 mg/dl (8.4-10.2); Carbon Dioxide 30 mmol/L (22-30); Chloride 103 mmol/L (98-107); Estimated Creatinine Clearance 30 ml/min; Glucose 115 mg/dl (70-99); Potassium 5.3 mmol/L (3.5-5.1); Sodium 143 mmol/L (135-145); Total Bilirubin 1.7 mg/dl (0.2-1.3); Total Protein 6.7 g/dl (6.3-8.2); eGFR 50.86
[2024-08-31] MEDS: NSS 1000 IV ×3 (09:27→21:10)
[2024-08-31] MEDS: ZOSYN 50 IV (09:40)
[2024-08-31] MEDS: MOTRIN 400 MG TUBE (09:47)
[2024-08-31 09:52] LABS: Urine Albumin Negative (Neg - Trace); Urine Bilirubin Negative (Negative); Urine Character Clear (Clear); Urine Color Yellow; Urine Glucose Negative (Negative); Urine Ketone Negative (Negative); Urine Leukocyte Trace (Negative); Urine Nitrite Negative (Negative); Urine Occult Blood Negative (Negative); Urine Specific Gravity 1.005 (<1.030); Urine Urobilinogen Negative (Neg - 1+)
[2024-08-31 10:04] LABS: COVID-19 Antigen Negative (Negative); Lactic Acid 2.5 mmol/L (0.7-2.0)
[2024-08-31] MEDS: NSS 500 IV (10:17)
[2024-08-31 10:18] LABS: Urine White Cell 16-20 /HPF (0-5)
[2024-08-31 10:19] LABS: Urine Bacteria Few (Negative); Urine Red Blood Cell 0-2 /HPF (0-2)
--- NOTE | 2024-08-31 11:37 | HPS.HSE ---
Family Physician
-
Family Physician: NO INTERVIEW UNKNOWN
Chief Complaint
-
Fever and tachycardia
History of Present Illness
64 y/o F with PMHx:
COPD
CVA
Depression
Anxiety
Dementia
Crohn's disease
Chronic urinary retention, UTI, s/p tube
Vascular dementia with agitation/behavioral disturbances
Failure to thrive
Severe protein calorie malnutrition
Functional quadriplegia
CKD3a
who p/w CC fever and tachycardia. The patient is currently nonverbal and cannot give history. Patient was recently hospitalized August 20 for August 23, 2024 for urinary tract infection. After discharge she was enrolled in hospice but as per
discussion with the son this was revoked because 'it was not working.' Over the last day the patient has had tachycardia and fever at her usp. For this reason she was sent to the ER.
Medical History
Past Medical History
Past Medical History: Reports Other (COPD CVA Depression Anxiety Dementia Crohn's disease Chronic urinary retention, UTI, s/p tube Vascular dementia with agitation/behavioral disturbances, functional quadriplegia, failure to thrive Severe protein
calorie malnutrition CKD3a)
Past Surgical History: Reports Other
Additional Past Surgical History:
N/A
Social History
Tobacco: Non-smoker
Alcohol: None
Drug: None
Family History
Family History: Not pertinent
Allergies / Home Medications
Allergies reflects when Allergies were last updated in [employer].
Home Medications with original date entered in [employer]
Allergy/Medication List:
Allergies
Allergy/AdvReac Type Severity Reaction Status Date / Time
divalproex sodium Allergy Unknown Verified 07/04/24 05:41
Iodinated Contrast Media Allergy Anaphylaxis Verified 07/04/24 05:41
iodine Allergy Anaphylaxis Verified 07/04/24 05:41
tositumomab Allergy Unknown Verified 09/29/24 05:41
valproic acid Allergy Unknown Verified 07/04/24 05:41
Home Medications
acetaminophen 325 mg tablet (Tylenol) 650 mg PO Q6HPRN PRN mild pain /fever>100.4 12/02/23
albuterol sulfate 2.5 mg/3 mL (0.083 %) solution for nebulization 2.5 mg inhalation R Q4HPRN PRN SOB 12/02/23
aspirin 81 mg chewable tablet 81 mg PO DAILY Blood Clot Prevention/Tx 12/02/23
atorvastatin 40 mg tablet (Lipitor) 40 mg PO QPM High Cholesterol 12/02/23
bisacodyl 10 mg rectal suppository (Dulcolax (bisacodyl)) 10 mg NH DAILYPRN PRN IF NO BM AFTR SORBITOL 12/02/23
cyanocobalamin (vitamin B-12) 100 mcg tablet 100 mcg PO DAILY Supplement 12/02/23
famotidine 40 mg tablet (Pepcid) 40 mg PO DAILY Gastrointestinal Issue 12/02/23
sennosides 8.6 mg tablet (senna) 8.6 mg PO DAILY Constipation 12/02/23
mirtazapine 15 mg tablet (Remeron) 15 mg PO HS depression/sleep 01/21/24
tamsulosin 0.4 mg capsule 0.4 mg PO DAILY Urinary Issue 02/16/24
apixaban 5 mg tablet (Eliquis) 5 mg PO BID Blood Clot Prevention/Tx 08/20/24
calcium carbonate 100 mg PO Q8HPRN PRN heartburn/indigestion 08/20/24
cholecalciferol (vitamin D3) 25 mcg (1,000 unit) tablet (Vitamin D3) 50 mcg PO DAILY Supplement 08/20/24
escitalopram oxalate 10 mg tablet 10 mg PO DAILY Depression 08/20/24
ferrous sulfate 325 mg (65 mg iron) tablet 325 mg PO DAILY Supplement 08/20/24
hydrocortisone 1 % topical cream (Preparation H Hydrocortisone) 1 applic NH QID hemorrhoids 08/20/24
ketoconazole 2 % topical cream 1 applic topical BID face 08/20/24
lorazepam 0.5 mg tablet 0.5 mg PO BID Mental Health/Anxiety 08/20/24
lorazepam 0.5 mg tablet 0.5 mg PO Q4HPRN PRN anxiety 08/20/24
methenamine hippurate 1 gram tablet 1 g PO BID Urinary Issue 08/20/24
metoprolol tartrate 25 mg tablet 25 mg PO BID Blood Pressure 08/20/24
mineral oil 118 ml NH DAILYPRN PRN constipation 08/20/24
morphine 10 mg/5 mL oral solution 0.5 mg PO Q4HPRN PRN sob/severe pain 08/20/24
pantoprazole 40 mg granules delayed-release for susp in packet 40 mg PO DAILY Gastrointestinal Issue 08/20/24
polyethylene glycol 3350 17 gram oral powder packet 17 g PO DAILY Constipation 08/20/24
potassium citrate 15 mEq (1,620 mg) tablet,extended release 15 meq PO BID Electrolyte Repletion 08/20/24
risperidone 0.5 mg tablet (Risperdal) 0.5 mg PO BID Mental Health/Anxiety 08/20/24
sodium phosphates 19 gram-7 gram/118 mL enema (Fleet Enema) 118 ml NH DAILYPRN PRN if suppository ineffective 08/20/24
sorbitol 70 % solution 30 ml PO DAILYPRN PRN constipation 08/20/24
umeclidinium 62.5 mcg-vilanterol 25 mcg/actuation powdr for inhalation 1 inh inhalation R DAILY Lung/Breathing Issues 08/20/24
Review of Systems
-
Unable to obtain full review of systems at this time due to: Dementia
Physical Exam
Vital Signs
Vital Signs
Temp Pulse Resp BP Pulse Ox
100.9 F H 101 20 100/70 95
08/31/24 08:48 08/31/24 10:00 08/31/24 10:00 08/31/24 10:00 08/31/24 10:00
Physical Exam
HEENT: Other (.)
Laboratory Results
-
08/31/24 08:49
08/31/24 08:49
Laboratory Results
Lactic Acid 2.5 mmol/L (0.7-2.0) H 08/31/24 09:22
Total Bilirubin 1.7 mg/dl (0.2-1.3) H 08/31/24 08:49
AST 28 U/L (14-36) 08/31/24 08:49
ALT 31 U/L (0-35) 08/31/24 08:49
Alkaline Phosphatase 162 U/L (38-126) H 08/31/24 08:49
Impression/Plan
-
Gen: NAD, NCAT, appears chronically ill and malnourished
Eyes: no scleral icterus.
Neck: supple.
ENMT: mucous noted on pt lip
CV: tachy, reg rhythm, +S1/S2, no m/r/g.
Resp: CTAB, no rales, wheezes, or rhonchi.
Abd: +BS, soft, NT, ND
Skin: No obvious rashes. No LE edema
Neuro: unresponsive
CT A/P: Likely punctate nonobstructing renal calculi. No findings to confirm urinary tract calculus or dilatation bilaterally. No significant bilateral perinephric stranding. Small simple left renal cyst. Additional bilateral slightly high
attenuation renal lesions as well as likely isodense left renal lesion not compatible with simple cysts, cannot differentiate proteinaceous cyst versus solid masses. Markedly limited evaluation of unopacified virtually completely empty urinary
bladder. Large portion of large bowel filled with liquid stool and large volume stool seen in the sigmoid colon. Prior cholecystectomy. Coronary artery calcifications.
CXR: No acute cardiopulmonary process.
SIRS:
-so far no source of infection identified. CT A/P and CXR without source of infection. COVID/Flu NEG. U/A with 16-20 WBC but nitrite NEG.
-s/p 30cc/kg bolus in ER
-lactic acidosis, trend with IVFs
-currently on empiric Zosyn
-follow BCxs/UCx
-c/s ID
-very possible pt's SIRS is due to aspiration pneumonitis, hold TFs for now
NEIL on CKD3a:
-trend Cr with IVFs
Other problems:
COPD: cont LABA/LAMA
h/o CVA: cont ASA/statin/Eliquis
Depression/Anxiety: cont Lexapro/Ativan
Crohn's disease
Chronic urinary retention, UTI, s/p tube
Vascular dementia with agitation/behavioral disturbances: cont Risperdal
Failure to thrive
Severe protein calorie malnutrition
Functional quadriplegia
Due to the patient's overwhelming burden of pathology in the setting of recurrent hospitalizations and continued failure to thrive the patient is hospice appropriate. The patient has no chance of any meaningful recovery in the near or distant
future. Palliative care has been consulted.
Pt's son updated over the phone ([employer] [employer]). He states pt is a FULL code. Of note, pt had been on hospice but it was rescinded as 'it wasn't working.'
--- NOTE | 2024-08-31 14:37 | CON.ID ---
Consultation
-
Date/Time Consultation Requested: 08/31/2024 1148
Date/Time Consultation Performed: 08/31/2024 1437
Requesting Provider: Dr. Lyle Campbell
Performing Provider: Dr. Piper Andrews
Reason for Consultation: SIRS
Chief Complaint / Past History
Chief Complaint
Fever and tachypnea
History of Present Illness
64F from SNF with hx of CVA, vascular dementia, dysphagia s/p PEG, Crohn's severe protein-calorie malnutrition, bedbound, recent hospitalization 08/20 to 08/23 with tachypnea, received 4d of cefepime for possible PNA. She returned to ED today due
to reported fever and tachypnea. In ED T= 100.9 (rectally), wbc 14.2, BP 98/77. CT a/p: colon filled with liquid stool and large volume of stool in sigmoid colon. CXR no acute change. She is currently on Zosyn. Of note she was recently made
hospice; son revoked hospice status.
Past History
Additional Past Medical History:
Vascular dementia with agitation/behavioral disturbance
Multiple ischemic CVA
COPD
Crohn's
Dysphagia s/p PEG
CKD3a
Bedbound
Failure to thrive
SNF resident
Allergy History:
divalproex sodium Allergy (Verified 07/04/24 05:41)
Unknown
Iodinated Contrast Media Allergy (Verified 07/04/24 05:41)
Anaphylaxis
iodine Allergy (Verified 07/04/24 05:41)
Anaphylaxis
tositumomab Allergy (Verified 07/04/24 05:41)
Unknown
valproic acid Allergy (Verified 07/04/24 05:41)
Unknown
Medications Reviewed: Yes
Current Antibiotics:
Zosyn
Social History
Tobacco: Former Smoker
Alcohol: None
Drug: None
Living: [facility]
Family History
Family History: Not Pertinent
Review of Systems
Review of Systems
Unable to obtain due to dementia/nonverbal status.
Vital Signs
Temp Pulse Resp BP Pulse Ox
100.9 F H 99 18 106/86 95
08/31/24 08:48 08/31/24 12:15 08/31/24 12:15 08/31/24 12:00 08/31/24 12:15
Physical Exam
Physical Exam
Constitutional: Chronically Ill and Cachetic
Eyes: No Conjunctival Hemorrhage and Sclera Anicteric
Oral: Other (Drooling)
Cardiovascular: Regular Rate and S1/S2
Pulmonary: Clear
Gastrointestinal: Soft, Non Tender, Non Distended, Normal Bowel Sounds and Other (PEG site clean)
Genito-Urinary: Negative CVA Tenderness
Extremities: Negative Edema
Musculoskeletal: Other (contracted BLE. Rigid BUE)
Neurological: Awake (Eyes open) and Other (Nonverbal)
Lab / Diagnostic Study Results
08/31/24 08:49
08/31/24 08:49
Abs Immat Gran (auto) 0.1 10^3/uL (0-0.05) H 08/31/24 08:49
Absolute Neuts (auto) 10.0 10^3/uL (1.4-6.5) H 08/31/24 08:49
Absolute Lymphs (auto) 2.4 10^3/uL (1.2-3.4) 08/31/24 08:49
Absolute Monos (auto) 1.0 10^3/uL (0.1-0.6) H 08/31/24 08:49
Absolute Basos (auto) 0.1 10^3/uL (0-0.2) 08/31/24 08:49
Immature Gran % 0.4 % (0-0.5) 08/31/24 08:49
Neutrophils % 70.3 % (42.2-75.2) 08/31/24 08:49
Lymphocytes % 16.8 % (20.5-51.1) L 08/31/24 08:49
Monocytes % 7.0 % (1.7-9.3) 08/31/24 08:49
Eosinophils % 4.7 % (0-6) 08/31/24 08:49
Basophils % 0.8 % (0-2) 08/31/24 08:49
Lactic Acid 2.5 mmol/L (0.7-2.0) H 08/31/24 09:22
Ur Squamous Epith Cells 3-5 /LPF (Few) 08/31/24 09:37
Microbiology Results
Micro:
08/31/24 09:37 Urine Culture - Pending
Urine
08/31/24 09:22 Influenza Types A & B (RODRICK) - Final
Nasal Swab Negative for Influenza A & B, NAAT
Negative results must be combined with clinical observations
and patient history.
Nucleic Acid Amplification test (NAAT)performed on the
[employer] NOW platform.
08/31/24 09:22 Blood Culture - Pending
Blood/Venous
08/31/24 09:22 Blood Culture - Pending
Blood/Venous
08/31/24 CT a/p: Likely punctate nonobstructing renal calculi. No findings to confirm urinary tract calculus or dilatation bilaterally. No significant bilateral perinephric stranding. Small simple left renal cyst. Additional bilateral slightly high
attenuation renal lesions as well as likely isodense left renal lesion not compatible with simple cysts, cannot differentiate proteinaceous cyst versus solid masses. Large portion of large bowel filled with liquid stool and large volume stool seen
in the sigmoid colon.
08/31/24 CXR: No acute cardiopulmonary process.
Assessment / Plan
# Rectal temp 100.9 =99.9
# Leukocytosis
# CVA/dementia/dysphagia s/p PEG
# Severe protein-calorie malnutrition
-CXR neg. COVID neg, Influeza neg.
-Straight cath for urine trace LE, 16-20wbc.
- Await Bcx and Ucx.
- Narrow Zosyn to ceftriaxone.
- Follow temps, wbc.
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
Vascular dementia with agitation/behavioral disturbance
Multiple ischemic CVA
COPD
Crohn's
Dysphagia s/p PEG
CKD3a
Bedbound
Failure to thrive
SNF resident
[2024-08-31] MEDS: STERILE WATER FOR INJECTION 10 ML IV (17:35)
[2024-08-31] MEDS: LIPITOR 40 MG PO (17:35)
[2024-08-31] MEDS: ROCEPHIN 1000 MG IV (17:41)
[2024-08-31] MEDS: ATIVAN 0.5 MG PO (19:22)
[2024-08-31] MEDS: ELIQUIS 5 MG PO (19:22)
[2024-08-31] MEDS: LOPRESSOR 25 MG PO (19:22)
[2024-08-31] MEDS: RISPERDAL 0.5 MG PO (19:22)
--- NOTE | 2024-08-31 20:59 | PTCARENOTE ---
Pt nonverbal, drowsy. VSS. Maintained on RA, 95%. Pt with moderate amount of oral secretions, requiring suctioning. Oral secretions bloody tinged. Contracted, very little movement noted of all extremities. Pt does not appear to be in any pain,
scored based on CPOT scale. Meds given crushed through PEG tube. PEG tube site slightly bloody, scabbed. Site care provided. Heel and elbow foams placed to maintain skin integrity. Turn schedule in place to prevent skin breakdown. Bed alarm in place
for pt safety.
[2024-08-31] MEDS: NIZORAL 2% CREAM 1 APPLIC TOPICAL (21:09)
[2024-08-31] MEDS: REMERON 15 MG PO (21:09)
[2024-09-01] VITALS (12 sets, daily range): BP systolic 92–155; BP diastolic 53–107; BMI 18.7
--- NOTE | 2024-09-01 04:34 | DOWNTIME ---
There was a [employer] Downtime on 09/01/2024 from 0100 to 09/01/2024 at 0350. Downtime documentation of patient's care, including medication administrations, has been reconciled in the electronic record per guidelines. Refer to the
patient's paper chart under the miscellaneous tab to see printed paper medication records and downtime forms.
[2024-09-01] MEDS: NSS 1000 IV (04:39)
[2024-09-01 05:43] LABS: % Basophils 0.6 % (0-2); % Eosinophils 8.6 % (0-6); % Immature Granulocytes 0.5 % (0-0.5); % Lymphocytes 19.5 % (20.5-51.1); % Monocytes 6.8 % (1.7-9.3); Absolute Basophils 0.1 10^3/uL (0-0.2); Absolute Eosinophils 0.8 10^3/uL (0-0.7); Absolute Immature Granulocytes 0.1 10^3/uL (0-0.05); Absolute Lymphocytes 1.8 10^3/uL (1.2-3.4); Absolute Monocytes 0.6 10^3/uL (0.1-0.6); Hematocrit 36.4 % (37.0-47.0); Hemoglobin 11.1 g/dL (12.0-16.0); Mean Corp Hgb Conc. 30.5 g/dL (33.0-37.0); Mean Corpuscular Volume 91.9 fL (81.0-99.0); Mean Platelet Volume 9.8 fL (7.4-10.4); Nucleated Red Blood Cells % 0 %; Platelet Count 265 10^3/uL (130-400); Red Blood Cell Count 3.96 10^6/uL (4.20-5.40); Red Cell Dist. Width 15.4 % (11.5-14.5); White Blood Cell Count 9.4 10^3/uL (4.8-10.8)
--- NOTE | 2024-09-01 07:40 | PTCARENOTE ---
On walking rounds Pt is asleep NSS at 125 hr running , pt is contracted . On RA lungs are coarse .Incont B/B
--- NOTE | 2024-09-01 08:11 | W.PN.HOSP.TC ---
Today's Communication/Plan
-
see bold
Assessment / Plan
Assessment / Plan
Gen: NAD, NCAT, appears chronically ill and malnourished, awake but not alert
Eyes: no scleral icterus.
Neck: supple.
CV: RRR, +S1/S2, no m/r/g.
Resp: CTAB anteriorly, no rales, wheezes, or rhonchi.
Abd: +BS, soft, NT, ND
Skin: No obvious rashes.
Neuro: awake but not alert, contracted
08/31/24 09:22 Blood/Venous Blood Culture - Preliminary
Positive culture in progress
08/31/24 09:22 Blood/Venous Gram Stain - Final
08/31/24 09:22 Nasal Swab Influenza Types A & B (RODRICK) - Final
Negative for Influenza A & B, NAAT
Negative results must be combined with clinical observations
and patient history.
Nucleic Acid Amplification test (NAAT)performed on the
[employer] NOW platform.
CT A/P: Likely punctate nonobstructing renal calculi. No findings to confirm urinary tract calculus or dilatation bilaterally. No significant bilateral perinephric stranding. Small simple left renal cyst. Additional bilateral slightly high
attenuation renal lesions as well as likely isodense left renal lesion not compatible with simple cysts, cannot differentiate proteinaceous cyst versus solid masses. Markedly limited evaluation of unopacified virtually completely empty urinary
bladder. Large portion of large bowel filled with liquid stool and large volume stool seen in the sigmoid colon. Prior cholecystectomy. Coronary artery calcifications.
CXR: No acute cardiopulmonary process.
SIRS:
-so far no source of infection identified. CT A/P and CXR without source of infection. COVID/Flu NEG. U/A with 16-20 WBC but nitrite NEG.
-s/p 30cc/kg bolus in ER
-lactic acidosis has resolved with IVFs
-cont IVFs but change to D5NS with hypoglycemia
-currently on empiric Rocephin as per ID
-follow BCxs/UCx (suspect POS BCx with be contamination)
-very possible pt's SIRS is due to aspiration pneumonitis, holding TFs for now. PEG tube clogged, c/s GI.
NEIL on CKD3a:
-resolved with IVFs
Other problems:
COPD: cont LABA/LAMA
h/o CVA: cont ASA/statin/Eliquis
Depression/Anxiety: cont Lexapro/Ativan
Crohn's disease
Chronic urinary retention, UTI, s/p tube
Vascular dementia with agitation/behavioral disturbances: cont Risperdal
Failure to thrive
Severe protein calorie malnutrition
Functional quadriplegia
Due to the patient's overwhelming burden of pathology in the setting of recurrent hospitalizations and continued failure to thrive the patient is hospice appropriate. The patient has no chance of any meaningful recovery in the near or distant
future. Palliative care has been consulted.
Pt's son (Sterling Yap) updated over the phone on admission. He stated pt is a FULL code. Of note, pt had been on hospice but it was rescinded as 'it wasn't working.'
Anticipated Discharge: > 48 hours
Subjective/Interval History
-
Date of Service: September 01, 2024
Nonverbal.
Objective Data
-
Labs:
Laboratory Results
09/01/24
04:20
WBC 9.4
Hgb 11.1 L
Hct 36.4 L
Plt Count 265 D
Vital Signs:
Vital Signs
Temp Pulse Resp BP Pulse Ox
98.2 F 70 11 117/69 95
09/01/24 07:34 09/01/24 06:00 09/01/24 06:00 09/01/24 06:00 09/01/24 06:00
[2024-09-01 08:55] LABS: Hematocrit 38.3 % (37.0-47.0); Hemoglobin 11.7 g/dL (12.0-16.0); Mean Corp Hgb Conc. 30.5 g/dL (33.0-37.0); Mean Corpuscular Hgb 27.9 pg (27.0-31.0); Mean Corpuscular Volume 91.2 fL (81.0-99.0); Mean Platelet Volume 9.3 fL (7.4-10.4); Platelet Count 275 10^3/uL (130-400); Red Cell Dist. Width 15.3 % (11.5-14.5); White Blood Cell Count 9.9 10^3/uL (4.8-10.8)
[2024-09-01] MEDS: MIRALAX 17 GRAMS PO (08:59)
[2024-09-01] MEDS: FLOMAX 0.4 MG PO (08:59)
[2024-09-01] MEDS: VITAMIN B-12 100 MCG PO (09:00)
[2024-09-01] MEDS: LEXAPRO 10 MG PO (09:00)
[2024-09-01] MEDS: LOW STRENGTH ASPIRIN 81 MG PO (09:00)
[2024-09-01] MEDS: PEPCID 20 MG PO (09:00)
[2024-09-01] MEDS: FEOSOL 325 MG PO (09:00)
[2024-09-01] MEDS: PROTONIX 40 MG PO (09:00)
[2024-09-01] MEDS: SENOKOT 8.6 MG PO (09:01)
[2024-09-01] MEDS: RISPERDAL 0.5 MG PO ×2 (09:01→19:36)
[2024-09-01] MEDS: ATIVAN 0.5 MG PO ×2 (09:01→19:38)
[2024-09-01] MEDS: ELIQUIS 5 MG PO ×2 (09:01→19:36)
[2024-09-01] MEDS: LOPRESSOR 25 MG PO ×2 (09:02→19:36)
[2024-09-01] MEDS: VITAMIN D3 (cholecalciferol) 50 MCG PO (09:03)
[2024-09-01] MEDS: NIZORAL 2% CREAM 1 APPLIC TOPICAL ×2 (09:06→19:36)
[2024-09-01 09:10] LABS: Blood Urea Nitrogen 35 mg/dl (7-17); Calcium 8.5 mg/dl (8.4-10.2); Carbon Dioxide 26 mmol/L (22-30); Chloride 110 mmol/L (98-107); Estimated Creatinine Clearance 54 ml/min; Glucose 64 mg/dl (70-99); Potassium 4.7 mmol/L (3.5-5.1); Sodium 144 mmol/L (135-145); eGFR > 60.00
--- NOTE | 2024-09-01 09:50 | CM ---
Patient from [facility] with Hx dementia, dysphagia s/p PEG. NPO/IVF. Receiving IV Abx. Per nursing assessment; non-verbal, requiring suctioning.
Spoke with Chuck Harmon and [facility];
the patient resides there [facility] L[facility].
The patient was recently on hospice with [facility] and the family revoked hospice when the patient's condition worsened, and requested she return to the hospital. Per Ellen, the patient has had hospice through [facility] previously as well, and
family rescinded hospice.
.
The patient is confused at baseline and requires total care for ADLs.
She is bedbound and able to get OOB using a estefani lift.
The patient has a PEG tube.
The phone for nurse report to the third floor is [phone], fax [phone].
*The Flooring Installer must call Andreina in [facility] (cell [phone]) prior to the patient returning.
Plan follow up with patient's family re; SNF return.
Plan return to [facility] when medically ready.
--- NOTE | 2024-09-01 09:51 | PTCARENOTE ---
Py feeding tube cliogged , flushed after meds on seconfd flush clogged. DR peterson aware
--- NOTE | 2024-09-01 10:03 | W.CON.PAL ---
Consultation
-
Date/Time Consultation Requested: 08/31
Date/Time Consultation Performed: 09/01
Requesting Provider: Shannan
Performing Provider: Aisha Price
Reason for Consult: Goals of Care Discussion
Primary Diagnosis: end stage dementia
Reason for Admission
Illness Course/HPI
64 year old F with PMH of advanced vascular dementia with behavioral disturbance, COPD, depression, anxiety, Crohn's disease, chronic urinary retention, severe protein calorie malnutrition s/p PEG, CKD3 admitted from [facility] with
fevers and lethargy.
Upon admission, CT A/P and CXR without source of infection. COVID/Flu negative. U/A with +WBC but nitrites negative. Possible aspiration pneumonitis, tube feeds on hold. Seen by ID- changed zosyn to ceftriazone and await blood/urine culture results.
Of note, patients family previously discussing hospice but declined back in March. Per reports, patient was discharged from hospital back to [place] 2 weeks ago on hospice, although dont see any documentation of this in the system. Team spoke with
patients son who wishes for full code and no hospice at this time.
Consult for GOC.
Seen at bedside with no family. Patient is nonverbal.
Objective Data
-
Objective Data:
Vital Signs
Temp Pulse Resp BP Pulse Ox
98.2 F 97 11 111/70 94
09/01/24 07:34 09/01/24 09:02 09/01/24 06:00 09/01/24 09:02 09/01/24 08:00
Laboratory Results
09/01/24 08:44
09/01/24 08:44
Total Protein 6.7 g/dl (6.3-8.2) 08/31/24 08:49
Albumin 3.4 g/dl (3.5-5.0) L 08/31/24 08:49
Urine Color Yellow 08/31/24 09:37
Urine Clarity Clear (Clear) 08/31/24 09:37
Urine pH 7.0 (5.0-9.0) 08/31/24 09:37
Ur Specific [place] 1.005 (<1.030) 08/31/24 09:37
Urine Ketones Negative (Negative) 08/31/24 09:37
Urine Bilirubin Negative (Negative) 08/31/24 09:37
Palliative Performance Scale
Palliative Performance Scale:
PPS Level Ambulation Activity & Evidence of Disease Self Care Intake Conscious Level
100% Full Normal Activity & Work; Full Intake Full
No Evidence of Disease
90% Full Normal Activity & Work; Full Normal Full
Some Evidence of Disease
80% Full Normal Activity with Effort Full Normal or Full
Some Evidence of Disease Reduced
70% Reduced Unable Normal Job/Work Full Normal or Full
Significant Disease Reduced
60% Reduced Unable Hobby/Housework Occasional Normal or Full or Confusion
Significant Disease Assistance Reduced
50% Mainly Sit/Lie Unable to do Any Work Considerable Normal or Full or Confusion
Extensive Disease Assistance Req'd Reduced
40% Mainly in Bed Unable to do Most Activity Mainly Assistance Normal or Full or Drowsy;
Extensive Disease Reduced +/- Confusion
30% Totally Bed Unable to do Any Activity Total Care Normal or Full or Drowsy;
Bound Extensive Disease Reduced +/- Confusion
20% Totally Bed Bound Unable to do Any Activity Total Care Minimal to Full or Drowsy;
Extensive Disease Sips +/- Confusion
10% Totally Bed Bound Unable to do Any Activity Total Care Mouth Care Drowsy or Coma;
Extensive Disease Only +/- Confusion
0%
PPS Score Level:
Palliative Performance Score Response
Palliative Performance Score Response: 10%
Physical Exam
-
General: Appears Chronically Ill and Cachectic
HEENT: Normocephalic
Respiratory: Clear to Auscultation
Cardiac: Regular Rhythm
GI: Soft and Nondistended
Musculoskeletal: Other (contracted)
Skin: Warm
Neuro: Awake
Psych: Apparent Dementia
Assessment / Plan
-
Assessment/Plan:
64 year old F with end stage vascular dementia admitted with SIRS. Awaiting further infectious workup.
- no family present at bedside, patient nonverbal
- attempted to call son, no answer. Will attempt again on Friday
- as of yesterday, wished for full code and no hospice.
Care Reviewed
Data Reviewed
Chest X ray: Image Reviewed
Radiology procedure: Image Reviewed
Medical Tests: I reviewed
Reviewed with: Family
--- NOTE | 2024-09-01 12:01 | W.PN.UPDATE ---
Update Note
Progress Note Update
asked to see for clogged peg. Noted with # 22 singaporean 30ml balloon tube in place without bumper in place and clogged. Per son pt may have had changed by hospice in past. I reviewed with 20 singaporean 20ml balloon tube at 4.5 cm at end of bumper. Will
check tube check to confirm placement prior to use.
--- NOTE | 2024-09-01 12:15 | W.PN.ID1 ---
Date of Service
Date of Service: September 01, 2024
Today's Communication
- No infectious etiology identified.
-DC abx.
-ID will sign off.
Assessment / Plan
# Rectal temp 100.9 =99.9, resolved
# Leukocytosis - resolved
1 CoNS bacteremia 1 of 2 sets = contaminant.
# CVA/dementia/dysphagia s/p PEG
# Severe protein-calorie malnutrition
-CXR neg. COVID neg, Influenza neg.
-Ucx negative
- CoNS bacteremia 1of 2 sets ->contaminant.
- No infectious etiology identified.
-DC abx.
-ID will sign off.
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
Vascular dementia with agitation/behavioral disturbance
Multiple ischemic CVA
COPD
Crohn's
Dysphagia s/p PEG
CKD3a
Bedbound
Failure to thrive
SNF resident
Chief Complaint
-: Other
Subjective / Review of Systems
Nonverbal
Vital Signs / Physical Exam
Vital Signs
Vital Signs
Temp Pulse Resp BP Pulse Ox
98.5 F 72 17 121/74 95
09/01/24 11:22 09/01/24 10:00 09/01/24 10:00 09/01/24 10:00 09/01/24 10:00
Physical Exam
Constitutional: Comfortable, Chronically Ill and Cachetic
Cardiovascular: Regular Rate and S1/S2
Pulmonary: Clear
Gastrointestinal: Soft, Non Tender and Non Distended
Extremities: Negative Edema
Neurological: Awake
Objective Data
Lab Data
Lab Results
09/01/24 08:44
09/01/24 08:44
Estimated Creat Clear 54 ml/min 09/01/24 08:44
Lactic Acid Cancelled 09/01/24 01:08
Total Bilirubin 1.7 mg/dl (0.2-1.3) H 08/31/24 08:49
AST 28 U/L (14-36) 08/31/24 08:49
ALT 31 U/L (0-35) 08/31/24 08:49
Alkaline Phosphatase 162 U/L (38-126) H 08/31/24 08:49
Most recent labs reviewed.
Micro Results:
08/31/24 09:37 Urine Culture - Final
Urine NO GROWTH
08/31/24 09:22 Blood Culture - Preliminary
Blood/Venous No Growth in 24 hours- Final report to follow
08/31/24 09:22 Blood Culture - Preliminary
Blood/Venous Positive culture in progress
Gram Stain - Final
09/01/24 08:44 Blood Culture - Pending
Blood/Venous
08/31/24 17:48 MRSA Screen - Pending
Nose
08/31/24 09:22 Influenza Types A & B (RODRICK) - Final
Nasal Swab Negative for Influenza A & B, NAAT
Negative results must be combined with clinical observations
and patient history.
Nucleic Acid Amplification test (NAAT)performed on the
[employer] platform.
08/31/24 CT a/p: Likely punctate nonobstructing renal calculi. No findings to confirm urinary tract calculus or dilatation bilaterally. No significant bilateral perinephric stranding. Small simple left renal cyst. Additional bilateral slightly high
attenuation renal lesions as well as likely isodense left renal lesion not compatible with simple cysts, cannot differentiate proteinaceous cyst versus solid masses. Large portion of large bowel filled with liquid stool and large volume stool seen
in the sigmoid colon.
08/31/24 CXR: No acute cardiopulmonary process.
[2024-09-01] MEDS: D5/0.9% SODIUM CHLORIDE 1000 IV ×2 (13:15→19:35)
[2024-09-01] MEDS: LIPITOR 40 MG PO (16:44)
[2024-09-01] MEDS: REMERON 15 MG PO (22:07)
[2024-09-02] VITALS (8 sets, daily range): BP systolic 112–134; BP diastolic 66–87; BMI 18.8
[2024-09-02] MEDS: D5/0.9% SODIUM CHLORIDE 1000 IV ×2 (02:53→09:00)
--- NOTE | 2024-09-02 04:32 | PTCARENOTE ---
Pt nonverbal. Does verbally answer yes or no to questions asked at times. Does make good eye contact. Reaches out to hold my hand and able to squeeze hand. Moves both arms and legs. Prefers to lie in contracted position but can straighten out arms
and legs with mild assist. VSS. Afebrile. SR on CM. Incontinent bowel and bladder overnight. IVF's infusing at 125ml/hr. Left forearm IV site with infiltration. IVF's stopped and IVT RN notified. No change from previous assessment. Maintained on
Q2hr turns. Will continue to monitor.
[2024-09-02 06:38] LABS: Hematocrit 37.9 % (37.0-47.0); Hemoglobin 11.7 g/dL (12.0-16.0); Mean Corp Hgb Conc. 30.9 g/dL (33.0-37.0); Mean Corpuscular Hgb 28.2 pg (27.0-31.0); Mean Corpuscular Volume 91.3 fL (81.0-99.0); Mean Platelet Volume 9.5 fL (7.4-10.4); Platelet Count 263 10^3/uL (130-400); Red Blood Cell Count 4.15 10^6/uL (4.20-5.40); Red Cell Dist. Width 14.6 % (11.5-14.5); White Blood Cell Count 8.5 10^3/uL (4.8-10.8)
[2024-09-02 07:27] LABS: Blood Urea Nitrogen 18 mg/dl (7-17); Calcium 8.2 mg/dl (8.4-10.2); Carbon Dioxide 21 mmol/L (22-30); Chloride 109 mmol/L (98-107); Estimated Creatinine Clearance 73 ml/min; Glucose 80 mg/dl (70-99); Potassium 3.7 mmol/L (3.5-5.1); Sodium 139 mmol/L (135-145); eGFR > 60.00
[2024-09-02] MEDS: ELIQUIS 5 MG PO ×2 (08:15→19:59)
[2024-09-02] MEDS: VITAMIN B-12 100 MCG PO (08:15)
[2024-09-02] MEDS: LOPRESSOR 25 MG PO ×2 (08:15→19:59)
[2024-09-02] MEDS: LEXAPRO 10 MG PO (08:15)
[2024-09-02] MEDS: ATIVAN 0.5 MG PO ×2 (08:15→19:59)
[2024-09-02] MEDS: PEPCID 20 MG PO (08:15)
[2024-09-02] MEDS: FEOSOL 325 MG PO (08:15)
[2024-09-02] MEDS: FLOMAX 0.4 MG PO (08:16)
[2024-09-02] MEDS: VITAMIN D3 (cholecalciferol) 50 MCG PO (08:16)
[2024-09-02] MEDS: RISPERDAL 0.5 MG PO ×2 (08:16→19:59)
[2024-09-02] MEDS: PROTONIX PO (08:16)
[2024-09-02] MEDS: LOW STRENGTH ASPIRIN 81 MG PO (08:16)
[2024-09-02] MEDS: MIRALAX PO (08:17)
[2024-09-02] MEDS: SENOKOT PO (08:18)
--- NOTE | 2024-09-02 08:18 | W.PN.HOSP.TC ---
Today's Communication/Plan
-
see bold
Assessment / Plan
Assessment / Plan
Gen: NAD, NCAT, appears chronically ill and malnourished, awake and alert
Eyes: EOMI, PERRLA, no scleral icterus.
Neck: supple.
CV: remains RRR, +S1/S2, no m/r/g.
Resp: remains CTAB anteriorly, no rales, wheezes, or rhonchi.
Abd: +BS, soft, NT, ND
Skin: No obvious rashes.
Neuro: awake but not alert, contracted
08/31/24 09:37 Urine Urine Culture - Final
NO GROWTH
08/31/24 09:22 Blood/Venous Blood Culture - Preliminary
No Growth in 24 hours- Final report to follow
08/31/24 09:22 Blood/Venous Blood Culture - Preliminary
Positive culture in progress
08/31/24 09:22 Blood/Venous Gram Stain - Final
08/31/24 09:22 Nasal Swab Influenza Types A & B (RODRICK) - Final
Negative for Influenza A & B, NAAT
Negative results must be combined with clinical observations
and patient history.
Nucleic Acid Amplification test (NAAT)performed on the
[employer] NOW platform.
CT A/P: Likely punctate nonobstructing renal calculi. No findings to confirm urinary tract calculus or dilatation bilaterally. No significant bilateral perinephric stranding. Small simple left renal cyst. Additional bilateral slightly high
attenuation renal lesions as well as likely isodense left renal lesion not compatible with simple cysts, cannot differentiate proteinaceous cyst versus solid masses. Markedly limited evaluation of unopacified virtually completely empty urinary
bladder. Large portion of large bowel filled with liquid stool and large volume stool seen in the sigmoid colon. Prior cholecystectomy. Coronary artery calcifications.
CXR: No acute cardiopulmonary process.
SIRS:
-so far no source of infection identified. CT A/P and CXR without source of infection. COVID/Flu NEG. U/A with 16-20 WBC but nitrite NEG.
-s/p 30cc/kg bolus in ER
-lactic acidosis has resolved with IVFs
-cont IVFs, D5NS with hypoglycemia
-follow BCxs (suspect POS BCx with be contamination)
-UCx NG
-was on empiric Rocephin which has now been stopped by ID as no source of infection has been identified
-very possible pt's SIRS is due to aspiration pneumonitis. TFs have been on hold. Restart TFs.
NEIL on CKD3a:
-resolved with IVFs
Other problems:
COPD: cont LABA/LAMA
h/o CVA: cont ASA/statin/Eliquis
Depression/Anxiety: cont Lexapro/Ativan
Crohn's disease
Chronic urinary retention, UTI, s/p tube
Vascular dementia with agitation/behavioral disturbances: cont Risperdal
Failure to thrive
Severe protein calorie malnutrition
Functional quadriplegia
Due to the patient's overwhelming burden of pathology in the setting of recurrent hospitalizations and continued failure to thrive the patient is hospice appropriate. The patient has no chance of any meaningful recovery in the near or distant
future. Palliative care following.
Pt's son (Sterling Yap) updated over the phone on admission. He stated pt is a FULL code. Of note, pt had been on hospice but it was rescinded as 'it wasn't working.'
Anticipated Discharge: 24 - 48 hours
Subjective/Interval History
-
Date of Service: September 02, 2024
Nonverbal
Objective Data
-
Labs:
Laboratory Results
09/02/24
06:33
WBC 8.5
Hgb 11.7 L
Hct 37.9
Plt Count 263
Sodium 139
Potassium 3.7
Chloride 109 H
Carbon Dioxide 21 L
BUN 18 H
Creatinine 0.6
Glucose 80
Calcium 8.2 L
Vital Signs:
Vital Signs
Temp Pulse Resp BP Pulse Ox
98.2 F 68 12 112/78 100
09/02/24 07:48 09/02/24 04:00 09/02/24 04:00 09/02/24 04:00 09/02/24 04:00
I&O
09/01/24 09/02/24 09/03/24
06:59 06:59 06:59
Intake Total 2750 / 2750
Balance 2750 / 2750
[2024-09-02] MEDS: NIZORAL 2% CREAM 1 APPLIC TOPICAL ×2 (14:20→20:00)
[2024-09-02] MEDS: LIPITOR 40 MG PO (17:03)
--- NOTE | 2024-09-02 18:14 | PTCARENOTE ---
see nursing assessment and flowsheet. tube feedings restarted per order. pt downgraded to med surg. report given to Rosi on .
--- NOTE | 2024-09-02 19:10 | PTCARENOTE ---
Around 1900 patient received in bed from IMU. Medsurg orders. VSS. No c/o pain. Patient oriented to self. TF infusing 45ml/hr 25ml/hr-flush through PEG marked at 4. Patient oriented to room.
[2024-09-02] MEDS: REMERON 15 MG PO (21:26)
[2024-09-03] MEDS: TYLENOL 650 MG PO (01:03)
[2024-09-03] MEDS: ATIVAN 0.5 MG PO ×2 (02:22→08:31)
[2024-09-03 07:30] VITALS: BP 121/78
[2024-09-03] MEDS: RISPERDAL 0.5 MG PO (08:30)
[2024-09-03] MEDS: LOPRESSOR 25 MG PO (08:30)
[2024-09-03] MEDS: FEOSOL 325 MG PO (08:30)
[2024-09-03] MEDS: NIZORAL 2% CREAM 1 APPLIC TOPICAL (08:31)
[2024-09-03] MEDS: PROTONIX 40 MG PO (08:31)
[2024-09-03] MEDS: LEXAPRO 10 MG PO (08:31)
[2024-09-03] MEDS: PEPCID 20 MG PO (08:31)
[2024-09-03] MEDS: VITAMIN D3 (cholecalciferol) 50 MCG PO (08:31)
[2024-09-03] MEDS: ELIQUIS 5 MG PO (08:31)
[2024-09-03] MEDS: FLOMAX 0.4 MG PO (08:31)
[2024-09-03] MEDS: LOW STRENGTH ASPIRIN 81 MG PO (08:31)
[2024-09-03] MEDS: VITAMIN B-12 100 MCG PO (08:31)
[2024-09-03] MEDS: SENOKOT 8.6 MG PO (08:32)
[2024-09-03] MEDS: MIRALAX 17 GRAMS PO (08:33)
[2024-09-03 09:39] LABS: Blood Urea Nitrogen 11 mg/dl (7-17); Calcium 8.2 mg/dl (8.4-10.2); Carbon Dioxide 18 mmol/L (22-30); Chloride 110 mmol/L (98-107); Estimated Creatinine Clearance 62 ml/min; Glucose 106 mg/dl (70-99); Potassium 3.9 mmol/L (3.5-5.1); Sodium 139 mmol/L (135-145); eGFR > 60.00
--- NOTE | 2024-09-03 10:45 | CM ---
Addendum entered by Rosaura Pelayo RN 09/03/24 12:25:
Patient's son Sterling informed of IMM and placed on chart.
Original Note:
Reviewed the chart notes. Patient is a [place] [facility] since 10/2023. TF restarted yesterday. CM continues to be available to patient/family and is monitoring medical plan for needs at discharge.
Plan: Discharge back to [facility] once medically stable.
Call report to the third floor: [phone]
Fax report to: [phone].
*The Service Engine Repairer must call Andreina in [place] (cell [phone]) prior to the patient returning.
--- NOTE | 2024-09-03 11:43 | W.PN.HOSP.TC ---
Today's Communication/Plan
-
d/c
Assessment / Plan
Assessment / Plan
Gen: NAD, NCAT, appears chronically ill and malnourished, awake and alert
CV: continues to remain RRR, +S1/S2, no m/r/g.
Resp: continues to remain CTAB anteriorly, no rales, wheezes, or rhonchi.
Abd: +BS, soft, NT, ND
Neuro: sleeping
08/31/24 09:22 Blood/Venous Blood Culture - Preliminary
No Growth in 72 hours- Final report to follow
09/01/24 08:44 Blood/Venous Blood Culture - Preliminary
No Growth in 48 hours- Final report to follow
08/31/24 17:48 Nose MRSA Screen - Final
Staph aureus MRSA
08/31/24 09:22 Blood/Venous Blood Culture - Preliminary
Coagulase neg. staphylococcus
Additional testing on request
08/31/24 09:22 Blood/Venous Gram Stain - Final
08/31/24 09:37 Urine Urine Culture - Final
NO GROWTH
08/31/24 09:22 Nasal Swab Influenza Types A & B (RODRICK) - Final
Negative for Influenza A & B, NAAT
Negative results must be combined with clinical observations
and patient history.
Nucleic Acid Amplification test (NAAT)performed on the
[employer] NOW platform.
CT A/P: Likely punctate nonobstructing renal calculi. No findings to confirm urinary tract calculus or dilatation bilaterally. No significant bilateral perinephric stranding. Small simple left renal cyst. Additional bilateral slightly high
attenuation renal lesions as well as likely isodense left renal lesion not compatible with simple cysts, cannot differentiate proteinaceous cyst versus solid masses. Markedly limited evaluation of unopacified virtually completely empty urinary
bladder. Large portion of large bowel filled with liquid stool and large volume stool seen in the sigmoid colon. Prior cholecystectomy. Coronary artery calcifications.
CXR: No acute cardiopulmonary process.
SIRS:
-so far no source of infection identified. CT A/P and CXR without source of infection. COVID/Flu NEG. U/A with 16-20 WBC but nitrite NEG.
-s/p 30cc/kg bolus in ER
-lactic acidosis has resolved with IVFs
-was on D5NS with hypoglycemia
-follow BCxs (suspect POS BCx with be contamination)
-UCx NG
-was on empiric Rocephin which has now been stopped by ID as no source of infection has been identified
-very possible pt's SIRS is due to aspiration pneumonitis. TFs have been on hold. TFs restarted 09/02/24.
-start NaHCO3 tabs with non-AG met acidosis
NEIL on CKD3a:
-resolved with IVFs
Other problems:
COPD: cont LABA/LAMA
h/o CVA: cont ASA/statin/Eliquis
Depression/Anxiety: cont Lexapro/Ativan
Crohn's disease
Chronic urinary retention, UTI, s/p tube
Vascular dementia with agitation/behavioral disturbances: cont Risperdal
Failure to thrive
Severe protein calorie malnutrition
Functional quadriplegia
Due to the patient's overwhelming burden of pathology in the setting of recurrent hospitalizations and continued failure to thrive the patient is hospice appropriate. The patient has no chance of any meaningful recovery in the near or distant
future. Palliative care following.
Pt's son (Sterling Yap) updated over the phone on admission. He stated pt is a FULL code. Of note, pt had been on hospice but it was rescinded as 'it wasn't working.'
Medically cleared for discharge noting the patient's poor functional status and overwhelming burden of pathology virtually guarantees readmission within 30 days. Unfortunately, overall, the patient's care is futile.
Total time spent on d/c = 35 min. This included today's physical exam, progress note, review of laboratory and diagnostic data, preparation of discharge documents and prescriptions, and discussions about the pt's hospital course and discharge plan
with the patient and other medical assistant instructor involved in the patient's care.
Anticipated Discharge: Today
Subjective/Interval History
-
Date of Service: September 03, 2024
Patient sleeping.
Objective Data
-
Labs:
Laboratory Results
09/03/24
09:10
Sodium 139
Potassium 3.9
Chloride 110 H
Carbon Dioxide 18 L
BUN 11
Creatinine 0.7
Glucose 106 H
Calcium 8.2 L
Vital Signs:
Vital Signs
Temp Pulse Resp BP Pulse Ox
97.4 F 80 18 121/78 100
09/03/24 07:30 09/03/24 08:30 09/03/24 07:30 09/03/24 08:30 09/03/24 07:30
I&O
09/02/24 09/03/24 09/04/24
06:59 06:59 06:59
Intake Total 2750 / 2750 1839 / 0
Balance 2750 / 2750 1839
[2024-09-03] MEDS: SODIUM BICARBONATE 650 MG PO ×2 (11:51→16:26)
--- NOTE | 2024-09-03 14:36 | W.DCSUMMARY ---
Discharge Summary
Discharge Data
Date of Admission: 08/31/24
Date of Discharge: 09/03/24
-
Pending Results: No
Hospital Course
Primary diagnoses:
Systemic inflammatory response syndrome
Acute kidney injury on chronic kidney disease stage 3a
Secondary diagnoses:
Chronic obstructive pulmonary disease
h/o cerebrovascular accident
Depression
Anxiety
Lactic acidosis
Hypoglycemia
Crohn's disease
Chronic urinary retention
Vascular dementia with agitation/behavioral disturbances
Failure to thrive
Severe protein calorie malnutrition
Functional quadriplegia
Consultants:
Infectious disease
Gastroenterology
Palliative care
Imaging:
CT A/P: Likely punctate nonobstructing renal calculi. No findings to confirm urinary tract calculus or dilatation bilaterally. No significant bilateral perinephric stranding. Small simple left renal cyst. Additional bilateral slightly high
attenuation renal lesions as well as likely isodense left renal lesion not compatible with simple cysts, cannot differentiate proteinaceous cyst versus solid masses. Markedly limited evaluation of unopacified virtually completely empty urinary
bladder. Large portion of large bowel filled with liquid stool and large volume stool seen in the sigmoid colon. Prior cholecystectomy. Coronary artery calcifications.
CXR: No acute cardiopulmonary process.
Hospital course: 64-year-old female who presented with chief complaints of fever and tachycardia as outlined in the H&P done on admission. Prior to admission she had been enrolled in hospice but hospice was rescinded, as per discussion with the
patient's son on August 31, 2024 because 'it was not working.' The patient had fever and tachycardia on admission. Extensive workup did not find any source of infection. CT A/P and CXR were without source of infection. COVID/Flu NEG. U/A with
16-20 WBC but nitrite NEG. the patient received a 30cc/kg bolus in ER followed by maintenance fluids (she did have D5 normal saline due to hypoglycemia). Her lactic acidosis and acute kidney injury resolved with IV fluids. Her blood cultures had 1
set that grew coag negative staph that was a contaminant. Urine culture was no growth. She was on empiric antibiotics that were stopped by ID as no source of infection had been identified. It is very possible that the patient's SIRS was due to
aspiration pneumonitis. TFs were held initially and then restarted prior to discharge. On discharge the patient had a bicarbonate of 18 and had a nonanion gap metabolic acidosis. She was started on sodium bicarbonate tablets just prior to
discharge.
Due to the patient's overwhelming burden of pathology in the setting of recurrent hospitalizations and continued failure to thrive hospice would be appropriate for this patient. The patient has no chance of any meaningful recovery in the near or
distant future.
Discharge Plan
-
Patient Disposition: Half-Way/SNF
Discharge Diagnosis/Procedures: Systemic inflammatory response syndrome
Condition: Fair
Diet: Tube feeding
Activity: Other activity
Additional Activity: Bedrest
Driving Restrictions: No driving
Blood Work: BMP and CBC in 2 days, prescription from PCP
Referrals:
UNKNOWN,NO INTERVIEW [Family Provider] - in less than 1 week
Prescriptions:
New
sodium bicarbonate 650 mg Tablet
650 mg PO TID Qty: 1 0RF
Continued
atorvastatin [Lipitor] 40 mg Tablet
40 mg PO QPM
sennosides [senna] 8.6 mg Tablet
8.6 mg PO DAILY
acetaminophen [Tylenol] 325 mg Tablet
650 mg PO Q6HPRN MDD 3000 mg PRN (Reason: mild pain /fever>100.4)
cyanocobalamin (vitamin B-12) 100 mcg Tablet
100 mcg PO DAILY
albuterol sulfate 2.5 mg /3 mL (0.083 %) Solution For Nebulization
2.5 mg INHALATION R Q4HPRN PRN (Reason: SOB)
famotidine [Pepcid] 40 mg Tablet
40 mg PO DAILY
bisacodyl [Dulcolax (bisacodyl)] 10 mg Suppository
10 mg NC DAILYPRN PRN (Reason: IF NO BM AFTR SORBITOL)
aspirin 81 mg Tablet,Chewable
81 mg PO DAILY
mirtazapine [Remeron] 15 mg Tablet
15 mg PO HS
tamsulosin 0.4 mg capsule
0.4 mg PO DAILY
Eliquis 5 mg tablet
5 mg PO BID
polyethylene glycol 3350 17 gram Powder In Packet
17 g PO DAILY
methenamine hippurate 1 gram Tablet
1 g PO BID
mineral oil Enema
118 ml NC DAILYPRN PRN (Reason: constipation)
lorazepam 0.5 mg Tablet
0.5 mg PO BID
lorazepam 0.5 mg Tablet
0.5 mg PO Q4HPRN PRN (Reason: anxiety)
hydrocortisone [Preparation H Hydrocortisone] 1 % Cream
1 applic NC QID
ferrous sulfate 325 mg (65 mg iron) Tablet
325 mg PO DAILY
Fleet Enema 19-7 gram/118 mL Enema
118 ml NC DAILYPRN PRN (Reason: if suppository ineffective)
morphine 10 mg/5 mL Solution
0.5 mg PO Q4HPRN PRN (Reason: sob/severe pain)
calcium carbonate 500 mg calcium (1,250 mg) Tablet,Chewable
100 mg PO Q8HPRN PRN (Reason: heartburn/indigestion)
ketoconazole 2 % Cream
1 applic TOPICAL BID
sorbitol 70 % Solution
30 ml PO DAILYPRN PRN (Reason: constipation)
risperidone [Risperdal] 0.5 mg Tablet
0.5 mg PO BID
escitalopram oxalate 10 mg Tablet
10 mg PO DAILY
metoprolol tartrate 25 mg Tablet
25 mg PO BID
cholecalciferol (vitamin D3) [Vitamin D3] 25 mcg (1,000 unit) Tablet
50 mcg PO DAILY
pantoprazole [address] For Susp In Packet
40 mg PO DAILY
umeclidinium-vilanterol 62.5-25 mcg/actuation Blister With Device
1 inh INHALATION R DAILY
Discontinued
potassium citrate 15 mEq Tablet Extended Release
15 meq PO BID
Discharge Orders:
Discharge Patient (As Directed); Ordered 09/03/24
Ordered By: Lyle Campbell
Discharge Date and Time
Print Language: BENINESE
[2024-09-03 15:20] VITALS: BP 112/67
[2024-09-03] MEDS: LIPITOR 40 MG PO (16:26)
== END 2024-09-03 17:37 | DRG 177 ==
LOC: 2 NORTH 13:05
PROVIDERS: ADMITTING PHYSICIAN Internal Medicine; EMERGENCY PHYSICIAN Emergency Medicine; OTHER PHYSICIAN Internal Medicine Infectious Disease
DX: J69.0 Pneumonitis due to inhalation of food and vomit (principal); E43 Unspecified severe protein-calorie malnutrition; R53.2 Functional quadriplegia; N17.9 Acute kidney failure, unspecified; F01.511 Vascular dementia, unspecified severity, with agitation; F01.54 Vascular dementia, unspecified severity, with anxiety; F01.53 Vascular dementia, unspecified severity, with mood disturbance; Z68.1 Body mass index [BMI] 19.9 or less, adult; K50.90 Crohn's disease, unspecified, without complications; R65.10 Systemic inflammatory response syndrome (SIRS) of non-infectious origin without acute organ dysfunction; E87.20 Acidosis, unspecified; K94.23 Gastrostomy malfunction; J44.9 Chronic obstructive pulmonary disease, unspecified; R62.7 Adult failure to thrive; I25.10 Atherosclerotic heart disease of native coronary artery without angina pectoris; R13.10 Dysphagia, unspecified; N18.31 Chronic kidney disease, stage 3a; Z90.49 Acquired absence of other specified parts of digestive tract; Z87.891 Personal history of nicotine dependence; Z86.73 Personal history of transient ischemic attack (TIA), and cerebral infarction without residual deficits; Z74.01 Bed confinement status; Z79.01 Long term (current) use of anticoagulants; Z79.82 Long term (current) use of aspirin; Z79.899 Other long term (current) drug therapy; Z11.52 Encounter for screening for COVID-19
CPT/HCPCS: 49465; 71045; 74176; 80048; 80053; 81003; 81015; 83605; 85025; 85027; 87040; 87070; 87086; 87147; 87150; 87205; 87502; 87811; 93005; 96365; 99285

== ENCOUNTER 2024-09-09 14:22 | Inpatient (IN) | payer MEDICARE, OTHER, SELFPAY ==
[2024-09-09] VITALS (24 sets, daily range): BP systolic 91–139; BP diastolic 67–97; BMI 19.0
--- NOTE | 2024-09-09 09:02 | ED.GENMED ---
History of Present Illness
General
Chief Complaint: Breathing Problem
Source: ambulance crew
Exam Limitations: none
Time Seen by Provider: 09/09/24 08:57
Nursing documentation reviewed up to this point in time: agreed with
History of Present Illness
History of Present Illness:
64-year-old female with chronic dementia on feeding tube presents due to fever and difficulty breathing. She cannot give a history as she is nonverbal. She was recently placed on hospice, but the last time family was spoken to they did not want
hospice.
Past History
Past History
ED Past Medical History: CVA and Other (Dementia. Crohn's disease)
Social History
Tobacco: Non-smoker
Alcohol: None
Drug: None
Living: [facility]
Review of Systems
Review of Systems
Allergies reviewed?: Yes
Unable to obtain full review of systems at this time due to: non-verbal
All Other Systems: Not applicable
Constitutional: Reports fever
Phy Exam
Physical Exam
Physical Exam:
Physical Exam
General: Chronic ill appearance, frail, cachectic
Neck: supple. no meningeal signs. normal posterior pharynx
Heart: s1/s2 regular rate and rhythm, no murmur. equal radial
pulses.
HEENT: Pupils equal round reactive to light, EOMI
Lungs: no acute respiratory distress. clear bilaterally, port right upper chest
Abdomen: normal bowel sounds. not tender. no CVAT, feeding tube in place
Neuro: Awake, but nonverbal. Contractures, no movement noted
Skin: no rash
Psychiatric: Nonverbal
Extremities: no edema. no calf tenderness. negative homans. good distal pulses
Scores
Heart Failure Risk
Heart Failure Risk Score: Not Applicable
Sepsis
Sepsis Screening
Sepsis Assessment: Sepsis Ruled Out
Sepsis Screen
Sepsis Screen: Sepsis Ruled Out
Date: 09/09/24
Time: 13:58
Course
Orders/Labs/Results
Orders:
Orders
09/09/24 08:59
Cardiac Monitoring- Treatment ONCE
IV Insert/Care/Rem.- Treatment PRN
Straight cath- Treatment ONCE
Pulse Ox/cont/shift [RESP] Urgent
Quantity: 1
09/09/24 09:00
Electrocardiogram (*1) Urgent
Reason for Study: Other
Other Reason for Exam: sepsis
EKG- Treatment ONCE
CR Chest Portable - 1 View Urgent
Comment:
Reason For Exam: fever, short of breath
Reason Study Needs to be Portable: Patient Unstable
09/09/24 09:12
Complete Blood Count/With Diff Urgent
Comprehensive Metabolic Panel Urgent
Lactic Acid Q4H
Comment: CANCEL 2nd LACTIC ACID IF 1st LACTIC ACID IS LESS THAN 2
09/09/24 09:34
Blood Culture Q30M
LEE Source: Blood/Venous
Specimen Description:
Influenza A+B Rapid Molecular Urgent
LEE Source: Nasal Swab
Specimen Description:
09/09/24 09:38
Blood Culture Q30M
LEE Source: Blood/Venous
Specimen Description:
09/09/24 12:05
Urinalysis Reflex To Culture Urgent
Date Specimen was Collected: 09/09/24
Time Specimen was Collected: 12:03
Urine Microscopic Reflex Cult Urgent
09/09/24 13:31
Code Status As Directed
Resuscitation Status: Full Code
09/09/24 13:33
Activity As Directed
Activity Level: Out of Bed-Early Mobility
Intake/ Output As Directed
Frequency: Per unit guidelines
Precautions As Directed
Type of Precautions: Novel Respiratory
Vital Signs As Directed
Frequency: Per unit guidelines
Weight As Directed
Frequency: Once
Comment: on admission
09/09/24 13:45
Admit/Transfer Patient As Directed
Co-Sign Provider:
Level of Care: Inpatient admission
Assign to:: Telemetry
Physician / Group: [email or web address]
Diagnosis: SIRS uncertain origin
Reason for Telemetry: Other
Other Reason for Telemetry: SIRS uncertain origin
Date to Stop Telemetry: 09/11/24
Time to Stop Telemetry: 11:00
Reason for Hospitalization: SIRS uncertain origin
Expected length of stay greater than two midnights?: Yes
ELOS- Estimated Length of Stay in days: 3
I certify the patient meets the requirements for IP care: Yes
COVID-19 Antigen Urgent
Source: Nasal Swab
09/11/24 11:00
DC Protocol for Telemetry ONCE
Abnormal Lab Results
09/09/24 09/09/24
09:12 12:05
WBC 12.4 H 10^3/uL
(4.8-10.8)
MCHC 31.3 L g/dL
(33.0-37.0)
RDW 16.0 H %
(11.5-14.5)
Abs Immat Gran (auto) 0.1 H 10^3/uL
(0-0.05)
Absolute Neuts (auto) 9.4 H 10^3/uL
(1.4-6.5)
Absolute Monos (auto) 0.8 H 10^3/uL
(0.1-0.6)
Immature Gran % 0.6 H %
(0-0.5)
Neutrophils % 75.8 H %
(42.2-75.2)
Lymphocytes % 12.0 L %
(20.5-51.1)
BUN 29 H mg/dl
(7-17)
Glucose 127 H mg/dl
(70-99)
Total Bilirubin 2.3 H mg/dl
(0.2-1.3)
AST 46 H U/L
(14-36)
Total Protein 6.0 L g/dl
(6.3-8.2)
Albumin 3.0 L g/dl
(3.5-5.0)
Leukocyte Esterase Rfl Trace A
(Negative)
09/09/24 09:12
09/09/24 09:12
Vital Signs
Initial and Last Documented VS:
Initial Vital Signs
Pulse Resp BP Pulse Ox
107 24 101/72 95
09/09/24 08:51 09/09/24 08:51 09/09/24 08:51 09/09/24 08:51
Last Documented Vital Signs
Temp Pulse Resp BP Pulse Ox
99.6 F 105 32 111/67 93
09/09/24 09:13 09/09/24 11:45 09/09/24 11:45 09/09/24 11:30 09/09/24 11:45
MDM/Problems Addressed
Differential Diagnosis Includes:
Sepsis, pneumonia
MDM/Problems Addressed:
64-year-old female with fever, unclear etiology. Call placed to son to assist in level of care. Plan to admit to hospitalist. Access port.
*Radiology
Radiology exam reviewed: radiology read reviewed (Chest x-ray no acute findings)
*Pulse Oximetry
Patient hypoxic: no
*EKG
Interpreted by ED Provider?: Yes
EKG Intrepretation Date: 09/09/24
EKG Intrepretation Time: 09:55
Interpretation: abnormal
Comparison EKG: no changes
Heart Rate: 87
Rate: normal
Rhythm: sinus
[place]: normal axis
Interval: normal interval
QRS Pattern: normal QRS
Ischemia: no ischemia
*Accounts Payable Assistant Interpretation
Rate: normal
Interpretation: normal
Heart Rate: 86
Rhythm: sinus
*Critical Care Note
Total Time (30-74mins, 75-104mins- exclusive of procedures): Not Applicable
Data Reviewed
Review of Other/Old Records Reveals: Records (Prior admission for fevers)
Source: records
Patient Management
Social determinants of health affecting care: Living situation
Discussion with other providers: Hospitalist and long-term staff
Escalation/DeEscalation of care consider admission/obs:
Admit indicated
ED Attending Note
-
Portions of this chart may have been created with voice recognition software.� Occasional wrong word or��sound alike� substitutions may have occurred due to the inherent limitations of voice recognition software.
Discharge Plan
Departure
Patient Disposition: Admit
Date of Disposition: 09/09/24
Time of Disposition: 13:02
Admit to: IMU
Presentation/result/management discussed w/ accepting MD/DO: Hospitalist
Patient with high blood pressure during this ER visit?: No
Condition: Good
Discharge Problem:
Fever
Prescriptions:
No Action
atorvastatin [Lipitor] 40 mg Tablet
40 mg PO QPM
sennosides [senna] 8.6 mg Tablet
8.6 mg PO DAILY
acetaminophen [Tylenol] 325 mg Tablet
650 mg PO Q6HPRN MDD 3000 mg PRN (Reason: mild pain /fever>100.4)
albuterol sulfate 2.5 mg /3 mL (0.083 %) Solution For Nebulization
2.5 mg INHALATION R Q4HPRN PRN (Reason: SOB)
famotidine [Pepcid] 40 mg Tablet
40 mg PO DAILY
bisacodyl [Dulcolax (bisacodyl)] 10 mg Suppository
10 mg [place] DAILYPRN PRN (Reason: IF NO BM AFTR SORBITOL)
aspirin 81 mg Tablet,Chewable
81 mg PO DAILY
mirtazapine [Remeron] 15 mg Tablet
15 mg PO HS
tamsulosin 0.4 mg capsule
0.4 mg PO DAILY
Eliquis 5 mg tablet
5 mg PO BID
polyethylene glycol 3350 17 gram Powder In Packet
17 g PO DAILY
methenamine hippurate 1 gram Tablet
1 g PO BID
mineral oil Enema
118 ml WA DAILYPRN PRN (Reason: constipation)
lorazepam 0.5 mg Tablet
0.5 mg PO BID
lorazepam 0.5 mg Tablet
0.5 mg PO Q4HPRN PRN (Reason: anxiety)
hydrocortisone [Preparation H Hydrocortisone] 1 % Cream
1 applic WA [id number] PRN (Reason: hemorrhiods)
ferrous sulfate 325 mg (65 mg iron) Tablet
325 mg PO DAILY
Fleet Enema 19-7 gram/118 mL Enema
118 ml WA DAILYPRN PRN (Reason: if suppository ineffective)
ketoconazole 2 % Cream
1 applic TOPICAL BID
sorbitol 70 % Solution
30 ml PO DAILYPRN PRN (Reason: constipation)
risperidone [Risperdal] 0.5 mg Tablet
0.5 mg PO BID
escitalopram oxalate 10 mg Tablet
10 mg PO DAILY
metoprolol tartrate 25 mg Tablet
25 mg PO BID
cholecalciferol (vitamin D3) [Vitamin D3] 25 mcg (1,000 unit) Tablet
50 mcg PO DAILY
pantoprazole [address] For Susp In Packet
40 mg PO DAILY
umeclidinium-vilanterol 62.5-25 mcg/actuation Blister With Device
1 inh INHALATION R DAILY
sodium bicarbonate 650 mg tablet
650 mg feeding tube TID
Referrals:
Kang López DO [Family Provider] -
Interventions
Interventions:
*Risk Screen - Suicide Last Done: 09/09/24 09:13
*General Assessment Last Done: 09/09/24 09:13
*Neglect/Abuse Screening Last Done: 09/09/24 09:13
ED- Fall Risk Assessment Last Done: 09/09/24 09:13
*ED COVID-19 Vaccine History Last Done: 09/09/24 09:13
ED- Cardiac Assessment Last Done: 09/09/24 09:13
ED- Pulmonary Assessment Last Done: 09/09/24 09:13
Discharge Date and Time
Print Language: ANGUILLAN
[2024-09-09 09:25] LABS: % Basophils 0.4 % (0-2); % Eosinophils 4.8 % (0-6); % Immature Granulocytes 0.6 % (0-0.5); % Monocytes 6.4 % (1.7-9.3); % Neutrophils 75.8 % (42.2-75.2); Absolute Basophils 0.1 10^3/uL (0-0.2); Absolute Eosinophils 0.6 10^3/uL (0-0.7); Absolute Immature Granulocytes 0.1 10^3/uL (0-0.05); Absolute Lymphocytes 1.5 10^3/uL (1.2-3.4); Absolute Monocytes 0.8 10^3/uL (0.1-0.6); Absolute Neutrophils 9.4 10^3/uL (1.4-6.5); Hemoglobin 12.2 g/dL (12.0-16.0); Mean Corp Hgb Conc. 31.3 g/dL (33.0-37.0); Mean Corpuscular Hgb 27.7 pg (27.0-31.0); Mean Corpuscular Volume 88.4 fL (81.0-99.0); Mean Platelet Volume 9.6 fL (7.4-10.4); Nucleated Red Blood Cells % 0 %; Platelet Count 231 10^3/uL (130-400); Red Blood Cell Count 4.41 10^6/uL (4.20-5.40); White Blood Cell Count 12.4 10^3/uL (4.8-10.8)
[2024-09-09 09:44] LABS: ALT (SGPT) 31 U/L (0-35); AST (SGOT) 46 U/L (14-36); Alkaline Phosphatase 119 U/L (38-126); Blood Urea Nitrogen 29 mg/dl (7-17); Calcium 8.4 mg/dl (8.4-10.2); Carbon Dioxide 30 mmol/L (22-30); Chloride 101 mmol/L (98-107); Glucose 127 mg/dl (70-99); Lactic Acid 1.4 mmol/L (0.7-2.0); Potassium 4.1 mmol/L (3.5-5.1); Sodium 139 mmol/L (135-145); Total Bilirubin 2.3 mg/dl (0.2-1.3); eGFR > 60.00
[2024-09-09 13:09] LABS: Urine Albumin Trace (Neg - Trace); Urine Bilirubin Negative (Negative); Urine Character Clear (Clear); Urine Color Yellow; Urine Glucose Negative (Negative); Urine Ketone Negative (Negative); Urine Leukocyte Trace (Negative); Urine Nitrite Negative (Negative); Urine Occult Blood Negative (Negative); Urine Specific Gravity 1.025 (<1.030); Urine Urobilinogen Negative (Neg - 1+)
--- NOTE | 2024-09-09 13:39 | HPS.HSE ---
Family Physician
-
Family Physician: Kang López, DO
Chief Complaint
-
fever and difficulty breathing.
History of Present Illness
I could not get any information from the patient as severely demented and non verbal
Information gathered by chart review and speaking with the ER staff.
HPI
64F HX Non verbal advanced dementia susepct vascular origin on feeding tube depedent nutrition seen at ER:
Evaluation for fever and difficulty breathing.
- cannot give a history as she is nonverbal.
- She was recently placed on hospice, but the last time family was spoken to they did not want hospice.
Medical History
Past Medical History
Past Medical History: Reports Other (COPD CVA Depression Anxiety Dementia Crohn's disease Chronic urinary retention, UTI, s/p tube Vascular dementia with agitation/behavioral disturbances, functional quadriplegia, failure to thrive Severe protein
calorie malnutrition CKD3a)
Past Surgical History: Reports Other
Additional Past Surgical History:
N/A
Social History
Tobacco: Non-smoker
Alcohol: None
Drug: None
Family History
Family History: Not pertinent
Allergies / Home Medications
Allergies reflects when Allergies were last updated in [facility].
Home Medications with original date entered in [facility]
Allergy/Medication List:
Allergies
Allergy/AdvReac Type Severity Reaction Status Date / Time
divalproex sodium Allergy Unknown Verified 07/04/24 05:41
Iodinated Contrast Media Allergy Anaphylaxis Verified 07/04/24 05:41
iodine Allergy Anaphylaxis Verified 07/04/24 05:41
tositumomab Allergy Unknown Verified 07/04/24 05:41
valproic acid Allergy Unknown Verified 07/04/24 05:41
Home Medications
acetaminophen 325 mg tablet (Tylenol) 650 mg PO Q6HPRN PRN mild pain /fever>100.4 12/02/23
albuterol sulfate 2.5 mg/3 mL (0.083 %) solution for nebulization 2.5 mg inhalation R Q4HPRN PRN SOB 12/02/23
aspirin 81 mg chewable tablet 81 mg PO DAILY Blood Clot Prevention/Tx 12/02/23
atorvastatin 40 mg tablet (Lipitor) 40 mg PO QPM High Cholesterol 12/02/23
bisacodyl 10 mg rectal suppository (Dulcolax (bisacodyl)) 10 mg VT DAILYPRN PRN IF NO BM AFTR SORBITOL 12/02/23
cyanocobalamin (vitamin B-12) 100 mcg tablet 100 mcg PO DAILY Supplement 12/02/23
famotidine 40 mg tablet (Pepcid) 40 mg PO DAILY Gastrointestinal Issue 12/02/23
sennosides 8.6 mg tablet (senna) 8.6 mg PO DAILY Constipation 12/02/23
mirtazapine 15 mg tablet (Remeron) 15 mg PO HS depression/sleep 01/21/24
tamsulosin 0.4 mg capsule 0.4 mg PO DAILY Urinary Issue 02/16/24
apixaban 5 mg tablet (Eliquis) 5 mg PO BID Blood Clot Prevention/Tx 08/20/24
calcium carbonate 100 mg PO Q8HPRN PRN heartburn/indigestion 08/20/24
cholecalciferol (vitamin D3) 25 mcg (1,000 unit) tablet (Vitamin D3) 50 mcg PO DAILY Supplement 08/20/24
escitalopram oxalate 10 mg tablet 10 mg PO DAILY Depression 08/20/24
ferrous sulfate 325 mg (65 mg iron) tablet 325 mg PO DAILY Supplement 08/20/24
hydrocortisone 1 % topical cream (Preparation H Hydrocortisone) 1 applic VT QID hemorrhoids 08/20/24
ketoconazole 2 % topical cream 1 applic topical BID face 08/20/24
lorazepam 0.5 mg tablet 0.5 mg PO BID Mental Health/Anxiety 08/20/24
lorazepam 0.5 mg tablet 0.5 mg PO Q4HPRN PRN anxiety 08/20/24
methenamine hippurate 1 gram tablet 1 g PO BID Urinary Issue 08/20/24
metoprolol tartrate 25 mg tablet 25 mg PO BID Blood Pressure 08/20/24
mineral oil 118 ml VT DAILYPRN PRN constipation 08/20/24
morphine 10 mg/5 mL oral solution 0.5 mg PO Q4HPRN PRN sob/severe pain 08/20/24
pantoprazole 40 mg granules delayed-release for susp in packet 40 mg PO DAILY Gastrointestinal Issue 08/20/24
polyethylene glycol 3350 17 gram oral powder packet 17 g PO DAILY Constipation 08/20/24
potassium citrate 15 mEq (1,620 mg) tablet,extended release 15 meq PO BID Electrolyte Repletion 08/20/24
risperidone 0.5 mg tablet (Risperdal) 0.5 mg PO BID Mental Health/Anxiety 08/20/24
sodium phosphates 19 gram-7 gram/118 mL enema (Fleet Enema) 118 ml VT DAILYPRN PRN if suppository ineffective 08/20/24
sorbitol 70 % solution 30 ml PO DAILYPRN PRN constipation 08/20/24
umeclidinium 62.5 mcg-vilanterol 25 mcg/actuation powdr for inhalation 1 inh inhalation R DAILY Lung/Breathing Issues 08/20/24
If medication reconciliation has not been performed, why?: Dementia
Review of Systems
-
Unable to obtain full review of systems at this time due to: Dementia
Physical Exam
Vital Signs
Vital Signs
Temp Pulse Resp BP Pulse Ox
99.6 F 105 32 111/67 93
09/09/24 09:13 09/09/24 11:45 09/09/24 11:45 09/09/24 11:30 09/09/24 11:45
Physical Exam
HEENT: Other (.)
GI: Peg Tube
Psych: Apparent Dementia
Laboratory Results
-
09/09/24 09:12
09/09/24 09:12
Laboratory Results
Lactic Acid Cancelled 09/09/24 13:00
Total Bilirubin 2.3 mg/dl (0.2-1.3) H 09/09/24 09:12
AST 46 U/L (14-36) H 09/09/24 09:12
ALT 31 U/L (0-35) 09/09/24 09:12
Alkaline Phosphatase 119 U/L (38-126) 09/09/24 09:12
Data Reviewed
-
Diagnostic Radiology: Report Reviewed by me
Lab Data: Labs Reviewed by me
Old Records: Reviewed
Impression/Plan
-
Reviewed VS:
Selected Entries
09/09/24
09:00 09/09/24
09:13 09/09/24
11:00
Temp 99.6 F
Pulse
Resp Rate
Blood pressure 91/75 121/88
SaO2
09/09/24
11:30 09/09/24
11:30 09/09/24
11:45
Temp
Pulse 105
Resp Rate 32 32
Blood pressure 111/67
SaO2 93
Data
09/09/24 09/09/24
09:12 12:05
WBC 12.4 H
Hgb 12.2
Plt Count 231
Creatinine 0.9
eGFR > 60.00
Glucose 127 H
Total Bilirubin 2.3 H
AST 46 H
ALT 31
Alkaline Phosphatase 119
Albumin 3.0 L
Leukocyte Esterase Rfl Trace A
Urine WBC (Reflex) Pending
Pending Covid
NEG Flu A & B
CXR: No active cardiopulmonary disease.
08/31/24 CT A/P:
Likely punctate nonobstructing renal calculi. No findings to confirm urinary tract calculus or dilatation bilaterally. No significant bilateral perinephric stranding. Small simple left renal cyst. Additional bilateral slightly high attenuation renal
lesions as well as likely isodense left renal lesion not compatible with simple cysts, cannot differentiate proteinaceous cyst versus solid masses. Markedly limited evaluation of unopacified virtually completely empty urinary bladder. Large portion
of large bowel filled with liquid stool and large volume stool seen in the sigmoid colon. Prior cholecystectomy. Coronary artery calcifications.
Last hospitalist admission: Date of Admission: 08/31/24 - Date of Discharge: 09/03/24
Consultants:
Infectious disease
Gastroenterology
Palliative care
Primary diagnoses:
Systemic inflammatory response syndrome
Acute kidney injury on chronic kidney disease stage 3a
Secondary diagnoses:
Chronic obstructive pulmonary disease
h/o cerebrovascular accident
Depression
Anxiety
Lactic acidosis
Hypoglycemia
Crohn's disease
Chronic urinary retention
Vascular dementia with agitation/behavioral disturbances
Failure to thrive
Severe protein calorie malnutrition
Functional quadriplegia
ASSESSMENT & PLAN
Pending Rx reconciliation
SIRS with unclear origin
- so far no source of infection identified. Flu NEG. U/A pending WBC
- very possible pt's SIRS is due to aspiration pneumonitis
- Hold TFs except Meds
- Case d/w ER attd , IVF bolus has not yet started when I evaluated ) - IVF septic bolus and maitainnace
- follow BCxs
- Empiric Zosyn
HX Hospice care but now family wants full code thus DC'd hospice care
Of note: She was recently placed on hospice, but the last time family was spoken to they did not want hospice.
Other problems:
COPD: cont LABA/LAMA
h/o CVA: cont ASA/statin/Eliquis
Depression/Anxiety: cont Lexapro/Ativan
Crohn's disease
Chronic urinary retention, UTI, s/p tube
Vascular dementia with agitation/behavioral disturbances: cont Risperdal
Failure to thrive
Severe protein calorie malnutrition
Functional quadriplegia
DVT Px: SQH
Full code per family
IMU
[2024-09-09 14:00] LABS: Urine Bacteria Many (Negative)
[2024-09-09] MEDS: NSS 1000 IV ×2 (14:06→18:30)
[2024-09-09 14:19] LABS: COVID-19 Antigen Negative (Negative)
[2024-09-09] MEDS: SODIUM BICARBONATE TUBE (18:20)
--- NOTE | 2024-09-09 18:20 | PTCARENOTE ---
Pt arrived to ICU...IMU overflow. Pt admitted into monitor...VS obtained...admission completed by fellow RN. Pt is nonverbal and contracted. Tachypneic 25-30's. RSC port w/ NSS @ 80ml/hr. Will continue to monitor.
[2024-09-09] MEDS: RISPERDAL 0.5 MG PO (20:07)
[2024-09-09] MEDS: ZOSYN 50 IV (20:07)
[2024-09-09] MEDS: ELIQUIS 5 MG PO (20:07)
[2024-09-09] MEDS: HIPREX 1 GRAM PO (20:07)
[2024-09-09] MEDS: SODIUM BICARBONATE 650 MG TUBE (20:08)
[2024-09-09] MEDS: ATIVAN 0.5 MG PO (20:08)
[2024-09-09] MEDS: REMERON 15 MG PO (20:11)
--- NOTE | 2024-09-09 20:41 | PTCARENOTE ---
pt received from previous rn- nonverbal at baseline, does not follow any commands. pt contracted. foams applied to bony prominences, red heels and sacrum, wound care consulted. sinus tach with bbb on monitor. ivf continue through right subq port-
c.d.i. on 2LNC, diminished breath sounds, no signs of distress at this time- RR 21. peg tube intact, flushes. turned and repositioned, pm care provided. all safety precautions in place.
[2024-09-09 20:58] LABS: Glucose - Point of Care 83 mg/dl (70-99)
[2024-09-10] VITALS (11 sets, daily range): BP systolic 110–146; BP diastolic 69–90; BMI 18.8
[2024-09-10 00:09] LABS: Glucose - Point of Care 88 mg/dl (70-99)
[2024-09-10] MEDS: ZOSYN 50 IV ×4 (01:00→21:05)
[2024-09-10] MEDS: NSS 1000 IV (04:45)
--- NOTE | 2024-09-10 04:55 | PTCARENOTE ---
Addendum entered by Patti Alfaro RN 09/10/24 04:59:
discussed with [place] [employer] OPERATOR. see orders.
Original Note:
pt continuously repositioned with pillows and wedges, oral care provided. no urine output for shift- bladder scanned for >279, straight cathed for 300cc yellow urine. assessment unchanged.
[2024-09-10 05:01] LABS: % Basophils 0.8 % (0-2); % Immature Granulocytes 0.2 % (0-0.5); % Lymphocytes 19.2 % (20.5-51.1); % Monocytes 7.9 % (1.7-9.3); % Neutrophils 61.9 % (42.2-75.2); Absolute Basophils 0.1 10^3/uL (0-0.2); Absolute Eosinophils 0.9 10^3/uL (0-0.7); Absolute Lymphocytes 1.7 10^3/uL (1.2-3.4); Absolute Monocytes 0.7 10^3/uL (0.1-0.6); Absolute Neutrophils 5.5 10^3/uL (1.4-6.5); Hematocrit 34.7 % (37.0-47.0); Hemoglobin 10.7 g/dL (12.0-16.0); Mean Corp Hgb Conc. 30.8 g/dL (33.0-37.0); Mean Corpuscular Hgb 28.2 pg (27.0-31.0); Mean Corpuscular Volume 91.6 fL (81.0-99.0); Mean Platelet Volume 9.7 fL (7.4-10.4); Nucleated Red Blood Cells % 0 %; Platelet Count 187 10^3/uL (130-400); Red Blood Cell Count 3.79 10^6/uL (4.20-5.40); Red Cell Dist. Width 15.9 % (11.5-14.5); White Blood Cell Count 8.9 10^3/uL (4.8-10.8)
[2024-09-10 05:24] LABS: ALT (SGPT) 24 U/L (0-35); AST (SGOT) 37 U/L (14-36); Albumin 2.5 g/dl (3.5-5.0); Alkaline Phosphatase 78 U/L (38-126); Blood Urea Nitrogen 23 mg/dl (7-17); Calcium 8.1 mg/dl (8.4-10.2); Carbon Dioxide 28 mmol/L (22-30); Chloride 107 mmol/L (98-107); Estimated Creatinine Clearance 40 ml/min; Glucose 81 mg/dl (70-99); Potassium 3.6 mmol/L (3.5-5.1); Sodium 143 mmol/L (135-145); Total Protein 5.4 g/dl (6.3-8.2); eGFR > 60.00
[2024-09-10 05:59] LABS: Glucose - Point of Care 82 mg/dl (70-99)
[2024-09-10] MEDS: VENTOLIN NEBULES 2.5 MG INH (07:19)
--- NOTE | 2024-09-10 08:54 | WOUNDNOTE ---
WO RN note: Patient admitted with SOB. Patient's family took patient off hospice. Palliative care consulted.
See H&P for complete history.
PMH: dementia, feeding tube, COPD, CVA, anxiety, depression, Crohn's, urinary retention, UTI, functional quadriplegic
Wound Location and type/assessment: Patient admitted with: chafed slightly open skin with scattered rash patches (eczema appearing) on sacrum d/t pressure and moisture. L lateral ankle stage 1 pressure injury. R lateral ankle blanchable mild red. L
medial heel stage 1 pressure injury, back stage 1 pressure injury, R medial heel stage 2 pressure injury. Patient contracted and non verbal.
Appetite: NPO, Has a feeding tube.
Pressure redistribution devices in place: Centrella Max air bed.
Plan: Sacral shaped silicone border foam changed on sacrum. Silicone border foam applied to back, L sacral iliac, L lateral ankle. Foam dressings maintained on heels, R lateral ankle and medial knees. Patient turned to L semi side lying position
with help from LAUREANO Fiore. Heels off bed with air chair cushion. Pillow between knees. t/c SPD and ordered Foot Waffle boots. Discussed with PCT Macarena.
Will confirm orders with Dr. Bunn.
Care plan to be updated, will follow peripherally as needed.
Note to case management of equipment requested for discharge: Air mattress.
[2024-09-10] MEDS: ATIVAN 0.5 MG PO (09:02)
[2024-09-10] MEDS: PEPCID 20 MG PO (09:02)
[2024-09-10] MEDS: HIPREX 1 GRAM PO (09:02)
[2024-09-10] MEDS: FLOMAX 0.4 MG PO (09:03)
[2024-09-10] MEDS: SODIUM BICARBONATE 650 MG TUBE ×3 (09:03→21:04)
[2024-09-10] MEDS: LEXAPRO 10 MG PO (09:03)
[2024-09-10] MEDS: VITAMIN D3 (cholecalciferol) 50 MCG PO (09:03)
[2024-09-10] MEDS: PREVACID 30 MG TUBE (09:03)
[2024-09-10] MEDS: RISPERDAL 0.5 MG PO (09:03)
[2024-09-10] MEDS: LOW STRENGTH ASPIRIN 81 MG PO (09:03)
[2024-09-10] MEDS: ELIQUIS 5 MG PO (09:04)
--- NOTE | 2024-09-10 09:10 | WOUNDNOTE ---
BACK (head toward R side of photo)
[2024-09-10] MEDS: DUONEB 3 ML INH ×3 (11:55→20:05)
[2024-09-10 12:07] LABS: Glucose - Point of Care 71 mg/dl (70-99)
--- NOTE | 2024-09-10 13:56 | CM ---
CM following re: discharge planning.
Reviewed pt's chart, met with pt.
Pt is a 64 year old female, admitted with primary dx of Systemic inflammatory response syndrome
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
[facility] nursing report third floor: [phone]
Discharge instructions fax: [phone].
Plan: Discharge back to [facility] once medically stable.
CM will follow with discharge plan updates as hospitalization progresses
--- NOTE | 2024-09-10 14:01 | W.PN.HOSP.TC ---
Today's Communication/Plan
-
see outlined plan
resume home meds, TFs
continue Zosyn
prognosis overall is poor
Assessment / Plan
Assessment / Plan
Assessment:
SIRS (Leukocytosis, reported fever, tachycardia
- suspect aspiration pneumonitis; initial CXR negative, will repeat in 24 hours
- UA abnormal, await urine cultures and blood cultures
- COVID/Flu negative
- continue empiric Zosyn, day 2
COPD: cont LABA/LAMA. continue prn nebs
h/o CVA: cont ASA/statin/Eliquis
Depression/Anxiety: cont Lexapro/Ativan/Remeron/Risperdal
Crohn's disease
Chronic urinary retention, UTI, s/p tube
Vascular dementia with agitation/behavioral disturbances: cont Risperdal
Failure to thrive
Severe protein calorie malnutrition
- with PEG
- resume TFs
Functional quadriplegia
Dispo: spoke to erin Reis 09/10 and he states goals for patient are full treatment, full code and goals are restorative. No interest in hospice at this time.
Anticipated Discharge: > 48 hours
Subjective/Interval History
-
Date of Service: September 10, 2024
no recurrence of fever
Objective Data
-
Labs:
Laboratory Results
09/10/24
04:50
WBC 8.9
Hgb 10.7 L
Hct 34.7 L
Plt Count 187
Sodium 143
Potassium 3.6
Chloride 107
Carbon Dioxide 28
BUN 23 H
Creatinine 1.0
Glucose 81
Calcium 8.1 L
Total Bilirubin 3.0 H
AST 37 H
ALT 24
Alkaline Phosphatase 78
Vital Signs:
Vital Signs
Temp Pulse Resp BP Pulse Ox
97.6 F 98 16 128/90 99
09/10/24 11:35 09/10/24 11:56 09/10/24 11:56 09/10/24 06:00 09/10/24 11:56
I&O
09/09/24 09/10/24 09/11/24
06:59 06:59 06:59
Intake Total 290 / 290
Balance 290 / 290
Physical Exam
-
General: Appears Chronically Ill
HEENT: Normocephalic
Respiratory: Decreased Breath Sounds; Negative Wheezes
Cardiac: Regular Rhythm, S1/S2 and Tachycardic
Genito-urinary: No Costovertebral Tender
Neuro: Other (lethargic)
Data Reviewed
-
Total Time Spent with Patient (in minutes): 42
Labs: Labs Reviewed by me
--- NOTE | 2024-09-10 14:01 | CHAP ---
Addendum entered by Vivian Roger 09/10/24 15:03:
Note: Ethics consult cancelled.
Original Note:
Ethics consult received, which was placed during admission process. Appropriate for ethics given multiple hospitalizations and apparently multiple hospice/palliative consults over the last several months. Note that many attempts were made to place
Ms. Yap closer to family that were not successful. Will pursue Ethics panel on Friday when case management and hospitalist team have had a chance to be involved.
--- NOTE | 2024-09-10 16:50 | PTCARENOTE ---
Pt received in bed @ 0700. Unable to assess orientation. Pt nonverbal. Does not follow commands. Not able to demonstrate communication. Responds to tactile stimulation. Contracted limbs. Head falls to right side. Sinus tach with BBBC on telemetry
monitor. HR 90s - 110s. MAP > 65 without pressors. No edema. Tachypneic. RR 20s. Lungs diminished. Congested nose sound. SaO2 97% on 2L NC. Abdomen round. (+) bowel sounds. Bowel movement reported by previous shift. PEG tube in place. Tube feeds
initiated per order, Jevity 1.5 @ 20ml/hr with 25ml/hr water flush. Pt without void. Bladder scanned for 175ml @ 12:54. NSS @ 80ml/hr through (R) sub q port.
[2024-09-10] MEDS: LIPITOR TUBE (19:23)
--- NOTE | 2024-09-10 19:50 | PTCARENOTE ---
Patient arrived during change of shift. Upon assessing patient following report, patient was initiated on hospital monitor #16 -- ST. Tube feeds were disconnected from patient, but tube feeds found to be running all over the floor. Patient turned
and repositioned, at 30 degree angle, tube feeds flushed, no residual, reconnected. Currently running at 20mls/hour with increase to 40mls/hour for goal rate at midnight tonight. Call priest placed next to patient, relaxation channel put on for
patient. Will continue to monitor.
[2024-09-10] MEDS: ATIVAN 0.5 MG TUBE (21:04)
[2024-09-10] MEDS: RISPERDAL 0.5 MG TUBE (21:04)
[2024-09-10] MEDS: HIPREX 1 GRAM TUBE (21:04)
[2024-09-10] MEDS: LOPRESSOR 25 MG TUBE (21:04)
[2024-09-10] MEDS: ELIQUIS 5 MG TUBE (21:05)
[2024-09-10] MEDS: REMERON 15 MG TUBE (21:05)
[2024-09-11] MEDS: ZOSYN 50 IV ×4 (01:44→21:50)
[2024-09-11 03:16] VITALS: BP 120/72
[2024-09-11 05:12] VITALS: BMI 19.6
--- NOTE | 2024-09-11 05:13 | PTCARENOTE ---
Patient is tolerating tube feeds at goal rate of 40mls/hour. Will monitor.
[2024-09-11 07:00] VITALS: BP 123/75
[2024-09-11 07:02] LABS: Mean Corp Hgb Conc. 30.3 g/dL (33.0-37.0); Mean Corpuscular Hgb 28.2 pg (27.0-31.0); Mean Corpuscular Volume 93.2 fL (81.0-99.0); Mean Platelet Volume 9.8 fL (7.4-10.4); Platelet Count 202 10^3/uL (130-400); Red Blood Cell Count 3.54 10^6/uL (4.20-5.40); Red Cell Dist. Width 15.7 % (11.5-14.5); White Blood Cell Count 9.5 10^3/uL (4.8-10.8)
[2024-09-11 07:30] LABS: Blood Urea Nitrogen 22 mg/dl (7-17); Carbon Dioxide 27 mmol/L (22-30); Chloride 109 mmol/L (98-107); Estimated Creatinine Clearance 52 ml/min; Glucose 122 mg/dl (70-99); Potassium 3.6 mmol/L (3.5-5.1); Sodium 142 mmol/L (135-145); eGFR > 60.00
[2024-09-11] MEDS: DUONEB 3 ML INH ×4 (07:42→19:50)
[2024-09-11] MEDS: LEXAPRO 10 MG TUBE (09:17)
[2024-09-11] MEDS: HIPREX 1 GRAM TUBE ×2 (09:17→21:50)
[2024-09-11] MEDS: ELIQUIS 5 MG TUBE ×2 (09:17→21:50)
[2024-09-11] MEDS: PREVACID 30 MG TUBE (09:17)
[2024-09-11] MEDS: FLOMAX 0.4 MG TUBE (09:18)
[2024-09-11] MEDS: PEPCID 20 MG TUBE (09:18)
[2024-09-11] MEDS: LOPRESSOR 25 MG TUBE ×2 (09:18→21:50)
[2024-09-11] MEDS: ATIVAN 0.5 MG TUBE ×3 (09:18→21:50)
[2024-09-11] MEDS: SODIUM BICARBONATE 650 MG TUBE ×3 (09:18→21:50)
[2024-09-11] MEDS: LOW STRENGTH ASPIRIN 81 MG TUBE (09:18)
[2024-09-11] MEDS: VITAMIN D3 (cholecalciferol) 50 MCG TUBE (09:18)
[2024-09-11] MEDS: RISPERDAL 0.5 MG TUBE ×2 (09:18→21:50)
[2024-09-11 11:00] VITALS: BP 106/66
--- NOTE | 2024-09-11 13:09 | PTCARENOTE ---
Pt alert openes eyes to touch. PT non verbalbut does look at me and nods. I am unsure if she is able to comprehend what i am saying. Non verbal pain score, she is relaxed no grimacing pt. Pt with tachypnea, scattered rhonchi and some grunting with
resp distress mild same from last shift. 97% on room air. no sputum noted. Pt with PEG tube infusing Jevity 1.5 at 40 ml . No residual. HOB 45 degrees. Pt is functional quadriplegia with complete care. pt unable to move arms or leg is contracted
in legs neck and arms. she requirs 100% assistance for all ADLS, ROM and care. she is being turned q 2 hours and pressure offloading. She appears cachectic. Family came in, pt has gotten more anxiou since thier arrival. They wanted to give her
water and were a bit upset to learn we have her NPO. I educated family on aspiration precautions, Md called and will be at bedside momentarily.
--- NOTE | 2024-09-11 13:56 | W.PN.HOSP.TC ---
Today's Communication/Plan
-
continue Zosyn
continue TFs
ongoing goals of care discussions
Assessment / Plan
Assessment / Plan
Assessment:
SIRS (Leukocytosis, reported fever, tachycardia
- suspect aspiration pneumonitis; initial CXR negative, will repeat in 24 hours
- UA abnormal, await urine cultures and blood cultures
- COVID/Flu negative
- continue empiric Zosyn, day 3
COPD: cont LABA/LAMA. continue prn nebs
h/o CVA: cont ASA/statin/Eliquis
Depression/Anxiety: cont Lexapro/Ativan/Remeron/Risperdal
Crohn's disease
Chronic urinary retention, UTI, s/p tube
Vascular dementia with agitation/behavioral disturbances: cont Risperdal
Failure to thrive
Severe protein calorie malnutrition
- with PEG
- continue TFs
Functional quadriplegia
Dispo: spoke to erin Reis 09/10 and he states goals for patient are full treatment, full code and goals are restorative. No interest in hospice at this time. on 09/11, spoke to daughter Maria (an RN) and she is interested in hospice, will d/w
[place] and other family. Family is interested in patient being placed more locally to her home area of [facility].
Anticipated Discharge: > 48 hours
Subjective/Interval History
-
Date of Service: September 11, 2024
family visiting
patient communicating with few words
no overnight events
Objective Data
-
Labs:
Laboratory Results
09/11/24
05:12
WBC 9.5
Hgb 10.0 L
Hct 33.0 L
Plt Count 202
Sodium 142
Potassium 3.6
Chloride 109 H
Carbon Dioxide 27
BUN 22 H
Creatinine 0.8
Glucose 122 H
Calcium 8.0 L
Vital Signs:
Vital Signs
Temp Pulse Resp BP Pulse Ox
97.9 F 75 16 106/66 99
09/11/24 11:00 09/11/24 11:24 09/11/24 11:24 09/11/24 11:00 09/11/24 11:24
I&O
09/10/24 09/11/24 09/12/24
06:59 06:59 06:59
Intake Total 290 / 290 1420 / 1420
Balance 290 / 290 1420 / 1420
Physical Exam
-
General: Appears Chronically Ill
HEENT: Normocephalic
Respiratory: Decreased Breath Sounds
Cardiac: Regular Rhythm and S1/S2
GI: Soft
Genito-urinary: No Costovertebral Tender
Psych: Apparent Dementia
Data Reviewed
-
Total Time Spent with Patient (in minutes): 42
Labs: Labs Reviewed by me
[2024-09-11 15:00] VITALS: BP 121/74
--- NOTE | 2024-09-11 15:19 | CM ---
Per Attending's request, CM spoke w/daughter, Maria, via phone. She reported that family is not ready to consider Hospice.
Family wants mother discharged to a SNF closer to home. Daughter requested to send referrals to many facilities in 25 mile radius of [place], [place]; [place] [address]
CM offered to provide a list; daughter was not interested.
Numerous referrals sent via [facility]
Plan: Discharge to SNF pending bed availability
[2024-09-11] MEDS: LIPITOR 40 MG TUBE (16:45)
[2024-09-11] MEDS: TYLENOL ORAL SOLUTION 650 MG TUBE (16:46)
[2024-09-11 19:00] VITALS: BP 94/59
[2024-09-11] MEDS: REMERON 15 MG TUBE (21:50)
[2024-09-11 23:00] VITALS: BP 114/65
[2024-09-12] MEDS: ZOSYN 50 IV ×4 (02:57→20:36)
[2024-09-12 03:00] VITALS: BP 143/94
[2024-09-12 05:59] VITALS: BMI 20.2
[2024-09-12] MEDS: ATIVAN 0.5 MG TUBE ×3 (06:36→20:32)
[2024-09-12] MEDS: TYLENOL ORAL SOLUTION 650 MG TUBE ×2 (06:36→20:34)
[2024-09-12 06:52] LABS: Hematocrit 31.6 % (37.0-47.0); Hemoglobin 9.9 g/dL (12.0-16.0); Mean Corp Hgb Conc. 31.3 g/dL (33.0-37.0); Mean Corpuscular Hgb 28.6 pg (27.0-31.0); Mean Corpuscular Volume 91.3 fL (81.0-99.0); Mean Platelet Volume 9.6 fL (7.4-10.4); Platelet Count 211 10^3/uL (130-400); Red Blood Cell Count 3.46 10^6/uL (4.20-5.40); Red Cell Dist. Width 15.8 % (11.5-14.5); White Blood Cell Count 8.9 10^3/uL (4.8-10.8)
[2024-09-12 07:01] VITALS: BP 117/74
[2024-09-12 07:08] LABS: Blood Urea Nitrogen 19 mg/dl (7-17); Carbon Dioxide 30 mmol/L (22-30); Chloride 107 mmol/L (98-107); Estimated Creatinine Clearance 52 ml/min; Glucose 123 mg/dl (70-99); Potassium 3.3 mmol/L (3.5-5.1); Sodium 144 mmol/L (135-145); eGFR > 60.00
[2024-09-12] MEDS: DUONEB 3 ML INH ×4 (08:51→19:55)
[2024-09-12] MEDS: VITAMIN D3 (cholecalciferol) 50 MCG TUBE (10:02)
[2024-09-12] MEDS: LEXAPRO 10 MG TUBE (10:02)
[2024-09-12] MEDS: SODIUM BICARBONATE 650 MG TUBE ×3 (10:02→22:11)
[2024-09-12] MEDS: LOPRESSOR 25 MG TUBE ×2 (10:02→20:33)
[2024-09-12] MEDS: ELIQUIS 5 MG TUBE ×2 (10:03→20:31)
[2024-09-12] MEDS: RISPERDAL 0.5 MG TUBE ×2 (10:03→20:31)
[2024-09-12] MEDS: LOW STRENGTH ASPIRIN 81 MG TUBE (10:03)
[2024-09-12] MEDS: FLOMAX 0.4 MG TUBE (10:03)
[2024-09-12] MEDS: PEPCID 20 MG TUBE (10:03)
[2024-09-12] MEDS: HIPREX 1 GRAM TUBE ×2 (10:05→20:31)
[2024-09-12] MEDS: PREVACID 30 MG TUBE (10:13)
--- NOTE | 2024-09-12 11:46 | W.PN.HOSP.TC ---
Today's Communication/Plan
-
stool studies
continue finish Zosyn 5 day course
DC planning to SNF
Assessment / Plan
Assessment / Plan
Assessment:
SIRS (Leukocytosis, reported fever, tachycardia
- suspect aspiration pneumonitis; initial CXR negative, will repeat in 24 hours
- UA and blood cultures negative
- COVID/Flu negative
- continue empiric Zosyn, day 4/5
Loose stools
- likely Abx associated diarrhea, but will check stool studies
Hypokalemia
- replete prn
COPD: cont LABA/LAMA. continue prn nebs
h/o CVA: cont ASA/statin/Eliquis
Depression/Anxiety: cont Lexapro/Ativan/Remeron/Risperdal
Crohn's disease
Chronic urinary retention, UTI, s/p tube
Vascular dementia with agitation/behavioral disturbances: cont Risperdal
Failure to thrive
Severe protein calorie malnutrition
- with PEG
- continue TFs
Functional quadriplegia
Dispo: spoke to erin Reis 09/10 and he states goals for patient are full treatment, full code and goals are restorative. No interest in hospice at this time. on 09/11, spoke to daughter Maria (an RN) and she is interested in patient being placed
more locally to her home area of [facility]. CM made aware.
Anticipated Discharge: 24 - 48 hours
Subjective/Interval History
-
Date of Service: September 12, 2024
loose stools this morning
no fevers, no hypoxia
Objective Data
-
Labs:
Laboratory Results
09/12/24
06:31
WBC 8.9
Hgb 9.9 L
Hct 31.6 L
Plt Count 211
Sodium 144
Potassium 3.3 L
Chloride 107
Carbon Dioxide 30
BUN 19 H
Creatinine 0.8
Glucose 123 H
Calcium 8.0 L
Vital Signs:
Vital Signs
Temp Pulse Resp BP Pulse Ox
99.4 F 107 18 117/74 95
09/12/24 07:01 09/12/24 09:03 09/12/24 09:03 09/12/24 07:01 09/12/24 09:03
I&O
09/11/24 09/12/24 09/13/24
06:59 06:59 06:59
Intake Total 1420 / 1420 1050 / 1050
Balance 1420 / 1420 1050 / 1050
Physical Exam
-
General: No Apparent Distress
HEENT: Normocephalic
Respiratory: Negative Wheezes
Cardiac: Regular Rhythm and S1/S2
GI: Soft and Peg Tube
Genito-urinary: No Costovertebral Tender
Neuro: AO x 3
Hematologic / Lymphatic: No Lymphadenopathy
Psych: Calm
Data Reviewed
-
Total Time Spent with Patient (in minutes): 42
Labs: Labs Reviewed by me
[2024-09-12 12:11] VITALS: BP 117/84
[2024-09-12] MEDS: KCL ELIXIR 40 MEQ TUBE (12:40)
[2024-09-12] MEDS: ANTIFUNGAL CLEAR 1 APPLIC TOPICAL ×2 (15:15→20:35)
[2024-09-12 16:37] VITALS: BP 111/76
[2024-09-12] MEDS: LIPITOR 40 MG TUBE (16:45)
[2024-09-12 19:00] VITALS: BP 127/84
[2024-09-12] MEDS: REMERON 15 MG TUBE (22:12)
[2024-09-12 23:07] VITALS: BP 119/82
[2024-09-13] MEDS: ZOSYN 50 IV ×4 (01:25→21:27)
[2024-09-13 06:00] VITALS: BMI 20.5
[2024-09-13 06:36] LABS: Hemoglobin 10.4 g/dL (12.0-16.0); Mean Corp Hgb Conc. 30.6 g/dL (33.0-37.0); Mean Corpuscular Hgb 28.4 pg (27.0-31.0); Mean Corpuscular Volume 92.9 fL (81.0-99.0); Mean Platelet Volume 10.1 fL (7.4-10.4); Platelet Count 192 10^3/uL (130-400); Red Blood Cell Count 3.66 10^6/uL (4.20-5.40); Red Cell Dist. Width 15.9 % (11.5-14.5); White Blood Cell Count 6.8 10^3/uL (4.8-10.8)
[2024-09-13 06:39] LABS: Blood Urea Nitrogen 20 mg/dl (7-17); Calcium 8.2 mg/dl (8.4-10.2); Carbon Dioxide 26 mmol/L (22-30); Chloride 112 mmol/L (98-107); Estimated Creatinine Clearance 52 ml/min; Glucose 96 mg/dl (70-99); Potassium 4.3 mmol/L (3.5-5.1); Sodium 144 mmol/L (135-145); eGFR > 60.00
[2024-09-13 07:15] VITALS: BP 116/83
[2024-09-13] MEDS: DUONEB 3 ML INH ×4 (07:43→19:06)
[2024-09-13] MEDS: VITAMIN D3 (cholecalciferol) 50 MCG TUBE (10:12)
[2024-09-13] MEDS: LOW STRENGTH ASPIRIN 81 MG TUBE (10:12)
[2024-09-13] MEDS: HIPREX 1 GRAM TUBE ×2 (10:13→21:33)
[2024-09-13] MEDS: ELIQUIS 5 MG TUBE ×2 (10:13→21:27)
[2024-09-13] MEDS: LOPRESSOR 25 MG TUBE ×2 (10:13→21:28)
[2024-09-13] MEDS: LEXAPRO 10 MG TUBE (10:13)
[2024-09-13] MEDS: PEPCID 20 MG TUBE (10:13)
[2024-09-13] MEDS: PREVACID 30 MG TUBE (10:13)
[2024-09-13] MEDS: RISPERDAL 0.5 MG TUBE ×2 (10:13→21:26)
[2024-09-13] MEDS: SODIUM BICARBONATE 650 MG TUBE ×3 (10:13→21:28)
[2024-09-13] MEDS: ATIVAN 0.5 MG TUBE ×2 (10:14→21:27)
[2024-09-13] MEDS: FLOMAX 0.4 MG TUBE (10:14)
[2024-09-13] MEDS: ANTIFUNGAL CLEAR 1 APPLIC TOPICAL ×2 (10:41→21:27)
--- NOTE | 2024-09-13 12:25 | W.PN.HOSP.TC ---
Today's Communication/Plan
-
see A/P
dispo planning
Assessment / Plan
Assessment / Plan
A/P:
# SIRS (Leukocytosis, reported fever, tachycardia) suspect aspiration pneumonitis
CXR negative. UA and blood cultures negative, COVID/Flu negative
continue empiric Zosyn total 5 days
# Loose stools, likely Abx associated diarrhea
Norovirus/C diff negative
Can follow stool culture
# Hypokalemia
replete prn
# COPD
cont LABA/LAMA. continue prn nebs
# h/o CVA
cont ASA/statin/Eliquis
# Depression/Anxiety
cont Lexapro/Ativan/Remeron/Risperdal
# Crohn's disease
# Chronic urinary retention, UTI, s/p tube
# Vascular dementia with agitation/behavioral disturbances
cont Risperdal
Pt appears non-verbal
# Failure to thrive
# Severe protein calorie malnutrition
with PEG
continue TFs
# Functional quadriplegia
Dispo: Dr Gottlieb spoke to erin Reis 09/10 and he states goals for patient are full treatment, full code and goals are restorative. No interest in hospice at this time.
On 09/11, Dr Gottlieb spoke to daughter Maria (an RN) and she is interested in patient being placed more locally to her home area of [facility].
CM made aware.
Anticipated Discharge: 24 - 48 hours
Subjective/Interval History
-
Date of Service: September 13, 2024
Objective Data
-
Labs:
Laboratory Results
09/13/24
05:50
WBC 6.8
Hgb 10.4 L
Hct 34.0 L
Plt Count 192
Sodium 144
Potassium 4.3 D
Chloride 112 H
Carbon Dioxide 26
BUN 20 H
Creatinine 0.8
Glucose 96
Calcium 8.2 L
Vital Signs:
Vital Signs
Temp Pulse Resp BP Pulse Ox
36.4 C 93 18 116/83 97
09/13/24 07:15 09/13/24 11:14 09/13/24 11:14 09/13/24 07:15 09/13/24 11:14
I&O
09/12/24 09/13/24 09/14/24
06:59 06:59 06:59
Intake Total 1050 / 1050 880 / 880
Balance 1050 / 1050 880 / 880
Review of Systems
-
Unable to obtain full review of systems at this time due to: Dementia and Patient Non-verbal
Physical Exam
-
General: No Apparent Distress, Comfortable and Appears Chronically Ill; Negative Conversant
HEENT: Normocephalic
Respiratory: Clear to Auscultation and Non Labored Respirations; Negative Accessory Resp Muscle Use
Cardiac: Regular Rhythm and S1/S2
GI: Soft and Peg Tube
Psych: Calm and Apparent Dementia; Negative Intact Judgement/Insight
Data Reviewed
-
Labs: Labs Reviewed by me
[2024-09-13 15:10] VITALS: BP 146/85
[2024-09-13] MEDS: FLUSH (NSS) 1 FLUSH IV (16:14)
--- NOTE | 2024-09-13 16:35 | PN.CDI ---
CDI
- -
CDI:
Physician Documentation Request
Admit Date: 09/09/24 14:22
Dear Doctor Nick,
Clinical Indicators:
09/10 [facility] RN skin/wound assessment: Left Lateral Ankle Stage 1 Pressure Injury, POA
Right Medial Heel Stage 2 Pressure Injury, POA
Physician documentation of the type and location of wounds is required for compliant documentation. Based on the above clinical findings and your assessment, please provide the following in your progress note:
1. Location of the ulcer/wound, including laterality.
2. Type (etiology) of ulcer/wound:
- Pressure (decubitus) ulcer
- Other
3. If a pressure ulcer, please also include the stage* of the ulcer:
- Stage 1 - Skin intact, non-blanchable redness
- Stage 2 - Partial thickness loss of dermis, includes intact or open blister
- Stage 3 - Full thickness tissue not including bone, tendon or muscle
- Stage 4 - Full thickness tissue loss, including exposed bone, tendon or muscle
- Unstageable - Full thickness loss in which the base of the ulcer is covered by slough (yellow, angeles, olmstead, green or brown) and/or eschar (angeles, brown or black) in the wound bed.
- Unable to determine
Use of terms such as suspected, likely, concern for, or probable (associated with a specific diagnosis that is being evaluated, monitored, or treated as if it exists) are acceptable and can be coded in the inpatient setting, when documented at the
time of discharge.
Thank you,
Aviva Gracia RN
CDI Specialist
available via tiger text
Please use your independent medical judgment in providing your response.
*Source: National Pressure Ulcer Advisory Panel (NPUAP)
--- NOTE | 2024-09-13 16:40 | WOUNDNOTE ---
[facility] RN Note: t/c Spoke with RN Jes who stated patient is on a [employer] Accumax. Jes plans to apply a Waffle air overlay mattress. Tico texted IRINA Osman re: recommend air mattress at SNF. She is extremely high risk for pressure
injury. She has R heel stage 2 pressure injury.
--- NOTE | 2024-09-13 17:02 | PTCARENOTE ---
patient appears comfortable, is able to track nursing staff with her eyes. tolerating tube feeding, vss, dependent with all care, will continue to monitor.
[2024-09-13] MEDS: LIPITOR 40 MG TUBE (18:34)
[2024-09-13] MEDS: REMERON 15 MG TUBE (21:28)
[2024-09-13 23:20] VITALS: BP 134/79
[2024-09-14] MEDS: ZOSYN 50 IV ×3 (02:59→14:19)
[2024-09-14 06:00] VITALS: BMI 19.0
[2024-09-14] MEDS: DUONEB 3 ML INH ×3 (07:10→16:33)
[2024-09-14 07:45] VITALS: BP 139/79
[2024-09-14] MEDS: LOPRESSOR 25 MG TUBE (09:00)
[2024-09-14] MEDS: HIPREX 1 GRAM TUBE (09:00)
[2024-09-14] MEDS: LOW STRENGTH ASPIRIN 81 MG TUBE (09:00)
[2024-09-14] MEDS: RISPERDAL 0.5 MG TUBE (09:00)
[2024-09-14] MEDS: PREVACID 30 MG TUBE (09:00)
[2024-09-14] MEDS: PEPCID 20 MG TUBE (09:00)
[2024-09-14] MEDS: ATIVAN 0.5 MG TUBE (09:01)
[2024-09-14] MEDS: VITAMIN D3 (cholecalciferol) 50 MCG TUBE (09:01)
[2024-09-14] MEDS: LEXAPRO 10 MG TUBE (09:01)
[2024-09-14] MEDS: ELIQUIS 5 MG TUBE (09:01)
[2024-09-14] MEDS: SODIUM BICARBONATE 650 MG TUBE ×2 (09:01→15:33)
[2024-09-14] MEDS: ANTIFUNGAL CLEAR 1 APPLIC TOPICAL (09:02)
[2024-09-14] MEDS: FLOMAX 0.4 MG TUBE (10:46)
--- NOTE | 2024-09-14 12:03 | W.PN.HOSP.TC ---
Addendum entered and electronically signed by Harriet Romero MD 09/15/24 14:47:
total DC time 09/14 was 35 min
Addendum entered and electronically signed by Harriet Romero MD 09/14/24 14:32:
# Left Lateral Ankle Stage 1 Pressure Injury, POA
# Right Medial Heel Stage 2 Pressure Injury, POA
Original Note:
Today's Communication/Plan
-
pending dispo
Assessment / Plan
Assessment / Plan
A/P:
# SIRS (Leukocytosis, reported fever, tachycardia) suspect aspiration pneumonitis
CXR negative. UA and blood cultures negative, COVID/Flu negative
continue empiric Zosyn total 5 days
# Loose stools, likely Abx associated diarrhea
Norovirus/C diff negative
stool culture negative
# Hypokalemia
replete prn
# COPD
cont LABA/LAMA. continue prn nebs
# h/o CVA
cont ASA/statin/Eliquis
# Depression/Anxiety
cont Lexapro/Ativan/Remeron/Risperdal
# Crohn's disease
# Chronic urinary retention, UTI, s/p tube
# Vascular dementia with agitation/behavioral disturbances
cont Risperdal
Pt appears non-verbal
# Failure to thrive
# Severe protein calorie malnutrition
with PEG
continue TFs
# Functional quadriplegia
Dispo: Dr Gottlieb spoke to erin Reis 09/10 and he states goals for patient are full treatment, full code and goals are restorative. No interest in hospice at this time.
On 09/11, Dr Gottlieb spoke to daughter Maria (an RN) and she is interested in patient being placed more locally to her home area of [facility].
CM made aware.
Anticipated Discharge: 24 - 48 hours
Subjective/Interval History
-
Date of Service: September 14, 2024
Objective Data
-
Vital Signs:
Vital Signs
Temp Pulse Resp BP Pulse Ox
37.0 C 83 16 139/79 98
09/14/24 07:45 09/14/24 11:31 09/14/24 11:31 09/14/24 07:45 09/14/24 11:31
I&O
09/13/24 09/14/24 09/15/24
06:59 06:59 06:59
Intake Total 880 / 880 1130 / 1130
Balance 880 / 880 1130 / 1130
Review of Systems
-
Unable to obtain full review of systems at this time due to: Dementia and Patient Non-verbal
Physical Exam
-
General: No Apparent Distress, Comfortable and Appears Chronically Ill; Negative Conversant
HEENT: Normocephalic
Respiratory: Clear to Auscultation and Non Labored Respirations; Negative Accessory Resp Muscle Use
Cardiac: Regular Rhythm and S1/S2
GI: Soft and Peg Tube
Psych: Calm and Apparent Dementia; Negative Intact Judgement/Insight
Data Reviewed
-
Labs: Labs Reviewed by me
[2024-09-14 15:13] VITALS: BP 99/67
--- NOTE | 2024-09-14 15:31 | CM ---
CM reviewed pt with Dr Romero and pt ready for dc
Attempted to call to son/Afredo and VM full
Call with dtr/Maria
Pt denied at majority of SNfs in their area
Both [facility] and [place] expressed interest- dtr declined due to ratings and reputation
Plan for return to [facility]- dtr in agreement
IMM verbally reviewed- copy emailed [email or web address]
Bedside update to ance
Transport forms on chart
Update to SNF admissions/Andreina- she is aware air mattress is needed
Discharge Disposition- return [facility] SNF for LTC via BLS 1730 pickup
Phone- [phone] 3rd floor nursing
Fax- [phone]
[2024-09-14] MEDS: LIPITOR 40 MG TUBE (17:00)
--- NOTE | 2024-09-15 14:38 | W.DCSUMMARY ---
Discharge Summary
Discharge Data
Date of Admission: 09/09/24
Date of Discharge: 09/14/24
-
Pending Results: No
Hospital Course
Principal Diagnosis:
SIRS on admission (Leukocytosis, reported fever, tachycardia) suspect aspiration pneumonitis
Chronic Diagnoses:�
History of stroke with vascular dementia
Patient with bedbound state, nonverbal at baseline
Status post PEG tube for nutrition support
Depression/Anxiety on Lexapro/Ativan/Remeron/Risperdal
Crohn's disease
Chronic urinary retention
Failure to thrive
Severe protein calorie malnutrition
Functional quadriplegia
COPD
Consultations:�
None
Procedures:�
None
Clinical course:�
This is a 64-year-old female, who was sent in from her group home due to fever and difficulty breathing.
She is nonverbal at baseline, hence cannot provide history.
Problem 1:
SIRS (Leukocytosis, reported fever, tachycardia) suspect aspiration pneumonitis.
Her CXR was negative. Her UA and blood cultures were negative. Her COVID and Flu tests were negative.
She was treated with empiric antibiotic Zosyn for 5 days while in the hospital.
She was sent back to her group home following clinical stability.
As for the rest of her medical problems, they were stable during her hospital stay.
Discharge Plan
-
Patient Disposition: [facility]SNF
Discharge Diagnosis/Procedures: SIRS (Leukocytosis, reported fever, tachycardia) suspect aspiration pneumonitis;
Vascular dementia with agitation/behavioral disturbances
Severe protein calorie malnutrition on tube feeding
Condition: Fair
Diet: Other diet
Additional Diets: tube feed
Activity: As tolerated
Driving Restrictions: No driving
Wound Care: Wound Care Instructions
Sacrum-clean with saline, silicone border foam (sacral shaped preferred), change q 3 days and prn loosened dressing.
Spine red skin-protective silicone border foam, change q 3 days and prn loosened dressing.
Lateral ankles-protective silicone border foam, change q 3 days and prn loosened dressing.
Medial knees-protective silicone border foam, change q 3 days and prn loosened dressing.
Heels-protective foam dressing, change q 3 days and prn loosened dressing.
Air mattress
Turning schedule
Elevate heels off bed; soft heel relief boots as tolerated (i.e. Foot Waffle boots); air chair cushion under heels/boots
Pillow between legs.
Pressure redistributing chair cushion (i.e. Air chair cushion, Roho).
Follow up with wound physician locums urgent care as needed.
Referrals:
Kang López, DO [Family Provider] - in less than 1 week
Prescriptions:
Continued
atorvastatin [Lipitor] 40 mg Tablet
40 mg PO QPM
sennosides [senna] 8.6 mg Tablet
8.6 mg PO DAILY
acetaminophen [Tylenol] 325 mg Tablet
650 mg PO Q6HPRN MDD 3000 mg PRN (Reason: mild pain /fever>100.4)
albuterol sulfate 2.5 mg /3 mL (0.083 %) Solution For Nebulization
2.5 mg INHALATION R Q4HPRN PRN (Reason: SOB)
famotidine [Pepcid] 40 mg Tablet
40 mg PO DAILY
bisacodyl [Dulcolax (bisacodyl)] 10 mg Suppository
10 mg ND DAILYPRN PRN (Reason: IF NO BM AFTR SORBITOL)
aspirin 81 mg Tablet,Chewable
81 mg PO DAILY
mirtazapine [Remeron] 15 mg Tablet
15 mg PO HS
tamsulosin 0.4 mg capsule
0.4 mg PO DAILY
Eliquis 5 mg tablet
5 mg PO BID
polyethylene glycol 3350 17 gram Powder In Packet
17 g PO DAILY
methenamine hippurate 1 gram Tablet
1 g PO BID
mineral oil Enema
118 ml ND DAILYPRN PRN (Reason: constipation)
lorazepam 0.5 mg Tablet
0.5 mg PO BID
lorazepam 0.5 mg Tablet
0.5 mg PO Q4HPRN PRN (Reason: anxiety)
hydrocortisone [Preparation H Hydrocortisone] 1 % Cream
1 applic ND [id number] PRN (Reason: hemorrhiods)
ferrous sulfate 325 mg (65 mg iron) Tablet
325 mg PO DAILY
Fleet Enema 19-7 gram/118 mL Enema
118 ml ND DAILYPRN PRN (Reason: if suppository ineffective)
ketoconazole 2 % Cream
1 applic TOPICAL BID
sorbitol 70 % Solution
30 ml PO DAILYPRN PRN (Reason: constipation)
risperidone [Risperdal] 0.5 mg Tablet
0.5 mg PO BID
escitalopram oxalate 10 mg Tablet
10 mg PO DAILY
metoprolol tartrate 25 mg Tablet
25 mg PO BID
cholecalciferol (vitamin D3) [Vitamin D3] 25 mcg (1,000 unit) Tablet
50 mcg PO DAILY
pantoprazole [address] For Susp In Packet
40 mg PO DAILY
umeclidinium-vilanterol 62.5-25 mcg/actuation Blister With Device
1 inh INHALATION R DAILY
sodium bicarbonate 650 mg tablet
650 mg feeding tube TID
Discharge Orders:
Discharge Patient (As Directed); Ordered 09/14/24
Ordered By: Harriet Romero
Discharge Date and Time
Discharge Date/Time: 09/14/24 18:40
Print Language: DJIBOUTIAN
== END 2024-09-14 18:40 | DRG 177 ==
LOC: 3 WEST ACU 14:22
PROVIDERS: Internal Medicine; ADMITTING PHYSICIAN Internal Medicine; ATTENDING PHYSICIAN Internal Medicine; EMERGENCY PHYSICIAN Emergency Medicine; FAMILY PHYSICIAN Internal Medicine
DX: J69.0 Pneumonitis due to inhalation of food and vomit (principal); E43 Unspecified severe protein-calorie malnutrition; R53.2 Functional quadriplegia; R65.10 Systemic inflammatory response syndrome (SIRS) of non-infectious origin without acute organ dysfunction; E87.20 Acidosis, unspecified; F01.511 Vascular dementia, unspecified severity, with agitation; F01.518 Vascular dementia, unspecified severity, with other behavioral disturbance; F01.53 Vascular dementia, unspecified severity, with mood disturbance; F01.54 Vascular dementia, unspecified severity, with anxiety; K50.90 Crohn's disease, unspecified, without complications; N17.9 Acute kidney failure, unspecified; K52.1 Toxic gastroenteritis and colitis; Z68.1 Body mass index [BMI] 19.9 or less, adult; N18.31 Chronic kidney disease, stage 3a; J44.9 Chronic obstructive pulmonary disease, unspecified; L89.612 Pressure ulcer of right heel, stage 2; L89.521 Pressure ulcer of left ankle, stage 1; R62.7 Adult failure to thrive; R33.8 Other retention of urine; T36.95XA Adverse effect of unspecified systemic antibiotic, initial encounter; E87.6 Hypokalemia; Z93.1 Gastrostomy status; Z20.822 Contact with and (suspected) exposure to COVID-19; Z86.73 Personal history of transient ischemic attack (TIA), and cerebral infarction without residual deficits; Z79.82 Long term (current) use of aspirin; Z79.899 Other long term (current) drug therapy; Z79.01 Long term (current) use of anticoagulants
CPT/HCPCS: 51701; 71045; 74018; 80048; 80053; 81003; 81015; 82962; 83605; 85025; 85027; 87040; 87045; 87046; 87070; 87086; 87147; 87324; 87427; 87449; 87502; 87798; 87811; 89055; 93005; 94640; 99285

== ENCOUNTER 2024-09-27 22:42 | Inpatient (IN) | payer MEDICARE, OTHER, SELFPAY ==
[2024-09-27] VITALS (11 sets, daily range): BP systolic 94–128; BP diastolic 68–100
[2024-09-27 13:35] LABS: Lactic Acid 1.2 mmol/L (0.7-2.0)
[2024-09-27 13:36] LABS: COVID-19 Antigen Negative (Negative)
[2024-09-27 13:43] LABS: ALT (SGPT) 21 U/L (0-35); AST (SGOT) 22 U/L (14-36); Albumin 3.2 g/dl (3.5-5.0); Alkaline Phosphatase 114 U/L (38-126); Blood Urea Nitrogen 25 mg/dl (7-17); Calcium 8.7 mg/dl (8.4-10.2); Carbon Dioxide 27 mmol/L (22-30); Chloride 100 mmol/L (98-107); Glucose 90 mg/dl (70-99); Potassium 4.3 mmol/L (3.5-5.1); Sodium 134 mmol/L (135-145); Total Bilirubin 1.7 mg/dl (0.2-1.3); Total Protein 6.6 g/dl (6.3-8.2); eGFR > 60.00
[2024-09-27 14:03] LABS: % Basophils 1.1 % (0-2); % Eosinophils 8.7 % (0-6); % Immature Granulocytes 0.7 % (0-0.5); % Lymphocytes 23.4 % (20.5-51.1); % Monocytes 7.1 % (1.7-9.3); Absolute Basophils 0.1 10^3/uL (0-0.2); Absolute Eosinophils 0.8 10^3/uL (0-0.7); Absolute Immature Granulocytes 0.1 10^3/uL (0-0.05); Absolute Lymphocytes 2.2 10^3/uL (1.2-3.4); Absolute Monocytes 0.7 10^3/uL (0.1-0.6); Absolute Neutrophils 5.6 10^3/uL (1.4-6.5); Hematocrit 35.1 % (37.0-47.0); Hemoglobin 11.3 g/dL (12.0-16.0); Mean Corp Hgb Conc. 32.2 g/dL (33.0-37.0); Mean Corpuscular Volume 86.9 fL (81.0-99.0); Mean Platelet Volume 9.1 fL (7.4-10.4); Nucleated Red Blood Cells % 0 %; Platelet Count 361 10^3/uL (130-400); Red Blood Cell Count 4.04 10^6/uL (4.20-5.40); Red Cell Dist. Width 15.4 % (11.5-14.5); White Blood Cell Count 9.4 10^3/uL (4.8-10.8)
[2024-09-27 14:08] LABS: Urine Albumin 1+ (Neg - Trace); Urine Bilirubin Negative (Negative); Urine Character Very Cloudy (Clear); Urine Color Yellow; Urine Glucose Negative (Negative); Urine Ketone Negative (Negative); Urine Leukocyte 2+ (Negative); Urine Nitrite Negative (Negative); Urine Occult Blood 3+ (Negative); Urine Specific Gravity 1.025 (<1.030); Urine Urobilinogen Negative (Neg - 1+)
[2024-09-27 14:18] LABS: Urine Squamous Cell 0-2 /LPF (Few); Urine White Cell >100 /HPF (0-5)
--- NOTE | 2024-09-27 14:42 | ED.GENMED ---
History of Present Illness
General
Chief Complaint: Breathing Problem
Time Seen by Provider: 09/27/24 13:19
History of Present Illness
History of Present Illness:
64-year-old female [facility] and reported fever. No documented fever on paperwork that was provided. Patient is nonverbal at baseline and unable to
provide any history
Past History
Past History
ED Past Medical History: CVA and Other (Dementia. Crohn's disease)
Social History
Tobacco: Non-smoker
Alcohol: None
Drug: None
Living: [facility]
Review of Systems
Review of Systems
Allergies reviewed?: Yes
All Other Systems: ROS reviewed and negative except as documented in HPI and ROS
Phy Exam
Physical Exam
Physical Exam:
GEN: Thin and cachectic appearing, mildly tachypneic otherwise no distress
HEENT: Oral mucosa moist, no scleral icterus
Cardiac: Regular rate and rhythm
Lung: No respiratory distress, mildly tachypneic but clear lungs on auscultation, mildly transmitted upper airway sounds
MSK: No gross deformity or injuries
Skin: Good color, no pallor or jaundice, no rashes
Neuro: Alert, does not follow commands
Psych: Calm, cooperative
Scores
Heart Failure Risk
Heart Failure Risk Score: Not Applicable
Sepsis
Sepsis Screening
Sepsis Assessment: Sepsis Ruled Out
Sepsis Screen
Sepsis Screen: Sepsis Ruled Out
Date: 09/27/24
Time: 18:41
Course
Orders/Labs/Results
Orders:
Orders
09/27/24 13:05
COVID-19 Antigen Urgent
Source: Nasal Swab
Complete Blood Count/With Diff Urgent
Comprehensive Metabolic Panel Urgent
Lactic Acid Q4H
Comment: ON ICE, CANCEL 2ND ORDER IF FIRST LACTIC ACID LEVEL <2
Influenza A+B Rapid Molecular Urgent
LEE Source: Nasal Swab
Specimen Description:
09/27/24 13:31
Straight cath- Treatment ONCE
09/27/24 13:39
Urinalysis Reflex To Culture Urgent
Date Specimen was Collected: 09/27/24
Time Specimen was Collected: 13:38
Urine Microscopic Reflex Cult Urgent
Urine Culture Urgent
LEE Source: U
Specimen Description:
Date Specimen was Collected: 09/27/24
Time Specimen was Collected: 13:38
09/27/24 14:01
CR Chest Portable - 1 View Urgent
Comment:
Reason For Exam: tachypnea
Reason Study Needs to be Portable: Other
09/27/24 14:37
CefTRIAXone [Rocephin] 1,000 mg IV NOW STA
09/27/24 14:41
Sterile Water [Sterile Water For Injection] 10 ml .ROUTE .STK-MED ONE
09/27/24 15:30
Heparin Pf [Heparin Lock Flush] 500 unit IV PER PROTOCOL
Abnormal Lab Results
09/27/24 09/27/24
13:05 13:39
RBC 4.04 L 10^6/uL
(4.20-5.40)
Hgb 11.3 L g/dL
(12.0-16.0)
Hct 35.1 L %
(37.0-47.0)
MCHC 32.2 L g/dL
(33.0-37.0)
RDW 15.4 H %
(11.5-14.5)
Abs Immat Gran (auto) 0.1 H 10^3/uL
(0-0.05)
Absolute Monos (auto) 0.7 H 10^3/uL
(0.1-0.6)
Absolute Eos (auto) 0.8 H 10^3/uL
(0-0.7)
Immature Gran % 0.7 H %
(0-0.5)
Eosinophils % 8.7 H %
(0-6)
Sodium 134 L mmol/L
(135-145)
BUN 25 H mg/dl
(7-17)
Total Bilirubin 1.7 H mg/dl
(0.2-1.3)
Albumin 3.2 L g/dl
(3.5-5.0)
Ur Occult Blood Reflex 3+ A
(Negative)
Leukocyte Esterase Rfl 2+ A
(Negative)
Urine WBC (Reflex) >100 A /HPF
(0-5)
Urine Albumin (Reflex) 1+ A
(Neg - Trace)
09/27/24 13:05
09/27/24 13:05
Vital Signs
Initial and Last Documented VS:
Initial Vital Signs
Temp Pulse Resp BP Pulse Ox
98.3 F 98 22 105/81 97
09/27/24 12:54 09/27/24 12:54 09/27/24 12:54 09/27/24 12:54 09/27/24 12:54
Last Documented Vital Signs
Temp Pulse Resp BP Pulse Ox
98.3 F 114 25 128/91 96
09/27/24 12:54 09/27/24 17:30 09/27/24 17:45 09/27/24 18:00 09/27/24 18:30
MDM/Problems Addressed
MDM/Problems Addressed:
Urinalysis consistent with acute UTI. She is not septic as labs are reassuring. Will start IV antibiotics however she is suitable for further management at the nursing facility for enteral antibiotics
*Critical Care Note
Total Time (30-74mins, 75-104mins- exclusive of procedures): Not Applicable
ED Attending Note
-
Portions of this chart may have been created with voice recognition software.� Occasional wrong word or��sound alike� substitutions may have occurred due to the inherent limitations of voice recognition software.
Discharge Plan
Departure
Patient Disposition: Home (Routine Discharge)
Date of Disposition: 09/27/24
Time of Disposition: 14:42
Patient with high blood pressure during this ER visit?: No
Discharge Problem:
Urinary tract infection
Instructions: Urinary tract infection in adults - ED discharge instructions
Prescriptions:
New
cefdinir 300 mg capsule
300 mg feeding tube Q12H 7 Days Qty: 14 0RF
No Action
atorvastatin [Lipitor] 40 mg Tablet
40 mg PO QPM
sennosides [senna] 8.6 mg Tablet
8.6 mg PO DAILY
acetaminophen [Tylenol] 325 mg Tablet
650 mg PO Q6HPRN MDD 3000 mg PRN (Reason: mild pain /fever>100.4)
albuterol sulfate 2.5 mg /3 mL (0.083 %) Solution For Nebulization
2.5 mg INHALATION R Q4HPRN PRN (Reason: SOB)
famotidine [Pepcid] 40 mg Tablet
40 mg PO DAILY
bisacodyl [Dulcolax (bisacodyl)] 10 mg Suppository
10 mg MI DAILYPRN PRN (Reason: IF NO BM AFTR SORBITOL)
aspirin 81 mg Tablet,Chewable
81 mg PO DAILY
mirtazapine [Remeron] 15 mg Tablet
15 mg PO HS
tamsulosin 0.4 mg capsule
0.4 mg PO DAILY
Eliquis 5 mg tablet
5 mg PO BID
polyethylene glycol 3350 17 gram Powder In Packet
17 g PO DAILY
methenamine hippurate 1 gram Tablet
1 g PO BID
mineral oil Enema
118 ml MI DAILYPRN PRN (Reason: constipation)
lorazepam 0.5 mg Tablet
0.5 mg PO BID
lorazepam 0.5 mg Tablet
0.5 mg PO Q4HPRN PRN (Reason: anxiety)
hydrocortisone [Preparation H Hydrocortisone] 1 % Cream
1 applic MI [id number] PRN (Reason: hemorrhiods)
ferrous sulfate 325 mg (65 mg iron) Tablet
325 mg PO DAILY
Fleet Enema 19-7 gram/118 mL Enema
118 ml MI DAILYPRN PRN (Reason: if suppository ineffective)
ketoconazole 2 % Cream
1 applic TOPICAL BID
sorbitol 70 % Solution
30 ml PO DAILYPRN PRN (Reason: constipation)
risperidone [Risperdal] 0.5 mg Tablet
0.5 mg PO BID
escitalopram oxalate 10 mg Tablet
10 mg PO DAILY
metoprolol tartrate 25 mg Tablet
25 mg PO BID
cholecalciferol (vitamin D3) [Vitamin D3] 25 mcg (1,000 unit) Tablet
50 mcg PO DAILY
pantoprazole [address] For Susp In Packet
40 mg PO DAILY
umeclidinium-vilanterol 62.5-25 mcg/actuation Blister With Device
1 inh INHALATION R DAILY
sodium bicarbonate 650 mg tablet
650 mg feeding tube TID
Referrals:
Kang López DO [Family Provider] -
Interventions
Interventions:
*Risk Screen - Suicide Last Done: 09/27/24 12:54
*General Assessment Last Done: 09/27/24 12:54
*Neglect/Abuse Screening Last Done: 09/27/24 12:54
ED- Fall Risk Assessment Last Done: 09/27/24 15:02
*ED COVID-19 Vaccine History Last Done: 09/27/24 15:02
ED- Cardiac Assessment Last Done: 09/27/24 13:14
ED- Pulmonary Assessment Last Done: 09/27/24 13:14
Discharge Date and Time
Print Language: DIVEHI
[2024-09-27] MEDS: ROCEPHIN 1000 MG IV (14:46)
--- NOTE | 2024-09-27 15:27 | VATNOTE ---
right subq power port deaccessed per protocol. Brisk blood return noted prior to.
--- NOTE | 2024-09-27 21:31 | HPS.HSE ---
Family Physician
-
Family Physician: Kang López, DO
Chief Complaint
-
Suprapubic pain, tachypnea, tachycardia
History of Present Illness
64-year-old female from [facility] sent in for evaluation of rapid breathing, reported fever however not on any paperwork provided. Her urinalysis appears cloudy greater than 100 WBC +2 leukocyte esterase in the ER. She is
tachycardic with heart rate in the 120s temperature of 97.9 F, BP 128/83. Patient will maintain eye contact she does grimace and grab hand when I am pressing over her suprapubic area she also moans when I press in this area. She will follow my
voice with her eyes when I am speaking to her. She had her port accessed by IV team on her right upper chest and kept her arms away from the right upper chest area during insertion instructions. She tolerated the procedure well. She appears to be
tachypneic with respiratory rate of 38 tachycardic heart rate 120 on exam. I do not appreciate any diaphoresis, rash, cough, diarrhea, vomiting, fever,
She had a recent admission 09/09 - 09/14/2024 secondary to SIRS with leukocytosis reported fever tachycardia suspected to aspiration pneumonitis chest x-ray urine blood cultures were negative along with COVID and flu test she completed Zosyn 5 day
course
She has past medical history of nonverbal secondary to stroke with vascular dementia, functional quadriplegia, bedbound status, post PEG for nutrition support, depression, anxiety, Crohn's disease, chronic urinary retention, failure to thrive,
severe protein calorie malnutrition, COPD
Medical History
Past Medical History
Past Medical History: Reports Other (COPD CVA Depression Anxiety Dementia Crohn's disease Chronic urinary retention, UTI, s/p tube Vascular dementia with agitation/behavioral disturbances, functional quadriplegia, failure to thrive Severe protein
calorie malnutrition)
Past Surgical History: Reports Other (gtube . port right upper chest wall)
Additional Past Surgical History:
Port right upper chest wall
G-tube left upper abdomen
Social History
Tobacco: Non-smoker
Alcohol: None
Drug: None
Personal: Single
Living: [facility] ([facility])
Family History
Family History: Not pertinent
Allergies / Home Medications
Allergies reflects when Allergies were last updated in [facility].
Home Medications with original date entered in [facility]
Allergy/Medication List:
Allergies
Allergy/AdvReac Type Severity Reaction Status Date / Time
divalproex sodium Allergy Unknown Verified 07/04/24 05:41
Iodinated Contrast Media Allergy Anaphylaxis Verified 07/04/24 05:41
iodine Allergy Anaphylaxis Verified 07/04/24 05:41
tositumomab Allergy Unknown Verified 07/04/24 05:41
valproic acid Allergy Unknown Verified 07/04/24 05:41
Home Medications
acetaminophen 325 mg tablet (Tylenol) 650 mg PO Q6HPRN PRN mild pain /fever>100.4 12/02/23
albuterol sulfate 2.5 mg/3 mL (0.083 %) solution for nebulization 2.5 mg inhalation R Q4HPRN PRN SOB 12/02/23
aspirin 81 mg chewable tablet 81 mg PO DAILY Blood Clot Prevention/Tx 12/02/23
atorvastatin 40 mg tablet (Lipitor) 40 mg PO QPM High Cholesterol 12/02/23
bisacodyl 10 mg rectal suppository (Dulcolax (bisacodyl)) 10 mg MA DAILYPRN PRN IF NO BM AFTR SORBITOL 12/02/23
cyanocobalamin (vitamin B-12) 100 mcg tablet 100 mcg PO DAILY Supplement 12/02/23
famotidine 40 mg tablet (Pepcid) 40 mg PO DAILY Gastrointestinal Issue 12/02/23
sennosides 8.6 mg tablet (senna) 8.6 mg PO DAILY Constipation 12/02/23
mirtazapine 15 mg tablet (Remeron) 15 mg PO HS depression/sleep 01/21/24
tamsulosin 0.4 mg capsule 0.4 mg PO DAILY Urinary Issue 02/16/24
apixaban 5 mg tablet (Eliquis) 5 mg PO BID Blood Clot Prevention/Tx 08/20/24
calcium carbonate 100 mg PO Q8HPRN PRN heartburn/indigestion 08/20/24
cholecalciferol (vitamin D3) 25 mcg (1,000 unit) tablet (Vitamin D3) 50 mcg PO DAILY Supplement 08/20/24
escitalopram oxalate 10 mg tablet 10 mg PO DAILY Depression 08/20/24
ferrous sulfate 325 mg (65 mg iron) tablet 325 mg PO DAILY Supplement 08/20/24
hydrocortisone 1 % topical cream (Preparation H Hydrocortisone) 1 applic MA QID hemorrhoids 08/20/24
ketoconazole 2 % topical cream 1 applic topical BID face 08/20/24
lorazepam 0.5 mg tablet 0.5 mg PO BID Mental Health/Anxiety 08/20/24
lorazepam 0.5 mg tablet 0.5 mg PO Q4HPRN PRN anxiety 08/20/24
methenamine hippurate 1 gram tablet 1 g PO BID Urinary Issue 08/20/24
metoprolol tartrate 25 mg tablet 25 mg PO BID Blood Pressure 08/20/24
mineral oil 118 ml MA DAILYPRN PRN constipation 08/20/24
morphine 10 mg/5 mL oral solution 0.5 mg PO Q4HPRN PRN sob/severe pain 08/20/24
pantoprazole 40 mg granules delayed-release for susp in packet 40 mg PO DAILY Gastrointestinal Issue 08/20/24
polyethylene glycol 3350 17 gram oral powder packet 17 g PO DAILY Constipation 08/20/24
potassium citrate 15 mEq (1,620 mg) tablet,extended release 15 meq PO BID Electrolyte Repletion 08/20/24
risperidone 0.5 mg tablet (Risperdal) 0.5 mg PO BID Mental Health/Anxiety 08/20/24
sodium phosphates 19 gram-7 gram/118 mL enema (Fleet Enema) 118 ml MA DAILYPRN PRN if suppository ineffective 08/20/24
sorbitol 70 % solution 30 ml PO DAILYPRN PRN constipation 08/20/24
umeclidinium 62.5 mcg-vilanterol 25 mcg/actuation powdr for inhalation 1 inh inhalation R DAILY Lung/Breathing Issues 08/20/24
If medication reconciliation has not been performed, why?: Dementia
Review of Systems
-
History Source: Patient and [facility] ([facility])
A 12 point ROS was completed and negative except as noted: Yes
Constitutional: Reports Other (Tachypnea, tachycardia); Denies Fever
EENT: Reports Other (Nasal congestion); Denies Runny Nose
Respiratory: Reports Other (Tachypnea)
Cardiac: Denies Diaphoresis or Syncope
Abdomen/GI: Reports Abdominal Pain (Suprapubic pain grimaces attempts to grab hand away); Denies Vomiting
: Reports Other (Current diaper in place)
Musculoskeletal: Reports Other (Legs contracted at 45 degree angle, arms contracted 45 degrees at shoulder level however can lift and bend hands); Denies Joint Pain or Edema
Skin: Denies Rash
Neurological: Reports Weakness (Generalized)
Psych: Reports Calm
Physical Exam
Vital Signs
Vital Signs
Temp Pulse Resp BP Pulse Ox
97.9 F 120 24 128/83 95
09/27/24 21:19 09/27/24 21:15 09/27/24 21:15 09/27/24 21:00 09/27/24 21:15
Physical Exam
General: No Fever
HEENT: NormoCephalic, Anicteric, PERRLA, [place] Conjunctivae, No Ptosis and Other (Tachypnea,)
Respiratory: No Clear, Wheezes, Rales or Rhonchi
Cardiac: Tachycardia (Sinus); No Murmur, Rub, Gallop or Peripheral Edema
Breast: Deferred by me
GI: Soft, Non Distended, Normal Bowel Sounds, Tender (Suprapubic area on palpation), No Hepatosplenomegaly and Other (PEG tube present)
Genito-urinary: Deferred by me
Musculoskeletal: No Clubbing, No Cyanosis, No Edema and Other (Contracture of legs at 45 degrees, contracture of arms at shoulder level 45 degrees)
Skin: Warm and Dry; No Rash
Neuro: Awake, Alert (Will turn eyes toward name said will track my voice during exam does grimace when I touch over suprapubic area and attempt to pull my hand away she also did moan when I touched over this area) and Other (Chronic nonverbal due to
multiple strokes chronic bedbound); No Facial Droop or Tremors
Psych: Calm
Laboratory Results
-
09/27/24 13:05
09/27/24 13:05
Laboratory Results
Lactic Acid Cancelled 09/27/24 17:00
Total Bilirubin 1.7 mg/dl (0.2-1.3) H 09/27/24 13:05
AST 22 U/L (14-36) 09/27/24 13:05
ALT 21 U/L (0-35) 09/27/24 13:05
Alkaline Phosphatase 114 U/L (38-126) 09/27/24 13:05
Data Reviewed
-
Lab Data: Labs Reviewed by me
Impression/Plan
-
Impression/plan:
Observation telemetry
#Sepsis 2/2 to UTI
#Hx chronic urinary retention
(Patient nonverbal unable to obtain ROS)
Pyuria, HR 120, tachypnea respiratory rate 38
COVID /FLU negative
-Port right upper chest wall accessed
-Rocephin 1 g
-IV NSS 80cc/hr
-Blood cultures x 2
-Follow CBC, BMP
#CVA with vascular dementia history agitation/behavioral disturbances
#Bedbound status
#Nonverbal secondary to stroke
-Contracture bilateral legs and arms to 45 degree
-Continue aspirin 81 mg via G-tube, Eliquis 5 mg twice daily via G-tube, Lipitor 40 mg via G-tube
-Continue Risperdal, Remeron, lorazepam 0.5 mg twice daily and as needed 0.5 mg every 4 hours
#Post PEG for nutrition support s/p stroke
#GERD
-Continue Pepcid 40 mg via G-tube daily, Protonix 40 mg via G-tube daily
#Hx failure to thrive
-Consult dietary
-Patient on Jevity 1.555 mL an hour x 20 hours total 1100 mL with flush 35 mL/h
#Depression/anxiety
-Continue Lexapro 10 mg via G-tube daily
#COPD history-no acute exacerbation
-Continue inhalers as needed
#Hx Crohn's disease
#Vitamin D deficiency
-Continue vitamin D3 50 mcg via G-tube daily
DVT prophylaxiz
cont pt eliquis
Full code
--- NOTE | 2024-09-27 21:53 | W.PN.UPDATE ---
Update Note
Progress Note Update
I could not get any information from the patient as
Information gathered by chart review and speaking with the ER staff.
This note serves as an addendum to the H&P by physician assistant LUCINA Camilla JO
HPI
64F HX Non verbal advanced dementia susepct vascular origin on feeding tube dependent nutrition, recurrent infections seen at ER:
- fever at NH and tachypnea but afebrile at ER, normal wbc
- Significantly POS straight cath UA c/w UTI - First dose of ABX - IV CFTX was given and had plan to DC back to NH on POABx
- However she became tachycardic 120s sinus and tachypneic in the 30s
PHX; as above
Vital Signs
Temp Pulse Resp BP Pulse Ox
97.9 F 123 24 128/83 95
09/27/24 21:19 09/27/24 21:30 09/27/24 21:30 09/27/24 21:00 09/27/24 21:30
PE
Cachectic
Tachypneic, awake but non verbal
limited chest exam
POS PORT at Rt upper chest
GI: Peg Tube
Functional quadriplegic
Diffuse muscular atrophy
Laboratory Tests
09/13/24 09/27/24
05:50 13:05
WBC 9.4
Hgb 10.4 L 11.3 L
Plt Count 192 361
BUN 25 H
eGFR > 60.00
Total Bilirubin 1.7 H
09/09/24 09/27/24
12:05 13:39
Urine Clarity Clear Very cloudy
Leukocyte Esterase Rfl Trace A 2+ A
Urine WBC (Reflex) 11-15 A >100 A
Ur Squamous Epith Cells 3-5 0-2
CXR: No acute cardiopulmonary process.
Last hospitalist admission: Date of Admission: 09/09/24 - Date of Discharge: 09/14/24
DC DX; SIRS on admission (Leukocytosis, reported fever, tachycardia) suspect aspiration pneumonitis
ASSESSMENT & PLAN
Sepsis due to below UTI with SIRS ( tachycardic and tachypnic )
HX Chronic urinary retention, UTI, s/p tube : Not retaining urine per ER AP
No prior POS UCX result in microbiology
HX POS MRSA screen times two
- NEG Covid. Flu NEG
- Empiric IV CFTX
- IVF
HX COPD
- stable
- cont LABA/LAMA
- cont. Nebs PRN
HX CVA
Non verbal
- cont ASA/statin/Eliquis
Vascular dementia with agitation/behavioral disturbances
- cont Risperdal
Chr Failure to thrive
Severe protein calorie malnutrition
- c/w PEG
continue TFs
Functional quadriplegia
Depression/Anxiety
- cont Lexapro/Ativan/Remeron/Risperdal
HX Crohn's disease
Of note; prior HX hospice care but DC' hospice care on last admission and become full code
DVT Px: SQH
Full code per NH recorder
IMU
[2024-09-28] VITALS (31 sets, daily range): BP systolic 88–145; BP diastolic 66–96; BMI 15.2
[2024-09-28] MEDS: NSS 1000 IV ×2 (02:25→15:06)
[2024-09-28] MEDS: ATIVAN 0.5 MG TUBE ×4 (06:15→20:09)
[2024-09-28] MEDS: LOPRESSOR 25 MG TUBE (06:15)
--- NOTE | 2024-09-28 06:45 | PTCARENOTE ---
Patients HR since admission onto the unit running 130s-140s per ER she had been in the 120s, spoke to DORA Flores at 4:48 and informed her of the elevated HR and her admitting dx, patient takes Lopressor at the SNF, DORA thinks she may
have missed her evening dose and just to administer that, discussed also that ER physician wanted patient in IMU she stated she has sever sepsis and thinks she will be okay on our unit and they can see in the AM if HR continues to be elevated.
Patient was inc of large amount of liquid stool at 6:15 changed patient she became very agitated and pushing nurse away, patient was given the Lopressor at 6:15 along with prn ativan, due to difficulty getting it out of the pyxis before hand,
attempted to have pharm change the time but was not done. patient had increased Resp since admission to hospital and unit. 30-38 per min
During shift change patient was very diaphoretic, checked signs pulse ox down to 60's RA patient not responding like she was initially onto unit. 100% NRB placed on patient and Rapid Response was called.
[2024-09-28 07:27] LABS: Glucose - Point of Care 116 mg/dl (70-99)
[2024-09-28] MEDS: SPIRIVA RESPIMAT 2.5 MCG 2 PUFF INH (07:39)
[2024-09-28] MEDS: STRIVERDI RESPIMAT 2 PUFF INH (07:40)
--- NOTE | 2024-09-28 07:45 | PTOTSP ---
The patient is a long-term care resident, requires total care and Camacho lift at baseline. No functional goals to warrant PT evaluation, will sign off.
--- NOTE | 2024-09-28 08:00 | PTCARENOTE ---
This RN and rn night RN at patient's bedside for change of shift rounds, patient tachypneic with belly breathing, eyes open but nonverbal, not following commands, contracted B/L LEs, skin cool and mottled, diaphoretic to touch. Vitals taken by
this RN, ax temp 97.9F, BP 145/91 RUE, HR in 130s-140s sinus tach on monitor. Pulse ox 66% on RA, 15L nonrebreather mask applied by this RN with improvement of pulse ox to 98%. Rapid response called, attending MD and cross coverage made aware,
respiratory at bedside.
--- NOTE | 2024-09-28 08:00 | PTCARENOTE ---
Arrived via bed, with telemetry pack and 100% NRB mask 100% pulse ox. HR st !@), non-verbal @ baseline. Dr. Royal notified daughter over the phone of the situation of impending intubation and instability and transfer to ICU. Upon arrival pt had
her eyes open, skin cold with generalized piloerection and mottled, poor capillary refill throughout. Complete CHG bath provided. Peg tube clamped, red at site, skin barrier applied. Hyperacive BSX4. Sacral margot anal region with MASD. Skin
cleansed, optifoam gentle dressing pplied to sacral region for [place] blanchable skin, multiple areas of MASD noted on her buttocks, sacral, anal region. Skin barrier applied. Protective foam dressings to her heels intact. She has abrasions/scratch
herzog noted on her left lateral torso upon arrival. She was informed of the plan of care and repositioned on her left side. Dr. Herrera assessed pt upon arrival Will obtain ABG and CXR at this time. Right SC port with IVF @ 80ml/hr and new left
wrist #[id number] protective catheter place during RANGE TECHNICIAN intact. Aspiration precautions maintained.
--- NOTE | 2024-09-28 08:17 | CON.INTV ---
Consultation
Consultation Request
Date/Time Consultation Requested: 09/28/2024-10 AM
Date/Time Consultation Performed: 09/24/2024-10 AM
Requesting Provider: hospitalist
Performing Provider: Dr. Herrera
Reason for Consultation: Respiratory distress/critical care management
Medical History
-
Chief Complaint: Shortness of breath
History of Present Illness:
64-year-old female patient with severe protein calorie malnutrition, COPD, CVA, depression, anxiety, depression, Crohn's disease, functional quadriplegia admitted with sepsis secondary to UTI and had significant hypoxemia requiring potential
intubation-transferred to ICU-pulmonary consulted for respiratory failure/critical care management 09/28/2024. The patient is nonverbal and review of systems was unobtainable. She does not have significant respiratory distress by the time she was
moved to the ICU
Past Medical History
Past Medical History: None (COPD. CVA. Depression. Anxiety. Dementia. Crohn's disease. Chronic urinary retention. Recurrent UTI. Functional quadriplegia. Failure to thrive. Severe protein calorie malnutrition. Gastrostomy tube.)
Social History
Tobacco: Non-smoker
Alcohol: None
Drug: None
Personal: Single
Living: [facility]
Occupational Exposures: Unknown tuberculosis exposure
Environmental Exposures: Unknown asbestos exposure
Family History
Family History: Reviewed & Not Pertinent
Allergies / Home Medications
Allergies
Allergy/AdvReac Type Severity Reaction Status Date / Time
divalproex sodium Allergy Unknown Verified 07/04/24 05:41
Iodinated Contrast Media Allergy Anaphylaxis Verified 07/04/24 05:41
iodine Allergy Anaphylaxis Verified 07/04/24 05:41
tositumomab Allergy Unknown Verified 07/04/24 05:41
valproic acid Allergy Unknown Verified 07/04/24 05:41
Home Medications
�Medication �Instructions �Recorded �Confirmed �Last Taken �Type
acetaminophen 325 mg tablet 650 mg feeding tube Q6HPRN PRN 12/02/23 09/27/24 Unknown History
(Tylenol) mild pain /fever>100.4
albuterol sulfate 2.5 mg/3 mL 2.5 mg inhalation R Q4HPRN PRN SOB 12/02/23 09/27/24 Unknown History
(0.083 %) solution for nebulization
aspirin 81 mg chewable tablet 81 mg feeding tube DAILY Blood 12/02/23 09/27/24 Unknown History
Clot Prevention/Tx
atorvastatin 40 mg tablet (Lipitor) 40 mg feeding tube QPM High 12/02/23 09/27/24 Unknown History
Cholesterol
bisacodyl 10 mg rectal suppository 10 mg MA DAILYPRN PRN IF NO BM 12/02/23 09/27/24 Unknown History
(Dulcolax (bisacodyl)) AFTR SORBITOL
famotidine 40 mg tablet (Pepcid) 40 mg feeding tube DAILY 12/02/23 09/27/24 Unknown History
Gastrointestinal Issue
sennosides 8.6 mg tablet (senna) 8.6 mg feeding tube DAILY 12/02/23 09/27/24 Unknown History
Constipation
mirtazapine 15 mg tablet (Remeron) 15 mg feeding tube HS 01/21/24 09/27/24 Unknown History
depression/sleep
tamsulosin 0.4 mg capsule 0.4 mg DAILY Urinary Issue 02/16/24 09/27/24 Unknown History
apixaban 5 mg tablet (Eliquis) 5 mg feeding tube BID Blood Clot 08/20/24 09/27/24 Unknown History
Prevention/Tx
cholecalciferol (vitamin D3) 25 50 mcg feeding tube DAILY 08/20/24 09/27/24 Unknown History
mcg (1,000 unit) tablet (Vitamin Supplement
D3)
escitalopram oxalate 10 mg tablet 10 mg feeding tube DAILY Depression 08/20/24 09/27/24 Unknown History
ferrous sulfate 325 mg (65 mg 325 mg feeding tube DAILY 08/20/24 09/27/24 Unknown History
iron) tablet Supplement
hydrocortisone 1 % topical cream 1 applic MA [id number] PRN hemorrhiods 08/20/24 09/27/24 Unknown History
(Preparation H Hydrocortisone)
ketoconazole 2 % topical cream 1 applic topical BID face 08/20/24 09/27/24 Unknown History
lorazepam 0.5 mg tablet 0.5 mg feeding tube BID Mental 08/20/24 09/27/24 Unknown History
Health/Anxiety
lorazepam 0.5 mg tablet 0.5 mg feeding tube Q4HPRN PRN 08/20/24 09/27/24 Unknown History
anxiety
methenamine hippurate 1 gram tablet 1 g feeding tube BID Urinary Issue 08/20/24 09/27/24 Unknown History
metoprolol tartrate 25 mg tablet 25 mg feeding tube BID Blood 08/20/24 09/27/24 Unknown History
Pressure
mineral oil 118 ml MA DAILYPRN PRN constipation 08/20/24 09/27/24 Unknown History
pantoprazole 40 mg granules 40 mg feeding tube DAILY 08/20/24 09/27/24 Unknown History
delayed-release for susp in packet Gastrointestinal Issue
polyethylene glycol 3350 17 gram 17 g feeding tube DAILY 08/20/24 09/27/24 Unknown History
oral powder packet Constipation
risperidone 0.5 mg tablet 0.5 mg feeding tube BID Mental 08/20/24 09/27/24 Unknown History
(Risperdal) Health/Anxiety
sodium phosphates 19 gram-7 118 ml MA DAILYPRN PRN if 08/20/24 09/27/24 Unknown History
gram/118 mL enema (Fleet Enema) suppository ineffective
sorbitol 70 % solution 30 ml miscellaneous DAILYPRN PRN 08/20/24 09/27/24 Unknown History
constipation
umeclidinium 62.5 mcg-vilanterol 1 inh inhalation R DAILY 08/20/24 09/27/24 Unknown History
25 mcg/actuation powdr for Lung/Breathing Issues
inhalation
sodium bicarbonate 650 mg tablet 650 mg feeding tube TID 09/09/24 09/27/24 Unknown History
cefdinir 300 mg capsule 300 mg feeding tube Q12H 7 days 09/27/24 Unknown Rx
#14 caps
Review of Systems
-
Unable to Obtain full review of systems at this time due to: Other (Per HPI)
Vitals / Labs / Diagnostic Testing
Vital Signs
Temp Pulse Resp BP Pulse Ox
97.9 F 122 25 145/91 98
09/28/24 07:53 09/28/24 07:53 09/28/24 07:53 09/28/24 07:53 09/28/24 07:54
Microbiology
09/27/24 13:05 Nasal Swab Influenza Types A & B (RODRICK) - Final
Negative for Influenza A & B, NAAT
Negative results must be combined with clinical observations
and patient history.
Nucleic Acid Amplification test (NAAT)performed on the
[employer] platform.
Diagnostic Testing:
Physical Exam
-
Exam:
Well-nourished and well-developed in no apparent distress
HEENT-atraumatic, normocephalic
Neck-supple, no JVD, no bruit
Heart-regular rate and rhythm-no murmurs, rubs or gallops
Chest with diminished breath sounds, prolonged expiratory time, no wheezes or crackles
Abdomen-soft, nontender, nondistended, no hepatosplenomegaly
Extremities-no cyanosis, clubbing, edema and good peripheral pulses
Integument-intact, no rashes, lesions or ecchymosis
Neurologically not alert, not oriented not moving extremities
Assessment
-
64-year-old female patient with severe protein calorie malnutrition, COPD, CVA, depression, anxiety, depression, Crohn's disease, functional quadriplegia admitted with sepsis secondary to UTI and had significant hypoxemia requiring potential
intubation-transferred to ICU-pulmonary consulted for respiratory failure/critical care management 09/28/2024.
Sepsis
Urinary tract infection
CVA with vascular dementia, agitation and behavioral disturbances
Leukocytosis
Aspiration risk
Mild hyperglycemia
Conditions present prior to admission:
COPD.
CVA.
Depression.
Anxiety.
Dementia.
Crohn's disease.
Chronic urinary retention.
Recurrent UTI.
Functional quadriplegia.
Failure to thrive.
Severe protein calorie malnutrition.
GERD
Gastrostomy tube.
longterm resident
Plan
Patient transferred to ICU for impending intubation
Somewhat more stabilized-on my exam no significant distress, saturations are 100%, very diminished breath sounds
Check ABG
Hold off on intubation
Aspiration precautions
Nebulizers
Inhalers if able-currently on Spiriva
Steroids-prednisone 40 mg daily initiated
Check cultures
Antibiotics
Follow lactate
Intravenous fluids
Pressors as needed
Follow leukocytosis
Monitor blood sugar
Insulin supplementation as needed
DVT prophylaxis-on Eliquis
GI prophylaxis-on famotidine
Nutrition
Bedside range of motion
Ongoing discussions with family in regards to goals of care-patient is unfortunately hospice appropriate
If patient does not need intubation, pressors or other ICU level of care then transfer out of ICU-call pulmonary if respiratory issues arise
Critical care statement: A total of 40 minutes of critical care time was provided for this patient today. This includes management of unstable vital signs, evaluation of the patient at bedside, reviewing the patient's pertinent medical records
including radiographs, microbiology, laboratory evaluations, and discussion with primary team, consultants, pharmacy, nutrition, physical therapy, case management, charge nurse, critical care nursing, and respiratory therapy.
Diagnostic data:
Chest x-ray 09/27/2024-NAD
Chest x-ray 09/28/2024-NAD
CT chest 08/20/2024 mild right lower lobe consolidation
Data Reviewed
-
EKG: Report reviewed by me
Radiology: Image personally visualized and interpreted and Report reviewed by me
CT Scan: Report reviewed by me
Medical Tests (Nuc Med, Echo etc): Report reviewed by me
Labs: Labs reviewed by me
Old Records: Reviewed
Critical Care Time (in minutes): 55
[2024-09-28] MEDS: SPIRIVA RESPIMAT 2.5 MCG INH (08:22)
[2024-09-28] MEDS: STRIVERDI RESPIMAT INH (08:22)
--- NOTE | 2024-09-28 08:23 | W.PN.HOSP.TC ---
Today's Communication/Plan
-
ICU transfer
Intubate
ABG, chest x-ray
Franchise Sales Manager consult.
Steroids, inhalers
Continue antibiotics
Await family decision regarding goals of care
Assessment / Plan
Assessment / Plan
Gen-obtunded not following commands
HEENT-NC, AT, anicteric, clear oral mm
Neck-supple
CV-reg, no M, +S1/S2
Lungs-diffuse bilateral wheezing, rhonchi
Abd-soft, NT, ND
Ext-no edema
Musculoskeletal-no cyanosis, clubbing
Skin-warm and dry
Acute hypoxic respiratory failure -agonal breathing on exam, tachycardic. Will need to be intubated. 1 view chest x-ray last night read as clear. Transferred to ICU. Very poor prognosis and I doubt she will survive this hospitalization. I left
a voicemail for patient's son Daniel to call me back. I spoke with daughter Maria on the phone and reiterated my concerns. I recommend resumption of hospice and comfort measures given her very poor prognosis, but daughter wants time to discuss
with family. In the meantime we will continue aggressive care.
Consult pilot control operator helper.
ABG and chest x-ray after intubation.
Acute encephalopathy -suspect due to respiratory failure. Baseline dementia.
Sepsis -possibly due to UTI. Continue antibiotics. Await cultures.
History of stroke -nonverbal and bedbound.
Vascular dementia
COPD with possible exacerbation -diffuse wheezing on exam. Add steroids, continue inhalers.
Severe dysphagia -has a PEG tube in place. Keep n.p.o. for now given critical illness.
History of Crohn's disease
Severe protein calorie malnutrition
GERD
Full code
Very poor prognosis. 70 minutes spent in discussions with other staff, family, consultants, chart review, seeing and examining the patient.
Anticipated Discharge: > 48 hours
Subjective/Interval History
-
Date of Service: September 28, 2024
Patient seen and examined as part of rapid response. She remains nonverbal, unarousable.
Objective Data
-
Labs:
Laboratory Results
09/28/24 09/28/24
06:00 08:20
WBC Pending
Hgb Pending
Hct Pending
Plt Count Pending
HCO3 Pending
Sodium Pending
Potassium Pending
Chloride Pending
Carbon Dioxide Pending
BUN Pending
Creatinine Pending
Glucose Pending
Calcium Pending
Total Bilirubin Pending
AST Pending
ALT Pending
Alkaline Phosphatase Pending
Vital Signs:
Vital Signs
Temp Pulse Resp BP Pulse Ox
99.1 F 122 25 145/91 100
09/28/24 08:21 09/28/24 07:53 09/28/24 07:53 09/28/24 07:53 09/28/24 08:21
I&O
09/27/24 09/28/24 09/29/24
06:59 06:59 06:59
Intake Total 80 / 80
Balance 80 / 80
Review of Systems
-
Unable to obtain full review of systems at this time due to: Dementia and Acuity
[2024-09-28 08:37] LABS: HCO3 24.3 mmol/L (21-28); O2 Saturation % 99.1 % (94-98); PCO2 42 mmHg (32-35); PO2 197 mmHg (83-108); pH 7.37 (7.35-7.45)
[2024-09-28 08:40] LABS: % Basophils 0.8 % (0-2); % Eosinophils 2.6 % (0-6); % Immature Granulocytes 1.4 % (0-0.5); % Lymphocytes 11.4 % (20.5-51.1); % Monocytes 3.9 % (1.7-9.3); % Neutrophils 79.9 % (42.2-75.2); Absolute Basophils 0.2 10^3/uL (0-0.2); Absolute Eosinophils 0.6 10^3/uL (0-0.7); Absolute Immature Granulocytes 0.3 10^3/uL (0-0.05); Absolute Lymphocytes 2.4 10^3/uL (1.2-3.4); Absolute Monocytes 0.8 10^3/uL (0.1-0.6); Absolute Neutrophils 16.6 10^3/uL (1.4-6.5); Hematocrit 38.5 % (37.0-47.0); Hemoglobin 11.7 g/dL (12.0-16.0); Mean Corp Hgb Conc. 30.4 g/dL (33.0-37.0); Mean Corpuscular Hgb 27.9 pg (27.0-31.0); Mean Corpuscular Volume 91.7 fL (81.0-99.0); Nucleated Red Blood Cells % 0 %; Platelet Count 481 10^3/uL (130-400); Red Cell Dist. Width 15.5 % (11.5-14.5); White Blood Cell Count 20.8 10^3/uL (4.8-10.8)
--- NOTE | 2024-09-28 08:44 | PTCARENOTE ---
ABG resulted, RPT tapering oxygen as ordered.
[2024-09-28 08:46] LABS: INR 1.11; PT 14.6 Sec (11.4-14.6)
[2024-09-28 08:47] LABS: APTT 30.6 Sec (23.4-35.0)
[2024-09-28 08:49] LABS: Blood Urea Nitrogen 30 mg/dl (7-17); Calcium 9.2 mg/dl (8.4-10.2); Carbon Dioxide 27 mmol/L (22-30); Chloride 102 mmol/L (98-107); Estimated Creatinine Clearance 34 ml/min; Glucose 114 mg/dl (70-99); Magnesium 1.9 mg/dl (1.6-2.3); Phosphorus 6.6 mg/dl (2.5-4.5); Potassium 4.1 mmol/L (3.5-5.1); Sodium 141 mmol/L (135-145); eGFR 56.46
--- NOTE | 2024-09-28 08:55 | PTCARENOTE ---
Dr. Royal provided update via TT. of recent ABG, Lactate and WBC. Her current vital signs & pulse ox on 5 liters nasal cannula. CXR pending.
[2024-09-28 09:00] LABS: Troponin I < 0.012 ng/ml
[2024-09-28] MEDS: DECADRON 10 MG IV (09:01)
[2024-09-28] MEDS: PEPCID 40 MG TUBE (09:02)
[2024-09-28] MEDS: FLOMAX 0.4 MG TUBE (09:02)
[2024-09-28] MEDS: PREVACID 30 MG TUBE (09:02)
[2024-09-28] MEDS: VITAMIN D3 (cholecalciferol) 50 MCG TUBE (09:02)
[2024-09-28] MEDS: ELIQUIS 5 MG TUBE (09:03)
[2024-09-28] MEDS: LOW STRENGTH ASPIRIN 81 MG TUBE (09:03)
[2024-09-28] MEDS: LEXAPRO 10 MG TUBE (09:03)
[2024-09-28] MEDS: SODIUM BICARBONATE 650 MG TUBE ×2 (09:03→15:20)
[2024-09-28] MEDS: RISPERDAL 0.5 MG TUBE ×2 (09:03→20:08)
--- NOTE | 2024-09-28 10:13 | PTCARENOTE ---
Plan of care discussed with ICU team. Pt remains stable after arrival from [facility]. Oxygen tapered down to 2 liters nasal cannula with pulse ox 100%.
[2024-09-28] MEDS: NIZORAL 2% CREAM 1 APPLIC TOPICAL (11:46)
[2024-09-28 12:33] LABS: PT 17.5 Sec (11.4-14.6)
[2024-09-28 12:49] LABS: Lactic Acid 1.1 mmol/L (0.7-2.0)
[2024-09-28] MEDS: ROCEPHIN 1000 MG IV (13:28)
[2024-09-28] MEDS: STERILE WATER FOR INJECTION 10 ML IV (13:28)
--- NOTE | 2024-09-28 13:43 | W.PN.UPDATE ---
Update Note
Progress Note Update
Reevaluated the patient at the bedside with patient's mother and daughter Maria
Updated on current clinical situation and prognosis
They wish DNR status, comfort a priority, and hospice evaluation
Spoke to hospice
We will respect their wishes-patient will be a DNR
The patient will be transferred to floor-please call pulmonary if respiratory issues arise
--- NOTE | 2024-09-28 13:46 | HOSPNOTE ---
Spoke with family and discussed comfort care. The family is in agreement with comfort and patient is now a DNR. The patient has received no medications at this time we will continue to follow. If the patient does not pass most likely placement will
be needed with hospice services but the family refuses to send her to [facility]. The family agrees no tube feeding medicate for pain, shortness of breath or any anxiety. The patient will be med/surg and will receive comfort medications only.
Attending aware, CM and floor RN. We will continue to follow.
--- NOTE | 2024-09-28 14:40 | PN.CDI ---
CDI
- -
CDI:
Physician Documentation Request
Admit Date: 09/27/24 22:42
Dear Doctor Genny,
Clinical Indicators:
Patient admitted with sepsis.
09/28 (06:45) RN note, '...pulse ox down to 60's RA patient not responding like she was initially onto unit'
09/28 PN, 'Acute encephalopathy -suspect due to respiratory failure.'
pCO2
09/28/24
08:20
pCO2 42 H
Please clarify the most type of encephalopathy:
Acute Metabolic Encephalopathy
Encephalopathy, other (please specify type)
Other
Use of terms such as suspected, likely, concern for, or probable (associated with a specific diagnosis that is being evaluated, monitored, or treated as if it exists) are acceptable and can be coded in the inpatient setting, when documented at the
time of discharge.
Thank you,
Aviva Gracia RN BSN
CDI Specialist
available via tiger text
Please use your independent medical judgment in providing your response.
--- NOTE | 2024-09-28 15:30 | PTCARENOTE ---
Dr. Royal was TT'd regarding comfort care analgesia, however he is no longer covering. Dr. Choudhary was notified of this. Awaiting orders.
--- NOTE | 2024-09-28 15:39 | PTCARENOTE ---
Family at the bedside. Requesting medication for pain for their mother. Her CPOT was 5. PRN Lorazepam administered in the meantime. Per the family the tube feeds were stopped. Peg tube is clamped. Supportive care provided to the family. Prayer
blanket provided. Safe environment maintained.
--- NOTE | 2024-09-28 15:52 | PTCARENOTE ---
Dr. Choudhary notified via TT that I have no orders for comfort measures. Dr. Herrera also aware. Comfort orders are to be provided by primary care team.
[2024-09-28] MEDS: DILAUDID 0.25 MG IV ×2 (15:59→19:28)
--- NOTE | 2024-09-28 17:09 | PTCARENOTE ---
Report called to RN for room 2129.
--- NOTE | 2024-09-28 18:12 | PTCARENOTE ---
Clarified with the pt;s daughter Maria regarding her medication list. She stated she only wants her mother to get the scheduled & PRN Lorazepam and the Hydromorphone PRN. She did not want the tube feeds restarted either. This was reported to the
receiving RN on .
[2024-09-28] MEDS: ELIQUIS TUBE (18:14)
[2024-09-28] MEDS: NIZORAL 2% CREAM TOPICAL (18:15)
[2024-09-28] MEDS: LOPRESSOR TUBE (18:15)
[2024-09-28] MEDS: SODIUM BICARBONATE TUBE (18:16)
[2024-09-28] MEDS: REMERON 15 MG TUBE (22:34)
[2024-09-29] MEDS: DILAUDID 0.25 MG IV ×3 (04:42→13:22)
[2024-09-29 06:11] LABS: % Basophils 0.6 % (0-2); % Eosinophils 0.4 % (0-6); % Lymphocytes 16.6 % (20.5-51.1); % Monocytes 6.4 % (1.7-9.3); Absolute Basophils 0.1 10^3/uL (0-0.2); Absolute Eosinophils 0.1 10^3/uL (0-0.7); Absolute Immature Granulocytes 0.1 10^3/uL (0-0.05); Absolute Lymphocytes 2.3 10^3/uL (1.2-3.4); Absolute Monocytes 0.9 10^3/uL (0.1-0.6); Absolute Neutrophils 10.3 10^3/uL (1.4-6.5); Hematocrit 32.5 % (37.0-47.0); Hemoglobin 10.1 g/dL (12.0-16.0); Mean Corp Hgb Conc. 31.1 g/dL (33.0-37.0); Mean Corpuscular Hgb 27.8 pg (27.0-31.0); Mean Corpuscular Volume 89.5 fL (81.0-99.0); Nucleated Red Blood Cells % 0 %; Platelet Count 362 10^3/uL (130-400); Red Blood Cell Count 3.63 10^6/uL (4.20-5.40); Red Cell Dist. Width 15.8 % (11.5-14.5); White Blood Cell Count 13.6 10^3/uL (4.8-10.8)
[2024-09-29 06:31] LABS: ALT (SGPT) 20 U/L (0-35); AST (SGOT) 23 U/L (14-36); Albumin 3.1 g/dl (3.5-5.0); Alkaline Phosphatase 89 U/L (38-126); Blood Urea Nitrogen 39 mg/dl (7-17); Calcium 8.9 mg/dl (8.4-10.2); Carbon Dioxide 28 mmol/L (22-30); Chloride 104 mmol/L (98-107); Estimated Creatinine Clearance 38 ml/min; Glucose 82 mg/dl (70-99); Potassium 4.3 mmol/L (3.5-5.1); Sodium 141 mmol/L (135-145); Total Bilirubin 1.1 mg/dl (0.2-1.3); Total Protein 6.3 g/dl (6.3-8.2); eGFR > 60.00
[2024-09-29 07:20] VITALS: BP 143/87
[2024-09-29] MEDS: SPIRIVA RESPIMAT 2.5 MCG 2 PUFF INH (07:37)
[2024-09-29] MEDS: STRIVERDI RESPIMAT 2 PUFF INH (07:38)
[2024-09-29] MEDS: ATIVAN 0.5 MG TUBE ×3 (08:19→19:33)
[2024-09-29] MEDS: RISPERDAL 0.5 MG TUBE ×2 (08:19→19:33)
--- NOTE | 2024-09-29 09:18 | CM ---
office received a call from [facility] holiday detector operator station attendant. Patient's Son contacted them last night and is reconsidering hospice.
If decision is made for patient to return to [facility] with [facility], [place] [facility] [facility] [place] [phone]
[2024-09-29] MEDS: ELIQUIS TUBE (09:33)
[2024-09-29] MEDS: FLOMAX TUBE (09:34)
[2024-09-29] MEDS: LEXAPRO TUBE (09:34)
[2024-09-29] MEDS: LOPRESSOR TUBE (09:35)
[2024-09-29] MEDS: LOW STRENGTH ASPIRIN TUBE (09:36)
[2024-09-29] MEDS: PEPCID TUBE (09:38)
[2024-09-29] MEDS: NIZORAL 2% CREAM TOPICAL (09:38)
[2024-09-29] MEDS: PREVACID TUBE (09:38)
[2024-09-29] MEDS: SODIUM BICARBONATE TUBE (09:39)
[2024-09-29] MEDS: VITAMIN D3 (cholecalciferol) TUBE (09:39)
--- NOTE | 2024-09-29 09:48 | PTCARENOTE ---
As per night nurse and rn and hospice notes. Pt daughter Maria she only wants her mother to get the scheduled & PRN Lorazepam and the Hydromorphone PRN. She does not want the tube feeds restarted either. Dr. Royal made aware. Pt on comfort
care.
--- NOTE | 2024-09-29 10:35 | W.PN.HOSP.TC ---
Addendum entered and electronically signed by Jayson Royal DO 09/29/24 13:07:
Documentation complete.
Original Note:
Today's Communication/Plan
-
Continue comfort measures
Discharge planning
Assessment / Plan
Assessment / Plan
Gen-NAD, comfortable, nonverbal
HEENT-NC, AT, anicteric, clear oral mm
Neck-supple
CV-reg, no M, +S1/S2
Lungs-diffuse bilateral wheezing, rhonchi
Abd-soft, NT, ND
Ext-no edema
Musculoskeletal-no cyanosis, clubbing
Skin-warm and dry
Acute hypoxic respiratory failure -etiology possibly due to aspiration versus other etiology. Chest x-ray read is clear. Respiratory failure improved. Did not require intubation. Currently on room air.
Acute encephalopathy -suspect due to respiratory failure. Baseline dementia. Suspect mental status back to baseline.
Sepsis -possibly due to UTI. Antibiotics discontinued given plans for comfort measures. Discussed with family.
History of stroke -nonverbal and bedbound.
Vascular dementia
COPD with possible exacerbation -diffuse wheezing on exam. Add steroids, continue inhalers.
Severe dysphagia -has a PEG tube in place. Keep n.p.o. given plans for hospice, comfort measures.
History of Crohn's disease
Severe protein calorie malnutrition
GERD
Full code
Dispo -she is from [facility]. Family does not want her to return there but does want hospice placement. Case management aware. Medically stable for placement.
Updated daughter Maria on the phone.
Anticipated Discharge: 24 - 48 hours
Subjective/Interval History
-
Date of Service: September 29, 2024
Patient seen and examined. Looks comfortable. Nonverbal.
Objective Data
-
Labs:
Laboratory Results
09/28/24 09/29/24
15:00 05:46
WBC Cancelled 13.6 H
Hgb Cancelled 10.1 L
Hct Cancelled 32.5 L
Plt Count Cancelled 362 D
Sodium 141
Potassium 4.3
Chloride 104
Carbon Dioxide 28
BUN 39 H
Creatinine 1.0
Glucose 82
Calcium 8.9
Total Bilirubin 1.1
AST 23
ALT 20
Alkaline Phosphatase 89
Vital Signs:
Vital Signs
Temp Pulse Resp BP Pulse Ox
98.6 F 110 20 143/87 96
09/29/24 07:20 09/29/24 07:42 09/29/24 07:42 09/29/24 07:20 09/29/24 10:28
I&O
09/28/24 09/29/24 09/30/24
06:59 06:59 06:59
Intake Total 750 / 750
Balance 750 / 750
Review of Systems
-
Unable to obtain full review of systems at this time due to: Dementia and Patient Non-verbal
[2024-09-29] MEDS: STERILE WATER FOR INJECTION IV (10:56)
--- NOTE | 2024-09-29 11:59 | CM ---
Addendum entered by MARTHA Torrez 09/29/24 12:13:
Sent snf referrals in allscripts to 5 snfs in [facility]. also sent referral to the [facility] affliate office in [place], [place].
asked them to call to offer services.
Original Note:
Spoke to son and dgtr. Both would like snf hospice near [place], [place] which is near patient's mother and fiancee. THe son said in [place] or [facility] [place].
Both also would like to stay with [facility]. [facility] [place] [facility] [place] covers the area family want SNF in.
[2024-09-29] MEDS: MORPHINE SULFATE 2 MG IV ×2 (14:23→15:31)
[2024-09-29] MEDS: ROBINUL 0.2 MG IV (17:40)
[2024-09-29 19:28] VITALS: BP 124/93
[2024-09-29] MEDS: REMERON 15 MG TUBE (21:22)
[2024-09-30] MEDS: MORPHINE SULFATE 2 MG IV ×4 (04:52→10:00)
[2024-09-30 07:52] VITALS: BP 125/78
[2024-09-30] MEDS: ATIVAN 0.5 MG TUBE (08:32)
[2024-09-30] MEDS: RISPERDAL 0.5 MG TUBE (08:32)
[2024-09-30] MEDS: MORPHINE 100 IV (10:24)
--- NOTE | 2024-09-30 11:54 | W.PN.DEATH ---
Pronouncement of
-
Called to see patient to pronounce.
No spontaneous heart tones or respirations noted.
Patient not responsive to verbal stimuli.
Patient is pronounced .
Time of : 11:20
Date of : 09/30/24
Cause of : Vascular dementia
Family Notified: Yes
== END 2024-09-30 13:30 | disposition expired | DRG 871 ==
LOC: 2 NORTH 22:42
PROVIDERS: Clinical Nurse Specialist Family Health; Emergency Medicine; Physician Assistant; ADMITTING PHYSICIAN Internal Medicine; ATTENDING PHYSICIAN Hospitalist; CONSULT PHYSICIAN Internal Medicine Critical Care Medicine; EMERGENCY PHYSICIAN Emergency Medicine; FAMILY PHYSICIAN Internal Medicine
DX: A41.9 Sepsis, unspecified organism (principal); E43 Unspecified severe protein-calorie malnutrition; J96.01 Acute respiratory failure with hypoxia; R53.2 Functional quadriplegia; F01.511 Vascular dementia, unspecified severity, with agitation; G93.40 Encephalopathy, unspecified; N39.0 Urinary tract infection, site not specified; K50.90 Crohn's disease, unspecified, without complications; Z68.1 Body mass index [BMI] 19.9 or less, adult; F01.54 Vascular dementia, unspecified severity, with anxiety; F01.53 Vascular dementia, unspecified severity, with mood disturbance; Z86.73 Personal history of transient ischemic attack (TIA), and cerebral infarction without residual deficits; Z93.1 Gastrostomy status; Z51.5 Encounter for palliative care; J44.9 Chronic obstructive pulmonary disease, unspecified; R62.7 Adult failure to thrive; Z74.01 Bed confinement status; Z79.82 Long term (current) use of aspirin; F32.A Depression, unspecified; F41.9 Anxiety disorder, unspecified; Z87.440 Personal history of urinary (tract) infections; K59.00 Constipation, unspecified; Z79.899 Other long term (current) drug therapy; K21.9 Gastro-esophageal reflux disease without esophagitis; Z66 Do not resuscitate; Z11.52 Encounter for screening for COVID-19; E55.9 Vitamin D deficiency, unspecified; Z79.01 Long term (current) use of anticoagulants
CPT/HCPCS: 36600; 51701; 51798; 71045; 80048; 80053; 81003; 81015; 82805; 82962; 83605; 83735; 84100; 84484; 85025; 85610; 85730; 87040; 87086; 87502; 87811; 93005; 94640; 96374; 96375; 99285